=== PATIENT | female | born 1945 | race Caucasian/White ===

== ENCOUNTER → 2018-01-03 07:58 | Outpatient (CLI) | payer MEDICARE, OTHER, SELFPAY ==
[2018-01-03 08:14] LABS: Hematocrit 44.4 % (37-47); Hemoglobin 14.1 g/dl (12.0-15.0); Mean Corp Hgb Conc 31.8 g/gl (32-36); Mean Corpuscular Hgb 31.1 pg (27.0-32.0); Mean Corpuscular Volume 97.8 fL (81-99); Platelet Count 299 K/mm3 (150-450); RBC Distribution Width CV 13.7 % (11.6-14.6); RBC Distribution Width SD 48.9 fl (35.1-43.9); Red Blood Count 4.54 M/mm3 (4.2-5.4); White Blood Count 11.3 K/mm3 (4.4-11.0)
[2018-01-03 08:18] LABS: Scan Indicated on CBC? Y/N NO
[2018-01-03 08:27] LABS: Anion Gap 10 (5-15); BUN 16 mg/dL (7-18); BUN/Creat Ratio 16.3 RATIO (10-20); Calcium,Total 9.3 mg/dL (8.5-10.1); Chloride 102 mmol/L (98-107); Creatinine, Serum 0.98 mg/dL (0.55-1.02); EST Glomerular Filtration Rate 59 mL/min (>60); Est Glom Filt Rate - Afr Amer 71 mL/min (>60); Glucose 158 mg/dL (74-106); Potassium 4.1 mmol/L (3.5-5.1); Sodium Level 139 mmol/L (136-145)
--- NOTE | 2018-01-03 19:37 | PCM.TILTTABL ---
- Staff Staff: Wilma Devine, - - Lorena Zafar - Summary Pre Test Resting HR: 82 - Alert & Oriented: Warm & Dry Pre Test Resting BP: 158/69 - Alert & Oriented: Warm & Dry Minimum Test HR: 81 - Alert & Oriented: Warm & Dry Maximum Test HR: 99 - Alert & Oriented: Diaphoretic Minimum Test BP: 0/0 - Alert & Oriented: Diaphoretic Maximum Test BP: 154/67 - Alert & Oriented: Diaphoretic Reason for Test Termination: Reached Maximum Test Time Physician Tilt Table Report - Patient's Physicians Primary Care Physician: Yared Gan Chi Tactical Debriefer Officer: Kraig Long Indications/Diagnosis: Syncope Procedure Comments: The patient was brought to the tilt table laboratory and laid supine on the tilt table. The patient was alert and oriented and warm and dry. The baseline HR was 82 bpm and the baseline BP was 158/69 mmHg. The cardiac rhythm was sinus rhythm. The patient was placed in the 70 degree upright tilt table position for approximately 20 minutes. The patient remained alert and oriented and warm and dry. The minimum HR was 88 bpm with a minimum BP of 117/58 mmHg and the maximum HR was 95 bpm with a maximum BP of 145/67 mmHg. The cardiac rhythm remained sinus rhythm. The patient noted getting warm. The patient did not loose consciousness. The patient was returned to the supine position and administered NTG SL 0.4mg x 1. The patient returned to the 70 degree upright tilt table position for approximately 10 minutes. The patient was reported as remaining alert and oriented but diaphoretic. The minimum HR was 81 bpm and a minimum BP of unobtainable with a maximum HR of 99 bpm and a maximum BP of 154/67 mmHg. The cardiac rhythm remained sinus rhythm. The patient noted feeling warm, nauseated, but did not loose consciousness. The patient was returned to the supine position. The concluding HR was 81 bpm with a concluding BP of 114/58 mmHg. The cardiac rhythm remained sinus rhythm. The patient was without symptoms. The patient was released from the tilt table laboratory. Summary: 70 Degree upright tilt table study pre and post NTG SL challenge noted for symptomatology c/w a vasovagal event, however, negative for reproducible vasovagal / neurocardiogenic mediated syncope.
[2018-01-03 19:55] VITALS: BP 0/0; BP 154/67; BP 158/69
== END ==
PROVIDERS: Family Provider Family Medicine Geriatric Medicine; PCP Family Medicine Geriatric Medicine; Visit Provider Internal Medicine Cardiovascular Disease
DX: R55 Syncope and collapse (principal); I10 Essential (primary) hypertension; E78.5 Hyperlipidemia, unspecified; I49.1 Atrial premature depolarization
CPT/HCPCS: 36415; 80048; 85027; 93660; J7030; A4216

== ENCOUNTER → 2018-01-19 16:10 | Outpatient (CLI) | payer MEDICARE, OTHER, SELFPAY ==
[2018-01-19 17:05] LABS: Absolute Lymphocyte Count 3.68 X10^3/ul (0.83-4.51); Absolute Neutrophil Count 6.1 X10^3/uL (2.0-7.7); Basophil# 0.02 X10^3/uL; Basophil% 0.2 % (0-1); Eosinophil# 0.59 X10^3/uL; Eosinophils% 5.2 % (0-5); Hematocrit 42.9 % (37-47); Hemoglobin 13.6 g/dl (12.0-15.0); Lymphocyte # 3.68 X10^3/ul (4.0); Lymphocyte % 32.5 % (19-41); Mean Corp Hgb Conc 31.7 g/gl (32-36); Mean Corpuscular Hgb 30.7 pg (27.0-32.0); Mean Corpuscular Volume 96.8 fL (81-99); Mean Platelet Vol. 12.3 fl (6.2-12.0); Monocyte# 0.85 X10^3/uL; Monocyte% 7.5 % (0-10); Neutrophil # 6.13 X10^3/uL (2.7-7.7); Neutrophil % 54.2 % (47-70); Platelet Count 255 K/mm3 (150-450); RBC Distribution Width CV 13.6 % (11.6-14.6); Red Blood Count 4.43 M/mm3 (4.2-5.4); White Blood Count 11.3 K/mm3 (4.4-11.0)
[2018-01-19 17:10] LABS: POSITIVE COUNT NO; POSITIVE DIFFERENTIAL NO; POSITIVE MORPHOLOGY NO
[2018-01-19 18:06] LABS: ALB/GLOB Ratio 0.7 RATIO (0.9-2.4); AST(SGOT) 24 U/L (15-37); Alanine Aminotransfer ALT/SGPT 29 U/L (13-56); Albumin, Serum 3.1 g/dL (3.2-5.0); Alkaline Phosphatase 76 U/L (45-117); Anion Gap 8 (5-15); BUN 13 mg/dL (7-18); BUN/Creat Ratio 12.5 RATIO (10-20); Calcium,Total 8.9 mg/dL (8.5-10.1); Chloride 102 mmol/L (98-107); Creatinine, Serum 1.04 mg/dL (0.55-1.02); EST Glomerular Filtration Rate 55 mL/min (>60); Est Glom Filt Rate - Afr Amer 67 mL/min (>60); Globulin 4.4 g/dL (2.2-4.2); Glucose 185 mg/dL (74-106); Potassium 4.5 mmol/L (3.5-5.1); Protein, Total 7.5 g/dL (6.4-8.2); Sodium Level 136 mmol/L (136-145); Thyroid Stim Hormone (TSH) 0.75 uIU/mL (0.358-3.74); Uric Acid 6.2 mg/dL (2.6-6.0)
[2018-01-20 10:33] LABS: Vitamin D,25 Hydroxy 20.3 ng/mL (19.95-100.01)
== END ==
PROVIDERS: Family Provider Family Medicine Geriatric Medicine; PCP Family Medicine Geriatric Medicine; Visit Provider Family Medicine Geriatric Medicine
DX: E11.9 Type 2 diabetes mellitus without complications (principal); E55.9 Vitamin D deficiency, unspecified; I10 Essential (primary) hypertension; M10.9 Gout, unspecified
CPT/HCPCS: 36415; 80053; 82306; 84443; 84550; 85025

== ENCOUNTER → 2018-02-07 06:30 | Outpatient (CLI) | payer MEDICARE, OTHER, SELFPAY ==
--- NOTE | 2018-02-07 12:59 | STRESSREP_ITS ---
Stress Test Report Pharmacologic myocardial perfusion stress test. 72-year-old lady with a history of syncope. Stress protocol. Resting EKG demonstrates normal sinus rhythm with rate of 74 bpm normal intervals noted resting blood pressure is 122/78 mmHg. 0.4 mg of record adenosine was infused per usual protocol followed by rapid intravenous saline flush injection continuous EKG monitoring was performed. At rest were no ST or T-wave changes noted suggest abnormal flow reserve at peak infusion no ST or T- wave changes were noted suggest abnormal flow reserve. The maximum heart rate attained was 92 bpm which was 62% of maximum predicted heart rate. Maximum workload attained was 1 metabolic equivalent. Myocardial perfusion protocol. 14.6 mCi of technetium 99m sestamibi was injected at rest. 0.4 mg of regadenoson was infused per usual protocol peak infusion 44.3 mCi of technetium 99m sestamibi was injected. Stress images were obtained stress and rest images were reconstructed and compared in the short axis vertical long and horizontal long axis. Gated images were also obtained. Perfusion SPECT analysis: Review of the stress images demonstrate normal uptake of tracer noted in all areas of the myocardium. There is mild reduction in the anterior wall suggestive of anterior breast attenuation artifact. This is present on the stress and resting images to a similar extent. No obvious reversibility is noted suggest ischemia. No previous infarct is noted. Gated SPECT analysis: The gated ejection fraction is 67%. Conclusion: Normal pharmacologic myocardial perfusion stress test. Preserved ejection fraction.
== END ==
PROVIDERS: Family Provider Family Medicine Geriatric Medicine; PCP Family Medicine Geriatric Medicine; Visit Provider Nurse Practitioner Family
DX: R55 Syncope and collapse (principal); I10 Essential (primary) hypertension; I49.1 Atrial premature depolarization; I47.2 Ventricular tachycardia
CPT/HCPCS: 78452; 93017; A9500; A4216; J2785

== ENCOUNTER → 2018-04-04 10:33 | Outpatient (CLI) | payer MEDICARE, OTHER, SELFPAY ==
--- NOTE | 2018-04-04 10:34 | ECHOD_ITS ---
Reason For Study: PAROXYSMAL SUPRAVENTRICULAR TACHYCARDIA Procedure This was a 2D Doppler, Color Flow transthoracic echocardiogram. The exam was of poor technical quality due to body habitus. The study was technically difficult. Exam performed in department. Left Ventricle Normal LV size. Left ventricular systolic function is normal. The estimated ejection fraction is 65 %. Unable to assess diastolic dysfunction due to arrhythmia. No regional wall motion abnormalities noted. Right Ventricle Normal RV size. Normal systolic function. Atria Normal left atrium. Normal right atrium. No doppler evidence for ASD. Mitral Valve There is no mitral annular calcification. Normal mitral valve. Trivial mitral valve insufficiency. Tricuspid Valve Normal tricuspid valve. Trivial tricuspid valve insufficiency. Unable to estimate RV systolic pressure/pulmonary artery pressure due to technically difficult study. Aortic Valve The aortic valve is not well visualized. Pulmonic Valve The pulmonic valve is not well visualized. Great Vessels Normal sized aortic root. Pericardium/Pleural No pericardial effusion. Epicardial fat. MMode/2D Measurements & Calculations LVIDd: 3.9 cm IVSd: 1.4 cm Ao root diam: 3.0 cm LVIDs: 2.9 cm LVPWd: 1.1 cm RVDd: 2.9 cm FS: 27.5 % LAV(MOD-bp): 22.5 ml EDV(MOD-sp4): 50.8 ml EDV(MOD-sp2): 36.3 ml LAV(MOD-bp) Indexed: 11.4 ml/m2 ESV(MOD-sp4): 13.5 ml EF(MOD-sp2): 69.6 % LAV(MOD-sp2): 30.3 ml EF(MOD-sp4): 73.5 % LAV(MOD-sp4): 16.1 ml SV(MOD-sp4): 37.4 ml SV(MOD-sp2): 25.3 ml LA A4 area: 9.7 cm2 Time Measurements MV dec time: 0.35 sec Doppler Measurements & Calculations MV E max nelson: 55.4 cm/sec Lat Peak E' Nelson: 11.1 cm/sec Med Peak E' Nelson: 5.4 cm/sec MV A max nelson: 87.9 cm/sec E/E' lat: 5.0 E/E' med: 10.2 MV E/A: 0.63 Ao V2 max: 163.5 cm/sec LV V1 max: 79.1 cm/sec PA V2 max: 108.3 cm/sec Ao max P.7 mmHg LV V1 max P.5 mmHg Interpretation Summary The study was technically difficult. Left ventricular systolic function is normal. The estimated ejection fraction is 65 %. Trivial mitral valve insufficiency. Trivial tricuspid valve insufficiency. Unable to estimate RV systolic pressure/pulmonary artery pressure due to technically difficult study. Unable to assess diastolic dysfunction due to arrhythmia. Ordering Physician: Kraig Long Referring Physician: CHAPITO HERNANDEZ CHI Performed By: Dominga Corrales RDCS
== END ==
PROVIDERS: Family Provider Family Medicine Geriatric Medicine; PCP Family Medicine Geriatric Medicine; Visit Provider Internal Medicine Cardiovascular Disease
DX: I49.3 Ventricular premature depolarization (principal); I47.1 Supraventricular tachycardia
CPT/HCPCS: 93306

== ENCOUNTER → 2018-07-10 16:05 | Outpatient (CLI) | payer MEDICARE, OTHER, SELFPAY ==
[2018-07-10 17:41] LABS: Absolute Lymphocyte Count 2.93 X10^3/ul (0.83-4.51); Absolute Neutrophil Count 6.2 X10^3/uL (2.0-7.7); Basophil# 0.01 X10^3/uL; Basophil% 0.1 % (0-1); Eosinophil# 0.28 X10^3/uL; Eosinophils% 2.8 % (0-5); Hematocrit 42.1 % (37-47); Hemoglobin 13.4 g/dl (12.0-15.0); Lymphocyte # 2.93 X10^3/ul (4.0); Lymphocyte % 29.1 % (19-41); Mean Corp Hgb Conc 31.8 g/gl (32-36); Mean Corpuscular Hgb 30.6 pg (27.0-32.0); Mean Corpuscular Volume 96.1 fL (81-99); Mean Platelet Vol. 11.8 fl (6.2-12.0); Neutrophil # 6.23 X10^3/uL (2.7-7.7); Neutrophil % 61.7 % (47-70); Platelet Count 315 K/mm3 (150-450); RBC Distribution Width CV 14.2 % (11.6-14.6); RBC Distribution Width SD 48.2 fl (35.1-43.9); Red Blood Count 4.38 M/mm3 (4.2-5.4); White Blood Count 10.1 K/mm3 (4.4-11.0)
[2018-07-10 17:46] LABS: POSITIVE COUNT NO; POSITIVE DIFFERENTIAL NO; POSITIVE MORPHOLOGY NO
[2018-07-10 17:49] LABS: Vitamin D,25 Hydroxy 31.6 ng/mL (29.95-100.01)
[2018-07-10 17:57] LABS: ALB/GLOB Ratio 0.8 RATIO (0.9-2.4); AST(SGOT) 24 U/L (15-37); Alanine Aminotransfer ALT/SGPT 25 U/L (13-56); Albumin, Serum 3.5 g/dL (3.2-5.0); Alkaline Phosphatase 69 U/L (45-117); Anion Gap 8 (5-15); BUN 13 mg/dL (7-18); BUN/Creat Ratio 15.2 RATIO (10-20); Calcium,Total 9.2 mg/dL (8.5-10.1); Chloride 105 mmol/L (98-107); Creatinine, Serum 0.86 mg/dL (0.55-1.02); EST Glomerular Filtration Rate 69 mL/min (>60); Est Glom Filt Rate - Afr Amer 84 mL/min (>60); Globulin 4.2 g/dL (2.2-4.2); Glucose 141 mg/dL (74-106); Protein, Total 7.7 g/dL (6.4-8.2); Sodium Level 140 mmol/L (136-145); Thyroid Stim Hormone (TSH) 0.84 uIU/mL (0.358-3.74)
== END ==
PROVIDERS: Family Provider Family Medicine Geriatric Medicine; PCP Family Medicine Geriatric Medicine; Visit Provider Family Medicine Geriatric Medicine
DX: E11.9 Type 2 diabetes mellitus without complications (principal); I10 Essential (primary) hypertension; E55.9 Vitamin D deficiency, unspecified; M10.9 Gout, unspecified
CPT/HCPCS: 36415; 80053; 82306; 84443; 84550; 85025

== ENCOUNTER → 2018-08-01 14:57 | Outpatient (CLI) | payer MEDICARE, OTHER, SELFPAY | PROVIDERS: Family Provider Family Medicine Geriatric Medicine; PCP Family Medicine Geriatric Medicine; Visit Provider Family Medicine Geriatric Medicine | DX: M54.5 Low back pain (principal); M25.551 Pain in right hip; M25.552 Pain in left hip | CPT/HCPCS: 72100; 73521 ==

== ENCOUNTER → 2018-10-09 14:35 | Outpatient (CLI) | payer MEDICARE, OTHER, SELFPAY ==
[2018-10-09 17:11] LABS: Vitamin D,25 Hydroxy 22.7 ng/mL (29.95-100.01)
[2018-10-09 17:13] LABS: BUN 18 mg/dL (7-18); Creatinine, Serum 0.93 mg/dL (0.55-1.02); Glucose 166 mg/dL (74-106)
[2018-10-09 17:14] LABS: ALB/GLOB Ratio 0.8 RATIO (0.9-2.4); AST(SGOT) 17 U/L (15-37); Alanine Aminotransfer ALT/SGPT 31 U/L (13-56); Albumin, Serum 3.4 g/dL (3.2-5.0); Alkaline Phosphatase 78 U/L (45-117); Anion Gap 8 (5-15); BUN/Creat Ratio 19.4 RATIO (10-20); Calcium,Total 8.9 mg/dL (8.5-10.1); Chloride 100 mmol/L (98-107); EST Glomerular Filtration Rate 63 mL/min (>60); Est Glom Filt Rate - Afr Amer 76 mL/min (>60); Potassium 3.9 mmol/L (3.5-5.1); Protein, Total 7.4 g/dL (6.4-8.2); Sodium Level 137 mmol/L (136-145); Thyroid Stim Hormone (TSH) 1.07 uIU/mL (0.358-3.74); Uric Acid 6.4 mg/dL (2.6-6.0)
[2018-10-09 17:15] LABS: Absolute Lymphocyte Count 3.74 X10^3/ul (0.83-4.51); Absolute Neutrophil Count 7.6 X10^3/uL (2.0-7.7); Basophil# 0.01 X10^3/uL; Basophil% 0.1 % (0-1); Eosinophil# 0.29 X10^3/uL; Eosinophils% 2.3 % (0-5); Hematocrit 43.5 % (37-47); Hemoglobin 14.1 g/dl (12.0-15.0); Lymphocyte # 3.74 X10^3/ul (4.0); Mean Corp Hgb Conc 32.4 g/gl (32-36); Mean Corpuscular Hgb 31.7 pg (27.0-32.0); Mean Corpuscular Volume 97.8 fL (81-99); Monocyte# 0.82 X10^3/uL; Monocyte% 6.6 % (0-10); Neutrophil # 7.57 X10^3/uL (2.7-7.7); Neutrophil % 60.7 % (47-70); Platelet Count 294 K/mm3 (150-450); RBC Distribution Width CV 13.5 % (11.6-14.6); RBC Distribution Width SD 47.2 fl (35.1-43.9); Red Blood Count 4.45 M/mm3 (4.2-5.4); White Blood Count 12.5 K/mm3 (4.4-11.0)
[2018-10-09 17:30] LABS: POSITIVE COUNT NO; POSITIVE DIFFERENTIAL NO; POSITIVE MORPHOLOGY NO
== END ==
PROVIDERS: Family Provider Family Medicine Geriatric Medicine; PCP Family Medicine Geriatric Medicine; Visit Provider Family Medicine Geriatric Medicine
DX: E11.9 Type 2 diabetes mellitus without complications (principal); E55.9 Vitamin D deficiency, unspecified; M10.9 Gout, unspecified; I10 Essential (primary) hypertension
CPT/HCPCS: 36415; 80053; 82306; 84443; 84550; 85025

== ENCOUNTER → 2018-12-01 11:52 | Outpatient (CLI) | payer MEDICARE, OTHER, SELFPAY ==
[2018-08-14 13:11] VITALS: BMI 41.5
== END ==
PROVIDERS: Family Provider Family Medicine Geriatric Medicine; PCP Family Medicine Geriatric Medicine; Visit Provider Family Medicine Geriatric Medicine
DX: N39.0 Urinary tract infection, site not specified (principal)
CPT/HCPCS: 87077; 87086; 87088; 87186

== ENCOUNTER → 2019-02-01 11:41 | Outpatient (CLI) | payer MEDICARE, OTHER, SELFPAY ==
--- NOTE | 2019-02-01 11:45 | BI_ITS ---
MAMMOGRAPHY - BILATERAL SCREENING REASON FOR EXAM: Female, 73 years old. Routine annual screening examination. PERTINENT HISTORY: Aunt with breast cancer. TECHNIQUE: Digital bilateral breast nikunj (3D mammographic acquisition) in the CC and MLO projections. 2-D mediolateral oblique (MLO) and craniocaudad (CC) views of both breasts were obtained. CAD: Full Field Digital Mammography with Computer Added Detection was performed. COMPARISON: Comparison is made with prior study dated September 12, 2013 and September 09, 2011. FINDINGS: Breast Composition: There are scattered areas of fibroglandular density. There are no dominant masses or suspicious calcifications. No other significant abnormalities are identified. There has been no significant change since the prior study. BI/SCREENING MAMM (CAD), BILAT IMPRESSION: Stable bilateral screening mammogram. Yearly follow-up mammogram recommended. (A) ASSESSMENT CATEGORY: BIRADS Category 1: Negative. A letter regarding these results will be sent to the patient by the facility within 30 days. Approximately 10% of breast cancers are not detected by mammography. A normal mammogram should not delay biopsy of a clinically suspicious abnormality. [id number] Electronically Signed: Jaron Javier, at 13:58 EST , Service support ,
--- NOTE | 2019-02-01 12:06 | BD_ITS ---
STUDY: DUAL ENERGY X-RAY ABSORPTIOMETRY / DXA REASON FOR EXAM: Female, 73 years old. The patient is postmenopausal. Loss of height. TECHNIQUE: Bone Mineral Density (BMD) measurements of lumbar spine and bilateral hips were obtained. COMPARISON: Comparison is made with prior study dated December 21, 2016. FINDINGS: Lumbar Spine (L1-L4): g/cm2 (1.529) / T-score (3.0) / Z-score (4.7) Findings are suggestive of normal bone density with a low fracture risk. Left Femur Total: g/cm2 (1.130) / T-score (1.0) / Z-score (2.7) Left Femoral Neck: g/cm2 (0.991) / T-score (-0.3) / Z-score (1.6) Right Femur Total: g/cm2 (1.149) / T-score (1.1) / Z-score (2.8) Right Femoral Neck: g/cm2 (1.095) / T-score (0.4) / Z-score (2.3) The T-Scores on the most recent prior examination were: Lumbar Spine (L1-L4): There has been worsening of bone density since the previous examination. Left Femur Total: which represents a worsening of 6.5%. Right Femur Total: which represents a worsening of 4.2%. BD/Dexa Bone Density Study IMPRESSION: The patient is considered normal as outlined below according to World George Organization (WHO) criteria with a low fracture risk. There has been worsening of bone density since the previous examination. Reference Information: The T-score is the number of standard deviations above or below the standard which is normal for young adults at their peak bone mineral density. The World Health Organization (WHO) interprets the T-scores as follows: Above -1 Normal bone density Between -1 and -2.5 Osteopenia Equal to / or below -2.5 Osteoporosis As a practical clinical guideline, osteopenia may be graded as follows: Mild -1 through -1.5 Moderate -1.6 through -2.0 Severe -2.1 through -2.4 The Z-score is the number of standard deviations above or below age-matched controls. A Z-score of less than -1.5 would be considered abnormal. References: 1. NIH Osteoporosis and Related Bone Diseases http://www.osteo.org 2. International Society for Clinical Densitometry http://www.iscd.org 3. National Osteoporosis Foundation http://www.nof.org Electronically Signed: Jaron Javier, at 11:42 EST , Service support ,
== END ==
PROVIDERS: Family Provider Family Medicine Geriatric Medicine; PCP Family Medicine Geriatric Medicine; Visit Provider Family Medicine Geriatric Medicine
DX: Z12.31 Encounter for screening mammogram for malignant neoplasm of breast (principal); Z78.0 Asymptomatic menopausal state
CPT/HCPCS: 77063; 77067; 77080

== ENCOUNTER → 2019-04-17 13:19 | Outpatient (CLI) | payer MEDICARE, OTHER, SELFPAY ==
[2018-08-14 13:11] VITALS: BMI 41.5
[2019-04-17 14:07] LABS: Absolute Lymphocyte Count 4.04 X10^3/ul (0.83-4.51); Absolute Neutrophil Count 5.6 X10^3/uL (2.0-7.7); Basophil# 0.02 X10^3/uL; Basophil% 0.2 % (0-1); Eosinophils% 3.6 % (0-5); Hematocrit 44.9 % (37-47); Hemoglobin 14.5 g/dl (12.0-15.0); Lymphocyte # 4.04 X10^3/ul (4.0); Lymphocyte % 36.4 % (19-41); Mean Corp Hgb Conc 32.3 g/gl (32-36); Mean Corpuscular Hgb 30.4 pg (27.0-32.0); Mean Corpuscular Volume 94.1 fL (81-99); Mean Platelet Vol. 11.9 fl (6.2-12.0); Monocyte# 1.03 X10^3/uL; Monocyte% 9.3 % (0-10); Neutrophil # 5.57 X10^3/uL (2.7-7.7); Neutrophil % 50.2 % (47-70); Platelet Count 342 K/mm3 (150-450); RBC Distribution Width CV 14.1 % (11.6-14.6); RBC Distribution Width SD 48.6 fl (35.1-43.9); Red Blood Count 4.77 M/mm3 (4.2-5.4); White Blood Count 11.1 K/mm3 (4.4-11.0)
[2019-04-17 14:08] LABS: POSITIVE COUNT NO; POSITIVE DIFFERENTIAL NO; POSITIVE MORPHOLOGY NO
[2019-04-17 14:32] LABS: Vitamin D,25 Hydroxy 27.6 ng/mL (29.95-100.01)
[2019-04-17 14:35] LABS: ALB/GLOB Ratio 0.8 RATIO (0.9-2.4); AST(SGOT) 22 U/L (15-37); Alanine Aminotransfer ALT/SGPT 32 U/L (13-56); Albumin, Serum 3.4 g/dL (3.2-5.0); Alkaline Phosphatase 72 U/L (45-117); Anion Gap 8 (5-15); BUN 15 mg/dL (7-18); BUN/Creat Ratio 14.4 RATIO (10-20); Calcium,Total 9.1 mg/dL (8.5-10.1); Chloride 99 mmol/L (98-107); Creatinine, Serum 1.04 mg/dL (0.55-1.02); EST Glomerular Filtration Rate 55 mL/min (>60); Est Glom Filt Rate - Afr Amer 66 mL/min (>60); Globulin 4.1 g/dL (2.2-4.2); Glucose 246 mg/dL (74-106); Potassium 3.7 mmol/L (3.5-5.1); Protein, Total 7.5 g/dL (6.4-8.2); Sodium Level 136 mmol/L (136-145); Thyroid Stim Hormone (TSH) 0.94 uIU/mL (0.358-3.74); Uric Acid 7.2 mg/dL (2.6-6.0)
== END ==
PROVIDERS: Family Provider Family Medicine Geriatric Medicine; PCP Family Medicine Geriatric Medicine; Visit Provider Family Medicine Geriatric Medicine
DX: E11.9 Type 2 diabetes mellitus without complications (principal); E55.9 Vitamin D deficiency, unspecified; M10.9 Gout, unspecified; I10 Essential (primary) hypertension
CPT/HCPCS: 36415; 80053; 82306; 84443; 84550; 85025

== ENCOUNTER → 2019-04-25 | Outpatient (CLI) | payer MEDICARE, OTHER, SELFPAY ==
--- NOTE | 2019-04-25 12:57 | VDLE_ITS ---
Reason For Study: Edema RIGHT LEFT GSV is normal. GSV is normal. CFV is compressible, spontaneous, phasic, CFV is compressible, spontaneous, phasic, competent and demonstrates normal competent, and demonstrates normal augmentation. augmentation. FV is compressible, spontaneous, phasic, FV is compressible, spontaneous, phasic, competent and demonstrates normal competent and demonstrates normal augmentation. augmentation. POP V is compressible, spontaneous, phasic, POP V is compressible, spontaneous, phasic, competent and demonstrates normal competent and demonstrates normal augmentation. augmentation. T/P Trunk is compressible. T/P Trunk is compressible. PTV is compressible. PTV is compressible. RT PerV is compressible. LT PerV is compressible. Procedure Exam performed in department. A preliminary report was called and/or faxed to Dr. Gan. Interpretation Summary Deep veins of the lower extremities are bilaterally patent and compressible segmentally. There is no evidence of deep vein thrombosis on either side. Valvular competence appears intact within the proximal deep venous systems bilaterally. The greater saphenous veins appear bilaterally patent and compressible segmentally. Ordering Physician: Yared Gan Chi Referring Physician: Yared Gan Chi Performed By: Ofelia Jones, KAZ, RVT
--- NOTE | 2019-04-25 13:40 | CT_ITS ---
STUDY: CTA CHEST REASON FOR EXAM: Female, 74 years old. Shortness of breath. Elevated d-dimer. RADIATION DOSAGE (If Supplied By Facility): CTDIvol = ( 19.74 ) mGy, DLP = ( 685.03 ) mGycm TECHNIQUE: The examination was performed with the intravenous administration of 100CC IV Isovue 370. Post-processing of the angiographic images was performed, with multiplanar reformation and 3D reconstruction. Individualized dose optimization techniques were used for this CT. COMPARISON: None. FINDINGS: Normal enhancement of the main pulmonary artery and right and left pulmonary arteries. Normal enhancement of the bilateral peripheral pulmonary arteries. There is no demonstrated pulmonary embolism. Normal thoracic aorta and visualized great vessels. There is no demonstrated aortic dissection. Normal heart and pericardium. Normal mediastinum. Normal hilar regions. Normal visualized trachea and bronchi. The lungs are well expanded. Mild degree of increased markings at the lung bases suggestive of a atelectasis and/or scarring. Normal pleura. Normal chest wall structures. There are degenerative changes of thoracic spine. Fatty infiltration of the liver. CT/CTA Chest W/WO Contrast IMPRESSION: Normal CTA chest examination, without a demonstrated pulmonary embolism or arterial dissection. Electronically Signed: Jaron Javier, at 15:25 EDT , Service support ,
== END | disposition home or self-care (01) ==
LOC: CT 12:35
PROVIDERS: Family Provider Family Medicine Geriatric Medicine; PCP Family Medicine Geriatric Medicine; Referring Provider Family Medicine Geriatric Medicine; Visit Provider Family Medicine Geriatric Medicine
DX: R60.0 Localized edema (principal); R79.1 Abnormal coagulation profile; R06.02 Shortness of breath
CPT/HCPCS: 36415; 71275; 83880; 85379; 93970; Q9967

== ENCOUNTER → 2019-04-25 | Outpatient (CLI) | payer MEDICARE, OTHER, SELFPAY ==
[2018-08-14 13:11] VITALS: BMI 41.5
[2019-04-25 10:54] LABS: D-Dimer Quantitative (DVT/PE) 1.89 FEU/ug/m (0.27-0.49)
[2019-04-25 11:04] LABS: BNP,B-Type NATRIURETIC PEPTIDE 31.9 pg/mL (0-100)
== END | disposition home or self-care (01) ==
LOC: POLAB3 10:04
PROVIDERS: Family Provider Family Medicine Geriatric Medicine; PCP Family Medicine Geriatric Medicine; Visit Provider Family Medicine Geriatric Medicine
DX: R06.02 Shortness of breath (principal)
CPT/HCPCS: 36415; 83880; 85379

== ENCOUNTER → 2019-05-01 | Outpatient (CLI) | payer MEDICARE, OTHER, SELFPAY ==
[2018-08-14 13:11] VITALS: BMI 41.5
--- NOTE | 2019-05-01 09:21 | US_ITS ---
STUDY: ABDOMINAL ULTRASOUND - RIGHT UPPER QUADRANT REASON FOR VISIT: Female, 74 years old. Abdominal pain, fatty liver TECHNIQUE: Ultrasound evaluation of the right upper quadrant was performed with real-time and static alexander-scale imaging. TECHNICAL QUALITY: Limited. Examination limited due to obesity. COMPARISON: None. FINDINGS: Liver: The liver measures 15.4 cm. There is increased echogenicity consistent with fatty infiltration. The bile ducts are within normal limits. There is hepatic color flow. The direction of portal flow is hepatopetal. There is no demonstrated mass lesion. Gallbladder: The patient is status post cholecystectomy. Common Bile Duct (C.B.D.): The common bile duct measures 7.5 mm. Pancreas: Normal size of the head, body and tail of the pancreas. There is increased echogenicity of the pancreas. There is no demonstrated pancreatic mass or cyst. Right Kidney: Normal size of the right kidney. The right kidney measures 10 cm. Normal renal cortex. The right cortex measures 1.0 cm. There is no demonstrated renal mass or cyst. There is no right hydronephrosis. US/Abdomen Limited IMPRESSION: Status post cholecystectomy. Mild fatty liver. Nonspecific increased echogenicity of the pancreas. Electronically Signed: Chadwick Steele DO at 9:29 EDT Tel , Service support ,
== END | disposition home or self-care (01) ==
LOC: US 09:18
PROVIDERS: Family Provider Family Medicine Geriatric Medicine; PCP Family Medicine Geriatric Medicine; Referring Provider Family Medicine Geriatric Medicine; Visit Provider Family Medicine Geriatric Medicine
DX: R10.9 Unspecified abdominal pain (principal)
CPT/HCPCS: 76705

== ENCOUNTER → 2019-07-09 14:21 | Outpatient (CLI) | payer MEDICARE, OTHER, SELFPAY ==
[2019-07-09 13:34] VITALS: BMI 40.4
[2019-07-09 16:40] LABS: BNP,B-Type NATRIURETIC PEPTIDE 10.4 pg/mL (0-100)
== END ==
PROVIDERS: Family Provider Family Medicine Geriatric Medicine; PCP Family Medicine Geriatric Medicine; Referring Provider Physician Assistant Medical; Visit Provider Physician Assistant Medical
DX: E78.5 Hyperlipidemia, unspecified (principal); I10 Essential (primary) hypertension; R60.9 Edema, unspecified; R06.00 Dyspnea, unspecified
CPT/HCPCS: 36415; 83880

== ENCOUNTER → 2019-10-11 | Outpatient (CLI) | payer MEDICARE, OTHER, SELFPAY ==
[2019-07-09 13:34] VITALS: BMI 40.4
[2019-10-11 12:37] LABS: Vitamin D,25 Hydroxy 27.8 ng/mL (29.95-100.01)
[2019-10-11 12:41] LABS: Absolute Lymphocyte Count 3.24 X10^3/uL (0.83-4.51); Absolute Neutrophil Count 5.6 X10^3/uL (2.0-7.7); Basophil# 0.05 X10^3/uL; Basophil% 0.5 % (0-1); Hematocrit 44.9 % (37-47); Hemoglobin 13.6 g/dL (12.0-15.0); Lymphocyte # 3.24 X10^3/ul (4.0); Lymphocyte % 32.8 % (19-41); Mean Corp Hgb Conc 30.3 g/dL (32-36); Mean Corpuscular Hgb 30.3 pg (27.0-32.0); Monocyte# 0.71 X10^3/uL; Monocyte% 7.2 % (0-10); NRBC Flagged by Analyzer 0 % (0-5); Neutrophil # 5.63 X10^3/uL (2.7-7.7); Platelet Count 246 K/mm3 (150-450); RBC Distribution Width CV 13.4 % (11.6-14.6); RBC Distribution Width SD 49.5 fl (35.1-43.9); Red Blood Count 4.49 M/mm3 (4.2-5.4); White Blood Count 9.9 K/mm3 (4.4-11.0)
[2019-10-11 12:43] LABS: ALB/GLOB Ratio 0.8 RATIO (0.9-2.4); AST(SGOT) 18 U/L (15-37); Alanine Aminotransfer ALT/SGPT 24 U/L (13-56); Albumin, Serum 3.2 g/dL (3.2-5.0); Alkaline Phosphatase 77 U/L (45-117); Anion Gap 9 (5-15); BUN 13 mg/dL (7-18); BUN/Creat Ratio 14.2 RATIO (10-20); Calcium,Total 9.2 mg/dL (8.5-10.1); Chloride 102 mmol/L (98-107); Creatinine, Serum 0.92 mg/dL (0.55-1.02); EST Glomerular Filtration Rate 63 mL/min (>60); Est Glom Filt Rate - Afr Amer 77 mL/min (>60); Globulin 3.9 g/dL (2.2-4.2); Glucose 257 mg/dL (74-106); Potassium 3.9 mmol/L (3.5-5.1); Protein, Total 7.1 g/dL (6.4-8.2); Sodium Level 137 mmol/L (136-145); Thyroid Stim Hormone (TSH) 0.93 uIU/mL (0.358-3.74); Uric Acid 4.9 mg/dL (2.6-6.0)
== END | disposition home or self-care (01) ==
LOC: POLAB3 11:14
PROVIDERS: Family Provider Family Medicine Geriatric Medicine; PCP Family Medicine Geriatric Medicine; Visit Provider Family Medicine Geriatric Medicine
DX: E11.9 Type 2 diabetes mellitus without complications (principal); E55.9 Vitamin D deficiency, unspecified; I10 Essential (primary) hypertension; M10.9 Gout, unspecified
CPT/HCPCS: 36415; 80053; 82306; 84443; 84550; 85025

== ENCOUNTER → 2019-10-12 | Outpatient (CLI) | payer MEDICARE, OTHER, SELFPAY ==
[2019-07-09 13:34] VITALS: BMI 40.4
--- NOTE | 2019-10-12 13:46 | ECHOCS_ITS ---
Reason For Study: DYSPNEA Procedure This was a 2D Doppler, Color Flow transthoracic echocardiogram. The study was technically difficult. Contrast injection was performed. Exam performed in department. Left Ventricle Normal LV size. Based upon the 2D echocardiographic and contrast images obtained there appears to be grossly normal left ventricular size, wall motion, and systolic function. The estimated ejection fraction is 65 %. No evidence for diastolic dysfunction. No regional wall motion abnormalities noted. Right Ventricle Based upon the 2D echocardiographic images obtained there appears to be grossly normal right ventricular size and systolic function. Atria Normal left atrium. Normal right atrium. No doppler evidence for ASD. Mitral Valve There is no mitral annular calcification. Normal mitral valve. Trivial mitral valve insufficiency. Tricuspid Valve Normal tricuspid valve. Trivial tricuspid valve insufficiency. Right ventricular systolic pressure estimated to be 26 mmHg. Aortic Valve The aortic valve is not well visualized. Mild focal aortic valve calcification. Pulmonic Valve The pulmonic valve is not well visualized. Trivial pulmonic valve insufficiency. Great Vessels Normal sized aortic root. Pericardium/Pleural No pericardial effusion. Epicardial fat. Medication 22 gauge I.V. with prn adaptor inserted into left arm. Diluted definity 4.0ml given slow IV push to enhance endocardial definition. MMode/2D Measurements & Calculations LVIDd: 5.0 cm IVSd: 1.1 cm Ao root diam: 3.3 cm LVIDs: 3.5 cm LVPWd: 1.1 cm RVDd: 3.8 cm FS: 28.8 % LAV(MOD-bp): 36.1 ml LA A4 area: 14.8 cm2 LA dimension(2D): 4.3 cm LAV(MOD-bp) Indexed: 18.1 ml/m2 LAV(MOD-sp2): 42.9 ml LAV(MOD-sp4): 30.5 ml RA A4 area: 13.1 cm2 Time Measurements MV dec time: 0.32 sec Doppler Measurements & Calculations MV E max nelson: 57.4 cm/sec Lat Peak E' Nelson: 6.3 cm/sec Med Peak E' Nelson: 4.8 cm/sec MV A max nelson: 88.0 cm/sec E/E' lat: 9.1 E/E' med: 12.0 MV E/A: 0.65 Ao V2 max: 155.0 cm/sec LV V1 max: 83.4 cm/sec TR max nelson: 238.4 cm/sec Ao max P.6 mmHg LV V1 max P.8 mmHg TR max P.7 mmHg Interpretation Summary The study was technically difficult. Contrast injection was performed. Based upon the 2D echocardiographic and contrast images obtained there appears to be grossly normal left ventricular size, wall motion, and systolic function. The estimated ejection fraction is 65 %. Trivial mitral valve insufficiency. Trivial tricuspid valve insufficiency. Mild focal aortic valve calcification. Trivial pulmonic valve insufficiency. Epicardial fat. Right ventricular systolic pressure estimated to be 26 mmHg. No evidence for diastolic dysfunction. Ordering Physician: Dayana Aburto/Kraig Long Referring Physician: CHAPITO HERNANDEZ CHI Performed By: Gabriela Damon, KAZ, RVT
== END | disposition home or self-care (01) ==
LOC: CVS 13:45
PROVIDERS: Family Provider Family Medicine Geriatric Medicine; PCP Family Medicine Geriatric Medicine; Referring Provider Physician Assistant Medical; Visit Provider Physician Assistant Medical
DX: R06.00 Dyspnea, unspecified (principal); R06.02 Shortness of breath; R60.9 Edema, unspecified; I10 Essential (primary) hypertension; E78.5 Hyperlipidemia, unspecified
CPT/HCPCS: 93306; Q9957; A4216; C8929

== ENCOUNTER → 2019-12-12 17:09 | Outpatient (CLI) | payer MEDICARE, OTHER, SELFPAY ==
[2019-12-12 15:02] VITALS: BMI 40.3
--- NOTE | 2019-12-12 17:16 | RAD_ITS ---
STUDY: X-RAY - CERVICAL SPINE REASON FOR EXAM: Female, 74 years old. NECK AND BACK PAIN. NO KNOWN INJURY. TECHNIQUE: 4 view(s) of the cervical spine were obtained. COMPARISON: None FINDINGS: Normal anterior atlantoaxial articulation. Normal odontoid process. Normal cervical lordosis. Degenerative changes vertebral bodies with mild spurring at the endplates. Normal disc space heights. The soft tissue structures are unremarkable. RAD/Cerv Spine 2 or 3 Views IMPRESSION: Mild degenerative changes of the cervical spine. Electronically Signed: Ruddy Taylor DO at 22:11 EST Tel [phone], Service support ,
--- NOTE | 2019-12-12 17:17 | RAD_ITS ---
STUDY: X-RAY - THORACIC SPINE REASON FOR EXAM: Female, 74 years old. NECK AND BACK PAIN. NO KNOWN INJURY. TECHNIQUE: 3 view(s) of the thoracic spine were obtained. COMPARISON: None. FINDINGS: Normal kyphosis of the thoracic spine. There is no substantial scoliosis. Mild degenerative changes of the thoracic vertebrae with spurring at the endplates. Normal disc space heights. The soft tissue structures are unremarkable. RAD/Thoracic Spine 3 Views IMPRESSION: Degenerative changes of the thoracic spine. Electronically Signed: Ruddy Taylor DO at 22:45 EST Tel [phone], Service support ,
== END ==
PROVIDERS: Family Provider Family Medicine Geriatric Medicine; PCP Family Medicine Geriatric Medicine; Referring Provider Family Medicine Geriatric Medicine; Visit Provider Family Medicine Geriatric Medicine
DX: M54.2 Cervicalgia (principal); M54.6 Pain in thoracic spine
CPT/HCPCS: 72040; 72072

== ENCOUNTER → 2020-01-17 | Outpatient (CLI) | payer MEDICARE, OTHER, SELFPAY ==
[2019-12-12 15:02] VITALS: BMI 40.3
[2020-01-17 17:20] LABS: Absolute Lymphocyte Count 3.27 X10^3/uL (0.83-4.51); Absolute Neutrophil Count 8.5 X10^3/uL (2.0-7.7); Basophil# 0.02 X10^3/uL; Basophil% 0.2 % (0-1); Eosinophil# 0.24 X10^3/uL; Eosinophils% 1.8 % (0-5); Hematocrit 45.8 % (37-47); Hemoglobin 14.3 g/dL (12.0-15.0); Lymphocyte # 3.27 X10^3/ul (4.0); Lymphocyte % 25.2 % (19-41); Mean Corp Hgb Conc 31.2 g/dL (32-36); Mean Corpuscular Hgb 29.7 pg (27.0-32.0); Mean Corpuscular Volume 95.2 fL (81-99); Mean Platelet Vol. 11.7 fl (6.2-12.0); Monocyte# 0.87 X10^3/uL; Monocyte% 6.7 % (0-10); NRBC Flagged by Analyzer 0 % (0-5); Neutrophil # 8.54 X10^3/uL (2.7-7.7); Neutrophil % 65.7 % (47-70); Platelet Count 316 K/mm3 (150-450); RBC Distribution Width CV 14.1 % (11.6-14.6); RBC Distribution Width SD 49.5 fl (35.1-43.9); Red Blood Count 4.81 M/mm3 (4.2-5.4)
[2020-01-17 17:44] LABS: ALB/GLOB Ratio 0.7 RATIO (0.9-2.4); AST(SGOT) 22 U/L (15-37); Alanine Aminotransfer ALT/SGPT 35 U/L (13-56); Albumin, Serum 3.2 g/dL (3.2-5.0); Alkaline Phosphatase 79 U/L (45-117); Anion Gap 9 (5-15); BUN 15 mg/dL (7-18); BUN/Creat Ratio 14.7 RATIO (10-20); Calcium,Total 9.3 mg/dL (8.5-10.1); Chloride 103 mmol/L (98-107); Creatinine, Serum 1.02 mg/dL (0.55-1.02); EST Glomerular Filtration Rate 56 mL/min (>60); Est Glom Filt Rate - Afr Amer 68 mL/min (>60); Globulin 4.5 g/dL (2.2-4.2); Glucose 158 mg/dL (74-106); Protein, Total 7.7 g/dL (6.4-8.2); Sodium Level 138 mmol/L (136-145); Uric Acid 4.9 mg/dL (2.6-6.0)
[2020-01-22 11:20] LABS: Vitamin D,25 Hydroxy 26.8 ng/mL
== END | disposition home or self-care (01) ==
LOC: POLAB3 14:34
PROVIDERS: PCP Family Medicine Geriatric Medicine; Visit Provider Family Medicine Geriatric Medicine
DX: E11.9 Type 2 diabetes mellitus without complications (principal); E55.9 Vitamin D deficiency, unspecified; I10 Essential (primary) hypertension; M10.9 Gout, unspecified
CPT/HCPCS: 36415; 80053; 82306; 84443; 84550; 85025

== ENCOUNTER → 2020-04-11 | Outpatient (CLI) | payer MEDICARE, OTHER, SELFPAY ==
[2019-12-12 15:02] VITALS: BMI 40.3
--- NOTE | 2020-04-11 10:21 | MRI_ITS ---
STUDY: MRI LUMBAR SPINE WITHOUT CONTRAST REASON FOR EXAM: Female, 75 years old. Low back pain, radiculopathy to both legs x 10 years, NKI TECHNIQUE: Standardized fat and water weighted pulse sequences were obtained in the sagittal and axial planes. COMPARISON: X-ray dated August 01, 2018 FINDINGS: Lumbar lordosis preserved. No significant scoliosis. Conus medullaris terminates normally at the L2 level. No acute fracture. No acute dislocation. No acute bone destruction. Paraspinal muscle atrophy. Sacrum intact. Normal aorta. Normal retroperitoneum. Last intervertebral disc will be labeled S1-2 for the purposes of this examination (transitional lumbosacral anatomy). T12-L1: Normal endplates. Normal disc height, hydration and morphology. Normal bilateral facet joints. Normal central canal and bilateral lateral recesses. Normal bilateral intervertebral neural foramina. L1-2: Normal endplates. Normal disc height, hydration and morphology. Normal bilateral facet joints. Normal central canal and bilateral lateral recesses. Normal bilateral intervertebral neural foramina. L2-3: Normal endplates. Minimal disc desiccation. Normal bilateral facet joints. Normal central canal and bilateral lateral recesses. Normal bilateral intervertebral neural foramina. L3-4: Minimal endplate spondylosis. Shallow disc bulge. Facet joint arthrosis with left anterior synovial cyst formation measuring 8 mm x 7 mm (axial image 17 series 8). Mild/moderate central canal narrowing. Mild left lateral recess narrowing without impingement. Normal bilateral intervertebral neural foramina. L4-5: Minimal endplate spondylosis. Shallow disc bulge. Facet joint arthrosis. Normal central canal and bilateral lateral recesses. Normal bilateral intervertebral neural foramina. L5-S1: Minimal endplate spondylosis. Disc desiccation. Facet joint arthrosis. Normal central canal and bilateral lateral recesses. Normal bilateral intervertebral neural foramina. S1-2: Minimal endplate spondylosis. Rudimentary disc. Facet joint arthrosis. Normal central canal and bilateral lateral recesses. 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
== END | disposition home or self-care (01) ==
LOC: MRI 10:07
PROVIDERS: PCP Family Medicine Geriatric Medicine; Referring Provider Orthopaedic Surgery Orthopaedic Surgery of the Spine; Visit Provider Orthopaedic Surgery Orthopaedic Surgery of the Spine
DX: M43.16 Spondylolisthesis, lumbar region (principal); M54.16 Radiculopathy, lumbar region; Q76.49 Other congenital malformations of spine, not associated with scoliosis
CPT/HCPCS: 72148

== ENCOUNTER → 2020-04-16 14:56 | Outpatient (CLI) | payer MEDICARE, OTHER, SELFPAY ==
[2019-12-12 15:02] VITALS: BMI 40.3
[2020-04-16 16:16] LABS: Absolute Lymphocyte Count 2.82 X10^3/uL (0.83-4.51); Absolute Neutrophil Count 6.6 X10^3/uL (2.0-7.7); Basophil# 0.02 X10^3/uL; Basophil% 0.2 % (0-1); Eosinophils% 2.9 % (0-5); Hemoglobin 13.8 g/dL (12.0-15.0); Lymphocyte # 2.82 X10^3/ul (4.0); Lymphocyte % 26.9 % (19-41); Mean Corp Hgb Conc 30.7 g/dL (32-36); Mean Corpuscular Hgb 30.2 pg (27.0-32.0); Mean Corpuscular Volume 98.5 fL (81-99); Mean Platelet Vol. 12.4 fl (6.2-12.0); Monocyte# 0.73 X10^3/uL; NRBC Flagged by Analyzer 0 % (0-5); Neutrophil # 6.57 X10^3/uL (2.7-7.7); Neutrophil % 62.6 % (47-70); Platelet Count 248 K/mm3 (150-450); RBC Distribution Width CV 13.5 % (11.6-14.6); RBC Distribution Width SD 48.5 fl (35.1-43.9); Red Blood Count 4.57 M/mm3 (4.2-5.4); White Blood Count 10.5 K/mm3 (4.4-11.0)
[2020-04-16 16:32] LABS: Vitamin D,25 Hydroxy 25.9 ng/mL
[2020-04-16 16:45] LABS: ALB/GLOB Ratio 0.7 RATIO (0.9-2.4); AST(SGOT) 22 U/L (15-37); Alanine Aminotransfer ALT/SGPT 25 U/L (13-56); Albumin, Serum 3.1 g/dL (3.2-5.0); Alkaline Phosphatase 60 U/L (45-117); Anion Gap 7 (5-15); BUN 16 mg/dL (7-18); BUN/Creat Ratio 17.2 RATIO (10-20); Calcium,Total 9.1 mg/dL (8.5-10.1); Chloride 103 mmol/L (98-107); Creatinine, Serum 0.93 mg/dL (0.55-1.02); EST Glomerular Filtration Rate 62 mL/min (>60); Est Glom Filt Rate - Afr Amer 76 mL/min (>60); Globulin 4.2 g/dL (2.2-4.2); Glucose 156 mg/dL (74-106); Potassium 4.4 mmol/L (3.5-5.1); Protein, Total 7.3 g/dL (6.4-8.2); Sodium Level 137 mmol/L (136-145); Thyroid Stim Hormone (TSH) 1.07 uIU/mL (0.358-3.74); Uric Acid 3.6 mg/dL (2.6-6.0)
== END ==
PROVIDERS: PCP Family Medicine Geriatric Medicine; Visit Provider Family Medicine Geriatric Medicine
DX: E11.9 Type 2 diabetes mellitus without complications (principal); E55.9 Vitamin D deficiency, unspecified; I10 Essential (primary) hypertension; M10.9 Gout, unspecified
CPT/HCPCS: 36415; 80053; 82306; 84443; 84550; 85025

== ENCOUNTER → 2020-05-05 15:20 | Outpatient (CLI) | payer MEDICARE, OTHER, SELFPAY ==
[2019-12-12 15:02] VITALS: BMI 40.3
[2020-05-05 17:12] LABS: Absolute Lymphocyte Count 2.75 X10^3/uL (0.83-4.51); Absolute Neutrophil Count 6.3 X10^3/uL (2.0-7.7); Basophil# 0.02 X10^3/uL; Basophil% 0.2 % (0-1); Eosinophil# 0.03 X10^3/uL; Eosinophils% 0.3 % (0-5); Hematocrit 43.1 % (37-47); Hemoglobin 13.4 g/dL (12.0-15.0); Lymphocyte # 2.75 X10^3/ul (4.0); Lymphocyte % 27.6 % (19-41); Mean Corp Hgb Conc 31.1 g/dL (32-36); Mean Corpuscular Hgb 30.4 pg (27.0-32.0); Mean Corpuscular Volume 97.7 fL (81-99); Monocyte# 0.83 X10^3/uL; Monocyte% 8.3 % (0-10); NRBC Flagged by Analyzer 0 % (0-5); Neutrophil # 6.29 X10^3/uL (2.7-7.7); Neutrophil % 63.3 % (47-70); Platelet Count 288 K/mm3 (150-450); RBC Distribution Width CV 13.4 % (11.6-14.6); RBC Distribution Width SD 48.3 fl (35.1-43.9); Red Blood Count 4.41 M/mm3 (4.2-5.4)
[2020-05-05 17:30] LABS: Anion Gap 8 (5-15); BUN 15 mg/dL (7-18); BUN/Creat Ratio 15.5 RATIO (10-20); Calcium,Total 9.4 mg/dL (8.5-10.1); Chloride 100 mmol/L (98-107); Creatinine, Serum 0.96 mg/dL (0.55-1.02); EST Glomerular Filtration Rate 60 mL/min (>60); Est Glom Filt Rate - Afr Amer 72 mL/min (>60); Glucose 155 mg/dL (74-106); Potassium 4.9 mmol/L (3.5-5.1); Sodium Level 135 mmol/L (136-145)
== END ==
PROVIDERS: PCP Family Medicine Geriatric Medicine; Visit Provider Family Medicine Geriatric Medicine
DX: Z01.818 Encounter for other preprocedural examination (principal)
CPT/HCPCS: 36415; 80048; 85025

== ENCOUNTER 2020-05-19 14:07 | Inpatient (IN) | payer MEDICARE, OTHER, SELFPAY ==
[2019-12-12 15:02] VITALS: BMI 40.3
[2020-05-19 14:24] VITALS: BP 140/71; PULSE 74; RESP 16; TEMP 36.6; O2SAT 95; BMI 41.7
[2020-05-19 15:19] VITALS: BMI 41.8
[2020-05-19] MEDS: metFORMIN HCl 1,000 MG Tablet 1000 MG PO (16:33)
[2020-05-19] MEDS: Glimepiride 4 MG Tablet PO (16:33)
[2020-05-19] MEDS: oxyCODONE 5 MG Tablet PO (16:33)
[2020-05-19 16:55] LABS: Bedside Glucose 131 mg/dL (70-110)
[2020-05-19 19:35] VITALS: BP 148/71; PULSE 81; RESP 18; TEMP 36.9; O2SAT 99
[2020-05-19 21:45] VITALS: BP 148/71; PULSE 81
[2020-05-19] MEDS: Atorvastatin Calcium 40 MG Tablet PO (21:45)
[2020-05-19] MEDS: Metoprolol Tartrate 25 MG Tablet PO (21:45)
[2020-05-19] MEDS: Acetaminophen 500 MG Tablet 1000 MG PO (21:46)
[2020-05-19] MEDS: Senna/Docusate Sodium 1 Tablet 2 TABLET PO (21:47)
[2020-05-19] MEDS: Nystatin Powder 15gm Bottle 1 APPLIC TOPICAL (21:47)
[2020-05-19] MEDS: MELATONIN 10 MG TABLET 5 MG PO (21:56)
[2020-05-19 22:00] VITALS: PULSE 81; RESP 18; O2SAT 99
[2020-05-19 22:16] LABS: Bedside Glucose 156 mg/dL (70-110)
--- NOTE | 2020-05-20 01:57 | NURSING ---
pt had questioned staff about bleeding O2 in with her cpap. staff found no adapter to connect O2 to her cpap. this was at 2200 0140 pt had been resting quietly with no distress noted on hourly rounds. staff checking through pt orders to see if O2 was to be bleed through her cpap. pt SPo2 checked and and was noted to fluctuate from 74% to 95% respiratory called and brought an adapter for the pt cpap and to check setting on her machine. 0215 respiratory fitted the adapter to pt face mask and currently O2 at 2l is being bleed in. staff will recheck SPO2.
--- NOTE | 2020-05-20 03:27 | NURSING ---
Spo2 rechecked and pt was 97% with her c-pap on with 2l of O2 bled in, rn aware
--- NOTE | 2020-05-20 03:41 | NURSING ---
Reviewed and agree with EMERGENCY MANAGER documentation and charting.
--- NOTE | 2020-05-20 04:30 | NURSING ---
Blood Sugar check d/t pt c/o feeling sweaty and possible blood sugar drop. BS = 65. Regular soda provided. Pt states she is feeling more normal. 2nd BS = 98.
[2020-05-20 04:41] LABS: Bedside Glucose 98 mg/dL (70-110)
[2020-05-20 04:41] LABS: Bedside Glucose 65 mg/dL (70-110)
[2020-05-20] MEDS: Acetaminophen 500 MG Tablet 1000 MG PO ×3 (04:53→21:45)
[2020-05-20 05:38] LABS: Absolute Lymphocyte Count 1.91 X10^3/uL (0.83-4.51); Absolute Neutrophil Count 7.5 X10^3/uL (2.0-7.7); Basophil# 0.02 X10^3/uL; Basophil% 0.2 % (0-1); Eosinophil# 0.23 X10^3/uL; Eosinophils% 2.1 % (0-5); Hematocrit 33.3 % (37-47); Hemoglobin 10.7 g/dL (12.0-15.0); Lymphocyte # 1.91 X10^3/ul (4.0); Lymphocyte % 17.3 % (19-41); Mean Corp Hgb Conc 32.1 g/dL (32-36); Mean Corpuscular Hgb 30.7 pg (27.0-32.0); Mean Corpuscular Volume 95.7 fL (81-99); Mean Platelet Vol. 10.8 fl (6.2-12.0); Monocyte# 1.24 X10^3/uL; Monocyte% 11.3 % (0-10); NRBC Flagged by Analyzer 0 % (0-5); Neutrophil # 7.52 X10^3/uL (2.7-7.7); Neutrophil % 68.3 % (47-70); Platelet Count 302 K/mm3 (150-450); RBC Distribution Width CV 13.6 % (11.6-14.6); RBC Distribution Width SD 46.6 fl (35.1-43.9); Red Blood Count 3.48 M/mm3 (4.2-5.4)
[2020-05-20 06:06] LABS: ALB/GLOB Ratio 0.5 RATIO (0.9-2.4); AST(SGOT) 24 U/L (15-37); Alanine Aminotransfer ALT/SGPT 15 U/L (13-56); Albumin, Serum 2.1 g/dL (3.2-5.0); Alkaline Phosphatase 54 U/L (45-117); Anion Gap 7 (5-15); BUN 15 mg/dL (7-18); BUN/Creat Ratio 20.8 RATIO (10-20); Calcium,Total 8.9 mg/dL (8.5-10.1); Chloride 93 mmol/L (98-107); Creatinine, Serum 0.72 mg/dL (0.55-1.02); EST Glomerular Filtration Rate 83 mL/min (>60); Est Glom Filt Rate - Afr Amer 101 mL/min (>60); Estimated Creatinine Clearance 36.12 ml/min; Globulin 4.3 g/dL (2.2-4.2); Glucose 118 mg/dL (74-106); Magnesium 1.5 mg/dL (1.6-2.6); Phosphorus 3.8 mg/dL (2.5-4.9); Potassium 3.3 mmol/L (3.5-5.1); Protein, Total 6.4 g/dL (6.4-8.2); Sodium Level 132 mmol/L (136-145)
[2020-05-20 06:35] LABS: Bedside Glucose 118 mg/dL (70-110)
[2020-05-20 07:48] LABS: Hemoglobin A1c 7.4 % (3.8-5.6)
[2020-05-20] MEDS: Aspirin E.C. 81 MG Tablet PO (08:13)
[2020-05-20] MEDS: Pioglitazone Hydrochloride 30 MG Tablet PO (08:13)
[2020-05-20 08:14] VITALS: PULSE 69
[2020-05-20] MEDS: Lisinopril 2.5 MG Tablet PO (08:14)
[2020-05-20] MEDS: Allopurinol 300 MG Tablet PO (08:14)
[2020-05-20] MEDS: Citalopram 20 MG Tablet PO (08:14)
[2020-05-20] MEDS: Metoprolol Tartrate 25 MG Tablet PO ×2 (08:14→21:46)
[2020-05-20] MEDS: Glimepiride 4 MG Tablet PO (08:16)
[2020-05-20] MEDS: Tolterodine Tartrate 2 MG CAP.SA PO (08:17)
[2020-05-20] MEDS: metFORMIN HCl 1,000 MG Tablet 1000 MG PO (08:17)
[2020-05-20] MEDS: Nystatin Powder 15gm Bottle 1 APPLIC TOPICAL ×2 (08:18→21:47)
[2020-05-20 10:00] VITALS: BP 109/58; PULSE 69; RESP 17; TEMP 36.6; O2SAT 97
--- NOTE | 2020-05-20 10:14 | PCM.HP.STD ---
Problem List (1) Debility Status: Acute Comment: due to spinal stenosis at L2-3 from a synovial cyst and spondylolithesis at L3-4. She is S/P Lumbar laminectomy and fusion L2-4 on 05/13/20 (2) Essential hypertension Status: Chronic (3) Segmental and somatic dysfunction of lumbar region Status: Chronic (4) Segmental and somatic dysfunction of thoracic region Status: Chronic (5) Segmental and somatic dysfunction of sacral region Status: Chronic (6) DDD (degenerative disc disease), lumbar Status: Chronic (7) Premature atrial contractions Status: Chronic (8) Hyperlipidemia Status: Chronic Qualifiers: (9) Morbid obesity Status: Chronic (10) ZAINAB (obstructive sleep apnea) Status: Chronic (11) Hypokalemia Status: Acute (12) Hyponatremia Status: Acute (13) Hypomagnesemia Status: Acute (14) Diabetes mellitus Status: Chronic Qualifiers: Diabetes mellitus type: type 2 (15) Gout Status: Chronic (16) PVCs (premature ventricular contractions) Status: Chronic (17) MEJIA (nonalcoholic steatohepatitis) Status: Chronic Comment: how this diagnosis was made.....it was in a H&P from [employer] (18) Depression Status: Chronic (19) Tobacco dependence in remission Status: Chronic (20) Neuropathy, lumbosacral (radicular) Status: Chronic (21) Low back pain Status: Chronic (22) Sacral foraminal stenosis Status: Chronic Comment: AT L5-S1, BL with sacralization of L5 (23) Synovial cyst of lumbar spine Status: Chronic Comment: AT L2-3 WITH STENOSIS (24) Pulmonary nodules Status: Chronic Comment: R middle lobe (1 6mm and 1 4 mm on CTA of the chest on 05/17/20) and R lower lobe - 1 4 mm nodule. These were not reported on a CTA of the chest at [facility] in March of 2019 but, she tells me that she has been told she had nodules in the past and they were a result of the type of work she was doing. They were followed for a period of time with no change so follow up was discontinued (25) RBBB Status: Chronic (26) Colon polyp Status: Chronic Comment: last colonoscopy was by Dr. Corey and she had no recurrent polyps at that time History of Present Illness Date of Admission: 05/19/20 Chief Complaint: debility due to spinal on 05/13/20 The patient is a 75 year old F with a PMH of HTN, DM II, HLD, morbid obesity, gout, DDD, lumbar canal stenosis and spondylolisthesis at L3-4, lumbar canal stenosis at L2-3 secondary to a synovial cyst, PAC's and PVC's, right bundle branch block, MEJIA, depression, pulmonary nodules, syncope with negative tilt table test and OA who underwent Lumbar laminectomy and fusion at L2-4 on 05/13/20 at the [facility] and is now admitted to the inpt rehab unit at [facility] for 3 hours of therapy daily to restore independence/function at or near prior level of function. She was cleared for surgery by Dr. Gan and Dr. Long Recent BMD shows no evidence of osteopenia or osteoporosis. [] most recent ECHO on 10/12/2019 shows normal left ventricular size, wall motion and systolic function with an ejection fraction of 65%. No significant valvular heart disease. The right ventricular systolic pressure was estimated to be 26 and there was no evidence for diastolic dysfunction. Stress test in January 2018 showed no evidence for ischemia. All paperwork from the [facility] and the EMR from [facility] were reviewed. Past Medical History Past Medical History (Chronic Problems): Chronic Problems (Last Reviewed 05/20/20 @ 10:[address] Mickie Flores, ) Morbid obesity (Chronic) ZAINAB (obstructive sleep apnea) (Chronic) Diabetes mellitus (Chronic) Gout (Chronic) PVCs (premature ventricular contractions) (Chronic) MEJIA (nonalcoholic steatohepatitis) (Chronic) how this diagnosis was made.....it was in a H&P from [facility] Depression (Chronic) Tobacco dependence in remission (Chronic) Neuropathy, lumbosacral (radicular) (Chronic) Low back pain (Chronic) Sacral foraminal stenosis (Chronic) AT L5-S1, BL with sacralization of L5 Synovial cyst of lumbar spine (Chronic) AT L2-3 WITH STENOSIS Pulmonary nodules (Chronic) R middle lobe (1 6mm and 1 4 mm on CTA of the chest on 05/17/20) and R lower lobe - 1 4 mm nodule. These were not reported on a CTA of the chest at [facility] in March of 2019 but, she tells me that she has been told she had nodules in the past and they were a result of the type of work she was doing. They were followed for a period of time with no change so follow up was discontinued RBBB (Chronic) Colon polyp (Chronic) last colonoscopy was by Dr. Corey and she had no recurrent polyps at that time Essential hypertension (Chronic) Segmental and somatic dysfunction of lumbar region (Chronic) Segmental and somatic dysfunction of thoracic region (Chronic) Segmental and somatic dysfunction of sacral region (Chronic) DDD (degenerative disc disease), lumbar (Chronic) Premature atrial contractions (Chronic) Hyperlipidemia (Chronic) Medical History: Medical History (Last Reviewed 05/20/20 @ 10:[address] Mickie Flores, DO) Essential hypertension (Chronic) I10 DDD (degenerative disc disease), lumbar (Chronic) M51.36 Premature atrial contractions (Chronic) I49.1 Hyperlipidemia (Chronic) E78.5 Depression F32.9 Esophagitis K20.9 Gout M10.9 Non-alcoholic fatty liver disease K76.0 Type 2 diabetes mellitus E11.9 Syncope and collapse (Resolved) R55 Allergies minoxidil [From Rogthee] Adverse Reaction (Unknown, Verified 12/12/19 15:02) Unknown Home Medications: Ambulatory Orders Medication Instructions Recorded allopurinol 300 mg tablet 300 mg PO QDAY 12/21/17 aspirin 81 mg tablet,delayed 81 mg PO QDAY 12/21/17 release atorvastatin 40 mg tablet 40 mg PO QHS 12/21/17 citalopram 20 mg tablet 20 mg PO QDAY 12/21/17 glimepiride 4 mg tablet 4 mg PO BID tab 12/21/17 lisinopril 2.5 mg tablet 2.5 mg PO QDAY 12/21/17 metformin 1,000 mg tablet 1,000 mg PO BID 12/23/17 pioglitazone 30 mg tablet 30 mg PO QDAY 12/23/17 fesoterodine 4 mg tablet,extended 4 mg PO DAILY 12/12/19 release 24 hr furosemide 40 mg tablet 40 mg PO DAILY PRN #14 tab 12/12/19 Acetaminophen [Tylenol] 1,000 mg PO Q8 05/19/20 Melatonin 5 mg PO QHS 05/19/20 Metoprolol Tartrate [Lopressor 25 mg PO BID 05/19/20 (beta andrei)] Oxycodone [Oxyir] 5 mg PO Q4H PRN PRN 05/19/20 Surgical History: Surgical History (Last Reviewed 05/20/20 @ 10:[address] 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 Mickie Flores DO) Mother Heart disease CVA (cerebral vascular accident) Hypertension Hyperlipidemia Pacemaker Grandfather Myocardial infarction Grandmother CVA (cerebral vascular accident) Hypertension Review of Systems Constitutional: Reports: Weakness. Denies: Anorexia, Chills, Fever, Weight Change Eyes: Denies: Blurred vision HEENT: Reports: Difficulty Swallowing - on occasion......not limited to one type of food or another and she coughs. Denies: Difficulty Hearing, Head Aches, Sinus Congestion, Sinus Drainage, Sore Throat Cardiovascular: Reports: Edema - of the ankles. Denies: Chest Pain, Light Headedness, Palpitations, Syncope Respiratory: Reports: Shortness of Breath, Shortness of breath upon exertion. Denies: Cough, Hemoptysis, Shortness of breath at rest, Sputum production Gastrointestinal: Denies: Abdominal Pain, Constipation, Diarrhea, Nausea, Vomiting Genitourinary: Denies: Dysuria Musculoskeletal: Reports: Back Pain - has been chronic with radiation into both Legs. Denies: Joint Pain, Joint swelling, Joint Tenderness Skin: Denies: Jaundice, Rash, Wounds Neurological: Reports: Headaches - occasional, Numbness - in her feet due to DM. Denies: Change in Speech, Slurred speech, Confusion, Focal weakness, Tingling, Tremor, Seizures Psychiatric: Reports: Anxiety, Depression. Denies: Homicidal Ideations, Suicidal Ideations Endocrine: Denies: Hx of Thyroiditis Hematologic/ Lymphatic: Reports: Easy Bruising. Denies: Easy Bleeding, Hx of blood clot VTE Information - Inpt Only VTE Present on Admission: No VTE Mechan Device Prophylaxis: SCD's, Knee High RAI Hose VTE Pharm Prophylaxis ordered?: No Reason prophylaxis not ordered:: Treatment Not Indicated - pt with recent lumbar laminectomy and fusion and at risk for bleeding at the surgical site Patient Problems: Active and Suspected Problems (Last Reviewed 05/20/20 @ 10:[address] Mickie Flores, DO) Debility (Acute) due to spinal stenosis at L2-3 from a synovial cyst and spondylolithesis at L3-4. She is S/P Lumbar laminectomy and fusion L2-4 on 05/13/20 Hypokalemia (Acute) Hyponatremia (Acute) Hypomagnesemia (Acute) - Physical Exam Vitals/I&O's: Vital Signs Temp Pulse Resp BP Pulse Ox 98.5 F 69 18 148/71 H 99 05/19/20 19:35 05/20/20 08:14 05/19/20 22:00 05/19/20 21:45 05/19/20 22:00 Oxygen Flow Rate (L/min) 2 Oxygen Delivery Method Nasal Cannula Weight: 218 lb 7.649 oz Body Mass Index (BMI) 41.7 Intake and Output for Last 24 Hours 05/18/20 05/19/20 05/20/20 23:59 23:59 23:59 Intake Total 640 / 640 Output Total 100 / 100 300 / 300 Balance 540 / 540 -300 / -300 General: Alert, Oriented x3, Cooperative, No apparent distress, Well developed, Well nourished, - - describes her pain as a 2 now while she is lying in bed. HEENT: Atraumatic, PERRLA, EOMI, Normocephalic Neck: Supple, No JVD, Negative Carotid Bruits, No Nodes, No Nuchal Rigidity, Trachea Midline Lungs: Clear to auscultation, Diminished Cardiovascular: Regular rate, Regular Rhythm, Normal S1, Normal S2, No murmurs, No Gallop, - - distant heart sounds Abdomen: Bowel Sounds Present, Soft, Non Tender, Non-Distended, Obese, - - no guarding with palpation Extremities: No clubbing, No cyanosis, No edema, Capillary Refill Less than 3 Seconds Skin: No rashes, No breakdown, Skin Tear - R forearm healing/scabbed over, - - the incision is intact without any purulent DC Musculoskeletal: No Tenderness to Palpation of Joints or Extremities, No Muscle Wasting Neurological: Cranial nerves II-XII grossly intact, Neuro grossly intact Psych/Mental Status: Normal Affect, Appropriate Laboratory Results 05/19/20 16:34: POC Glucose 131 H 05/19/20 21:33: POC Glucose 156 H 05/20/20 04:08: POC Glucose 65 L 05/20/20 04:36: POC Glucose 98 05/20/20 05:25: WBC 11.0, RBC 3.48 L, Hgb 10.7 L, Hct 33.3 L, MCV 95.7, MCH 30.7, MCHC 32.1, RDW Std Deviation 46.6 H, RDW Coeff of Sumi 13.6, Plt Count 302, MPV 10.8, Immature Gran % (Auto) 0.800, Neut % (Auto) 68.3, Lymph % (Auto) 17.3 L, White % (Auto) 11.3 H, Eos % (Auto) 2.1, Baso % (Auto) 0.2, Absolute Neuts (auto) 7.5, Absolute Lymphs (auto) 1.91, Nucleated RBC % 0 05/20/20 05:25: Sodium 132 L, Potassium 3.3 L, Chloride 93 L, Carbon Dioxide 32.0, Anion Gap 7, BUN 15, Creatinine 0.72, Estim Creat Clear Calc 36.12, Est GFR (MDRD) Af Amer 101, Est GFR (MDRD) Non-Af 83, BUN/Creatinine Ratio 20.8 H, Glucose 118 H, Calcium 8.9, Phosphorus 3.8, Magnesium 1.5 L, Total Bilirubin 0.40, AST 24, ALT 15, Alkaline Phosphatase 54, Total Protein 6.4, Albumin 2.1 L, Globulin 4.3 H, Albumin/Globulin Ratio 0.5 L 05/20/20 05:25: Hemoglobin A1c 7.4 H 05/20/20 06:27: POC Glucose 118 H Current Medications Acetaminophen (Tylenol) 1,000 mg PO Q8 [facility] Last Admin: 05/20/20 04:53 Dose: 1,000 mg Documented by: Allopurinol (Zyloprim) 300 mg PO DAILY [facility] Last Admin: 05/20/20 08:14 Dose: 300 mg Documented by: [facility] Admin: 05/20/20 08:13 Dose: 81 mg Documented by: Atorvastatin Calcium (Lipitor) 40 mg PO QHS [facility] Last Admin: 05/19/20 21:45 Dose: 40 mg Documented by: Bisacodyl (Dulcolax) 10 mg RECTAL .PRN X 1 PRN PRN Reason: Constipation Citalopram Hydrobromide (Celexa) 20 mg PO DAILY [facility] Last Admin: 05/20/20 08:14 Dose: 20 mg Documented by: [facility] Admin: 05/20/20 08:16 Dose: 4 mg Documented by: Lisinopril (Zestril) 2.5 mg PO DAILY [facility] Last Admin: 05/20/20 08:14 Dose: 2.5 mg Documented by: Magnesium Hydroxide (Milk Of Magnesia) 30 ml PO .PRN X 1 PRN PRN Reason: Constipation Melatonin (Melatonin) 5 mg PO QHS [facility] Last Admin: 05/19/20 21:56 Dose: 5 mg Documented by: Met[facility] ([facility]uc[facility]) [facility] Admin: 05/20/20 08:17 Dose: 1,000 mg Documented by: Metoprolol Tartrate (Lopressor (Beta Andrei)) 25 mg PO BID [facility] Last Admin: 05/20/20 08:14 Dose: 25 mg Documented by: Nystatin (Mycostatin Powder) 1 applic TOPICAL BID [facility]; Protocol Last Admin: 05/20/20 08:18 Dose: 1 applicatio Documented by: Oxycodone HCl (Oxyir) 5 mg PO Q4H PRN PRN PRN Reason: Pain Score 1-10/10 Last Admin: 05/19/20 16:33 Dose: 5 mg Documented by: Pioglitazone HCl (Actos) 30 mg PO DAILY [facility] Last Admin: 05/20/20 08:13 Dose: 30 mg Documented by: Senna/Docusate Sodium (Senokot-S, Jessy-Colace) 2 tablet PO BID [facility] Last Admin: 05/20/20 08:19 Dose: Not Given Documented by: Tolterodine Tartrate (Detrol La) 2 mg PO DAILY [facility] Last Admin: 05/20/20 08:17 Dose: 2 mg Documented by: Assessment/Plan All Active Problems (Last Reviewed 05/20/20 @ 10:[address] Mickie Flores, DO) Debility (Acute) Hypokalemia (Acute) Hyponatremia (Acute) Hypomagnesemia (Acute) Syncope and collapse (Resolved) Impressions 1. Debility due to DDD and lumbar central canal stenosis with Lumbar laminectomy and fusion on 05/13/20 at the [facility] 2. DDD of the lumbar spine 3. Lumbar central canal stenosis at L2-4 due to a synovial cyst at L2-3 and spondylolisthesis at L3-4 4. Hypokalemia 5. Hyponatremia 6. Hypomagnesemia 7. N/N anemia due to acute blood loss with surgery 8. Pulmonary nodules in the RML (2) and RLL (1) - She has been told about these in the past and there are a result of occupational exposure....they were followed for a period of time but they did not change and now she does not need further checks per the pt 8. Chronic medical conditions: HTN, DM II, HLD, gout, PAC's PVC's, MEJIA, ZAINAB, Depression, RBBB, GERD with esophagitis, colon polyp. Complicate management and prognosis. PLAN PT for gait stability OT for ADL's Analgesics as needed - limit narcotics as much as possible Bowel protocol Fall precautions Assess for Anxiety/Depression GI prophylaxis with Pepcid 20 mg p.o. twice daily DVT prophylaxis with SCDs and RAI peterson Follow up with orthopedics and Dr. Gan following DC from IP Rehab AM lab including CMP, CBC, Mag, HGBA1C and Phos Decrease the hypoglycemic agents due to low blood sugars and the calorie controlled diet. HGBA1C at 7.4 is adequate for this 75 YO pt. I reminded her that she would need a colonoscopy 10 years after the last colonoscopy Inpatient E&M: 80336 Init Hosp L2
[2020-05-20 11:27] LABS: Uric Acid 2.4 mg/dL (2.6-6.0)
[2020-05-20 11:51] LABS: Bedside Glucose 132 mg/dL (70-110)
--- NOTE | 2020-05-20 15:11 | PCM.RU.PYE ---
Admission Information Primary Diagnosis:: Debility secondary to lumbar canal stenosis at L2-L4 with recent laminectomy and lumbar fusion L2-4 Status Changes from Prescreening?: No changes Identified Actual Problem List:: Skin Intergrity, Pain, ALteration in Cmfrt, Depression, Mobility Impaired, Self Care Deficit, Diabetes, Hypoglycemia, BP, Hypertension, Alteration-Leisure Activ. Potential Problem List:: DVT, Bleeding, Infection, UTI, Aspiration, Falls, Skin Integrity, Depression Risk of Complications DVT: RAI Hose, Sequential Compression Device Bleeding: Monitor Lab Values, Nursing to Teach Precautions for anti-coagulation therapy., Wound, if applicable, to be assessed every shift., Stroke patients assessed for lethargy or change in status. Infection: Clinical Staff to Monitor for S/S of infection:, S/S of infection include fever, redness, warmth, etc. Urinary Tract Infection: Monitor for frequency, burning, discomfort, or incontinence., Nursing will obtain urine sample for urinalysis and C&S when ordered. Aspiration: Clinical staff will monitor for coughing, drooling, congestion., Speech will evaluate swallowing and dsyphasia., Nursing will monitor patient swallowing during meals. Falls: Patient will be evaluated for Fall Precautions, Patient will be placed on Fall Precautions as indicated per protocol. Skin Breakdown: Nursing will assess skin daily using assessment tool., Nursing will place on Skin Breakdown Precautions as indicated. Pain: Clinical staff will assess patient's pain level per protocol., Medications will be given, if needed, and the pain level reassessed., Other methods: Massage, distraction, decrease stimulus, etc. used PRN. Plan of Care Patient requires physician specializing in physical medicine and rehab oversight to provide close medical supervision of rehab issues including: Pain Management, Sleep Problems, Bowel and Bladder, Medical and co-morbidity Management, DVT prophylaxis, Rehabilitation Leadership, Coordination of treatment team Patient needs Physical Therapy: For a minimum of 1 hour, At least 5 out of 7 days Patient needs Physical Therapy to improve:: Mobility, Mobility, Mobility, Strengthening, Transfers, Stretching, ROM, Endurance, Stairs, Gait, Balance Patient needs Occupational Therapy: For a minimum of 1 hour, At least 5 out of 7 days Patient needs Occupational Therapy to improve ADL's incl.: Eating, Grooming, Bathing, Dressing, Toileting, Toilet transfers, Community Reintegration, Higher functioning activities, Household tasks, Adaptive Equipment, Splinting, Other activities as determined Patient requires 24/7 Rehabilitation Nursing for: Pain Issues, Identifying and preventing risk factors, Monitoring and reporting current medical conditions, Assisting with ambulation, transfer, and all ADL's, Teaching patients about disease process and medications, Family teaching, Providing safe environment, Bowel and Bladder Issues, Skin integrity, Medication Management Patient needs Scanning Manager/ Case Management for: Discharge Planning, Arranging Home Equipment or Services, Family Interventions Patient needs Dietary and Nutrition Services for: Adequate Nutrition, Nutritional Supplements, Nutritional Education Goals Patient will remain: free from falls, or injury at time of discharge. Patient will perform bed mobility at: MOD I level of assist. Patient will complete transfers from bed to chair at: MOD I level of assist. Patient will ambulate: 100 feet, with MOD I assist, with LRD Patient will complete upper body dressing at: MOD I level of assist. Patient will complete lower body dressing at: MOD I level of assist. Patient will complete toileting at: MOD I level of assist. Patient will perform bathing at: MOD I level of assist. Patient will complete grooming at: MOD I level of assist. Patient will complete home management skills at: MOD I level of assist. Patient will achieve: 12 stairs, at MOD I assist Patient will have pain level of: of 3 or less Patient's skin will: remain intact, free from infection. Patient will receive: adequate nutrition. Discharge Planning Pt Prognosis for Sig. Practical Improv. w/in Reasonable Time: Good Estimated Length of stay (days): 10 Anticipated D/C Destination: Home with Outpt Therapy Was Preadmission Assessment Accurate?: Yes
[2020-05-20] MEDS: Glimepiride 2 MG Tablet PO (17:13)
[2020-05-20] MEDS: Magnesium Oxide 400 MG Tablet PO (17:14)
[2020-05-20] MEDS: metFORMIN HCl 500 MG Tablet PO (17:14)
[2020-05-20 17:40] LABS: Bedside Glucose 108 mg/dL (70-110)
[2020-05-20] MEDS: oxyCODONE 5 MG Tablet PO ×2 (17:49→21:45)
[2020-05-20 19:41] VITALS: BP 131/62; PULSE 71; RESP 16; TEMP 37.1; O2SAT 94
[2020-05-20 21:46] VITALS: BP 131/62; PULSE 71
[2020-05-20] MEDS: Atorvastatin Calcium 40 MG Tablet PO (21:46)
[2020-05-20] MEDS: MELATONIN 10 MG TABLET 5 MG PO (21:46)
[2020-05-20 21:50] LABS: Bedside Glucose 124 mg/dL (70-110)
[2020-05-21] MEDS: Nystatin Powder 15gm Bottle 1 APPLIC TOPICAL ×2 (05:13→21:07)
[2020-05-21] MEDS: Acetaminophen 500 MG Tablet 1000 MG PO ×3 (05:13→21:08)
[2020-05-21 07:16] LABS: Bedside Glucose 104 mg/dL (70-110)
[2020-05-21] MEDS: oxyCODONE 5 MG Tablet PO (08:14)
[2020-05-21 08:15] VITALS: PULSE 67
[2020-05-21] MEDS: Citalopram 20 MG Tablet PO (08:15)
[2020-05-21] MEDS: Famotidine 20 MG Tablet PO (08:15)
[2020-05-21] MEDS: Magnesium Oxide 400 MG Tablet PO ×2 (08:15→16:46)
[2020-05-21] MEDS: Pioglitazone Hydrochloride 30 MG Tablet PO (08:15)
[2020-05-21] MEDS: Metoprolol Tartrate 25 MG Tablet PO ×2 (08:15→21:15)
[2020-05-21] MEDS: Tolterodine Tartrate 2 MG CAP.SA PO (08:15)
[2020-05-21] MEDS: Lisinopril 5 MG Tablet PO (08:15)
[2020-05-21] MEDS: Allopurinol 300 MG Tablet PO (08:16)
[2020-05-21] MEDS: Aspirin E.C. 81 MG Tablet PO (08:16)
[2020-05-21] MEDS: Glimepiride 4 MG Tablet PO (08:16)
[2020-05-21] MEDS: metFORMIN HCl 1,000 MG Tablet 1000 MG PO (08:16)
[2020-05-21 08:44] VITALS: BP 121/59; PULSE 67; RESP 16; TEMP 36.5; O2SAT 96
[2020-05-21 11:30] LABS: Bedside Glucose 156 mg/dL (70-110)
--- NOTE | 2020-05-21 12:16 | PCM.PN.BLA ---
Progress Note Afebrile since admission. Vital signs are stable and the blood pressure is well controlled. Maintaining appropriate oxygen saturation on room air while awake. Uses CPAP at night. Last bowel movement 05/20/2020. Has been incontinent of urine - stress incontinence - this is a chronic problem and she sees Dr. Stern for this Blood sugar record was reviewed. Blood sugars are well controlled with no hypoglycemia since the meds were adjusted down for hypoglycemia [place] states her pain is well controlled. She denies D/V/N/abd pain. No CP and no SOB. Alert, oriented x3, no apparent distress Lungs-clear to auscultation but diminished Heart-regular rate and rhythm, no gallop, no murmur, no rub...... heart sounds remain distant-more likely than not secondary to body habitus Abdomen-soft, nondistended, nontender, bowel sounds present, obese No calf pain Incision is intact, no purulent discharge, no yuli-incisional erythema Impressions 1. debility post L2-4 laminectomy and fusion 2. DM II - controlled 3. Hypokalemia 4. Hyponatremia 5. Hypomagnesemia ELYTE supplements ordered Recheck lab in a few days Continue therapy STROKE Vital Signs/Narrative: Vital Signs Temp Pulse Resp BP Pulse Ox 05/21/20 08:44 97.7 F L 67 16 121/59 H 96 Inpatient E&M: 22014 Subs Hosp L1
[2020-05-21] MEDS: Glimepiride 2 MG Tablet PO (16:46)
[2020-05-21] MEDS: metFORMIN HCl 500 MG Tablet PO (16:46)
[2020-05-21 17:00] LABS: Bedside Glucose 111 mg/dL (70-110)
[2020-05-21 19:55] VITALS: BP 117/55; PULSE 70; RESP 18; TEMP 36.5; O2SAT 96
[2020-05-21] MEDS: MELATONIN 10 MG TABLET 5 MG PO (21:08)
[2020-05-21] MEDS: Atorvastatin Calcium 40 MG Tablet PO (21:08)
[2020-05-21 21:15] VITALS: PULSE 72
[2020-05-21 22:05] LABS: Bedside Glucose 135 mg/dL (70-110)
[2020-05-22 02:01] LABS: Bedside Glucose 94 mg/dL (70-110)
[2020-05-22 02:01] LABS: Bedside Glucose 67 mg/dL (70-110)
[2020-05-22] MEDS: Acetaminophen 500 MG Tablet 1000 MG PO ×3 (06:10→22:34)
[2020-05-22] MEDS: Nystatin Powder 15gm Bottle 1 APPLIC TOPICAL ×2 (06:10→22:35)
[2020-05-22 07:05] LABS: Bedside Glucose 133 mg/dL (70-110)
[2020-05-22 07:42] VITALS: BP 150/69; PULSE 76; RESP 16; TEMP 36.5; O2SAT 96
[2020-05-22] MEDS: Lisinopril 5 MG Tablet PO (08:03)
[2020-05-22] MEDS: oxyCODONE 5 MG Tablet PO (08:03)
[2020-05-22] MEDS: Glimepiride 4 MG Tablet PO (08:03)
[2020-05-22] MEDS: Allopurinol 300 MG Tablet PO (08:03)
[2020-05-22 08:04] VITALS: BP 150/69; PULSE 76
[2020-05-22] MEDS: Aspirin E.C. 81 MG Tablet PO (08:04)
[2020-05-22] MEDS: metFORMIN HCl 1,000 MG Tablet 1000 MG PO (08:04)
[2020-05-22] MEDS: Pioglitazone Hydrochloride 30 MG Tablet PO (08:04)
[2020-05-22] MEDS: Famotidine 20 MG Tablet PO (08:04)
[2020-05-22] MEDS: Citalopram 20 MG Tablet PO (08:04)
[2020-05-22] MEDS: Tolterodine Tartrate 2 MG CAP.SA PO (08:04)
[2020-05-22] MEDS: Magnesium Oxide 400 MG Tablet PO ×2 (08:04→16:20)
[2020-05-22] MEDS: Metoprolol Tartrate 25 MG Tablet PO ×2 (08:04→22:39)
[2020-05-22 11:51] LABS: Bedside Glucose 121 mg/dL (70-110)
--- NOTE | 2020-05-22 12:46 | PCM.PN.BLA ---
Progress Note Geneva was seen on team rounds today. Her daughter Debora participated by phone. Afebrile VSS Maintaining appropriate oxygen saturation on RA Oral intake is [] Discussed with nursing - no problems that need addressed Reviewed the PT/OT/ST notes Medication list reviewed. Blood sugar record was reviewed. She was hypoglycemic at 130 this morning. Fasting blood sugar was 133 and she was given coke for the low blood sugar. Alert, no apparent distress, oriented x3, sitting in the recliner at the bedside Lungs-diminished but clear to auscultation Heart-distant heart sounds with regular rate and rhythm, no murmur and no gallop appreciated Abdomen-obese, soft, nontender, nondistended, bowel sounds present No calf tenderness No edema No focal neurologic deficits Impressions 1. debility post L2-4 laminectomy and fusion 2. DM II - controlled for the most part but, still with hypoglycemia at night.. 3. Hypokalemia 4. Hyponatremia 5. Hypomagnesemia DC the afternoon dose of Amaryl. Continue 4 mg with breakfast. Continue metformin 500 mg with dinner. Continue therapy Recheck lab Tuesday. Inpatient E&M: 97952 Subs Hosp L2
[2020-05-22] MEDS: metFORMIN HCl 500 MG Tablet PO (16:21)
[2020-05-22 16:46] LABS: Bedside Glucose 114 mg/dL (70-110)
--- NOTE | 2020-05-22 16:46 | CASEMGMT ---
Social Work IDT met with patient and dtr via conference call for Team Meeting. Discussed patient's progress in therapy. Pt is min assist to sit to stand, CGA for transfers, mod for bed mobility, walking 200 ft CGA. Pt is min assist for LE bathing, SBA for grooming while seated, set up for UE, and using adaptive equipment for LE, and toileting aid for toileting tasks, min assist for toilet transfers. Pt has back brace and adhering to spinal precautions. Pt is on a calorie controlled, low sodium, low fat diet to stabilize blood sugars. the goal is for pt to return home alone. Explained Medicare benefit. Will ReTeam next week. Will continue to follow. YAMEL LongW
[2020-05-22 19:25] VITALS: BP 136/68; PULSE 71; RESP 17; TEMP 36.4; O2SAT 94
[2020-05-22 21:21] LABS: Bedside Glucose 139 mg/dL (70-110)
[2020-05-22] MEDS: MELATONIN 10 MG TABLET 5 MG PO (22:35)
[2020-05-22 22:39] VITALS: BP 136/68; PULSE 71
[2020-05-22] MEDS: Atorvastatin Calcium 40 MG Tablet PO (22:39)
[2020-05-22 22:50] VITALS: O2SAT 97
--- NOTE | 2020-05-22 22:56 | CPS ---
Pt. uses home CPAP unit with EPAP of 9, with a 2L O2 bleed-in
[2020-05-23] MEDS: Acetaminophen 500 MG Tablet 1000 MG PO ×3 (06:51→21:28)
[2020-05-23] MEDS: Nystatin Powder 15gm Bottle 1 APPLIC TOPICAL ×2 (06:52→21:27)
[2020-05-23 06:56] LABS: Bedside Glucose 136 mg/dL (70-110)
[2020-05-23 07:10] VITALS: O2SAT 96
[2020-05-23] MEDS: Tolterodine Tartrate 2 MG CAP.SA PO (07:51)
[2020-05-23] MEDS: Glimepiride 4 MG Tablet PO (07:51)
[2020-05-23] MEDS: Magnesium Oxide 400 MG Tablet PO ×2 (07:51→16:45)
[2020-05-23] MEDS: Lisinopril 5 MG Tablet PO (07:51)
[2020-05-23] MEDS: Citalopram 20 MG Tablet PO (07:51)
[2020-05-23] MEDS: Allopurinol 300 MG Tablet PO (07:51)
[2020-05-23] MEDS: metFORMIN HCl 1,000 MG Tablet 1000 MG PO (07:51)
[2020-05-23] MEDS: Famotidine 20 MG Tablet PO (07:51)
[2020-05-23 07:52] VITALS: BP 127/52; PULSE 67
[2020-05-23] MEDS: Metoprolol Tartrate 25 MG Tablet PO ×2 (07:52→21:24)
[2020-05-23] MEDS: Aspirin E.C. 81 MG Tablet PO (07:52)
[2020-05-23 08:02] VITALS: BP 127/52; PULSE 16; RESP 67; TEMP 36.6; O2SAT 93
[2020-05-23] MEDS: oxyCODONE 5 MG Tablet PO (08:28)
[2020-05-23] MEDS: Pioglitazone Hydrochloride 30 MG Tablet PO (09:48)
[2020-05-23 11:25] LABS: Bedside Glucose 134 mg/dL (70-110)
[2020-05-23 16:35] LABS: Bedside Glucose 101 mg/dL (70-110)
[2020-05-23] MEDS: metFORMIN HCl 500 MG Tablet PO (16:44)
[2020-05-23 19:29] VITALS: BP 152/84; PULSE 78; RESP 16; TEMP 36.4; O2SAT 96
[2020-05-23 21:24] VITALS: BP 122/52; PULSE 77
[2020-05-23] MEDS: MELATONIN 10 MG TABLET 5 MG PO (21:24)
[2020-05-23] MEDS: Atorvastatin Calcium 40 MG Tablet PO (21:27)
[2020-05-23 21:41] LABS: Bedside Glucose 126 mg/dL (70-110)
[2020-05-24] MEDS: Acetaminophen 500 MG Tablet 1000 MG PO ×3 (06:00→22:05)
[2020-05-24] MEDS: Nystatin Powder 15gm Bottle 1 APPLIC TOPICAL ×2 (06:01→22:06)
[2020-05-24 06:20] LABS: Bedside Glucose 118 mg/dL (70-110)
[2020-05-24] MEDS: Glimepiride 4 MG Tablet PO (08:27)
[2020-05-24] MEDS: Citalopram 20 MG Tablet PO (08:27)
[2020-05-24] MEDS: Aspirin E.C. 81 MG Tablet PO (08:27)
[2020-05-24] MEDS: metFORMIN HCl 1,000 MG Tablet 1000 MG PO (08:28)
[2020-05-24] MEDS: Allopurinol 300 MG Tablet PO (08:28)
[2020-05-24] MEDS: Pioglitazone Hydrochloride 30 MG Tablet PO (08:28)
[2020-05-24] MEDS: Magnesium Oxide 400 MG Tablet PO ×2 (08:28→17:12)
[2020-05-24] MEDS: oxyCODONE 5 MG Tablet PO ×3 (08:29→19:50)
[2020-05-24] MEDS: Tolterodine Tartrate 2 MG CAP.SA PO (08:29)
[2020-05-24 08:30] VITALS: PULSE 68
[2020-05-24] MEDS: Famotidine 20 MG Tablet PO (08:30)
[2020-05-24] MEDS: Metoprolol Tartrate 25 MG Tablet PO ×2 (08:30→22:06)
[2020-05-24] MEDS: Lisinopril 5 MG Tablet PO (08:34)
[2020-05-24 09:53] VITALS: BP 142/70; PULSE 77; RESP 18; TEMP 36.6; O2SAT 95
[2020-05-24 11:46] LABS: Bedside Glucose 142 mg/dL (70-110)
[2020-05-24] MEDS: metFORMIN HCl 500 MG Tablet PO (17:12)
[2020-05-24 17:31] LABS: Bedside Glucose 112 mg/dL (70-110)
[2020-05-24 19:44] VITALS: BP 118/59; PULSE 79; RESP 18; TEMP 36.7; O2SAT 97
[2020-05-24 21:50] LABS: Bedside Glucose 120 mg/dL (70-110)
[2020-05-24 22:06] VITALS: BP 118/59; PULSE 79
[2020-05-24] MEDS: Atorvastatin Calcium 40 MG Tablet PO (22:06)
[2020-05-24] MEDS: MELATONIN 10 MG TABLET 5 MG PO (22:08)
[2020-05-25] MEDS: Acetaminophen 500 MG Tablet 1000 MG PO ×3 (05:39→21:15)
[2020-05-25] MEDS: Nystatin Powder 15gm Bottle 1 APPLIC TOPICAL ×2 (05:40→21:17)
[2020-05-25 07:00] VITALS: PULSE 84; RESP 16; TEMP 36.5; O2SAT 93
[2020-05-25 07:05] LABS: Bedside Glucose 108 mg/dL (70-110)
[2020-05-25 08:39] VITALS: BP 123/65; PULSE 68
[2020-05-25 08:40] VITALS: PULSE 68
[2020-05-25] MEDS: Glimepiride 4 MG Tablet PO (08:40)
[2020-05-25] MEDS: Tolterodine Tartrate 2 MG CAP.SA PO (08:40)
[2020-05-25] MEDS: Lisinopril 5 MG Tablet PO (08:40)
[2020-05-25] MEDS: metFORMIN HCl 1,000 MG Tablet 1000 MG PO (08:40)
[2020-05-25] MEDS: Aspirin E.C. 81 MG Tablet PO (08:40)
[2020-05-25] MEDS: Citalopram 20 MG Tablet PO (08:40)
[2020-05-25] MEDS: Magnesium Oxide 400 MG Tablet PO ×2 (08:40→16:26)
[2020-05-25] MEDS: Metoprolol Tartrate 25 MG Tablet PO ×2 (08:40→21:15)
[2020-05-25] MEDS: Allopurinol 300 MG Tablet PO (08:41)
[2020-05-25] MEDS: Famotidine 20 MG Tablet PO (08:42)
[2020-05-25] MEDS: Pioglitazone Hydrochloride 30 MG Tablet PO (08:43)
[2020-05-25] MEDS: oxyCODONE 5 MG Tablet PO ×2 (08:46→21:14)
[2020-05-25 11:25] LABS: Bedside Glucose 136 mg/dL (70-110)
[2020-05-25] MEDS: metFORMIN HCl 500 MG Tablet PO (16:26)
[2020-05-25 16:36] LABS: Bedside Glucose 118 mg/dL (70-110)
[2020-05-25 20:30] VITALS: BP 137/87; PULSE 66; RESP 16; TEMP 36.5; O2SAT 98
[2020-05-25 21:15] VITALS: BP 137/87; PULSE 66
[2020-05-25] MEDS: MELATONIN 10 MG TABLET 5 MG PO (21:16)
[2020-05-25] MEDS: Atorvastatin Calcium 40 MG Tablet PO (21:16)
[2020-05-25 21:55] LABS: Bedside Glucose 142 mg/dL (70-110)
--- NOTE | 2020-05-26 01:32 | NURSING ---
REVIEWED AND AGREE WITH PAYMENT SPECIALIST'S FUNCTIONAL ASSESSMENT OF PT AND HANDOFF CHARTING.
[2020-05-26] MEDS: Acetaminophen 500 MG Tablet 1000 MG PO ×3 (05:08→21:20)
[2020-05-26] MEDS: Nystatin Powder 15gm Bottle 1 APPLIC TOPICAL ×2 (05:11→21:19)
[2020-05-26 07:01] LABS: Bedside Glucose 74 mg/dL (70-110)
[2020-05-26 07:46] VITALS: BP 126/62; PULSE 68; RESP 16; TEMP 36.8; O2SAT 95
[2020-05-26 08:13] VITALS: BP 126/62; PULSE 68
[2020-05-26] MEDS: Lisinopril 5 MG Tablet PO (08:13)
[2020-05-26] MEDS: Magnesium Oxide 400 MG Tablet PO ×2 (08:13→16:30)
[2020-05-26] MEDS: Aspirin E.C. 81 MG Tablet PO (08:13)
[2020-05-26] MEDS: Citalopram 20 MG Tablet PO (08:13)
[2020-05-26] MEDS: Allopurinol 300 MG Tablet PO (08:13)
[2020-05-26] MEDS: Tolterodine Tartrate 2 MG CAP.SA PO (08:13)
[2020-05-26] MEDS: Metoprolol Tartrate 25 MG Tablet PO ×2 (08:13→21:19)
[2020-05-26] MEDS: Pioglitazone Hydrochloride 30 MG Tablet PO (08:13)
[2020-05-26] MEDS: metFORMIN HCl 1,000 MG Tablet 1000 MG PO (08:14)
[2020-05-26] MEDS: Famotidine 20 MG Tablet PO (08:14)
[2020-05-26] MEDS: Glimepiride 4 MG Tablet PO (08:14)
[2020-05-26] MEDS: oxyCODONE 5 MG Tablet PO ×2 (08:19→14:11)
--- NOTE | 2020-05-26 11:59 | PCM.PN.BLA ---
Progress Note Afebrile since admission VSS Maintaining appropriate oxygen saturation on RA Oral intake is good Discussed with nursing - no problems that need addressed Reviewed the PT/OT notes - She was able to ambulate 250 ft with WW on Tuesday. Still requiring max assist with toileting. Medication list reviewed. Blood sugar record was reviewed. Blood sugar this morning was 74 and this is too low for a patient of 75 years of age. We have been progressively decreasing hypoglycemic agents since admission. She is eating well and is currently on a 1600-calorie low-salt, low-fat diet. Alert, no apparent distress Lungs-clear to auscultation with good air exchange Heart-regular rate and rhythm Abdomen-soft, nontender, good bowel function No calf pain, no peripheral edema The incision is intact with no yuli-incisional erythema and no discharge. Impressions 1. Debility secondary to lumbar laminectomy and fusion L2-L4 on 05/13/2020 2. Diabetes mellitus type 2-having to decrease medication secondary to hypoglycemia on a calorie controlled diet. I encouraged her to stick with 1600 rocky at discharge to promote weight loss. 3. Hypokalemia 4. Hypomagnesemia 5. Hyponatremia Decrease the Amaryl to 3 mg in the AM. Hold the Glucophage today with supper and resume tomorrow. Continue to monitor the blood sugars AC and HS Recheck BMP, HH and mag in the AM STROKE Vital Signs/Narrative: Vital Signs Pulse BP 05/26/20 08:13 68 126/62 H Inpatient E&M: 44447 Subs Hosp L2
[2020-05-26 12:00] LABS: Bedside Glucose 131 mg/dL (70-110)
--- NOTE | 2020-05-26 14:35 | CASEMGMT ---
Social Work SW met with pt in room and informed pt last covered day is 05/30/20. Pt stating she is unsure if she would like to stay that long or d/c home sooner. SW spoke with therapy who recommend pt stay for entire allowed length of stay as she would benefit from continued therapy. Pt to consider and speak with daughter and will let SW know what d/c plan is. SW to continue to follow. BERNADETTE Chang
[2020-05-26 16:51] LABS: Bedside Glucose 98 mg/dL (70-110)
[2020-05-26 19:18] VITALS: BP 127/60; PULSE 64; RESP 18; TEMP 36.5; O2SAT 96
[2020-05-26 21:16] LABS: Bedside Glucose 99 mg/dL (70-110)
[2020-05-26] MEDS: Atorvastatin Calcium 40 MG Tablet PO (21:18)
[2020-05-26 21:19] VITALS: PULSE 68
[2020-05-26] MEDS: MELATONIN 10 MG TABLET 5 MG PO (21:19)
[2020-05-26 22:00] VITALS: PULSE 67; RESP 17
[2020-05-27 05:43] LABS: Hematocrit 34.6 % (37-47); Hemoglobin 10.5 g/dL (12.0-15.0)
[2020-05-27 06:00] LABS: Anion Gap 5 (5-15); BUN 15 mg/dL (7-18); BUN/Creat Ratio 20.7 RATIO (10-20); Calcium,Total 8.8 mg/dL (8.5-10.1); Chloride 99 mmol/L (98-107); Creatinine, Serum 0.72 mg/dL (0.55-1.02); EST Glomerular Filtration Rate 83 mL/min (>60); Est Glom Filt Rate - Afr Amer 100 mL/min (>60); Estimated Creatinine Clearance 36.12 ml/min; Glucose 142 mg/dL (74-106); Magnesium 1.7 mg/dL (1.6-2.6); Potassium 4.3 mmol/L (3.5-5.1); Sodium Level 135 mmol/L (136-145)
[2020-05-27] MEDS: Nystatin Powder 15gm Bottle 1 APPLIC TOPICAL ×2 (06:24→21:12)
[2020-05-27] MEDS: Acetaminophen 500 MG Tablet 1000 MG PO ×3 (06:24→21:11)
[2020-05-27 07:00] LABS: Bedside Glucose 157 mg/dL (70-110)
[2020-05-27] MEDS: oxyCODONE 5 MG Tablet PO ×2 (08:17→13:35)
[2020-05-27] MEDS: Famotidine 20 MG Tablet PO (08:17)
[2020-05-27] MEDS: Lisinopril 5 MG Tablet PO (08:17)
[2020-05-27] MEDS: Allopurinol 300 MG Tablet PO (08:17)
[2020-05-27 08:18] VITALS: BP 121/58; PULSE 67
[2020-05-27] MEDS: Magnesium Oxide 400 MG Tablet PO ×2 (08:18→16:33)
[2020-05-27] MEDS: Aspirin E.C. 81 MG Tablet PO (08:18)
[2020-05-27] MEDS: Metoprolol Tartrate 25 MG Tablet PO ×2 (08:18→21:12)
[2020-05-27] MEDS: Glimepiride 1 MG Tablet 3 MG PO (08:18)
[2020-05-27] MEDS: Pioglitazone Hydrochloride 30 MG Tablet PO (08:18)
[2020-05-27] MEDS: Citalopram 20 MG Tablet PO (08:18)
[2020-05-27] MEDS: Tolterodine Tartrate 2 MG CAP.SA PO (08:18)
[2020-05-27 09:26] VITALS: BP 121/58; PULSE 67; RESP 16; TEMP 36.5; O2SAT 94
--- NOTE | 2020-05-27 14:20 | CASEMGMT ---
Social Work SW met with pt and pt states she would like to d/c home tomorrow. SW reiterated therapy recommendatiions for continued stay until the end of the week for therapy however, pt does nott feel this would be beneficial. Pt lives at home with her and daughter and pt daughter is able to provide needed care and transportation. Pt is agreeable to home health services PT and OT and has no preference on company used. Pt has a WW, raised toilet seat and shower chair and states she and dgt will get a bed rail at [facility]. Nursing and therapy updated and RN spoke with physician who is agreeable to d/c on 05/28/20. Pt stating her daughter will transport her home. Referral made to [facility] for OT/PT. Plan: D/C home 05/28/20 with [facility] OT/PT BERNADETTE Chang
[2020-05-27 16:51] LABS: Bedside Glucose 137 mg/dL (70-110)
[2020-05-27 19:26] VITALS: BP 123/60; PULSE 71; RESP 18; TEMP 36.6; O2SAT 94
[2020-05-27 21:00] VITALS: PULSE 71; RESP 18; O2SAT 94
[2020-05-27 21:12] VITALS: BP 123/60; PULSE 71
[2020-05-27] MEDS: MELATONIN 10 MG TABLET 5 MG PO (21:12)
[2020-05-27] MEDS: Atorvastatin Calcium 40 MG Tablet PO (21:12)
[2020-05-27 21:25] LABS: Bedside Glucose 145 mg/dL (70-110)
--- NOTE | 2020-05-28 02:00 | NURSING ---
Reviewed and agree with [employer] documentation.
[2020-05-28] MEDS: oxyCODONE 5 MG Tablet PO ×2 (05:16→11:43)
[2020-05-28] MEDS: Acetaminophen 500 MG Tablet 1000 MG PO (05:17)
[2020-05-28] MEDS: Nystatin Powder 15gm Bottle 1 APPLIC TOPICAL (05:18)
[2020-05-28 07:01] LABS: Bedside Glucose 161 mg/dL (70-110)
[2020-05-28 07:29] VITALS: BP 145/60; PULSE 67; RESP 16; TEMP 36.5; O2SAT 95
[2020-05-28 08:19] VITALS: BP 145/60; PULSE 67
[2020-05-28] MEDS: Allopurinol 300 MG Tablet PO (08:19)
[2020-05-28] MEDS: Citalopram 20 MG Tablet PO (08:19)
[2020-05-28] MEDS: Metoprolol Tartrate 25 MG Tablet PO (08:19)
[2020-05-28] MEDS: Pioglitazone Hydrochloride 30 MG Tablet PO (08:19)
[2020-05-28] MEDS: Lisinopril 5 MG Tablet PO (08:19)
[2020-05-28] MEDS: Tolterodine Tartrate 2 MG CAP.SA PO (08:19)
[2020-05-28] MEDS: Famotidine 20 MG Tablet PO (08:19)
[2020-05-28] MEDS: metFORMIN HCl 1,000 MG Tablet 1000 MG PO (08:20)
[2020-05-28] MEDS: Glimepiride 1 MG Tablet 3 MG PO (08:20)
[2020-05-28] MEDS: Magnesium Oxide 400 MG Tablet PO (08:20)
[2020-05-28] MEDS: Aspirin E.C. 81 MG Tablet PO (08:20)
--- NOTE | 2020-05-28 09:35 | PCM.DC ---
- Discharge Diagnoses Current Active Problems: Current Active and Chronic Problems (Last Reviewed 05/20/20 @ 10:[address] Mickie Flores, DO) Debility (Acute) due to spinal stenosis at L2-3 from a synovial cyst and spondylolithesis at L3-4. 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 These were not reported on a CTA of the chest at [facility] in March of 2019 but, she tells me that she has been told she had nodules in the past and they were a result of the type of work she was doing. They were followed for a period of time with no change so follow up was discontinued RBBB (Chronic) Colon polyp (Chronic) last colonoscopy was by Dr. Corey and she had no recurrent polyps at that time You will use the following diet at home:: Calorie/Carbohydrate Controlled (specify 1200, 1400, etc) - 1600 calorie, low salt and low fat Your food should be the consistency of: Regular Your liquids should be the consistency of: Regular/Thin Discharge Activity: May Not Drive, May Shower, Use Walker, - - No Bending, lifting or twisting until the bone in your back has fused....this can only be determined by an XRAY. Dr. Matamoros will be the one to tell you when it is OK to Bend, Lift or twist. Make sure to do the exercises given to you by the therapists twice a day.........really work on the ABS/core strength because this will support the back and you will have a lot less pain down the road if you keep the abs strong. Lifting Restrictions: no lifting Keep extremity elevated above heart level: Legs Call your doctor if your incision/area has: Continuous Slow Oozing, Sudden Increased Bleeding, Increased Pain/ Swelling, Increased Redness, Foul Smelling Discharge, Swelling at the incision site Call your doctor if you observe: Fever of 101 or Higher, Inability to urinate, Inability to have a bowel movement, Shortness of breath, Dizziness, Fainting spells, Swelling in the ankles, Chest pain, Increased palpitations (irregular heartbeat), Calf discomfort, Uncontrolled pain Suture Line Care: Avoid Pulling/Pushing, Avoid Pinching/Bending Cleanse incision/area with: Soap & Water Additional Dressing/Incision Instructions:: Make sure that your daughter or your checks the incision everyday and looks for redness, increased warmth to touch around the incision and also any discharge from the incision. If this happens then call Dr. Matamoros or your PCP because it will need to be examined to see if you need an antibiotic. Wash the incision daily with soap and water. Instructions: Understanding Chronic Venous Insufficiency, MyPlate Worksheet: 1,600 Calories, Eating a Low-Salt Diet Additional Instructions: 1. The swelling in your legs is from chronic venous insufficiency....this is due to varicose veins(sometimes you can not see these on the surface), being overweight, sitting with you r legs down for prolonged periods of time, increased temperature outside dilates veins and causes them to swell. You have been taking Lasix to help with swelling but, this is not the best way to control the swelling. Lasix causes the body to waste Potassium, magnesium and sodium. When you came to the rehab unit your sodium, potassium and magnesium were all low. I have not been giving you any Lasix since you arrived in the rehab unit and yoou have not had any swelling in the ankles. Your potassium and magnesium are normal now. When the potassium and the magnesium are low it increases the irritability of the heart and you are more likely to have more palpitations, more premature beats and you can go into Atrial fibrillation which is a big risk factor for strokes. The best way to control the swelling is to limit the amount of salt you eat, elevate your legs when you are sitting and do not sit for over an hour without getting up and moving around, lose weight and wear some compression stockings. Your heart squeezes normally and you should not need Lasix. 2. I have had to decrease the amount of medication you take for diabetes to prevent low blood sugars while in rehab. Your blood sugars at home are in good control but, the more medication you take for diabetes the MORE it stimulates appetite because the medication decreases the blood sugar and then you get hungry and eat to keep the blood sugars up and not get hypoglycemic. This makes it VERY DIFFICULT to lose weight. Try and stick to a 1600 calorie diet so the blood sugars remain controlled on the lower doses of the medication........it will help with weight loss. The other thing that helps with weight loss is exercise.....it also lowers the blood sugars. Keep a regular exercise shedule......if you can not walk then ride a bike. Memberships to [facility] are not very expensive and they have a pool and water aerobics. Water exercise is a great thing for people with back pain....it will strengthen the muscles and the water offloads your weight so your back will not hurt. They have Nu-Steps there which is the machine you used in rehab to improve your endurance......you can exercise without increasing the back pain. This is going to be for the rest of your life......you do not want to have to have another surgery and the pain from nerve impingement is horrible! 3. Your BP was a little too high and so I increased the dose of the Lisinopril to 5 mg daily......you can take 2 of the 2.5 mg tabs or get the prescription for the 5 mg tabs filled. 4. Calcium is important to maintain good bone health.....boom if you are trying to get the bones to fuse in the back. Vitamin D is also very important. Vitamin is essential for the body to be able to absorb calcium. Vitamin D comes from the sun......often a rare commodity in [place]. I recommend you take 500 mg of calcium twice a day with a meal......it is better absorbed when you take it with food. You will take the vitamin D once a day. I have given you a prescription for calcium.....some insurance companies will pay for calcium and some have a list of over the counter meds you can get for free........I would check into this with your insurance company. 5. There are 2 medications frequently used in weight loss programs to help to decrease appetite. They are actually both antidepressants. These medications are Wellbutrin and Effexor. Effexor not only decreases appetite it helps with managing chronic pain. You may want to discuss this with Dr. Gna. 6. It was good to meet you and we have all enjoyed working with you in the rehab unit. We are here if you ever need our services again. Take care of yourself. If you have any questions after you leave you can call [phone] (nurses station), (my office) or [phone] ( my cell) and we will do our best to help you. You will be getting Home Health for PT and OT. Please consider joining [facility] to help with maintaining your strength and endurance. Pending Tests on Discharge: none Allergies/Adverse Reactions: Allergies minoxidil [From Rogaine] Adverse Reaction (Unknown, Verified 12/12/19 15:02) Unknown Medications to take at Discharge allopurinol 300 mg tablet 300 mg PO QDAY 12/21/17 aspirin 81 mg tablet,delayed release 81 mg PO QDAY 12/21/17 atorvastatin 40 mg tablet 40 mg PO QHS 12/21/17 citalopram 20 mg tablet 20 mg PO QDAY 12/21/17 pioglitazone 30 mg tablet 30 mg PO QDAY 12/23/17 fesoterodine 4 mg tablet,extended release 24 hr 4 mg PO DAILY 12/12/19 Acetaminophen [Tylenol] 1,000 mg PO Q8 05/19/20 Melatonin 5 mg PO QHS 05/19/20 Metoprolol Tartrate [Lopressor (beta mario)] 25 mg PO BID 05/19/20 Oxycodone [Oxyir] 5 mg PO Q4H PRN PRN 05/19/20 Calcium Carbonate [Tums] 500 mg PO BIDCM #60 tab 05/28/20 Cholecalciferol (VIT D3) [Vitamin D] 1,000 unit PO DAILY #30 tab 05/28/20 Glimepiride [Amaryl] 3 mg PO DAILY #90 tab 05/28/20 Lisinopril [Zestril] 5 mg PO DAILY #30 tab 05/28/20 Magnesium Chloride [Slow-Mag] 71.5 mg PO BID #60 tablet. 05/28/20 Nystatin Powder [Mycostatin Powder] 1 applic TOPICAL BID@0600,2200 #1 bottle 05/28/20 Oxycodone [Oxyir] 5 mg PO Q4H PRN PRN #30 tab 05/28/20 metFORMIN HCl [Glucophage] 1,000 mg PO BREAKFAST #30 tab 05/28/20 The following prescriptions were given: Glimepiride [Amaryl] 3 mg PO DAILY #90 tab Transmission Status: Pending to [facility]/pharmacy #[id number] metFORMIN HCl [Glucophage] 1,000 mg PO BREAKFAST #30 tab Transmission Status: Received by [facility]/pharmacy #[id number] Nystatin Powder [Mycostatin Powder] 1 applic TOPICAL BID@0600,2200 #1 bottle Prescription Printed Oxycodone [Oxyir] 5 mg PO Q4H PRN PRN #30 tab PRN Reason: Pain Score 1-10/10 Transmission Status: Received by [facility]/pharmacy #[id number] Magnesium Chloride [Slow-Mag] 71.5 mg PO BID #60 tablet.dr Transmission Status: Sent to [facility]/pharmacy #[id number] Calcium Carbonate [Tums] 500 mg PO BIDCM #60 tab Prescription Printed Cholecalciferol (VIT D3) [Vitamin D] 1,000 unit PO DAILY #30 tab Transmission Status: Sent to [facility]/pharmacy #[id number] Lisinopril [Zestril] 5 mg PO DAILY #30 tab Transmission Status: Received by [facility]/pharmacy #[id number] Primary Care Physician: Yared Gan Chi, MD [Primary Care Provider] - Please follow up with your Primary Care Physician in: 5-10 days Test Results: Test results from this visit will be discussed in further detail at your follow-up appointment, if applicable. Please Follow Up With: Dr. Matamoros When: 06/02/20 to remove the aixa Proposed Discharge Date: 05/28/20
[2020-05-28 10:46] VITALS: BP 145/60; PULSE 67; RESP 16; TEMP 36.5; O2SAT 95
--- NOTE | 2020-05-28 10:49 | DS.PCM_ITS ---
Discharge Date and Diagnosis - Problem List Patient Problems: Active and Suspected Problems (Last Reviewed 05/20/20 @ 10:[address] Mickie Flores DO) Fusion of lumbar spine (Acute) Debility (Acute) due to spinal stenosis at L2-3 from a synovial cyst and spondylolithesis at L3-4. She is S/P Lumbar laminectomy and fusion L2-4 on 05/13/20 Hyponatremia (Acute) Date of Admission: 05/19/20 Date of Discharge: 05/28/20 - Primary Discharge Diagnosis Acute Problems: Active Problems (Last Reviewed 05/20/20 @ 10:[address] Mickie Flores DO) Fusion of lumbar spine (Acute) Debility (Acute) due to spinal stenosis at L2-3 from a synovial cyst and spondylolithesis at L3-4. She is S/P Lumbar laminectomy and fusion L2-4 on 05/13/20 Hyponatremia (Acute) Hypokalemia-resolved Hypomagnesemia-resolved Hypoglycemia - home medication had to be decreased significantly to prevent hypoglycemia on a 1600 calorie diet - Secondary Discharge Diagnosis Chronic Problems: Chronic Problems (Last Reviewed 05/20/20 @ 10:[address] 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 These were not reported on a CTA of the chest at [facility] in March of 2019 but, she tells me that she has been told she had nodules in the past and they were a result of the type of work she was doing. They were followed for a period of time with no change so follow up was discontinued RBBB (Chronic) Colon polyp (Chronic) last colonoscopy was by Dr. Corey and she had no recurrent polyps at that time Essential hypertension (Chronic) Segmental and somatic dysfunction of lumbar region (Chronic) Segmental and somatic dysfunction of thoracic region (Chronic) Segmental and somatic dysfunction of sacral region (Chronic) DDD (degenerative disc disease), lumbar (Chronic) Hyperlipidemia (Chronic) Hospital Course and Treatment Imaging Results: Laboratory Last Values WBC 11.0 K/mm3 (4.4-11.0) 05/20/20 05:25 RBC 3.48 M/mm3 (4.2-5.4) L 05/20/20 05:25 Hgb 10.5 g/dL (12.0-15.0) L 05/27/20 05:15 Hct 34.6 % (37-47) L 05/27/20 05:15 MCV 95.7 fL (81-99) 05/20/20 05:25 MCH 30.7 pg (27.0-32.0) 05/20/20 05:25 MCHC 32.1 g/dL (32-36) 05/20/20 05:25 RDW Std Deviation 46.6 fl (35.1-43.9) H 05/20/20 05:25 RDW Coeff of Sumi 13.6 % (11.6-14.6) 05/20/20 05:25 Plt Count 302 K/mm3 (150-450) 05/20/20 05:25 MPV 10.8 fl (6.2-12.0) 05/20/20 05:25 Immature Gran % (Auto) 0.800 % (0.0-0.9) 05/20/20 05:25 Neut % (Auto) 68.3 % (47-70) 05/20/20 05:25 Lymph % (Auto) 17.3 % (19-41) L 05/20/20 05:25 [place]nee % (Auto) 11.3 % (0-10) H 05/20/20 05:25 Eos % (Auto) 2.1 % (0-5) 05/20/20 05:25 Baso % (Auto) 0.2 % (0-1) 05/20/20 05:25 Absolute Neuts (auto) 7.5 X10^3/uL (2.0-7.7) 05/20/20 05:25 Absolute Lymphs (auto) 1.91 X10^3/uL (0.83-4.51) 05/20/20 05:25 Nucleated RBC % 0 % (0-5) 05/20/20 05:25 Sodium 135 mmol/L (136-145) L 05/27/20 05:15 Potassium 4.3 mmol/L (3.5-5.1) 05/27/20 05:15 Chloride 99 mmol/L (98-107) 05/27/20 05:15 Carbon Dioxide 31.0 mmol/L (21.0-32.0) 05/27/20 05:15 Anion Gap 5 (5-15) 05/27/20 05:15 BUN 15 mg/dL (7-18) 05/27/20 05:15 Creatinine 0.72 mg/dL (0.55-1.02) 05/27/20 05:15 Estim Creat Clear Calc 36.12 ml/min 05/27/20 05:15 Est GFR (MDRD) Af Amer 100 mL/min (>60) 05/27/20 05:15 Est GFR (MDRD) Non-Af 83 mL/min (>60) 05/27/20 05:15 BUN/Creatinine Ratio 20.7 RATIO (10-20) H 05/27/20 05:15 Glucose 142 mg/dL (74-106) H 05/27/20 05:15 Hemoglobin A1c 7.4 % (3.8-5.6) H 05/20/20 05:25 Uric Acid 2.4 mg/dL (2.6-6.0) L 05/20/20 05:25 Calcium 8.8 mg/dL (8.5-10.1) 05/27/20 05:15 Phosphorus 3.8 mg/dL (2.5-4.9) 05/20/20 05:25 Magnesium 1.7 mg/dL (1.6-2.6) 05/27/20 05:15 Total Bilirubin 0.40 mg/dL (0.20-1.00) 05/20/20 05:25 AST 24 U/L (15-37) 05/20/20 05:25 ALT 15 U/L (13-56) 05/20/20 05:25 Alkaline Phosphatase 54 U/L (45-117) 05/20/20 05:25 Total Protein 6.4 g/dL (6.4-8.2) 05/20/20 05:25 Albumin 2.1 g/dL (3.2-5.0) L 05/20/20 05:25 Globulin 4.3 g/dL (2.2-4.2) H 05/20/20 05:25 Albumin/Globulin Ratio 0.5 RATIO (0.9-2.4) L 05/20/20 05:25 POC Glucose 161 mg/dL (70-110) H 05/28/20 06:09 none Operations: - - Lumbar laminectomy and fusion on 05/13/[address] Matamoros at [facility]. Procedures: None Summary of Care Provided: Geneva Goode is a 75 year old F with a PMH of HTN, DM II, HLD, morbid obesity, gout, DDD, lumbar canal stenosis and spondylolisthesis at L3-4, lumbar canal stenosis at L2-3 secondary to a synovial cyst, PAC's and PVC's, right bundle branch block, MEJIA, depression, pulmonary nodules, syncope with negative tilt table test and OA who underwent Lumbar laminectomy and fusion at L2-4 on 05/13/20 at the [facility] by Dr. Matamoros. She was admitted to the inpt rehab unit at [facility] for 3 hours of therapy daily to restore independence/function at or near her prior level of function. She had been sleeping in a recliner because of chronic back pain. She had been unable to do her posterior hygiene due to pain and her daughter was having to provide a lot of assistance with ADL's. Preoperatively she saw Dr. Long who felt her risk for cardiac complications was acceptable. She also saw Dr. Gan for pre-operative evaluation. She had a ECHO in September of 2019 that showed an ejection fraction of 65% with no wall motion abnormalities. There was no significant valvular heart disease and the right ventricular systolic pressure was estimated to be 26. There was no evidence for diastolic dysfunction. A stress test in January 2018 showed no evidence of ischemia. Lab at admission to the rehab unit showed a low sodium at 132, low potassi um at 3.3, low chloride at 93 and a low magnesium at 1.5. She had been taking Lasix 40 mg daily for edema due to chronic venous insufficiency. Uric acid was well controlled with Allopurinol at 2.4. HGBA1C was good at 7.4. Hemoglobin was low at 10.7 with normochromic normocytic indices and this is most likely secondary to acute blood loss anemia related to surgery. Lasix was discontinued at admission and she was placed on a low salt diet. She had no edema while in the rehab unit. The hypokalemia and hypomagnesemia improved with supplementation and were normal at discharge. The sodium improved to 135. She had hypoglycemia, primarily at night, and the oral hypoglycemic agents had to be decreased. She was on a 1600 calorie diet. Prior to DC the Blood sugars were well controlled without hypoglycemia on Metformin 1,000 mg daily, Amaryl 3 mg daily and pioglitazone 5 mg daily. Prior to DC she was ambulating with a FWW for 150 feet with standby assist on various surfaces with no LOB. She completed a tub/shower transfer with Mod assist X2 for trunk stability and getting her legs in and out of the tub. She has no grab bars at home but stated her daughter would be able to help her. She required Mod A of 1 to go from supine to sit but was able to go from sitting to standing with SBA. She was able to sleep in the bed during her stay in rehab and hopes that this will be the case at home. PT/OT did not feel that she was ready for DC but, the pt was insistent on going home on 05/30. She needs more work on core/abs to improve trunk control and also was still requiring verbal cues for postural adjustments and assistive device proximity when ambulating. She was discharged on 05/28/20 and [facility] for PT/OT was arranged. She will wear her back brace any time she is active but, does not have to wear the brace when in bed or sitting in a chair. She understands she will need to adhere to the the restrictions placed on her by Dr. Matamoros (no bending, lifting or twisting) until the vertebrae are fused. She has an appt with Dr. Matamoros on 06/02 to remove the aixa. She will follow up with Dr. Gan in 5-10 days. She was started n a vitamin supplement......she has one at home but, had not been taking it. She was educated on the need to have adequate Vitamin D so the body could absorb calcium and maintain good bone health. Her last DEXA showed no evidence of os teopenia or osteoporosis. I did not discharge her on Lasix but, I did educate her on chronic venous insufficiency and how to control it with low salt diet, leg elevation while sitting, staying active, losing weight and wearing compression hose. Alert and oriented x3, sitting in the recliner, no apparent distress, appropriate Mucous membranes are moist Lungs-clear to auscultation throughout with good air exchange Heart-regular rate and rhythm Abdomen-soft, obese, nontender to palpation, not distended, bowel sounds present No peripheral edema No calf tenderness The incision is intact with no jessy-incisional erythema and no purulent discharge. This note was generated with [employer] dictation software. It may contain incorrect words, spelling, and punctuation that were not noted in checking the note before signing. Patient Problems: Active and Suspected Problems (Last Reviewed 05/20/20 @ 10:[address] Mickie Flores, DO) Fusion of lumbar spine (Acute) Debility (Acute) due to spinal stenosis at L2-3 from a synovial cyst and spondylolithesis at L3-4. She is S/P Lumbar laminectomy and fusion L2-4 on 05/13/20 Hyponatremia (Acute) - Physical Exam Vitals/I&O's: Vital Signs Temp Pulse Resp BP Pulse Ox 97.7 F L 67 16 145/60 H 95 05/28/20 07:29 05/28/20 08:19 05/28/20 07:29 05/28/20 08:19 05/28/20 07:29 Oxygen Flow Rate (L/min) 2 Oxygen Delivery Method Room Air Weight: 217 lb 9.54 oz Body Mass Index (BMI) 41.7 Intake and Output for Last 24 Hours 05/26/20 05/27/20 05/28/20 23:59 23:59 23:59 Intake Total 1400 / 1400 940 / 940 440 / 440 Output Total 900 / 900 150 / 150 Balance 500 / 500 790 / 790 440 / 440 Laboratory Results 05/27/20 16:34: POC Glucose 137 H 05/27/20 21:02: POC Glucose 145 H 05/28/20 06:09: POC Glucose 161 H Current Medications Acetaminophen (Tylenol) 1,000 mg PO Q8 [facility] Last Admin: 05/28/20 05:17 Dose: 1,000 mg Documented by: Al Hydroxide/Mg Hydroxide (Mylanta Ii) 15 ml PO Q6H PRN PRN PRN Reason: reflux Allopurinol (Zyloprim) 300 mg PO DAILY [facility] Last Admin: 05/28/20 08:19 Dose: 300 mg Documented by: [facility] ([facility]) [facility] Last Admin: 05/28/20 08:20 Dose: 81 mg Documented by: Atorvastatin Calcium (Lipitor) 40 mg PO QHS [facility] Last Admin: 05/27/20 21:12 Dose: 40 mg Documented by: Bisacodyl (Dulcolax) 10 mg RECTAL .PRN X 1 PRN PRN Reason: Constipation Citalopram Hydrobromide (Celexa) 20 mg PO DAILY [facility] Last Admin: 05/28/20 08:19 Dose: 20 mg Documented by: Famotidine (Pepcid) 20 mg PO DAILY [facility] Last Admin: 05/28/20 08:19 Dose: 20 mg Documented by: Glimepiride (Amaryl) 3 mg PO BREAKFAST [facility] Last Admin: 05/28/20 08:20 Dose: 3 mg Documented by: Lisinopril (Zestril) 5 mg PO DAILY [facility] Last Admin: 05/28/20 08:19 Dose: 5 mg Documented by: Magnesium Hydroxide (Milk Of Magnesia) 30 ml PO .PRN X 1 PRN PRN Reason: Constipation Magnesium Oxide (Mag-Ox 400) 400 mg PO BIDCM [facility] Last Admin: 05/28/20 08:20 Dose: 400 mg Documented by: Melatonin (Melatonin) 5 mg PO QHS [facility] Last Admin: 05/27/20 21:12 Dose: 5 mg Documented by: Metformin HCl (Glucophage) 1,000 mg PO BREAKFAST [facility] Last Admin: 05/28/20 08:20 Dose: 1,000 mg Documented by: Metoprolol Tartrate (Lopressor (Beta Andrei)) 25 mg PO BID [facility] Last Admin: 05/28/20 08:19 Dose: 25 mg Documented by: Nystatin (Mycostatin Powder) 1 applic TOPICAL BID@0600,2200 [facility]; Protocol Last Admin: 05/28/20 05:18 Dose: 1 applicatio Documented by: Oxycodone HCl (Oxyir) 5 mg PO Q4H PRN PRN PRN Reason: Pain Score 1-09/06 Last Admin: 05/28/20 05:16 Dose: 5 mg Documented by: Pioglitazone HCl (Actos) 30 mg PO DAILY [facility] Last Admin: 05/28/20 08:19 Dose: 30 mg Documented by: Senna/Docusate Sodium (Senokot-S, Jessy-Colace) 2 tablet PO BID [facility] Last Admin: 05/20/20 08:19 Dose: Not Given Documented by: Tolterodine Tartrate (Detrol La) 2 mg PO DAILY [facility] Last Admin: 05/28/20 08:19 Dose: 2 mg Documented by: Discharge Activity: May Not Drive, May Shower, Use Walker, - - No Bending, lifting or twisting until the bone in your back has fused....this can only be determined by an XRAY. Dr. Matamoros will be the one to tell you when it is OK to Bend, Lift or twist. Make sure to do the exercises given to you by the therapists twice a day.........really work on the ABS/core strength because this will support the back and you will have a lot less pain down the road if you keep the abs strong. Keep extremity elevated above heart level: Legs Call your doctor if your incision/area has: Continuous Slow Oozing, Sudden Increased Bleeding, Increased Pain/ Swelling, Increased Redness, Foul Smelling Discharge, Swelling at the incision site Call your doctor if you observe: Fever of 101 or Higher, Inability to urinate, Inability to have a bowel movement, Shortness of breath, Dizziness, Fainting spells, Swelling in the ankles, Chest pain, Increased palpitations (irregular heartbeat), Calf discomfort, Uncontrolled pain Suture Line Care: Avoid Pulling/Pushing, Avoid Pinching/Bending Cleanse incision/area with: Soap & Water Additional Dressing/Incision Instructions:: Make sure that your daughter or your checks the incision everyday and looks for redness, increased warmth to touch around the incision and also any discharge from the incision. If this happens then call Dr. Matamoros or your PCP because it will need to be examined to see if you need an antibiotic. Wash the incision daily with soap and water. Home Medications: Medications to take at Discharge allopurinol 300 mg tablet 300 mg PO QDAY 12/21/17 aspirin 81 mg tablet,delayed release 81 mg PO QDAY 12/21/17 atorvastatin 40 mg tablet 40 mg PO QHS 12/21/17 citalopram 20 mg tablet 20 mg PO QDAY 12/21/17 pioglitazone 30 mg tablet 30 mg PO QDAY 12/23/17 fesoterodine 4 mg tablet,extended release 24 hr 4 mg PO DAILY 12/12/19 Acetaminophen [Tylenol] 1,000 mg PO Q8 05/19/20 Melatonin 5 mg PO QHS 05/19/20 Metoprolol Tartrate [Lopressor (beta andrei)] 25 mg PO BID 05/19/20 Oxycodone [Oxyir] 5 mg PO Q4H PRN PRN 05/19/20 Calcium Carbonate [Tums] 500 mg PO BIDCM #60 tab 05/28/20 Cholecalciferol (VIT D3) [Vitamin D] 1,000 unit PO DAILY #30 tab 05/28/20 Glimepiride [Amaryl] 3 mg PO DAILY #90 tab 05/28/20 Lisinopril [Zestril] 5 mg PO DAILY #30 tab 05/28/20 Magnesium Chloride [Slow-Mag] 71.5 mg PO BID #60 tablet. 05/28/20 Nystatin Powder [Mycostatin Powder] 1 applic TOPICAL BID@0600,2200 #1 bottle 05/28/20 Oxycodone [Oxyir] 5 mg PO Q4H PRN PRN #30 tab 05/28/20 metFORMIN HCl [Glucophage] 1,000 mg PO BREAKFAST #30 tab 05/28/20 Following Prescrptions Were Given to Patient: Glimepiride [Amaryl] 3 mg PO DAILY #90 tab Transmission Status: Pending to [id number] metFORMIN HCl [Glucophage] 1,000 mg PO BREAKFAST #30 tab Transmission Status: Received by [id number] Nystatin Powder [Mycostatin Powder] 1 applic TOPICAL BID@0600,2200 #1 bottle Prescription Printed Oxycodone [Oxyir] 5 mg PO Q4H PRN PRN #30 tab PRN Reason: Pain Score 1-10/10 Transmission Status: Received by [id number] Magnesium Chloride [Slow-Mag] 71.5 mg PO BID #60 tablet. Transmission Status: Sent to [id number] Calcium Carbonate [Tums] 500 mg PO BIDCM #60 tab Prescription Printed Cholecalciferol (VIT D3) [Vitamin D] 1,000 unit PO DAILY #30 tab Transmission Status: Sent to [id number] Lisinopril [Zestril] 5 mg PO DAILY #30 tab Transmission Status: Received by [id number] Primary Care Physician: Yared Gan Chi, MD [Primary Care Provider] - Please follow up with your Primary Care Physician in: 5-10 days Please Follow Up With: Dr. Matamoros When: 06/02/20 to remove the aixa Patient Instructions: Understanding Chronic Venous Insufficiency, Eating a Low- Salt Diet, MyPlate Worksheet: 1,600 Calories Disposition: Home with Home Health Minutes spent on discharge:: 45 Patient Condition:: Good Medical Necessity - Tobacco Use Smoking Status: Former smoker Tobacco Use: Non-smoker Meaningful Use Info Meaningful Use Diagnoses (Choose all that apply): None applicable Inpatient E&M: 84899 Disch Hosp
--- NOTE | 2020-05-28 12:18 | NURSING ---
Discharged home with daughter. Discharge instructions, medications and appointments reviewed with the pt. denies questions or concerns
== END 2020-05-28 12:00 | disposition home health service (06) | DRG 560 ==
PROVIDERS: Admitting Provider Internal Medicine; PCP Family Medicine Geriatric Medicine; Visit Provider Internal Medicine
DX: Z47.89 Encounter for other orthopedic aftercare (principal); E87.1 Hypo-osmolality and hyponatremia; D62 Acute posthemorrhagic anemia; Z98.1 Arthrodesis status; E66.01 Morbid (severe) obesity due to excess calories; E78.5 Hyperlipidemia, unspecified; I10 Essential (primary) hypertension; M1A.9XX0 Chronic gout, unspecified, without tophus (tophi); R91.8 Other nonspecific abnormal finding of lung field; G62.89 Other specified polyneuropathies; F32.9 Major depressive disorder, single episode, unspecified; M99.02 Segmental and somatic dysfunction of thoracic region; M99.03 Segmental and somatic dysfunction of lumbar region; M99.04 Segmental and somatic dysfunction of sacral region; G47.33 Obstructive sleep apnea (adult) (pediatric); K75.81 Nonalcoholic steatohepatitis (NASH); M51.36 Other intervertebral disc degeneration, lumbar region; I49.1 Atrial premature depolarization; Z87.891 Personal history of nicotine dependence; E87.6 Hypokalemia; M71.38 Other bursal cyst, other site; M48.061 Spinal stenosis, lumbar region without neurogenic claudication; M43.16 Spondylolisthesis, lumbar region; K21.0 Gastro-esophageal reflux disease with esophagitis; N39.3 Stress incontinence (female) (male); E11.649 Type 2 diabetes mellitus with hypoglycemia without coma; I87.2 Venous insufficiency (chronic) (peripheral)
CPT/HCPCS: 36415; 80048; 80053; 82962; 83036; 83735; 84100; 84550; 85014; 85018; 85025; 97032; 97110; 97116; 97162; 97167; 97530; 97535; 97802; 97803; 99251; G0463

== ENCOUNTER → 2020-05-30 | Outpatient (CLI) | payer MEDICARE, OTHER, SELFPAY ==
[2020-05-19 14:24] VITALS: BMI 41.7
[2020-05-30 12:39] LABS: Absolute Neutrophil Count 11.4 X10^3/uL (2.0-7.7); Basophil# 0.03 X10^3/uL; Basophil% 0.2 % (0-1); Eosinophil# 0.09 X10^3/uL; Eosinophils% 0.6 % (0-5); Hemoglobin 11.3 g/dL (12.0-15.0); Lymphocyte % 13.6 % (19-41); Mean Corp Hgb Conc 30.5 g/dL (32-36); Mean Corpuscular Hgb 30.6 pg (27.0-32.0); Mean Corpuscular Volume 100.3 fL (81-99); Monocyte# 1.05 X10^3/uL; Monocyte% 7.2 % (0-10); NRBC Flagged by Analyzer 0 % (0-5); Neutrophil # 11.43 X10^3/uL (2.7-7.7); Neutrophil % 77.9 % (47-70); Platelet Count 505 K/mm3 (150-450); RBC Distribution Width CV 14.4 % (11.6-14.6); RBC Distribution Width SD 52.9 fl (35.1-43.9); Red Blood Count 3.69 M/mm3 (4.2-5.4); White Blood Count 14.7 K/mm3 (4.4-11.0)
[2020-05-30 13:01] LABS: ALB/GLOB Ratio 0.7 RATIO (0.9-2.4); AST(SGOT) 22 U/L (15-37); Alanine Aminotransfer ALT/SGPT 20 U/L (13-56); Alkaline Phosphatase 86 U/L (45-117); Anion Gap 9 (5-15); BUN 13 mg/dL (7-18); BUN/Creat Ratio 16.5 RATIO (10-20); Calcium,Total 9.6 mg/dL (8.5-10.1); Chloride 100 mmol/L (98-107); Creatinine, Serum 0.79 mg/dL (0.55-1.02); EST Glomerular Filtration Rate 75 mL/min (>60); Est Glom Filt Rate - Afr Amer 91 mL/min (>60); Globulin 4.4 g/dL (2.2-4.2); Glucose 141 mg/dL (74-106); Potassium 4.6 mmol/L (3.5-5.1); Protein, Total 7.4 g/dL (6.4-8.2); Sodium Level 136 mmol/L (136-145); Thyroid Stim Hormone (TSH) 1.37 uIU/mL (0.358-3.74); Uric Acid 3.4 mg/dL (2.6-6.0)
== END | disposition home or self-care (01) ==
LOC: POLAB3 10:47
PROVIDERS: PCP Family Medicine Geriatric Medicine; Visit Provider Family Medicine Geriatric Medicine
DX: E11.9 Type 2 diabetes mellitus without complications (principal); M10.9 Gout, unspecified; I10 Essential (primary) hypertension
CPT/HCPCS: 36415; 80053; 84443; 84550; 85025

== ENCOUNTER → 2020-07-14 | Outpatient (CLI) | payer MEDICARE, OTHER, SELFPAY ==
[2020-07-14 12:42] LABS: Absolute Lymphocyte Count 2.34 X10^3/uL (0.83-4.51); Absolute Neutrophil Count 5.9 X10^3/uL (2.0-7.7); Basophil# 0.02 X10^3/uL; Basophil% 0.2 % (0-1); Eosinophil# 0.34 X10^3/uL; Eosinophils% 3.7 % (0-5); Hematocrit 39.3 % (37-47); Hemoglobin 11.7 g/dL (12.0-15.0); Lymphocyte # 2.34 X10^3/ul (4.0); Lymphocyte % 25.2 % (19-41); Mean Corp Hgb Conc 29.8 g/dL (32-36); Mean Corpuscular Hgb 29.2 pg (27.0-32.0); Mean Platelet Vol. 11.6 fl (6.2-12.0); Monocyte# 0.65 X10^3/uL; NRBC Flagged by Analyzer 0 % (0-5); Neutrophil # 5.88 X10^3/uL (2.7-7.7); Neutrophil % 63.5 % (47-70); Platelet Count 325 K/mm3 (150-450); RBC Distribution Width CV 15.3 % (11.6-14.6); RBC Distribution Width SD 56.1 fl (35.1-43.9); Red Blood Count 4.01 M/mm3 (4.2-5.4); White Blood Count 9.3 K/mm3 (4.4-11.0)
[2020-07-14 13:18] LABS: ALB/GLOB Ratio 0.8 RATIO (0.9-2.4); AST(SGOT) 17 U/L (15-37); Alanine Aminotransfer ALT/SGPT 17 U/L (13-56); Albumin, Serum 3.1 g/dL (3.2-5.0); Alkaline Phosphatase 73 U/L (45-117); Anion Gap 6 (5-15); BUN 11 mg/dL (7-18); BUN/Creat Ratio 13.7 RATIO (10-20); Chloride 103 mmol/L (98-107); EST Glomerular Filtration Rate 74 mL/min (>60); Est Glom Filt Rate - Afr Amer 89 mL/min (>60); Glucose 177 mg/dL (74-106); Potassium 3.9 mmol/L (3.5-5.1); Protein, Total 7.1 g/dL (6.4-8.2); Sodium Level 139 mmol/L (136-145); Thyroid Stim Hormone (TSH) 0.65 uIU/mL (0.358-3.74); Uric Acid 4.8 mg/dL (2.6-6.0)
[2020-07-14 13:50] LABS: Vitamin D,25 Hydroxy 33.9 ng/mL
== END | disposition home or self-care (01) ==
LOC: POLAB3 10:45
PROVIDERS: PCP Family Medicine Geriatric Medicine; Visit Provider Family Medicine Geriatric Medicine
DX: E11.9 Type 2 diabetes mellitus without complications (principal); E55.9 Vitamin D deficiency, unspecified; I10 Essential (primary) hypertension; M10.9 Gout, unspecified
CPT/HCPCS: 36415; 80053; 82306; 84443; 84550; 85025

== ENCOUNTER → 2020-07-16 | Outpatient (CLI) | payer MEDICARE, OTHER, SELFPAY ==
[2020-07-14 12:20] VITALS: BMI 41.7
--- NOTE | 2020-07-16 08:47 | VDLE_ITS ---
Reason For Study: Localized edema Procedure LEFT Exam performed in department. GSV is normal. A preliminary report was called and/or faxed CFV is compressible, spontaneous, phasic, to Malik. competent, and demonstrates normal augmentation. FV is compressible, spontaneous, phasic, competent and demonstrates normal augmentation. POP V is compressible, spontaneous, phasic, competent and demonstrates normal augmentation. T/P Trunk is compressible. PTV is compressible. LT PerV is compressible. Interpretation Summary Deep veins of the left lower extremity are patent and compressible segmentally. There is no evidence of left lower extremity deep vein thrombosis. Valvular competence appears intact within the proximal deep venous system on the left . The left great saphenous vein appears patent and compressible segmentally. Ordering Physician: Yared Gan Referring Physician: Yared Gan Chi Performed By: Abeba Norman RVT
== END | disposition home or self-care (01) ==
LOC: CVS 08:46
PROVIDERS: PCP Family Medicine Geriatric Medicine; Referring Provider Family Medicine Geriatric Medicine; Visit Provider Family Medicine Geriatric Medicine
DX: R60.0 Localized edema (principal)
CPT/HCPCS: 93971

== ENCOUNTER → 2020-08-13 | Outpatient (CLI) | payer MEDICARE, OTHER, SELFPAY ==
[2020-07-24 15:00] VITALS: BMI 41.7
== END | disposition home or self-care (01) ==
LOC: LABSPEC 15:21
PROVIDERS: PCP Family Medicine Geriatric Medicine; Visit Provider Family Medicine Geriatric Medicine
DX: N39.0 Urinary tract infection, site not specified (principal)
CPT/HCPCS: 87077; 87086; 87088; 87186

== ENCOUNTER → 2020-08-27 | Outpatient (CLI) | payer MEDICARE, OTHER, SELFPAY ==
[2020-08-22 09:45] VITALS: BMI 39.2
--- NOTE | 2020-08-27 18:00 | STRESSREP ---
Stress Test Report Pharmacologic myocardial perfusion stress test. 75-year-old lady with a history hypertension and premature ventricular complexes. Stress protocol: Resting EKG demonstrates normal sinus rhythm with a rate of 78 bpm and right bundle branch block. Occasional premature ventricular complexes are noted. Resting blood pressure is 144/82 mmHg. 0.4 mg of regadenoson was infused per usual protocol followed by rapid intravenous saline flush injection continuous EKG monitoring was performed. The maximum heart rate attained was 98 bpm which was 68% of maximum predicted heart rate the maximum workload was 1 metabolic equivalent. At rest there were no ST or T wave changes noted to suggest abnormal flow reserve at peak infusion nonspecific ST-T wave changes were noted particularly the criteria for ischemia. No clinical angina was noted the test was terminated due to completion of the test. Myocardial perfusion protocol. 14.8 mCi of technetium 99m sestamibi was injected at rest. 0.4 mg of regadenoson was infused per usual protocol peak infusion 45.0 mCi of technetium 99m sestamibi was injected stress images were obtained stress and rest images are reconstructed and compared in the short axis vertical long horizontal long axis. Gated images were also obtained Perfusion SPECT analysis: Review of the stress images demonstrate normal uptake of tracer noted in all areas of myocardium the resting images similar demonstrate normal uptake of tracer noted in all areas of the myocardium. No areas of reversible reversibility are noted suggest ischemia. Gated SPECT analysis: The gated ejection fraction is 47%. Conclusion: Normal pharmacologic myocardial perfusion stress test. Low normal ejection fraction.
== END | disposition home or self-care (01) ==
LOC: CVS 05:37
PROVIDERS: PCP Family Medicine Geriatric Medicine; Referring Provider Physician Assistant Medical; Visit Provider Physician Assistant Medical
DX: Z01.810 Encounter for preprocedural cardiovascular examination (principal); R06.00 Dyspnea, unspecified; I45.10 Unspecified right bundle-branch block; I10 Essential (primary) hypertension
CPT/HCPCS: 78452; 93017; A9500; A4216; J2785

== ENCOUNTER 2020-09-15 10:33 | Observation (INO) | payer MEDICARE, OTHER, SELFPAY ==
[2020-07-24 15:00] VITALS: BMI 41.7
--- NOTE | 2020-08-11 21:14 | PCM.HP.BLA ---
History and Physical History and Physical Patient Name: Geneva Goode : 1945 From: REZA SALAZAR NP DATE OF SURGERY: 08/25/2020 SCHEDULED PROCEDURE: Right total hip arthroplasty HISTORY OF PRESENT ILLNESS: Preoperative history and physical exam was performed on August 11, 2020. This is a 75-year-old female whose been having ongoing right hip pain for several years. She describes the pain as constant, dull, aching and sharp. The pain is made worse with stairs and walking. The patient reports inability to perform activities of daily living including bathing, dressing and housework. She also reports difficulty shopping. The patient tripped/stumble due to the pain in the right hip. The patient has attempted previous conservative measures consisting of rest, ice, heat and elevation. She has also tried corticosteroid injections, Tylenol and home exercises. Surgical clearance has been obtained from . We will be obtaining surgical clearance from Dr. Long. The patient recently had back surgery on May 13, 2020. We will be obtaining surgical clearance from Dr. Matamoros who performed her lumbar surgery. The patient has a medical history pertinent for hypertension, gout, goiter, type 2 diabetes and sleep apnea. After failing conservative measures and discussing treatment options with Dr. Peter Hodge the patient does wish to proceed with a right total hip arthroplasty. REVIEW OF SYSTEMS: ROS: Const: Reports anxiety, but denies anorexia, change in appetite, fever and weight change,hard of hearing, and vision problems. Eyes: Reports blurred vision and double vision. ENMT: Reports sinusitis. CV: Reports irregular heartbeat, but denies chest pain, heart murmur and peripheral vascular disease. Resp: Reports shortness of breath, but denies asthma, cough, pneumonia, sleep apnea, tuberculosis and wheezing. GI: Reports diarrhea and heartburn, but denies constipation, nausea, bloody stools, vomiting, and difficulty swallowing. : Reports irregular menstrual periods. Denies incontinence. Musculo: Reports trouble walking, limp, and weakness but denies leg swelling. Skin: Denies Raynaud's, history of shingles and tattoo. Neuro: Reports numbness/tingling but denies ambulatory dysfunction, dizziness and tremor. Psych: Reports anxiety, depression, mood changes and stress, but denies insomnia and mental illness. Garcia/Lymph: Denies anemia, bleeding/bruising tendency and past transfusion. Reviewed, no changes. PAST MEDICAL HISTORY: Advance Care Plan: No Advance Directives Effective Date: 12/13/2018 PMH: Medical Problems: High Blood Pressure, Arthritis, Gout, Goiter On Thyroid, Diabetes Diagnosed With Fatty Liver - (01/2010) BY DR. VERNON Sleep Apnea Accidents: None Surgical Hx: Gallbladder - LODI Hernia Repair - VALDOVINOS D & C Carpal Tunnel - (1995) RIGHT WRIST & LEFT WRIST, [facility], DR. SHAIKH RT TKR - (06/30/2009) CATIA @ [facility] Oral Surgery LT TKR - (06/22/2010) K@[facility] Lumbar Fusion W/Cyst Removed - (04/2020) LASHAWN @ [facility] Anesthesia Complications: Thrush, Sore Throat Assistive Devices: Glasses, Cpap, Walker Reviewed and updated. SOCIAL HISTORY: SH: Marital: .Occupation: Retired.Work Status: Retired.Hand Dominance: Right-handed. Personal Habits: Smoking: Patient is a former smoker.Cigarette Use: Former.Smokeless Tobacco: Never Used Smokeless Tobacco.E-Cigarette Use: Never used.Alcohol: Denies use.Drug Use: Denies Use.Enjoy Exercising: Never Exercises. Reviewed and updated. VITALS: Ht: 61 Wt: 207lb Wt k.895 BMI: 39.1 BP: 136/58 Pulse: 104 T: 97.4 T: 36.3C ALLERGIES: Rogaine Steroids MEDICATIONS: Citalopram Hydrobromide 20 mg 1 PO qday, Allopurinol 300 mg 1 po qdAY, Glimepiride 4 mg 1 tab PO bid, Pioglitazone HCL 30 mg 1 tab PO daily, Lisinopril 2.5 mg take 1 tablet by mouth once daily, Atorvastatin Calcium 40 mg 1po qday, Toviaz 4 mg 1 by mouth every day, Melatonin 5 mg one po qd, Aspirin 81 81 mg one po qd, Furosemide 40 mg 1 by mouth every day, Potassium Chloride Sis ER 20 Meq 1 by mouth qd, Metformin HCL 1000 mg 1 by mouth twice a day PRE-OP EXAM: General appearance:NORMAL Other: Eyes: Conjunctivae and lids: NORMAL Pupils: ERR Ears, Nose, Mouth, and Throat: NORMAL Other: Inspection of lips, teeth and gums: NORMAL Other: Respiratory: Assessment of respiratory effort: NORMAL Other: Auscultation of lungs: clear to auscultation no wheezes, rhonchi or rales. Cardiovascular: Auscultation of heart: regular rate and rhythm, no murmurs, gallops or rubs. Gastrointestinal: Exam of abdomen: soft, nontender, nondistended bowel sounds present. Neurological: see below Psychiatric: Orientation to time, place and person: NORMAL Other: Mood and affect: NORMAL Other: PHYSICAL EXAMINATION: The patient ambulates with an antalgic gait. Severe pain with flexion, internal and external rotation. The right leg length is shorter when compared to the left. Flexion to 85. Limited external and internal rotation range of motion secondary to pain and stiffness. Positive logroll. Sensation intact to light touch. IMAGING STUDIES: 3 views of right hip obtained on July 10, 2020 reveal mild to moderate osteoarthritis of the femoral head and acetabulum. IMPRESSION: 1. Osteoarthritis, right hip 2. Hypertension 3. History of gout 4. Goiter on thyroid 5. Type 2 diabetes mellitus 6. Sleep apnea PLAN: Dr. Peter Hodge did discuss and review with the patient all treatment options including surgical versus nonsurgical. The patient does wish to proceed with the above-stated procedure. Potential risk, benefits and complications of the procedure were discussed in detail including but not limited to , infection, nerve and blood vessel damage, persistent pain, numbness, tingling, paresthesia, blood clot, pulmonary embolism and requirement for possible further surgery. The patient expressed full understanding and has no further questions for the doctor. The patient does agree to proceed with the above-stated procedure and has signed the surgery consent form. The patient was instructed to bring a walker with her to the hospital the day of her surgery. Discussed with the patient the risks associated with the COVID-19 virus including the risk of exposure while at the hospital. The patient was reassured local hospitals have low infection rates and taken all necessary precautions to limit patient exposure to COVID-19. Limiting the patient's time in the hospital may decrease their exposure to COVID-19. The patient was notified that we will need to comply with any screening or testing the hospital wishes to perform and that surgery may be delayed for any positive test results. This dictation was created using voice recognition software. Phonetic and/or grammatical errors may exist. ___ I have re-examined the patient. There are no clinical changes since date of exam. ___ See progress notes for changes. ___ Dictated on admission Date: Time: Signature:
--- NOTE | 2020-08-18 10:51 | EKG12_ITS ---
Test Reason : PREOP Blood Pressure : / mmHG Vent. Rate : 072 BPM Atrial Rate : 072 BPM P-R Int : 184 ms QRS Dur : 152 ms QT Int : 436 ms P-R-T Axes : 054 029 030 degrees QTc Int : 477 ms Normal sinus rhythm Right bundle branch block Abnormal ECG Confirmed by LOUISE PICHARDO, CHRISTY ([id number]), offline editor JESSA GOLDSMITH ([id number]) on 08/19/2020 1:38:24 PM Referred By: Peter Hodge Confirmed By:CHRISTY GIL MD
[2020-08-18 12:43] LABS: International Normalized Ratio 1.1; Prothrombin Time (Protime)PT. 13.5 SECONDS (11.7-14.9)
[2020-08-18 12:44] LABS: Partial Thromboplast Time 29.6 Seconds (24.1-36.2)
[2020-08-18 13:10] LABS: Hemoglobin A1c 6.5 % (3.8-5.6)
[2020-08-22 09:45] VITALS: BMI 39.2
--- NOTE | 2020-09-07 13:10 | PCM.HP.BLA ---
History and Physical History and Physical Patient Name: Geneva Goode : 1945 From: REZA SALAZAR NP DATE OF SURGERY: 09/15/2020 SCHEDULED PROCEDURE: Right total hip arthroplasty HISTORY OF PRESENT ILLNESS: Preoperative history and physical exam was performed on September 05, 2020. This is a 75-year-old female whose been having ongoing right hip pain for several years. She describes the pain as constant, dull, aching and sharp. The pain is made worse with stairs and walking. The patient reports inability to perform activities of daily living including bathing, dressing and housework. The patient reports tripping/stumbling secondary to the pain in the right hip. Previous conservative measures attempted include rest, ice, heat and elevation. She has attempted corticosteroid injections, Tylenol and home exercises. Surgical clearance has been obtained from Dr. Gan her primary care provider. The patient was originally scheduled for surgery in July 2020 but due to an abnormal EKG the surgery was canceled. She followed up with her hvac designer. We have obtain surgical clearance from her hvac designer, Dr. Long. The patient has a medical history pertinent for hypertension, type 2 diabetes mellitus, gout, goiter, sleep apnea, PACs with a right bundle branch block. She denies chest pain, fevers, chills, shortness of breath, to call deep breathing or recent infections. After failing conservative measures and discussing treatment options with Dr. Peter Hodge the patient does wish to proceed with a right total hip arthroplasty. REVIEW OF SYSTEMS: ROS: Const: Reports anxiety, but denies anorexia, change in appetite, fever and weight change,hard of hearing, and vision problems. Eyes: Reports blurred vision and double vision. ENMT: Reports sinusitis. CV: Reports irregular heartbeat, but denies chest pain, heart murmur and peripheral vascular disease. Resp: Reports shortness of breath, but denies asthma, cough, pneumonia, sleep apnea, tuberculosis and wheezing. GI: Reports diarrhea and heartburn, but denies constipation, nausea, bloody stools, vomiting, and difficulty swallowing. : Reports irregular menstrual periods. Denies incontinence. Musculo: Reports trouble walking, limp, and weakness but denies leg swelling. Skin: Denies Raynaud's, history of shingles and tattoo. Neuro: Reports numbness/tingling but denies ambulatory dysfunction, dizziness and tremor. Psych: Reports anxiety, depression, mood changes and stress, but denies insomnia and mental illness. Garcia/Lymph: Denies anemia, bleeding/bruising tendency and past transfusion. Reviewed, no changes. PAST MEDICAL HISTORY: Advance Care Plan: No Advance Directives Effective Date: 12/13/2018 PMH: Medical Problems: High Blood Pressure, Arthritis, Gout, Goiter On Thyroid, Diabetes Diagnosed With Fatty Liver - (01/2010) BY DR. VERNON Sleep Apnea, PACs/RBBB, Incontinence Accidents: None Surgical Hx: Gallbladder - LODI Hernia Repair - VALDOVINOS D & C Carpal Tunnel - (1995) RIGHT WRIST & LEFT WRIST, [facility], [place] RT TKR - (06/30/2009) CATIA @ [facility] Oral Surgery LT TKR - (06/22/2010) [email or web address] Lumbar Fusion W/Cyst Removed - (04/2020) LASHAWN @ [facility] Anesthesia Complications: Thrush, Sore Throat Assistive Devices: Glasses, Cpap, Walker Reviewed and updated. SOCIAL HISTORY: SH: Marital: .Occupation: Retired.Work Status: Retired.Hand Dominance: Right-handed. Personal Habits: Tobacco Use: Former Smoker In The Past.Cigarette Use: Former.Smokeless Tobacco: Never Used Smokeless Tobacco.E-Cigarette Use: Never used.Alcohol: Denies use.Drug Use: Denies Use.Enjoy Exercising: Never Exercises. Reviewed and updated. VITALS: Ht: 61 Wt: 207lb Wt k.895 BMI: 39.1 BP: 131/74 Pulse: 83 Resp: 22 T: 97.2 T: 36.2C ALLERGIES: Rogaine Steroids MEDICATIONS: Mupirocin 2 % use qtip and apply inside each nostril twice a day until the day of surgery, Citalopram Hydrobromide 20 mg 1 PO qday, Allopurinol 300 mg 1 po qdAY, Glimepiride 4 mg 1 tab PO bid, Pioglitazone HCL 30 mg 1 tab PO daily, Lisinopril 2.5 mg take 1 tablet by mouth once daily, Atorvastatin Calcium 40 mg 1po qday, Toviaz 4 mg 1 by mouth every day, Melatonin 5 mg one po qd, Aspirin 81 81 mg one po qd, Furosemide 40 mg 1 by mouth every day, Metformin HCL 1000 mg 1 by mouth twice a day PRE-OP EXAM: General appearance:NORMAL Other: Eyes: Conjunctivae and lids: NORMAL Pupils: ERR Ears, Nose, Mouth, and Throat: NORMAL Other: Inspection of lips, teeth and gums: NORMAL Other: Respiratory: Assessment of respiratory effort: NORMAL Other: Auscultation of lungs: clear to auscultation no wheezes, rhonchi or rales. Cardiovascular: Auscultation of heart: regular rate and rhythm, no murmurs, gallops or rubs. Gastrointestinal: Exam of abdomen: soft, nontender, nondistended bowel sounds present. Neurological: see below Psychiatric: Orientation to time, place and person: NORMAL Other: Mood and affect: NORMAL Other: PHYSICAL EXAMINATION: The patient ambulates with an antalgic gait. Hip flexion to 85. Limited external and internal rotation secondary to pain and stiffness. Pain with flexion, internal and external rotation. Positive logroll. Leg length is shorter on the right when compared to the left. Sensation intact to light touch. IMAGING STUDIES: 3 views of right hip obtained on July 10, 2020 reveals mild to moderate osteoarthritis of the femoral head and acetabulum. No acute fractures or dislocations. No lytic or blastic lesions. IMPRESSION: 1. Osteoarthritis, right hip 2. Hypertension 3. History of gout 4. Goiter on thyroid 5. Type 2 diabetes mellitus 6. Sleep apnea 7. Hx of PACs 8. Right bundle branch block PLAN: Dr. Peter Hodge did discuss and review with the patient all treatment options including surgical versus nonsurgical. The patient does wish to proceed with the above-stated procedure. Potential risk, benefits and complications of the procedure were discussed in detail including but not limited to , infection, nerve and blood vessel damage, persistent pain, numbness, tingling, paresthesia, blood clot, pulmonary embolism and requirement for possible further surgery. The patient expressed full understanding and has no further questions for the doctor. The patient does agree to proceed with the above-stated procedure and has signed the surgery consent form. The patient was instructed to bring a walker with her to the hospital the day of her surgery. Discussed with the patient the risks associated with the COVID-19 virus including the risk of exposure while at the hospital. The patient was reassured local hospitals have low infection rates and taken all necessary precautions to limit patient exposure to COVID-19. Limiting the patient's time in the hospital may decrease their exposure to COVID-19. The patient was notified that we will need to comply with any screening or testing the hospital wishes to perform and that surgery may be delayed for any positive test results. This dictation was created using voice recognition software. Phonetic and/or grammatical errors may exist. ___ I have re-examined the patient. There are no clinical changes since date of exam. ___ See progress notes for changes. ___ Dictated on admission Date: Time: Signature:
[2020-09-15] VITALS (11 sets, daily range): BP systolic 98–134; BP diastolic 39–76; PULSE 68–105; RESP 14–18; TEMP 36–36.8; O2SAT 95–100; BMI 39.5
--- NOTE | 2020-09-15 | HIP_PTH ---
PATIENT: KISHA COSBY LOC: [facility] U#:[id number] AGE/SX: 75/F ROOM: [facility]322 RE09/15/[address]: Dr. Peter Hodge DO : 1945 BED: 1 DIS: 09/16/2020 SPEC #: [id number] RECD: 09/15/20 13:29 STATUS: JORGE L REQ #: [id number] PEEWEE: 09/15/20 00:[address]: Peter Hodge DEPT: SURGICAL PATHOLOGY RECD BY: Gene Kumari ENTERED: 09/15/20 13:29 SP TYPE: TOTAL HIP OTHR DR: Dr. Yared Gan MD Tissues: Hip, NOS Procedures: Decalcification bone/plaque Surgery Specimen Level IV HEADER OPERATION: ERAS, total hip replacement PRE-OP DIAGNOSIS: Osteoarthritis right hip TISSUE SUBMITTED: Right hip bone and tissue MICROSCOPIC DIAGNOSIS Right hip bone and tissue, total hip replacement/resection: Femoral head with degenerative osteoarthritic changes. Fragments of fibroadipose tissue and fibroconnective tissue. LEONARD:kristal 09/18/20 MICROSCOPIC DESCRIPTION Slides are reviewed. GROSS DESCRIPTION Received is one container labeled with the patient's name and designated bone and soft tissue hip, right. The specimen consists of a andres femoral head with portion of femoral neck. The femoral head measures 4 x 4.5 x 4.5 cm (and the femoral neck measures 1 cm in length.) The articular surface displays prominent osteophyte formation, eburnation and bone erosion. Also present in the specimen container are multiple irregular fragments of bone reamings and pink-yellow soft tissue measuring in aggregate 7 x 7 x 3 cm. Ledge Man sections are submitted in two cassettes as follows: 1 - soft tissue, 2 - bone after decalcification. / LEONARD:kristal 09/15/20 TC:5 CPT: 28858, 04871
[2020-09-15] MEDS: Lactated Ringers 1,000 ML 999 ML IV (09:31)
[2020-09-15] MEDS: Acetaminophen 500 MG Tablet 1000 MG PO ×3 (09:32→22:13)
[2020-09-15] MEDS: Gabapentin 600 MG Tablet PO (09:33)
[2020-09-15] MEDS: Insulin Lispro 100 UNIT/ML INSULN.PEN SC (10:01)
--- NOTE | 2020-09-15 10:35 | RAD_ITS ---
STUDY: X-RAY - PELVIS AND RIGHT HIP REASON FOR EXAM: Female, 75 years old. POST OP TECHNIQUE: 3 views of the pelvis and hip. COMPARISON: None. FINDINGS: The patient is status post right total hip replacement. There is good alignment. Postoperative soft tissue changes. RAD/Hip Min 2 Views (Portable) IMPRESSION: Status post total knee replacement. There is good alignment. Electronically Signed: Jaron Javier, at 13:25 EDT , Service support ,
[2020-09-15] MEDS: Cefazolin 2 GM in 0.9% Normal Saline 100 ML IV (10:49)
--- NOTE | 2020-09-15 11:48 | PCM.OPRPT ---
Report of Operation Date of Procedure: 09/15/20 Pre-Operative Diagnosis: OA right hip Post-Operative Diagnosis: same Surgery/Procedure Performed:: Right THR keyboard specialist: Joe Mercado Type of Anesthesia:: General Anesthesiologist: Livan Erickson Specimen's removed: bone Estimated Blood Loss (mL): 100cc - Admit VTE Documentation VTE Present on Admission: No VTE Mechan Device Prophylaxis: SCD's, Thigh High RAI Hose VTE Pharm Prophylaxis ordered?: Yes
[2020-09-15] MEDS: Lactated Ringers 1,000 ML 125 ML IV (12:50)
[2020-09-15 13:05] LABS: Bedside Glucose 140 mg/dL (70-110)
[2020-09-15 13:25] LABS: Hematocrit 37.2 % (37-47); Hemoglobin 11.1 g/dL (12.0-15.0); Mean Corp Hgb Conc 29.8 g/dL (32-36); Mean Corpuscular Hgb 29.9 pg (27.0-32.0); Mean Corpuscular Volume 100.3 fL (81-99); Mean Platelet Vol. 10.9 fl (6.2-12.0); Platelet Count 303 K/mm3 (150-450); RBC Distribution Width CV 14.2 % (11.6-14.6); RBC Distribution Width SD 52.4 fl (35.1-43.9); Red Blood Count 3.71 M/mm3 (4.2-5.4); White Blood Count 17.3 K/mm3 (4.4-11.0)
[2020-09-15 13:46] LABS: Anion Gap 10 (5-15); BUN 10 mg/dL (7-18); BUN/Creat Ratio 10.9 RATIO (10-20); Calcium,Total 8.4 mg/dL (8.5-10.1); Chloride 104 mmol/L (98-107); Creatinine, Serum 0.92 mg/dL (0.55-1.02); EST Glomerular Filtration Rate 63 mL/min (>60); Est Glom Filt Rate - Afr Amer 76 mL/min (>60); Estimated Creatinine Clearance 39.26 ml/min; Glucose 150 mg/dL (74-106); Potassium 3.8 mmol/L (3.5-5.1); Sodium Level 138 mmol/L (136-145)
--- NOTE | 2020-09-15 14:17 | NURSING ---
continuous spo2 79% on home cpap machine w/ RA. CPS called about adding O2 to CPAP, placed back on 6l simple mask. spo2-100%
[2020-09-15] MEDS: metFORMIN HCl 1,000 MG Tablet 1000 MG PO (15:50)
[2020-09-15] MEDS: Cefazolin 1 GM/50 ML BAG IV (18:05)
[2020-09-15] MEDS: MELATONIN 10 MG TABLET 5 MG PO (22:12)
[2020-09-15] MEDS: Senna/Docusate Sodium 1 Tablet 2 TABLET PO (22:13)
[2020-09-15] MEDS: Aspirin 81 MG TAB.CHEW PO (22:13)
[2020-09-15] MEDS: Atorvastatin Calcium 40 MG Tablet PO (22:13)
[2020-09-16 01:30] VITALS: O2SAT 97
[2020-09-16] MEDS: Cefazolin 1 GM/50 ML BAG IV (03:49)
[2020-09-16 04:00] VITALS: BP 126/71; PULSE 75; RESP 16; TEMP 36.4; O2SAT 99
[2020-09-16] MEDS: Acetaminophen 500 MG Tablet 1000 MG PO ×2 (06:05→13:39)
[2020-09-16] MEDS: 0.9% Saline Lock 10 ML Syringe IV (06:06)
[2020-09-16 07:04] VITALS: O2SAT 95
[2020-09-16 07:16] LABS: Bedside Glucose 180 mg/dL (70-110)
[2020-09-16] MEDS: Senna/Docusate Sodium 1 Tablet 2 TABLET PO (07:44)
[2020-09-16] MEDS: Glimepiride 1 MG Tablet 3 MG PO (07:44)
[2020-09-16] MEDS: Aspirin 81 MG TAB.CHEW PO (07:45)
[2020-09-16] MEDS: Allopurinol 300 MG Tablet PO (07:45)
[2020-09-16] MEDS: metFORMIN HCl 1,000 MG Tablet 1000 MG PO (07:45)
[2020-09-16] MEDS: Pioglitazone Hydrochloride 30 MG Tablet PO (07:45)
[2020-09-16] MEDS: Tolterodine Tartrate 4 MG CAP.SA PO (07:45)
[2020-09-16 07:46] LABS: Hemoglobin 11.1 g/dL (12.0-15.0); Mean Corpuscular Hgb 29.9 pg (27.0-32.0); Mean Corpuscular Volume 99.7 fL (81-99); Mean Platelet Vol. 11.4 fl (6.2-12.0); Platelet Count 256 K/mm3 (150-450); RBC Distribution Width SD 51.7 fl (35.1-43.9); Red Blood Count 3.71 M/mm3 (4.2-5.4); White Blood Count 15.7 K/mm3 (4.4-11.0)
[2020-09-16] MEDS: Citalopram 20 MG Tablet PO (07:46)
--- NOTE | 2020-09-16 07:46 | PN.ORTHO_ITS ---
Subjective: Patient sitting at bedside eating breakfast. Patient states pain has been very well managed. Patient denies chest pain, shortness of breath, calf pain, nausea vomiting. Patient has no other complaints at this time. Patient states she is ready for discharge home today. Objective: The dressing was wet with small amount of bloody oozing, however it was well maintained within the dressing (per nursing). Patient has good motion of the hip without pain. Patient's vitals and labs were reviewed and noted. Patient is afebrile. Patient is in no respiratory distress, speaking in full sentences. - Physical Exam Vitals/I&O's: Vital Signs Temp Pulse Resp BP Pulse Ox 97.6 F L 75 16 126/71 H 99 09/16/20 04:00 09/16/20 04:00 09/16/20 04:00 09/16/20 04:00 09/16/20 04:00 Oxygen Flow Rate (L/min) 3 Oxygen Delivery Method CPAP Weight: 94.9 kg Body Mass Index (BMI) 39.5 Intake and Output for Last 24 Hours 09/14/20 09/15/20 09/16/20 23:59 23:59 23:59 Intake Total 1686.75 / 1985.75 880 / 880 Balance 1686.75 / 1985.75 880 / 880 General: Alert, Oriented x3, Cooperative HEENT: PERRLA Oral: Moist Mucosa Neurological: Cranial nerves II-XII grossly intact Psych/Mental Status: Normal Affect, Alert and oriented to time, place, person, mood and affect Laboratory Results 09/15/20 09:06: POC Glucose 180 H 09/15/20 13:02: POC Glucose 140 H 09/15/20 13:10: WBC 17.3 H, RBC 3.71 L, Hgb 11.1 L, Hct 37.2, MCV 100.3 H, MCH 29.9, MCHC 29.8 L, RDW Std Deviation 52.4 H, RDW Coeff of Sumi 14.2, Plt Count 303, MPV 10.9 09/15/20 13:10: Sodium 138, Potassium 3.8, Chloride 104, Carbon Dioxide 24.0, Anion Gap 10, BUN 10, Creatinine 0.92, Estim Creat Clear Calc 39.26, Est GFR (MDRD) Af Amer 76, Est GFR (MDRD) Non-Af 63, BUN/Creatinine Ratio 10.9, Glucose 150 H, Calcium 8.4 L 09/16/20 07:20: WBC Pending, RBC Pending, Hgb Pending, Hct Pending, MCV Pending, MCH Pending, MCHC Pending, RDW Std Deviation Pending, RDW Coeff of Sumi Pending, Plt Count Pending 09/16/20 07:20: Sodium Pending, Potassium Pending, Chloride Pending, Carbon Dioxide Pending, Anion Gap Pending, BUN Pending, Creatinine Pending, Est GFR (MDRD) Af Amer Pending, Est GFR (MDRD) Non-Af Pending, BUN/Creatinine Ratio Pending, Glucose Pending, Calcium Pending Current Medications Acetaminophen (Acetaminophen 500 Mg Tablet) 1,000 mg PO Q8 [facility] Last Admin: 09/16/20 06:05 Dose: 1,000 mg Documented by: Allopurinol (Allopurinol 300 Mg Tablet) 300 mg PO DAILY [facility] Aspirin (Aspirin 81 Mg Tab.Chew) 81 mg PO BIDCM [facility] Last Admin: 09/15/20 22:13 Dose: 81 mg Documented by: Atorvastatin Calcium (Atorvastatin Calcium 40 Mg Tablet) 40 mg PO QHS [facility] Last Admin: 09/15/20 22:13 Dose: 40 mg Documented by: Citalopram Hydrobromide (Citalopram 20 Mg Tablet) 20 mg PO DAILY [facility] Glimepiride (Glimepiride 1 Mg Tablet) [facility] Sodium Chloride () 250 mls @ 15 mls/hr IV .[id number] PRN PRN Reason: Saline Flush Last Infusion: 09/16/20 06:57 Dose: 0 mls/hr Documented by: Sodium Chloride () 250 mls @ 15 mls/hr IV .[id number] PRN PRN Reason: Additional IVPB Infusion Insulin Human Lispro (Insulin Lispro 100 Unit/Ml Insuln.Pen) 1 - 6 unit SC Q4H PRN PRN; Protocol PRN Reason: BG>/= 180, SEE PROTOCOL Last Admin: 09/15/20 10:01 Dose: 1 u Documented by: Lisinopril (Lisinopril 2.5 Mg Tablet) 2.5 mg PO DAILY [facility] Melatonin (Melatonin 10 Mg Tablet) 5 mg PO QHS [facility] Last Admin: 09/15/20 22:12 Dose: 5 mg Documented by: Metformin HCl (Metformin Hcl 1,000 Mg Tablet) [facility] Last Admin: 09/15/20 15:50 Dose: 1,000 mg Documented by: Ondansetron HCl (Ondansetron 4 Mg/2 Ml Vial) 4 mg IV Q8H PRN PRN PRN Reason: NAUSEA Oxycodone HCl (Oxycodone 5 Mg Tablet) 5 - 10 mg PO Q4H PRN PRN PRN Reason: Pain Score 4-10 Pioglitazone HCl (Pioglitazone Hydrochloride 30 Mg Tablet) 30 mg PO DAILY [facility] Promethazine HCl (Promethazine 25 Mg/Ml Syringe) 12.5 mg IM Q6H PRN PRN; Protocol PRN Reason: NAUSEA/VOMITING Senna/Docusate Sodium (Senna/Docusate Sodium 1 Tablet) 2 tablet PO BID [facility] Last Admin: 09/15/20 22:13 Dose: 2 tablet Documented by: Sodium Chloride (0.9% Saline Lock 10 Ml Syringe) 10 - 40 ml IV UD PRN PRN Reason: Midline Flush Last Admin: 09/16/20 06:06 Dose: 10 ml Documented by: Sodium Chloride (0.9 % Nacl (Sterile) Posiflush 10 Ml) 10 - 40 ml IV UD PRN PRN Reason: Port access or dressing change Sodium Chloride (0.9% Saline Lock 10 Ml Syringe) 10 - 40 ml IV UD PRN PRN Reason: SALINE FLUSH Tolterodine Tartrate (Tolterodine Tartrate 4 Mg Cap.Sa) 4 mg PO DAILY [facility] Medical Necessity - Tobacco Use Smoking Status: Former smoker Tobacco Use: Non-smoker Assessment/Plan All Active Problems (Last Reviewed 08/22/20 @ 12:39 by Dayana HUDSON, PA) Fusion of lumbar spine (Acute) Debility (Acute) Hypokalemia (Resolved) Hyponatremia (Acute) Hypomagnesemia (Resolved) Syncope and collapse (Resolved) Status post right total hip arthroplasty Plan 1. Continue all pain medications as prescribed 2. Continue physical therapy, weight-bear as tolerated with walker 3. 81 mg aspirin 1 p.o. every 12 hours x30 days for postop DVT prophylaxis 4. Encourage incentive spirometry 5. Change dressing prior to discharge. 6. Patient will continue with outpatient physical therapy at [facility] 7. Discharge home today after p.m. therapy 8. Follow-up as scheduled, see pink sheet.
--- NOTE | 2020-09-16 07:59 | DCINST_ITS ---
Discharge Diet: No Restrictions Discharge Activity: May Not Drive, May Shower, Use Walker May shower in (days): 3 - only if incision is dry and without drainage. Do NOT soak/submerge in tub/pool/mederos/stream/hot tub. May resume sexual activity in: No Restrictions Ice area for (Minutes): 20 - every hour while awake Weight Bearing Status: Weight bearing as tolerated Lifting Restrictions: 20 pounds Elevate: Operative Extremity Call your doctor if your incision/area has: Continuous Slow Oozing, Sudden Increased Bleeding, Increased Pain/ Swelling, Increased Redness, Foul Smelling Discharge Call your doctor if you observe: Fever of 101 or Higher, Inability to urinate, Inability to have a bowel movement, Shortness of breath, Fainting spells, Chest pain, Increased palpitations (irregular heartbeat), Calf discomfort, Uncontrolled pain Change Dressing in (Days):: 0 - Change daily and as needed. Remove Dressing in (days):: 8 Cleanse incision/area with: Soap & Water Allergies/Adverse Reactions: Allergies minoxidil [From Rogaine] Adverse Reaction (Unknown, Verified 09/15/20 09:09) Unknown STEROID Adverse Reaction (Uncoded 09/15/20 09:09) NEEDS FOLLOW-UP Medications to take at Discharge allopurinol 300 mg tablet 300 mg PO QDAY 12/21/17 atorvastatin 40 mg tablet 40 mg PO QHS 12/21/17 citalopram 20 mg tablet 20 mg PO QDAY 12/21/17 pioglitazone 30 mg tablet 30 mg PO QDAY 12/23/17 Melatonin 5 mg PO QHS 05/19/20 Glimepiride [Amaryl] 3 mg PO DAILY #90 tab 05/28/20 fesoterodine 4 mg tablet,extended release 24 hr 8 mg PO DAILY tab 07/24/20 lisinopril 5 mg tablet 2.5 mg PO DAILY tab 07/24/20 Nystatin Powder [Mycostatin Powder] 1 applic TOPICAL BID@0600,2200 PRN 08/12/20 metFORMIN HCl [Glucophage] 1,000 mg PO BID 08/12/20 Oxybutynin 5 mg PO DAILY 09/15/20 Acetaminophen [Tylenol] 1,000 mg PO Q8 #90 tab 09/16/20 Aspirin [Aspirin, Baby] 81 mg PO BIDCM #60 tab.chew 09/16/20 Oxycodone [Oxyir] 5 - 10 mg PO Q4H PRN PRN 7 Days #84 tablet 09/16/20 Senna/Docusate Sodium [Senokot-S] 2 tab PO BID tab 09/16/20 The following prescriptions were given: Aspirin [Aspirin, Baby] 81 mg PO BIDCM #60 tab.chew Transmission Status: Pending to [id number] Oxycodone [Oxyir] 5 - 10 mg PO Q4H PRN PRN 7 Days #84 tablet PRN Reason: Pain Score 4-10 Transmission Status: Received by [id number] Acetaminophen [Tylenol] 1,000 mg PO Q8 #90 tab Transmission Status: Pending to [id number] Primary Care Physician: Yared Gan Chi, MD [Primary Care Provider] - Test Results: Test results from this visit will be discussed in further detail at your follow- up appointment, if applicable. Please Follow Up With: Joe Mercado PA-C When: as scheduled (see pink sheet)
[2020-09-16 08:06] LABS: Anion Gap 9 (5-15); BUN 19 mg/dL (7-18); BUN/Creat Ratio 17.4 RATIO (10-20); Calcium,Total 8.6 mg/dL (8.5-10.1); Chloride 99 mmol/L (98-107); Creatinine, Serum 1.09 mg/dL (0.55-1.02); EST Glomerular Filtration Rate 52 mL/min (>60); Est Glom Filt Rate - Afr Amer 63 mL/min (>60); Estimated Creatinine Clearance 33.13 ml/min; Glucose 185 mg/dL (74-106); Potassium 4.7 mmol/L (3.5-5.1); Sodium Level 132 mmol/L (136-145)
[2020-09-16 10:12] VITALS: BP 108/44; PULSE 79; RESP 18; TEMP 36.9; O2SAT 94
[2020-09-16] MEDS: oxyCODONE 5 MG Tablet PO (10:48)
--- NOTE | 2020-09-16 10:50 | CASEMGMT ---
MARIZOL OCONNELL Face to Face with patient for initial transition planning/care coordination assessment. RN CM introduced self and role at [facility]. Patient lying in bed, alert and oriented. Patient willing to participate in assessment and is able to answer all questions appropriately. Care providers, pharmacy, and demographics verified. Patient wishes to discharge home and is setup with [facility] for outpatient therapy. Patient states she has no further needs or concerns at this time. CM to follow for discharge planning needs that may arise. PCP: [facility] Specialists: ke Hodge Pharmacy: [facility] Insurance: GVISP 1, [id number] Prescription Benefit: yes Living Will/HPOA: none LNOK: and daughter Living Arrangements: Patient lives with and daughter in 2 story home with bed and bath on the first floor. Patient states she was independent prio to surgery. Transportation: and daughter DME/HHC: Patient states she has a shower chair, raised toilet, cane, walker, hip kit, cpap. Patient is setup for outpatient therapy at [facility] for . Disposition Plan: Patient to discharge home with outpatient therapy, family support, and follow-up plans in place. Abeba URIAS, RN, CM
[2020-09-16 13:31] VITALS: BP 107/43; PULSE 80; RESP 18; TEMP 37.1; O2SAT 95
== END 2020-09-16 14:04 | disposition home or self-care (01) ==
LOC: SDC 10:43 → MS3 12:33
PROVIDERS: Anesthesiology; Admitting Provider Orthopaedic Surgery; PCP Family Medicine Geriatric Medicine; Referring Provider Orthopaedic Surgery; Visit Provider Orthopaedic Surgery
PROC: 0SR90JZ Replacement of Right Hip Joint with Synthetic Substitute, Open Approach (ICD-10-PCS; CPT 27130; principal; 2020-09-15 10:15)
DX: M16.11 Unilateral primary osteoarthritis, right hip (principal); G47.30 Sleep apnea, unspecified; I45.10 Unspecified right bundle-branch block; K76.0 Fatty (change of) liver, not elsewhere classified; E11.9 Type 2 diabetes mellitus without complications; M10.9 Gout, unspecified; I10 Essential (primary) hypertension; M19.90 Unspecified osteoarthritis, unspecified site; E04.9 Nontoxic goiter, unspecified; G25.81 Restless legs syndrome; K44.9 Diaphragmatic hernia without obstruction or gangrene; K21.9 Gastro-esophageal reflux disease without esophagitis; E78.00 Pure hypercholesterolemia, unspecified; Z79.899 Other long term (current) drug therapy; Z79.84 Long term (current) use of oral hypoglycemic drugs; Z79.82 Long term (current) use of aspirin; Z87.891 Personal history of nicotine dependence
CPT/HCPCS: 01214; 27130; 36415; 73502; 80048; 82962; 83036; 85027; 85610; 85730; 87077; 87081; 87635; 88305; 88311; 93005; 96361; 96365; 96366; 96375; 97116; 97162; 97166; 97530; 97535; 99218; 99251; 99406; C1776; C9803; J7050; J7120; A4216; G0378; G0463; J2405; U0003

== ENCOUNTER 2020-09-23 22:28 | Emergency (ER) | payer MEDICARE, OTHER, SELFPAY ==
[2020-09-15 13:48] VITALS: BMI 39.5
[2020-09-23 22:28] VITALS: BP 147/60; PULSE 107; RESP 20; TEMP 36.2; O2SAT 99; BMI 39.4
--- NOTE | 2020-09-23 23:07 | ED.DCSUM_ITS ---
History of Present Illness Chief Complaint: Complaint Informant: Patient Narrative: 75-year-old female presenting with difficulty with urination. She has been on oxybutynin in the past for urinary incontinence. She states she stopped taking this because she is having difficulty urinating. She states that it is dribbling. She feels the urge to urinate. Patient states she has some slight cramping in her suprapubic area but otherwise does not have significant abdominal pain. No fever, chills, nausea, vomiting. She is not having any back pain. No saddle paresthesias. Past Medical History - Allergies and Home Meds Allergies/Adverse Reactions: Allergies minoxidil [From Rogaine] Adverse Reaction (Unknown, Verified 09/15/20 09:09) Unknown STEROID Adverse Reaction (Uncoded 09/15/20 09:09) NEEDS FOLLOW-UP Primary Care Physician: Yared Gan Chi, MD [Primary Care Provider] - Past Medical History: - - Boss, diabetes, hypertension, hyperlipidemia Surgical History: noncontributory Lives: With Family Smoking Status: Former smoker Alcohol: None Drugs: None Review of Systems Eyes: Denies: Visual changes - bilaterally, Diplopia ENT: Denies: Rhinorrhea, Sore throat Cardiovascular: Denies: Chest pain, Palpitations Respiratory: Denies: Dyspnea, Cough, Dyspnea on exertion Gastrointestinal: Reports: Abdominal pain - Suprapubic cramping Genitourinary: Reports: - - Difficulty urinating. No dysuria. Musculoskeletal: Denies: Back pain, Extremity Pain Skin: Denies: Rash, Wounds Neurological: Denies: Headache, Weakness, Numbness Physical Exam Vital Signs/Narrative: Vital Signs Temp Pulse Resp BP Pulse Ox 09/23/20 22:28 97.1 F L 107 H 20 H 147/60 H 99 General: Obese, No Acute Distress Head: Normocephalic, Atraumatic Eyes: Perrl, EOMI. Negative for: Pale conjunctiva ENT: Moist mucous membranes, No rhinorrhea Cardiovascular: Regular rate, Regular rhythm Respiratory: No distress, CTA bilaterally Abdomen: Soft, Tender - Mild suprapubic tenderness. Abdomen is nonperitoneal. Extremities: Nontender, No edema Skin: Normal color, No rash Neurological: Alert, Oriented x3 Psychological: Normal affect Diagnostic/Tx/Re-eval Clinical Impression(s) from Imaging Studies Abdomen/Pelvis CT 09/24/20 00:40 IMPRESSION: No demonstrated acute process. Somewhat distended stomach. Suboptimal evaluation of the bladder due to underdistention. Electronically Signed: Francis Chauhan MD at 2:00 EDT Tel , Service support , Laboratory Data 09/23/20 09/23/20 09/23/20 23:10 23:10 23:28 WBC 11.6 H RBC 3.77 L Hgb 11.4 L Hct 36.3 L MCV 96.3 MCH 30.2 MCHC 31.4 L RDW Std Deviation 50.9 H RDW Coeff of Sumi 14.4 Plt Count 376 MPV 10.6 Immature Gran % (Auto) 0.600 Neut % (Auto) 65.2 Lymph % (Auto) 24.2 [place] % (Auto) 8.6 Eos % (Auto) 1.2 Baso % (Auto) 0.2 Absolute Neuts (auto) 7.6 Absolute Lymphs (auto) 2.80 Nucleated RBC % 0 Sodium 138 Potassium 3.6 Chloride 102 Carbon Dioxide 26.0 Anion Gap 10 BUN 11 Creatinine 1.07 H Estim Creat Clear Calc 33.75 Est GFR (MDRD) Af Amer 64 Est GFR (MDRD) Non-Af 53 L BUN/Creatinine Ratio 10.3 Glucose 145 H Calcium 8.9 Total Bilirubin 0.40 AST 14 L ALT 18 Alkaline Phosphatase 77 Total Protein 6.7 Albumin 2.7 L Globulin 4.0 Albumin/Globulin Ratio 0.7 L Urine Color Yellow Urine Clarity Clear Urine pH 5.0 Ur Specific [place] 1.025 Urine Protein 30 H Urine Glucose (UA) Normal Urine Ketones 15 H Urine Occult Blood 25 H Urine Nitrite Negative Urine Bilirubin 1 H Urine Urobilinogen 1 H Ur Leukocyte Esterase 100 H Urine RBC 0-5 SEEN Urine WBC 0-5 SEEN Ur Squamous Epith Cells 0-5 SEEN Urine Bacteria 0 SEEN Urine Mucus 0 SEEN - Medical Decision Making 75-year-old female presenting with the sensation of inability to urinate. She is concerned about her kidneys. She states that she normally cannot hold her urine. She complains of burning in the bladder region but no dysuria. Patient otherwise feels well and has no nausea or vomiting. Initial bladder scan did not show that her bladder was full but she felt like she still had pressure. We inserted a Dobson catheter and only a small amount of urine returned. This was sent for urinalysis and there is 100 leukocyte Estrace with 5 white blood cells 5 epithelial cells, no bacteria. CBC is within normal limits. Her GFR is slightly lower than her baseline her kidneys appear to be functioning. She was given a liter of IV fluids. CT abdomen pelvis shows no acute abnormalities. We discussed sending the urine for culture however the patient believes that she has UTI due to the burning in her bladder. For this reason I will treat her with Keflex and send a urine culture. She states that she gets yeast infections after antibiotics so she was given Diflucan as well. Stable for discharge home. Impression: 1. Suprapubic pressure 2. UTI ED Disposition - Plan for ED Patient: Disposition: Home or Assisted Living Instructions: ED CYSTITIS Female Adult Prescriptions: Fluconazole [Diflucan] 150 mg PO X1 #1 tab Transmission Status: [id number] Cephalexin [Keflex] 500 mg PO Q12 #14 cap Transmission Status: [id number] Referrals: Yared Gan Chi, MD [Primary Care Provider] -
[2020-09-23 23:30] LABS: Absolute Neutrophil Count 7.6 X10^3/uL (2.0-7.7); Basophil# 0.02 X10^3/uL; Basophil% 0.2 % (0-1); Eosinophil# 0.14 X10^3/uL; Eosinophils% 1.2 % (0-5); Hematocrit 36.3 % (37-47); Hemoglobin 11.4 g/dL (12.0-15.0); Lymphocyte % 24.2 % (19-41); Mean Corp Hgb Conc 31.4 g/dL (32-36); Mean Corpuscular Hgb 30.2 pg (27.0-32.0); Mean Corpuscular Volume 96.3 fL (81-99); Mean Platelet Vol. 10.6 fl (6.2-12.0); Monocyte% 8.6 % (0-10); NRBC Flagged by Analyzer 0 % (0-5); Neutrophil # 7.56 X10^3/uL (2.7-7.7); Neutrophil % 65.2 % (47-70); Platelet Count 376 K/mm3 (150-450); RBC Distribution Width CV 14.4 % (11.6-14.6); RBC Distribution Width SD 50.9 fl (35.1-43.9); Red Blood Count 3.77 M/mm3 (4.2-5.4); White Blood Count 11.6 K/mm3 (4.4-11.0)
[2020-09-23 23:33] LABS: Bacteria 0 SEEN /hpf (None Seen); Mucous, Urine 0 SEEN /hpf (<or=2+)
[2020-09-23 23:38] LABS: Color, Urine Yellow (Yellow); Glucose, Dipstick Normal (Normal); Ketone-Dipstick 15 mg/dl (Negative); Leukocyte Esterase-Dipstick 100 /ul (Negative); Nitrite-Dipstick Negative (Negative); Occult Blood-Urine 25 /ul (Negative); Protein-Dipstick 30 mg/dl (Negative); Specific Gravity, Urine 1.025 (1.002-1.030); Urine Clarity Clear (Clear); Urine Urobilinogen 1 mg/dl (Normal)
[2020-09-23 23:39] LABS: Urine Bilirubin Dipstick 1 mg/dL (Negative)
[2020-09-23 23:50] LABS: Red Blood Cells-Urine 0-5 SEEN /hpf (0-5); Squamous Epithelial Cells - UA 0-5 SEEN /hpf (5-10); White Blood Cells 0-5 SEEN /hpf (0-5)
[2020-09-23 23:51] LABS: ALB/GLOB Ratio 0.7 RATIO (0.9-2.4); AST(SGOT) 14 U/L (15-37); Alanine Aminotransfer ALT/SGPT 18 U/L (13-56); Albumin, Serum 2.7 g/dL (3.2-5.0); Alkaline Phosphatase 77 U/L (45-117); Anion Gap 10 (5-15); BUN 11 mg/dL (7-18); BUN/Creat Ratio 10.3 RATIO (10-20); Calcium,Total 8.9 mg/dL (8.5-10.1); Chloride 102 mmol/L (98-107); Creatinine, Serum 1.07 mg/dL (0.55-1.02); EST Glomerular Filtration Rate 53 mL/min (>60); Est Glom Filt Rate - Afr Amer 64 mL/min (>60); Estimated Creatinine Clearance 33.75 ml/min; Glucose 145 mg/dL (74-106); Potassium 3.6 mmol/L (3.5-5.1); Protein, Total 6.7 g/dL (6.4-8.2); Sodium Level 138 mmol/L (136-145)
[2020-09-24] MEDS: 0.9% Normal Saline 1,000 ML 1000 ML IV (00:08)
[2020-09-24 00:10] VITALS: BP 134/53; PULSE 91; RESP 15; O2SAT 97
--- NOTE | 2020-09-24 00:40 | CT_ITS ---
STUDY: CT ABDOMEN AND PELVIS WITH CONTRAST REASON FOR EXAM: Female, 75 years old. Dysuria, elevated WBC -- HX:DIABETES,HTN,MELANOMA-CHEMO,GERD -- SURGERY:RT HIP.LUMBAR FUSION RADIATION DOSAGE (If Supplied By Facility): CTDIvol = ( 2470.68 ) mGy, DLP = ( ) mGycm TECHNIQUE: Transaxial images were obtained from the dome of the diaphragm to the symphysis pubis without oral contrast. IV 100mL Isovue-370 was administered. Sagittal and coronal images were reconstructed. Individualized dose optimization techniques were used for this CT. COMPARISON: None. FINDINGS: The visualized lung bases are unremarkable. The visualized portions of the heart are within normal limits. Normal liver. There is non-visualization of the gallbladder, which may be secondary to either contraction or a prior cholecystectomy. Normal spleen. There is diffuse atrophy of the pancreas. Normal bilateral adrenal glands. 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 There is no evidence of hydronephrosis. Normal left kidney. Distended stomach. Unremarkable small bowel loops. Fecal retention. The appendix is visualized and appears normal. There is diffuse atherosclerotic calcification of the abdominal aorta, without a demonstrated aneurysm. Normal inferior vena cava. Normal retroperitoneum. Dobson catheter in the bladder. The bladder is not distended and difficult to evaluate. Significant artifacts in the pelvic region from right hip arthroplasty. Normal abdominal wall. Status post fusion of L3, L4 and L5 with bilateral pedicle screws. Degenerative changes in the lower thoracic spine. CT/Abdomen/Pelvis W IV Cont ONLY IMPRESSION: No demonstrated acute process. Somewhat distended stomach. Suboptimal evaluation of the bladder due to underdistention. Electronically Signed: Francis Chauhan MD at 2:00 EDT Tel , Service support ,
[2020-09-24] MEDS: Cephalexin 250 MG Capsule 500 MG PO (02:46)
[2020-09-24 02:52] VITALS: BP 128/72; PULSE 80; RESP 16; O2SAT 95
== END 2020-09-24 02:53 | disposition home or self-care (01) ==
PROVIDERS: Emergency Provider Student in an Organized Health Care Education/Training Program; PCP Family Medicine Geriatric Medicine
DX: N39.0 Urinary tract infection, site not specified (principal); R10.2 Pelvic and perineal pain; E78.5 Hyperlipidemia, unspecified; I10 Essential (primary) hypertension; E11.9 Type 2 diabetes mellitus without complications; E66.9 Obesity, unspecified; Z79.84 Long term (current) use of oral hypoglycemic drugs; Z79.899 Other long term (current) drug therapy
CPT/HCPCS: 51702; 74177; 80053; 81001; 85025; 87077; 87086; 87088; 87186; 96360; 96361; 99283; J7030; Q9967; A4216

== ENCOUNTER → 2020-12-11 14:43 | Outpatient (CLI) | payer MEDICARE, OTHER, SELFPAY ==
[2020-12-11 16:35] LABS: Absolute Lymphocyte Count 5.18 X10^3/uL (0.83-4.51); Absolute Neutrophil Count 8.2 X10^3/uL (2.0-7.7); Basophil# 0.03 X10^3/uL; Basophil% 0.2 % (0-1); Eosinophil# 0.02 X10^3/uL; Eosinophils% 0.1 % (0-5); Hematocrit 43.7 % (37-47); Hemoglobin 13.7 g/dL (12.0-15.0); Lymphocyte # 5.18 X10^3/ul (4.0); Lymphocyte % 36.1 % (19-41); Mean Corp Hgb Conc 31.4 g/dL (32-36); Mean Corpuscular Hgb 29.1 pg (27.0-32.0); Mean Corpuscular Volume 92.8 fL (81-99); Mean Platelet Vol. 11.7 fl (6.2-12.0); Monocyte# 0.86 X10^3/uL; NRBC Flagged by Analyzer 0 % (0-5); Neutrophil % 57.3 % (47-70); POSITIVE DIFFERENTIAL YES; Platelet Count 406 K/mm3 (150-450); RBC Distribution Width CV 13.6 % (11.6-14.6); RBC Distribution Width SD 46.3 fl (35.1-43.9); Red Blood Count 4.71 M/mm3 (4.2-5.4); White Blood Count 14.3 K/mm3 (4.4-11.0)
[2020-12-11 16:44] LABS: Differential Indicated SCAN CRITERIA MET
[2020-12-11 17:00] LABS: Vitamin D,25 Hydroxy 24.4 ng/mL
[2020-12-11 17:02] LABS: Differential Comment SCANNED
[2020-12-11 17:03] LABS: ALB/GLOB Ratio 0.8 RATIO (0.9-2.4); AST(SGOT) 12 U/L (15-37); Alanine Aminotransfer ALT/SGPT 24 U/L (13-56); Albumin, Serum 3.4 g/dL (3.2-5.0); Alkaline Phosphatase 111 U/L (45-117); Anion Gap 10 (5-15); BUN 15 mg/dL (7-18); Calcium,Total 9.3 mg/dL (8.5-10.1); Chloride 100 mmol/L (98-107); Creatinine, Serum 1.07 mg/dL (0.55-1.02); EST Glomerular Filtration Rate 53 mL/min (>60); Est Glom Filt Rate - Afr Amer 64 mL/min (>60); Globulin 4.5 g/dL (2.2-4.2); Glucose 273 mg/dL (74-106); Potassium 3.8 mmol/L (3.5-5.1); Protein, Total 7.9 g/dL (6.4-8.2); Sodium Level 135 mmol/L (136-145); Thyroid Stim Hormone (TSH) 0.62 uIU/mL (0.358-3.74); Uric Acid 5.2 mg/dL (2.6-6.0)
== END ==
PROVIDERS: PCP Family Medicine Geriatric Medicine; Visit Provider Family Medicine Geriatric Medicine
DX: M10.9 Gout, unspecified (principal)
CPT/HCPCS: 36415; 80053; 82306; 84443; 84550; 85025; 87086

== ENCOUNTER → 2020-12-11 15:53 | Outpatient (CLI) | payer MEDICARE, OTHER, SELFPAY ==
--- NOTE | 2020-12-11 15:56 | CT_ITS ---
STUDY: CT ABDOMEN AND PELVIS WITH AND WITHOUT CONTRAST REASON FOR EXAM: Female, 75 years old. Hematuria, burning and trouble with urination, diabetes, hypertension, melanoma, prior hernia repair, cholecystectomy, right total hip replacment. Delayed images included. RADIATION DOSAGE (If Supplied By Facility): CTDIvol = ( 15.84 ) mGy, DLP = ( 2357.81 ) mGycm TECHNIQUE: Transaxial images were obtained from the dome of the diaphragm to the symphysis pubis without oral contrast. 100mL Isovue 300 was administered. Sagittal and coronal images were reconstructed. Individualized dose optimization techniques were used for this CT. COMPARISON: Prior abdomen and pelvic CT exam of 09/24/2020 FINDINGS: The visualized lung bases are unremarkable. The visualized portions of the heart are within normal limits. Normal liver. Status post cholecystectomy with mild compensatory dilatation of the bile ducts without filling defect. Normal spleen. Fatty atrophy of the pancreas. Normal bilateral adrenal glands. Normal ptotic right kidney without hydronephrosis or stones normal left kidney without hydronephrosis or stones. Normal visualized stomach. 1 small duodenal diverticulum, third part. Otherwise normal small bowel. Nondistended colon with mild diverticulosis without evidence of acute diverticulitis. The appendix is visualized and appears normal. There is diffuse atherosclerotic calcification of the abdominal aorta, without a demonstrated aneurysm. Normal inferior vena cava. Normal retroperitoneum. Nondistended urinary bladder limited visibility secondary to metal artifact from the right hip replacement. Negative for pelvic mass or free fluid of the pelvis. Normal abdominal wall. Status post posterior spinal fusion of L2, L3 and L4 with no change in spinal alignment or hardware from prior exam. CT/CT Abd/Pelvis W/WO Contrast IMPRESSION: No acute renal findings were changes. Negative for hydronephrosis or stones. Nondistended urinary bladder. I suspect some bladder wall thickening; however, limited evaluation secondary to metal artifact from the right hip arthroplasty. Negative for pelvic mass or free fluid of the pelvis. No acute bowel related findings. Negative for obstruction, perforation or inflammatory bowel changes. Mild diverticulosis is present without evidence of acute diverticulitis. A normal appendix is identified. Unremarkable liver and spleen. Fatty atrophy of the pancreas. Status post cholecystectomy with mild compensatory dilatation of the common bile duct without filling defect. Electronically Signed: Mitzy Gabriel MD at 21:23 EST , Service support ,
== END ==
PROVIDERS: PCP Family Medicine Geriatric Medicine; Referring Provider Nurse Practitioner Adult Health; Visit Provider Nurse Practitioner Adult Health
DX: R31.0 Gross hematuria (principal); E11.9 Type 2 diabetes mellitus without complications; E55.9 Vitamin D deficiency, unspecified; I10 Essential (primary) hypertension; M10.9 Gout, unspecified
CPT/HCPCS: 36415; 74178; 80053; 82306; 84443; 84550; 85025; 87086; 87088; 87186; Q9967; A4216

== ENCOUNTER 2021-01-14 07:56 | Day surgery (SDC) | payer MEDICARE, OTHER, SELFPAY ==
[2021-01-14] VITALS (7 sets, daily range): BP systolic 109–136; BP diastolic 48–64; PULSE 81–85; RESP 16; TEMP 35.9–36.6; O2SAT 94–97; BMI 39.0
[2021-01-14 09:06] LABS: Bedside Glucose 272 mg/dL (70-110)
[2021-01-14] MEDS: Lactated Ringers 1,000 ML 100 ML IV (09:20)
[2021-01-14] MEDS: Cefazolin 2 GM in 0.9% Normal Saline 100 ML IV (09:52)
[2021-01-14] MEDS: 0.9% Normal Saline (Pres. free 10 ML Vial (10:14)
[2021-01-14] MEDS: Lidocaine Jelly 2% 20 ML Syringe (URO-JET) 20 APPLIC (10:15)
--- NOTE | 2021-01-14 10:16 | DCINST_ITS ---
Discharge Diet: Light diet - advance as tolerated Discharge Activity: May not drive while taking narcotic pain medications. Allergies/Adverse Reactions: Allergies minoxidil [From Rogaine] Adverse Reaction (Unknown, Verified 01/14/21 08:40) Unknown STEROID Adverse Reaction (Uncoded 01/14/21 08:40) NEEDS FOLLOW-UP Medications to take at Discharge allopurinol 300 mg tablet 300 mg PO QDAY 12/21/17 atorvastatin 40 mg tablet 40 mg PO QHS 12/21/17 citalopram 20 mg tablet 20 mg PO QDAY 12/21/17 pioglitazone 30 mg tablet 30 mg PO QDAY 12/23/17 Glimepiride [Amaryl] 3 mg PO DAILY #90 tab 05/28/20 lisinopril 5 mg tablet 2.5 mg PO DAILY tab 07/24/20 Nystatin Powder [Mycostatin Powder] 1 applic TOPICAL BID@0600,2200 PRN 08/12/20 metFORMIN HCl [Glucophage] 1,000 mg PO BID 08/12/20 Cephalexin [Keflex] 500 mg PO Q12 #14 cap 09/24/20 Primary Care Physician: Yared Gan Chi, MD [Primary Care Provider] - Test Results: Test results from this visit will be discussed in further detail at your follow- up appointment, if applicable. Please Follow Up With: Enrique Galvez MD When: in 4 weeks, please call to make an appointment.
--- NOTE | 2021-01-14 10:16 | PCM.OPRPT ---
Report of Operation Date of Procedure: 01/14/21 Pre-Operative Diagnosis: Overactive bladder and urge incontinence Post-Operative Diagnosis: Same Surgery/Procedure Performed:: Cystoscopy injection of Botox in the bladder Description of Surgical Findings:: Patient has a history of an overactive bladder which is failed conservative measures and medical therapy. Today the patient presents to the hospital for an injection of Botox into the bladder. The patient understands the risk of the procedure involved bleeding, infection, paralytic bladder and failure to empty the bladder. The possibility of needing a catheter or self intermittent catheterization of the bladder is not able to function properly. The risk of infection and bleeding and the risk of anesthesia was discussed with the patient. Patient signed the consent form and we proceeded to the operating room. Patient was taken back to the operating room after induction of anesthesia, the patient was placed supine on the table in the legs were placed in dorsolithotomy position. The genitals and urethra were prepped and draped in usual sterile fashion. Using a 21 [place]amanian offset cystoscope I went into the bladder via the urethra. The bladder was inspected. The trigone was normal. The left and right ureter orifice were identified. On the back table the Botox medication was prepared per the segment assembler's instruction, a total of 100 units of Botox were prepared. We then used a Botox needle through the cystoscope and then injected 0.5 cc of Botox solution into each site going through a matrix pattern in the back of the bladder to inject about every centimeter across the back of the bladder in several layers avoiding the trigone. After a total of 100 units of Botox was injected into the bladder there was minimal bleeding. The bladder was drained. The patient's anesthetic was reversed and the patient was taken back to the PACU in stable condition. Type of Anesthesia:: General - Admit VTE Documentation VTE Present on Admission: No VTE Mechan Device Prophylaxis: SCD's
== END 2021-01-14 11:30 | disposition home or self-care (01) ==
LOC: SDC 07:57 → AC 07:57
PROVIDERS: PCP Family Medicine Geriatric Medicine; Referring Provider Urology; Visit Provider Urology
PROC: 3E0K8GC Introduction of Other Therapeutic Substance into Genitourinary Tract, Via Natural or Artificial Opening Endoscopic (ICD-10-PCS; CPT 52287; principal; 2021-01-14 10:00)
DX: N39.41 Urge incontinence (principal); N32.81 Overactive bladder; I10 Essential (primary) hypertension; Z87.891 Personal history of nicotine dependence; G47.30 Sleep apnea, unspecified; K21.9 Gastro-esophageal reflux disease without esophagitis; E78.00 Pure hypercholesterolemia, unspecified; F41.9 Anxiety disorder, unspecified; F32.9 Major depressive disorder, single episode, unspecified; Z20.822 Contact with and (suspected) exposure to COVID-19; Z79.84 Long term (current) use of oral hypoglycemic drugs; Z79.899 Other long term (current) drug therapy
CPT/HCPCS: 52287; 82962; 87426; C9803; J7120; J0585; J3490

== ENCOUNTER → 2021-03-10 13:35 | Outpatient (CLI) | payer MEDICARE, OTHER, SELFPAY ==
[2021-01-14 08:36] VITALS: BMI 39.0
[2021-03-10 13:54] LABS: Absolute Lymphocyte Count 3.77 X10^3/uL (0.83-4.51); Absolute Neutrophil Count 5.9 X10^3/uL (2.0-7.7); Basophil# 0.03 X10^3/uL; Basophil% 0.3 % (0-1); Eosinophil# 0.04 X10^3/uL; Eosinophils% 0.4 % (0-5); Hematocrit 45.4 % (37-47); Hemoglobin 14.1 g/dL (12.0-15.0); Lymphocyte # 3.77 X10^3/ul (4.0); Lymphocyte % 36.4 % (19-41); Mean Corp Hgb Conc 31.1 g/dL (32-36); Mean Corpuscular Hgb 29.1 pg (27.0-32.0); Mean Corpuscular Volume 93.8 fL (81-99); Mean Platelet Vol. 11.7 fl (6.2-12.0); Monocyte% 5.8 % (0-10); NRBC Flagged by Analyzer 0 % (0-5); Neutrophil % 56.8 % (47-70); Platelet Count 307 K/mm3 (150-450); RBC Distribution Width CV 13.7 % (11.6-14.6); RBC Distribution Width SD 46.9 fl (35.1-43.9); Red Blood Count 4.84 M/mm3 (4.2-5.4); White Blood Count 10.4 K/mm3 (4.4-11.0)
[2021-03-10 14:24] LABS: Vitamin D,25 Hydroxy 25.2 ng/mL
[2021-03-10 14:28] LABS: ALB/GLOB Ratio 0.7 RATIO (0.9-2.4); AST(SGOT) 17 U/L (15-37); Alanine Aminotransfer ALT/SGPT 23 U/L (13-56); Albumin, Serum 3.2 g/dL (3.2-5.0); Alkaline Phosphatase 91 U/L (45-117); Anion Gap 10 (5-15); BUN 16 mg/dL (7-18); BUN/Creat Ratio 13.1 RATIO (10-20); Calcium,Total 9.3 mg/dL (8.5-10.1); Chloride 102 mmol/L (98-107); Creatinine, Serum 1.22 mg/dL (0.55-1.02); EST Glomerular Filtration Rate 45 mL/min (>60); Est Glom Filt Rate - Afr Amer 55 mL/min (>60); Globulin 4.3 g/dL (2.2-4.2); Glucose 314 mg/dL (74-106); Potassium 3.7 mmol/L (3.5-5.1); Protein, Total 7.5 g/dL (6.4-8.2); Sodium Level 136 mmol/L (136-145); Thyroid Stim Hormone (TSH) 0.63 uIU/mL (0.358-3.74); Uric Acid 5.3 mg/dL (2.6-6.0)
== END ==
PROVIDERS: PCP Family Medicine Geriatric Medicine; Visit Provider Family Medicine Geriatric Medicine
DX: E11.9 Type 2 diabetes mellitus without complications (principal); E55.9 Vitamin D deficiency, unspecified; I10 Essential (primary) hypertension; M10.9 Gout, unspecified
CPT/HCPCS: 36415; 80053; 82306; 84443; 84550; 85025

== ENCOUNTER → 2021-07-27 13:54 | Outpatient (CLI) | payer MEDICARE, OTHER, SELFPAY ==
--- NOTE | 2021-07-27 14:15 | VDLE_ITS ---
Reason For Study: Edema RIGHT LEFT GSV is normal. CFV is compressible, spontaneous, phasic, CFV is compressible, spontaneous, phasic, competent, and demonstrates normal competent and demonstrates normal augmentation. augmentation. FV is compressible, spontaneous, phasic, competent and demonstrates normal augmentation. POP V is compressible, spontaneous, phasic, competent and demonstrates normal augmentation. T/P Trunk is compressible. PTV is compressible. RT PerV is compressible. Procedure This is a venous duplex using B-mode, color flow and spectral Doppler. Exam performed in department. A preliminary report was called and/or faxed to [facility]. VL/Venous Duplex US, Unilateral Interpretation Summary Deep veins of the right lower extremity are patent and compressible segmentally . There is no evidence of right lower extremity deep vein thrombosis. Valvular competence haseeb ears intact within the proximal deep venous system on the right . The right great saphenous vein a ppears patent and compressible segmentally. Ordering Physician: Yared Gan Referring Physician: Yared Gan Chi Performed By: Abeba Norman RVT
[2021-07-27 14:43] LABS: Absolute Lymphocyte Count 2.93 X10^3/uL (0.83-4.51); Absolute Neutrophil Count 6.9 X10^3/uL (2.0-7.7); Basophil# 0.02 X10^3/uL; Basophil% 0.2 % (0-1); Hematocrit 43.2 % (37-47); Hemoglobin 13.5 g/dL (12.0-15.0); Lymphocyte # 2.93 X10^3/ul (0.83-4.51); Lymphocyte % 27.7 % (19-41); Mean Corp Hgb Conc 31.3 g/dL (32-36); Mean Corpuscular Hgb 30.3 pg (27.0-32.0); Mean Corpuscular Volume 96.9 fL (81-99); Mean Platelet Vol. 11.7 fl (6.2-12.0); Monocyte# 0.74 X10^3/uL; NRBC Flagged by Analyzer 0 % (0-5); Neutrophil # 6.87 X10^3/uL (2.7-7.7); Neutrophil % 64.9 % (47-70); Platelet Count 283 K/mm3 (150-450); RBC Distribution Width CV 13.6 % (11.6-14.6); RBC Distribution Width SD 48.7 fl (35.1-43.9); Red Blood Count 4.46 M/mm3 (4.2-5.4); White Blood Count 10.6 K/mm3 (4.4-11.0)
[2021-07-27 15:27] LABS: Vitamin D,25 Hydroxy 29.2 ng/mL
[2021-07-27 15:37] LABS: ALB/GLOB Ratio 0.8 RATIO (0.9-2.4); AST(SGOT) 16 U/L (15-37); Alanine Aminotransfer ALT/SGPT 20 U/L (13-56); Albumin, Serum 3.3 g/dL (3.2-5.0); Alkaline Phosphatase 78 U/L (45-117); Anion Gap 5 (5-15); BUN 20 mg/dL (7-18); BUN/Creat Ratio 22.1 RATIO (10-20); Calcium,Total 9.6 mg/dL (8.5-10.1); Chloride 105 mmol/L (98-107); EST Glomerular Filtration Rate 64 mL/min (>60); Est Glom Filt Rate - Afr Amer 78 mL/min (>60); Globulin 4.1 g/dL (2.2-4.2); Glucose 177 mg/dL (74-106); Potassium 4.2 mmol/L (3.5-5.1); Protein, Total 7.4 g/dL (6.4-8.2); Sodium Level 138 mmol/L (136-145); Thyroid Stim Hormone (TSH) 0.76 uIU/mL (0.358-3.74); Uric Acid 4.8 mg/dL (2.6-6.0)
== END ==
PROVIDERS: PCP Family Medicine Geriatric Medicine; Referring Provider Family Medicine Geriatric Medicine; Visit Provider Family Medicine Geriatric Medicine
DX: E11.9 Type 2 diabetes mellitus without complications (principal); E55.9 Vitamin D deficiency, unspecified; I10 Essential (primary) hypertension; M10.9 Gout, unspecified; R60.9 Edema, unspecified
CPT/HCPCS: 36415; 80053; 82306; 84443; 84550; 85025; 93971

== ENCOUNTER 2022-03-01 17:25 | Outpatient (CLI) | payer MEDICARE, OTHER, SELFPAY | END 2022-03-01 23:59 | disposition home or self-care (01) | PROVIDERS: PCP Family Medicine Geriatric Medicine; Visit Provider Urology | DX: R31.0 Gross hematuria (principal) | CPT/HCPCS: 87077; 87086; 87088; 87186 ==

== ENCOUNTER → 2022-09-21 | Outpatient (CLI) | payer MEDICARE, OTHER, SELFPAY ==
[2022-09-21 18:16] LABS: Absolute Lymphocyte Count 2.55 X10^3/uL (0.83-4.51); Absolute Neutrophil Count 6.2 X10^3/uL (2.0-7.7); Basophil# 0.02 X10^3/uL; Basophil% 0.2 % (0-1); Eosinophil# 0.29 X10^3/uL; Hematocrit 44.5 % (37-47); Hemoglobin 13.8 g/dL (12.0-15.0); Lymphocyte # 2.55 X10^3/ul (0.83-4.51); Mean Corpuscular Hgb 30.3 pg (27.0-32.0); Mean Corpuscular Volume 97.8 fL (81-99); Mean Platelet Vol. 12.4 fl (6.2-12.0); Monocyte# 0.67 X10^3/uL; Monocyte% 6.8 % (0-10); NRBC Flagged by Analyzer 0 % (0-5); Neutrophil # 6.24 X10^3/uL (2.7-7.7); Neutrophil % 63.6 % (47-70); Platelet Count 294 K/mm3 (150-450); RBC Distribution Width CV 13.5 % (11.6-14.6); RBC Distribution Width SD 48.9 fl (35.1-43.9); Red Blood Count 4.55 M/mm3 (4.2-5.4); White Blood Count 9.8 K/mm3 (4.4-11.0)
[2022-09-21 18:25] LABS: Vitamin D,25 Hydroxy 25.6 ng/mL
[2022-09-21 18:31] LABS: ALB/GLOB Ratio 0.9 RATIO (0.9-2.4); AST(SGOT) 18 U/L (15-37); Alanine Aminotransfer ALT/SGPT 25 U/L (13-56); Albumin, Serum 3.4 g/dL (3.2-5.0); Alkaline Phosphatase 76 U/L (45-117); Anion Gap 11 (5-15); BUN 23 mg/dL (7-18); BUN/Creat Ratio 17.7 RATIO (10-20); Calcium,Total 9.5 mg/dL (8.5-10.1); Chloride 100 mmol/L (98-107); EST Glomerular Filtration Rate 42 mL/min (>60); Est Glom Filt Rate - Afr Amer 51 mL/min (>60); Globulin 3.8 g/dL (2.2-4.2); Glucose 326 mg/dL (74-106); Potassium 3.9 mmol/L (3.5-5.1); Protein, Total 7.2 g/dL (6.4-8.2); Sodium Level 135 mmol/L (136-145); Thyroid Stim Hormone (TSH) 1.21 uIU/mL (0.358-3.74); Uric Acid 4.9 mg/dL (2.6-6.0)
== END | disposition home or self-care (01) ==
LOC: POLAB3 13:53
PROVIDERS: PCP Family Medicine Geriatric Medicine; Visit Provider Family Medicine Geriatric Medicine
DX: E11.9 Type 2 diabetes mellitus without complications (principal); E55.9 Vitamin D deficiency, unspecified; I10 Essential (primary) hypertension; M10.9 Gout, unspecified
CPT/HCPCS: 36415; 80053; 82306; 84443; 84550; 85025

== ENCOUNTER → 2023-04-07 | Outpatient (CLI) | payer MEDICARE, OTHER, SELFPAY | END | disposition home or self-care (01) | LOC: LABSPEC 16:37 | PROVIDERS: PCP Family Medicine Geriatric Medicine; Referring Provider Urology; Visit Provider Urology | DX: R10.9 Unspecified abdominal pain (principal) | CPT/HCPCS: 87077; 87086; 87088; 87186 ==

== ENCOUNTER → 2023-04-20 | Outpatient (CLI) | payer MEDICARE, OTHER, SELFPAY | END | disposition home or self-care (01) | LOC: LABSPEC 11:27 | PROVIDERS: PCP Family Medicine Geriatric Medicine; Referring Provider Urology; Visit Provider Urology | DX: R31.0 Gross hematuria (principal) | CPT/HCPCS: 87086; 87088 ==

== ENCOUNTER → 2023-05-05 | Outpatient (CLI) | payer MEDICARE, OTHER, SELFPAY ==
[2023-05-05 17:45] LABS: Absolute Lymphocyte Count 3.05 X10^3/uL (0.83-4.51); Absolute Neutrophil Count 5.8 X10^3/uL (2.0-7.7); Basophil# 0.04 X10^3/uL; Basophil% 0.4 % (0-1); Eosinophils% 10.3 % (0-5); Hematocrit 43.5 % (37-47); Hemoglobin 13.6 g/dL (12.0-15.0); Lymphocyte # 3.05 X10^3/ul (0.83-4.51); Lymphocyte % 28.4 % (19-41); Mean Corp Hgb Conc 31.3 g/dL (32-36); Mean Corpuscular Hgb 30.8 pg (27.0-32.0); Mean Corpuscular Volume 98.4 fL (81-99); Mean Platelet Vol. 11.9 fl (6.2-12.0); Monocyte# 0.75 X10^3/uL; NRBC Flagged by Analyzer 0 % (0-5); Neutrophil # 5.76 X10^3/uL (2.7-7.7); Neutrophil % 53.6 % (47-70); POSITIVE MORPHOLOGY YES; Platelet Count 297 K/mm3 (150-450); RBC Distribution Width CV 13.3 % (11.6-14.6); RBC Distribution Width SD 48.3 fl (35.1-43.9); Red Blood Count 4.42 M/mm3 (4.2-5.4); White Blood Count 10.7 K/mm3 (4.4-11.0)
[2023-05-05 17:52] LABS: Differential Indicated SCAN CRITERIA MET
[2023-05-05 18:14] LABS: Vitamin D,25 Hydroxy 30.1 ng/mL
[2023-05-05 18:37] LABS: ALB/GLOB Ratio 0.8 RATIO (0.9-2.4); AST(SGOT) 39 U/L (15-37); Alanine Aminotransfer ALT/SGPT 31 U/L (13-56); Albumin, Serum 3.3 g/dL (3.2-5.0); Alkaline Phosphatase 83 U/L (45-117); Anion Gap 7 (5-15); BUN 19 mg/dL (7-18); BUN/Creat Ratio 13.7 RATIO (10-20); Calcium,Total 9.4 mg/dL (8.5-10.1); Chloride 101 mmol/L (98-107); Creatinine, Serum 1.39 mg/dL (0.55-1.02); EST Glomerular Filtration Rate 39 mL/min (>60); Est Glom Filt Rate - Afr Amer 47 mL/min (>60); Globulin 4.3 g/dL (2.2-4.2); Glucose 270 mg/dL (74-106); Protein, Total 7.6 g/dL (6.4-8.2); Sodium Level 133 mmol/L (136-145); Thyroid Stim Hormone (TSH) 1.26 uIU/mL (0.358-3.74)
[2023-05-05 18:56] LABS: Differential Comment SCANNED
== END | disposition home or self-care (01) ==
LOC: LAB 16:03
PROVIDERS: PCP Family Medicine Geriatric Medicine; Referring Provider Family Medicine Geriatric Medicine; Visit Provider Family Medicine Geriatric Medicine
DX: I10 Essential (primary) hypertension (principal); E11.65 Type 2 diabetes mellitus with hyperglycemia; E55.9 Vitamin D deficiency, unspecified
CPT/HCPCS: 36415; 80053; 82306; 84443; 85025

== ENCOUNTER → 2023-06-08 | Outpatient (CLI) | payer MEDICARE, OTHER, SELFPAY | END | disposition home or self-care (01) | LOC: LABSPEC 15:38 | PROVIDERS: PCP Family Medicine Geriatric Medicine; Visit Provider Nurse Practitioner Women's Health | DX: N39.0 Urinary tract infection, site not specified (principal); R10.2 Pelvic and perineal pain | CPT/HCPCS: 87086; 87088 ==

== ENCOUNTER → 2023-07-15 | Outpatient (CLI) | payer MEDICARE, OTHER, SELFPAY | END | disposition home or self-care (01) | LOC: LABSPEC 14:51 | PROVIDERS: PCP Family Medicine Geriatric Medicine; Visit Provider Student in an Organized Health Care Education/Training Program | DX: N39.0 Urinary tract infection, site not specified (principal) | CPT/HCPCS: 87086; 87088 ==

== ENCOUNTER → 2023-08-04 | Outpatient (CLI) | payer MEDICARE, OTHER, SELFPAY ==
[2023-08-04 15:16] LABS: Absolute Lymphocyte Count 4.73 X10^3/uL (0.83-4.51); Absolute Neutrophil Count 6.3 X10^3/uL (2.0-7.7); Basophil# 0.04 X10^3/uL; Basophil% 0.3 % (0-1); Hematocrit 40.8 % (37-47); Hemoglobin 12.5 g/dL (12.0-15.0); Lymphocyte # 4.73 X10^3/ul (0.83-4.51); Lymphocyte % 39.1 % (19-41); Mean Corp Hgb Conc 30.6 g/dL (32-36); Mean Corpuscular Hgb 31.3 pg (27.0-32.0); Monocyte# 0.98 X10^3/uL; Monocyte% 8.1 % (0-10); NRBC Flagged by Analyzer 0 % (0-5); Neutrophil % 52.1 % (47-70); Platelet Count 279 K/mm3 (150-450); RBC Distribution Width SD 52.9 fl (35.1-43.9); White Blood Count 12.1 K/mm3 (4.4-11.0)
[2023-08-04 15:29] LABS: Vitamin D,25 Hydroxy 26.5 ng/mL
[2023-08-04 15:39] LABS: ALB/GLOB Ratio 0.7 RATIO (0.9-2.4); AST(SGOT) 14 U/L (15-37); Alanine Aminotransfer ALT/SGPT 21 U/L (13-56); Alkaline Phosphatase 78 U/L (45-117); Anion Gap 10 (5-15); BUN 31 mg/dL (7-18); BUN/Creat Ratio 21.8 RATIO (10-20); Calcium,Total 8.8 mg/dL (8.5-10.1); Chloride 107 mmol/L (98-107); Creatinine, Serum 1.42 mg/dL (0.55-1.02); EST Glomerular Filtration Rate 38 mL/min (>60); Est Glom Filt Rate - Afr Amer 46 mL/min (>60); Globulin 4.2 g/dL (2.2-4.2); Glucose 186 mg/dL (74-106); Potassium 4.4 mmol/L (3.5-5.1); Protein, Total 7.2 g/dL (6.4-8.2); Sodium Level 139 mmol/L (136-145); Thyroid Stim Hormone (TSH) 1.77 uIU/mL (0.358-3.74); Uric Acid 3.5 mg/dL (2.6-6.0)
== END | disposition home or self-care (01) ==
LOC: POLAB3 09:42
PROVIDERS: PCP Family Medicine Geriatric Medicine; Visit Provider Family Medicine Geriatric Medicine
DX: E11.65 Type 2 diabetes mellitus with hyperglycemia (principal); I10 Essential (primary) hypertension; M10.9 Gout, unspecified; E55.9 Vitamin D deficiency, unspecified
CPT/HCPCS: 36415; 80053; 82306; 84443; 84550; 85025

== ENCOUNTER → 2023-08-22 | Outpatient (CLI) | payer MEDICARE, OTHER, SELFPAY | END | disposition home or self-care (01) | LOC: LABSPEC 16:03 | PROVIDERS: PCP Family Medicine Geriatric Medicine; Referring Provider Urology; Visit Provider Urology | DX: R31.0 Gross hematuria (principal) | CPT/HCPCS: 87086 ==

== ENCOUNTER → 2023-09-19 | Outpatient (CLI) | payer MEDICARE, OTHER, SELFPAY | END | disposition home or self-care (01) | LOC: LABSPEC 16:03 | PROVIDERS: PCP Family Medicine Geriatric Medicine; Referring Provider Urology; Visit Provider Urology | DX: R30.9 Painful micturition, unspecified (principal) | CPT/HCPCS: 87086; 87088 ==

== ENCOUNTER → 2023-10-11 | Outpatient (CLI) | payer MEDICARE, OTHER, SELFPAY | END | disposition home or self-care (01) | LOC: LABSPEC 16:27 | PROVIDERS: PCP Family Medicine Geriatric Medicine; Referring Provider Urology; Visit Provider Urology | DX: R10.9 Unspecified abdominal pain (principal) | CPT/HCPCS: 87077; 87086; 87088; 87186 ==

== ENCOUNTER → 2023-11-15 | Outpatient (CLI) | payer MEDICARE, OTHER, SELFPAY | END | disposition home or self-care (01) | LOC: LAB 10:51 | PROVIDERS: PCP Family Medicine Geriatric Medicine; Referring Provider Urology; Visit Provider Urology | DX: R10.9 Unspecified abdominal pain (principal) | CPT/HCPCS: 87077; 87086; 87088; 87186 ==

== ENCOUNTER 2023-12-16 05:49 | Day surgery (SDC) | payer MEDICARE, OTHER, SELFPAY ==
[2023-12-16] VITALS (9 sets, daily range): BP systolic 116–143; BP diastolic 44–98; PULSE 85–94; RESP 16–18; TEMP 37.1–37.3; O2SAT 92–96; BMI 43.9
--- OUTSIDE RECORDS SUMMARY | 2023-12-16 05:55 | XMS RPT_ITS | CCD ---
Author Name Unknown Address [address] [place] [id number] Organization [facility] Care Team Providers Care Information Technology Specialist Name Role Phone Vivian FONTANA, Oneyda Rosen Unavailable Unavailable Leilani Gan Unavailable Unavailable Unavailable MD RADHA AVITIA Attending Unavailable Malik, Dr. Duke Referring Unavailable Dr. Leilani Gan Primary Care Unavailable Dr. Leilani Gan Referring Unavailable Dr. Leilani Gan Primary Care Unavailable MD RADHA AVITIA Attending Unavailable Allergies Allergy Classification Reported Allergen(s) Allergy Type Date of Onset Reaction(s) Facility (1 source) Minoxidil; Translations: [Rogaine] Drug Allergy [facility] [employer] Work Phone: (1 source) predniSONE; Translations: [predniSONE] Drug Allergy [facility] [employer] Work Phone: Medications Completed/Discontinued Medications Medication Drug Class(es) Dates Sig (Normalized) Sig (Original) allopurinol 300 mg oral tablet (1 source) Xanthine Oxidase Inhibitor take 1 tablet by mouth once daily Allopurinol 300 MG Oral Tablet Take 1 tablet daily Quantity: 0 Refills: 0 Ordered: 01-Dec-2022 DO Active atorvastatin 40 mg oral tablet (1 source) HMG-CoA Reductase Inhibitor take 1 tablet by mouth once daily Atorvastatin Calcium 40 MG Oral Tablet Take 1 tablet daily Quantity: 0 Refills: 0 Ordered: 01-Dec-2022 DO Active ciclopirox 80 mg/ml topical solution (1 source) Ciclopirox 8 % External Solution APPLY TO AFFECTED AREA ON DAILY AND REMOVE WEEKLY WITH RUBBING ALCOHOL Quantity: 1 Refills: 11 Ordered: 01-Dec-2022 DO Active citalopram 20 mg oral tablet (1 source) Serotonin Reuptake Inhibitor take 1 tablet by mouth once daily Citalopram Hydrobromide 20 MG Oral Tablet Take 1 tablet daily Quantity: 0 Refills: 0 Ordered: 01-Dec-2022 DO Active cyclobenzaprine hydrochloride 10 mg oral tablet (1 source) Muscle Relaxant Start: 3 take 1 tablet by mouth three times daily as needed Cyclobenzaprine HCl - 10 MG Oral Tablet TAKE 1 TABLET 3 TIMES DAILY NEEDED. Quantity: 1 Refills: 3 Ordered: 06-Apr-2023 Radha Avitia MD Start : 06-Apr-2023 Active etodolac 400 mg oral tablet (1 source) Nonsteroidal Anti-inflammatory Drug Start: 3 take 1 tablet by mouth twice daily as needed Etodolac 400 MG Oral Tablet TAKE 1 TABLET TWICE DAILY NEEDED. Quantity: 60 Refills: 11 Ordered: 01-Dec-2022 Radha Avitia MD Start : 01-Dec-2022 Active gabapentin (1 source) Anti-epileptic Agent Gabapentin 100 MG TABS Take 1 tablet daily Quantity: 0 Refills: 0 Ordered: 01-Dec-2022 DO Active glimepiride 4 mg oral tablet (1 source) Sulfonylurea take 1 tablet by mouth twice daily Glimepiride 4 MG Oral Tablet Take 1 tablet twice daily Quantity: 0 Refills: 0 Ordered: 01-Dec-2022 DO Active lisinopril 2.5 mg oral tablet (1 source) Angiotensin Converting Enzyme Inhibitor take 1 tablet by mouth once daily Lisinopril 2.5 MG Oral Tablet Take 1 tablet daily Quantity: 0 Refills: 0 Ordered: 01-Dec-2022 DO Active metFORMIN hydrochloride 1000 mg oral tablet (1 source) Biguanide take 1 tablet by mouth twice daily metFORMIN HCl - 1000 MG Oral Tablet Take 1 tablet twice daily Quantity: 0 Refills: 0 Ordered: 01-Dec-2022 DO Active Drug Treatment Unknown - unknown (1 source) No information available. pioglitazone 30 mg oral tablet (1 source) Peroxisome Proliferator Receptor alpha Agonist, Peroxisome Proliferator Receptor gamma Agonist, Thiazolidinedione take 1 tablet by mouth once daily Pioglitazone HCl - 30 MG Oral Tablet Take 1 tablet daily Quantity: 0 Refills: 0 Ordered: 01-Dec-2022 DO Active Problems Problem Classification Problem Date Documented Da te Episodic/Chronic Cataract (1 source) Bilateral cataracts; Translations: [Unspecified cataract] Chronic Diabetes mellitus without complication (2 sources) Diabetes mellitus; Translations: [Diabetes mellitus without mention of complication, type II or unspecified type, not stated as uncontrolled] Chronic Results Test Name Value Interpretation Reference Range Facil ity Vital Signs Date Time Vital Sign Value Performing Clinician Faci lity 04-06-2023 15:20-0400 Body height 154.94 cm [employer] Work Phone: [facility] Work Phone: 04-06-2023 15:20-0400 Body mass index (BMI) [Ratio] 39.87 kg/m2 [employer] Work Phone: [employer] [facility] Work Phone: 04-06-2023 15:20-0400 Body surface area Derived from formula 1.93 m2 [employer] Work Phone: [facility] Work Phone: 04-06-2023 15:20-0400 Body weight 95.71 kg [employer] Work Phone: [facility] Work Phone: Encounters Encounter Date Encounter Type Care Provider Facility Start: 04-06-2023 Office outpatient vi sit 15 minutes [employer] Work Phone: [employer] [facility] Work Phone: Start: 04-06-2023 ambulatory MD RADHA AVITIA Faci lity:[id number] Start: 12-01-2022 NPV, Provider: Radha Avitia, Status: Pen, Time: 10:00 AM Radha Avitia MD Work Phone: [employer] [facility] Work Phone: Start: 12-01-[address] Leilani Gan Facili ty:[id number] Start: 11-30-2022 AUDIT Radha Molina i, MD [facility] Phone: [facility] Work Phone: Procedures Date Procedure Procedure Detail Performing Clinician Arthroplasty of knee [employer] Work Phone: Hernia repair [employer] Work Phone: Surgical procedure on thorax [employer] Work Phone: Total replacement of hip [employer] Work Phone: Plan of Treatment Date Care Activity Detail Author Jackson jacob Work Phone: Immunizations Immunization Date Immunization Notes Care Provider Felicia armstrong 02-25-2022 Moderna COVID-19 Vac cine 100 MCG/0.5ML Intramuscular Suspension [employer] Work Phone: [facility] Work Phone: 09-22-2021 Pfizer-BioNTech COVI D-19 Vacc 30 MCG/0.3ML Intramuscular Suspension [employer] Work Phone: [facility] Work Phone: 07-27-2021 influenza, injectabl e, quadrivalent, contains preservative [facility] [employer] Work Phone: [facility] Work Phone: 02-28-2021 Pfizer-BioNTech COVI D-19 Vacc 30 MCG/0.3ML Intramuscular Suspension [employer] Work Phone: [facility] Work Phone: 02-05-2021 Pfizer-BioNTech COVI D-19 Vacc 30 MCG/0.3ML Intramuscular Suspension [employer] Work Phone: [facility] Work Phone: 07-14-2020 influenza, injectabl e, quadrivalent, contains preservative [employer] Work Phone: [facility] Work Phone: 08-15-2019 influenza, injectabl e, quadrivalent, contains preservative [employer] [facility]ik Work Phone: [facility] Work Phone: 10-06-2017 influenza, injectabl e, quadrivalent, contains preservative [facility] Malik Work Phone: [facility] Work Phone: 03-23-2007 diphtheria, tetanus toxoids and pertussis vaccine [employer] Work Phone: [facility] Work Phone: Payers Date Payer Category Payer Medicare [id number] 1945 Unknown [id number] 1945 Unknown [id number] Private Health Insurance CLI [id number] Unknown Social History Date Type Detail Facility Born in [place] Born in [facility] Work Phone: Chief complaint Narrative - Reported 04-06-2023 Note Date & Type Note Facility 04-06-2023 Chief complaint Narrative - Reported An interactive audio and video telecommunication system which permits real time communications between the patient (at the originating site) and provider (at the distant site) was utilized to provide this telehealth service.Verbal consent was requested and obtained from KISHA COSBY on this date, 04/06/2023 03:30 PM , for a telehealth visit.OA follow up-pt says feels like the medication is starting to work [facility] Work Phone: History of Present illness Narrative Note Date & Type Note Facility History of Present illness Narrative this patient's appointment today was converted to a telemedicine visit per patient request. Below is a synopsis of what is covered during the virtual visit. Please see the HPI templates for details.Patient provided verbal consent to proceed with Telehealth visit after being advised of risks and benefits inherent to the technology. An opportunity to ask questions as given.were there any limitations in the technology transmission with today's visit that could impact medical decision making? ____no 15__minutes was spent on today's telemedicine call with >50% counseling and coordinating careThe patient states her osteoarthritis has been stable since the last visit.Interval Events: Patient reports etodolac is working well for her arthritis with continues to have some back pain. She does report that her primary thought that she might need to go back to pain management to get injections again in her back. She is on gabapentin but not currently on a muscle relaxer.Symptoms:Activities: no limitations.Medications: the patient is adherent with her medication regimen. She denies medication side effects. [employer] Phone: Summary Purpose Family History No Family History Records FoundUnknown Family Member Name Dates Details Family history of arthritis: Mother, Aunt(V17.7, Z82.61) Status:Active Family history of systemic l upus erythematosus: Daughter(V19.4, Z82.69) Status:Active Family history of malignant neoplasm: Uncle(V16.9, Z80.9) Status:Active Family history of cerebrovas cular accident (CVA): Mother(V17.1, Z82.3) Status:Active Family history of coronary a rtery disease: Grandfather(V17.3, Z82.49) Status:Active Benign essential hypertensio n: Mother Status:Active Family history of diabetes m ellitus: Mother(V18.0, Z83.3) Status:Active Family history of gout: Aunt (V18.19, Z82.69) Status:Active MVA (motor vehicle accident) : Father Status:Active : Father Status:Active Advance Directives No Advanced Directives Records FoundNo Advanced Directives Records FoundNo Advanced Directives Records FoundNo Advanced Directives Records Found Additional Source Comments INFORMATION SOURCE (unrecogn ized section and content) DATE CREATED AUTHOR AUTHOR'S ORGANIZ ATION 05/06/2021 [facility] DATE CREATED AUTHOR AUTHOR'S ORGANIZ ATION 04/09/2023 [facility] DATE CREATED AUTHOR AUTHOR'S ORGANIZ ATION 04/09/2023 [employer] FOR RECORDS PERTAINING TO PATIENTS WHO ARE OR HAVE BEEN ENROLLED IN A CHEMICAL DEPENDENCY/SUBSTANCEABUSE PROGRAM, SOME INFORMATION MAY BE OMITTED. This clinical summary was aggregated from multiple sources. Caution should be exercised in using it in the provision of clinical care. This summary normalizes information from multiple sources, and as a consequence, information in this document may materially change the coding, format and clinical context of patient data. In addition, data may be omitted in some cases. CLINICAL DECISIONS SHOULD BE BASED ON THE PRIMARY CLINICAL RECORDS. [facility]. provides no warranty or guarantee of the accuracy or completeness of information in this document.
[2023-12-16] MEDS: Lactated Ringers 1,000 ML 15 ML IV (06:55)
[2023-12-16 07:24] LABS: Bedside Glucose 116 mg/dL (74-106)
--- NOTE | 2023-12-16 08:33 | DCINST_ITS ---
Discharge Instructions Diet Discharge Diet: No restrictions Activity Discharge Activity: Return to Normal Activity and May Not Drive (while taking narcotic pain medications.) Dressing / Incision Call your doctor if you observe: Fever of 101 or Higher Follow Up Care Please Follow Up With: Enrique Galvez MD When: Call [phone] for an appointment Test Results: Test results from this visit will be discussed in further detail at your follow- up appointment, if applicable. Discharge Plan Admission Primary Reason for Your Visit: InterStim therapy Attending Provider: Enrique Galvez Primary Care Provider: Yared Gan Chi Discharge Orders/Prescriptions Prescriptions: New ibuprofen 600 mg tablet 600 mg PO Q6H PRN (Reason: fever or pain) Qty: 14 0RF cephalexin 500 mg capsule 500 mg PO TID Qty: 15 0RF Continued pioglitazone 30 mg tablet 30 mg PO QDAY allopurinol 300 mg tablet 300 mg PO QDAY citalopram 20 mg tablet 20 mg PO QDAY atorvastatin 40 mg tablet 40 mg PO QHS lisinopril 5 mg tablet 2.5 mg PO DAILY glimepiride 4 mg tablet 4 mg PO QAM Rx Instructions: administer with breakfast gabapentin 100 mg capsule 100 mg PO QHS metformin 1,000 MG tablet 1,000 mg PO BID insulin glargine [Basaglar KwikPen U-100 Insulin] 100 unit/mL (3 mL) insulin pen 10 unit SUBCUT DAILY Patient Comments: INJECT 10 UNITS SUBCUTANEOUSLY DAILY Referrals / Follow Up: Enrique Galvez MD [Med Staff - Active Staff] - Yared Gan Chi, MD [Primary Care Provider] - Disposition Disposition (needs filled in before D/C Order can be placed): Home, Self Care
--- NOTE | 2023-12-16 08:33 | PCM.HP.STD ---
HPI - General General Date of Admission: 12/16/23 Chief Complaint: Bladder control problems HPI Narrative KISHA COSBY, is a 78 F who presents for placement of InterStim therapy with [employer]onics bladder control problems [facility] Medical History (Updated 11/25/23 @ 11:24 by Dianna Mckenzie) Alcohol use Ambulates with cane Back pain Bladder disease Cancer Cardiology follow-up encounter CPAP (continuous positive airway pressure) dependence DDD (degenerative disc disease), lumbar Depression Dietary restriction Difficulty swallowing Easy bruising Ectopic cardiac beats Essential hypertension Fainted Former smoker Gastric reflux Gout High cholesterol History of echocardiogram History of edema History of hiatal hernia History of IBS History of irregular heartbeat History of pain when walking History of stress test Hyperlipidemia Injury of head and neck Insulin dependent diabetes mellitus Migraine headache Non-alcoholic fatty liver disease Post-menopausal Premature atrial contractions Prolapsed, intestine Shortness of breath on exertion Syncope and collapse Wears glasses Home Medications allopurinol 300 mg tablet 300 mg PO QDAY Check with primary doctor 12/21/17 [History Last Taken 12/15/23] atorvastatin 40 mg tablet 40 mg PO QHS Check with primary doctor 12/21/17 [History Last Taken 12/15/23] citalopram 20 mg tablet 20 mg PO QDAY Check with primary doctor 12/21/17 [History Last Taken 12/16/23] pioglitazone 30 mg tablet 30 mg PO QDAY Check with primary doctor 12/23/17 [History Last Taken 12/15/23] lisinopril 5 mg tablet 2.5 mg PO DAILY 07/24/20 [History Last Taken 12/16/23] metformin 1,000 mg tablet 1,000 mg PO BID 08/12/20 [History Last Taken 12/15/23] glimepiride 4 mg tablet 4 mg PO QAM 04/15/21 [History Last Taken 12/15/23] gabapentin 100 mg capsule 100 mg PO QHS 11/03/22 [History Last Taken 12/15/23] insulin glargine 100 unit/mL (3 mL) subcutaneous pen (Basaglar KwikPen U-100 Insulin) 10 unit subcut DAILY 11/25/23 [History Last Taken 12/15/23] cephalexin 500 mg capsule 500 mg PO TID #15 caps 12/16/23 [Rx Last Taken Unknown] ibuprofen 600 mg tablet 600 mg PO Q6H PRN fever or pain #14 tabs 12/16/23 [Rx Last Taken Unknown] Allergy/AdvReac Type Severity Reaction Status Date / Time minoxidil [From Rogaine] AdvReac Unknown Unknown Verified 12/16/23 06:49 Corticosteroids AdvReac NEEDS Verified 12/16/23 06:49 (Glucocorticoids) FOLLOW-UP [steroids] Family History Mother , Age 93-cva Heart disease CVA (cerebral vascular accident) Hypertension Hyperlipidemia Pacemaker Grandfather Myocardial infarction Grandmother CVA (cerebral vascular accident) Hypertension Surgical History (Updated 11/25/23 @ 11:24 by Dianna Mckenzie) History of cardiac catheterization History of cholecystectomy History of hip surgery History of knee replacement procedure of left knee History of knee replacement procedure of right knee History of lumbar fusion History of tonsillectomy History of umbilical hernia repair Hx of colonoscopy Hx of left cataract extraction Hx of right cataract extraction S/P Botox injection Social History Smoking Status: Former smoker how long ago did patient quit smokin-40 years ago alcohol intake: never substance use type: does not use caffeine: Yes Type: coffee Vital Signs Vital Signs Vital Signs: 12/16/23 06:52 12/16/23 06:52 Temperature 98.7 F Temperature Source Temporal Pulse Rate 94 Respiratory Rate 18 Respiratory Pattern Normal Blood Pressure 126/98 H Blood Pressure Mean 107 Blood Pressure Source Monitor Blood Pressure Position Semi-Fowlers Blood Pressure Location Left Arm Pulse Ox 94 Oxygen Delivery Method Room Air Weight Weight: 105.6 kg Body Mass Index (BMI) 43.9 Results Lab / Micro Data Labs: Laboratory Results - last 24 hr 12/16/23 06:33: POC Glucose 116 H
--- NOTE | 2023-12-16 08:51 | RAD_ITS ---
EXAM: FL Fluoro (separate procedure), up to 1 hour HISTORY: PERCUTATNEOUS IMPLANTATION OF NEUROSTIMULATOR , SACRAL NERVE COMPARISON: None Technique: 3 intraoperative C-arm films FINDINGS: 3 limited intraoperative C-arm films were obtained as the patient has undergone implantation of a neurostimulator. No intraoperative complications noted RAD/Pelvis 1 or 2 Views IMPRESSION: No intraoperative complications during implantation of a neurostimulator Electronically Signed: Josh Finney MD at 9:50 EST ,
[2023-12-16] MEDS: Cefazolin 2 GM in 0.9% Normal Saline (100mL Bag) 100 ML IV (08:58)
[2023-12-16] MEDS: Lidocaine 1% /Epi 1:100 (20ml) 20 ML Vial (09:30)
--- NOTE | 2023-12-16 09:45 | OP.PCM_ITS ---
Report of Operation Date of Procedure: 12/16/23 Pre-Operative Diagnosis: Frequency and urge incontinence Post-Operative Diagnosis: The same Surgery/Procedure Performed:: Placement of Axonics stage I Description of Surgical Findings:: The patient presents to the operating room for placement of stage I interstim therapy. In the preoperative setting she is failed medical management for the patient urge incontinence and severe frequency of urination, a voiding diary was reviewed. The patient understands these is no guarantees that in the future the InterStim therapy will keep working to the patient's satisfaction and its always possible and it may need to have a surgical revision, change in implant, possible revision or removal of implant. We also talk about the risks of pain with stimulation, bleeding and infection or any injury to nerves or bony structures and the tailbone area. After reviewing all this with the patient in the preoperative area she signed the consent form and we proceeded with stageI interstim therapy implant. Patient was brought back to the operating room and placed supine on the table and then transferred to facedown the table and underwent sedation with comfort hugging a pillow. Patient's lower back was prepped and draped in usual sterile fashion, I then palpated the bony landmarks identify the tailbone the sacrum and the pocket area was identified where the quality assurance lead would be implanced and also the lead. Fluoroscopy was brought in to identify the pelvis we identify the spinous processes of the pelvic bone we used a finder needle to lay across the spinous process to the approximate the location of the S3 foramen. I then identified the lateral borders of the foramen using the other spinal needle. Under this the skin was then marked and potential entrances were by approximation and bony landmarks using fluoroscopy. I then infiltrated the skin about 2 cm up above the approximation of the S3 foramen and then used the needle within the stage I InterStim kit to go straight down to the potential S3 foramen spot marching along the sacrum until the needle electrode dropped into what appeared to be the S3 foramen. Under fluoroscopy in AP and lateral veiw I confirmed that I had the lead in the S3 foramen, I then stimulated the needle and had good amber response and had toe flexion but no calf rotation, confirm placement of the lead in the S3 Foremen. I then placed the guide through the needle the stylette was removed and then the needle was removed over the guide an incision was made into the skin and then through the incision incision and over the guide I introduced the sheath I followed the sheath under fluoroscopy until the marker on the sheath was three fourths down from the anterior plate of the sacrum. Once this was in good position then the stylette was removed and through the sheath I then introduced the stage I InterStim stimulator lead, I then checked the lead for stimulation of amber and toe flexion at all 4 sites 0, 1, 2, 3 and had good response with amber and toe flexion and pleased with the placement of the lead. Under fluoroscopy I captured the placement the lead this was documented both in AP and lateral views. I then removed the stylette within the lead and then pulled back in the sheath of the deployed the tines on the lead to secure the lead and the sacrum and the S3 foramen. Another fluoroscopic check was done to make sure no movement of the lead. After this was confirmed then pocket was created in the patient's lateral side where the permanent lead was then attached to the temporary extension. We then tunneled the temporary extension wire with the provided tunneler in the kit to index incision site beyond the midline. After tunneling the wire then the wires connected to the external Bluetooth device. We then placed a suture knot in the temporary extension to prevent migration and then placed a temper extension in the pocket and the pocket Was closed in 2 layers we then used tapes and the provided belt in the kit to secure the temporary lead to the patient we then confirmed with the rep that the lead was working and in the postoperative setting the patient will have the InterStim therapy set and programmed. CPT codes: 36703 -Lead placement
[2023-12-16 11:01] LABS: Bedside Glucose 83 mg/dL (74-106)
== END 2023-12-16 12:01 | disposition home or self-care (01) ==
LOC: SDC 05:51 → AC 05:53
PROVIDERS: PCP Family Medicine Geriatric Medicine; Referring Provider Family Medicine Geriatric Medicine; Visit Provider Urology
PROC: (CPT 64561; principal; 2023-12-16 07:20)
DX: N39.41 Urge incontinence (principal); E11.9 Type 2 diabetes mellitus without complications; Z79.4 Long term (current) use of insulin; M10.9 Gout, unspecified; E78.00 Pure hypercholesterolemia, unspecified; I10 Essential (primary) hypertension; Z79.84 Long term (current) use of oral hypoglycemic drugs; Z79.899 Other long term (current) drug therapy; Z87.891 Personal history of nicotine dependence
CPT/HCPCS: 64561; 00300; 72170; 76000; 82962; J7120; J2405

== ENCOUNTER → 2023-12-26 | Outpatient (CLI) | payer MEDICARE, OTHER, SELFPAY ==
--- OUTSIDE RECORDS SUMMARY | 2023-12-26 17:20 | XMS RPT_ITS | CCD ---
Author Name Unknown Address [address] [place] [id number] Organization [facility] Care Team Providers Care Stabber Name Role Phone Vivian FONTANA, Oneyda Rosen [...] (1 source) Minoxidil; Translations: [Rogaine] Drug Allergy [facility] [employer] Work Phone: (1 source) predniSONE; Translations: [predniSONE] Drug Allergy [facility] [employer] Work Phone: Medications Completed/Discontinued Medications Medication Drug [...] lity 04-06-2023 15:20-0400 Body height 154.94 cm [employer] Work Phone: [employer] [facility] Work Phone: 04-06-2023 15:20-0400 Body mass index (BMI) [Ratio] 39.87 kg/m2 [employer] Work Phone: [employer] [facility] Work Phone: 04-06-2023 15:20-0400 Body surface area Derived from formula 1.93 m2 [employer] Work Phone: [employer] [facility] Work Phone: 04-06-2023 15:20-0400 Body weight 95.71 kg [employer] Work Phone: [employer] [facility] Work Phone: Encounters Encounter Date Encounter Type Care Provider Facility Start: 04-06-2023 Office outpatient vi sit 15 minutes [employer] Work Phone: [employer] [facility] Work Phone: Start: 04-06-2023 ambulatory MD RADHA AVITIA Faci [id number] Start: 12-01-2022 NPV, Provider: Radha Avitia, Status: Pen, Time: 10:00 AM Radha Avitia MD Work Phone: [employer] [facility] Work Phone: Start: 12-01-[address] Leilani Gan Facili [id number] Start: 11-30-2022 AUDIT Radha Molina i, MD [facility] Work Phone: Procedures Date Procedure Procedure Detail Performing Clinician Arthroplasty of knee [employer] Work Phone: Hernia repair [employer] Work Phone: Surgical procedure on thorax [employer] Work Phone: Total replacement of hip [employer] Work Phone: Plan of Treatment Date Care Activity Detail Author Jackson jacob Work Phone: Immunizations Immunization Date Immunization Notes Care Provider Felicia armstrong 02-25-2022 Moderna COVID-19 Vac cine 100 MCG/0.5ML Intramuscular Suspension [employer] Work Phone: [facility] Work Phone: 09-22-2021 Pfizer-BioNTech COVI D-19 Vacc 30 MCG/0.3ML Intramuscular Suspension [employer] Work Phone: [facility] Work Phone: 07-27-2021 influenza, injectabl e, quadrivalent, contains preservative [employer] Work Phone: [facility] Work Phone: 02-28-2021 Pfizer-BioNTech COVI D-19 Vacc 30 MCG/0.3ML Intramuscular Suspension [employer] Work Phone: [facility] Work Phone: 02-05-2021 Pfizer-BioNTech COVI D-19 Vacc 30 MCG/0.3ML Intramuscular Suspension [employer] Work Phone: [facility] Work Phone: 07-14-2020 influenza, injectabl e, quadrivalent, contains preservative [employer] Work Phone: [facility] Work Phone: 08-15-2019 influenza, injectabl e, quadrivalent, contains preservative [employer] Work Phone: [employer] [facility] Work Phone: 10-06-2017 influenza, injectabl e, quadrivalent, contains preservative [employer] Work Phone: [facility] Work Phone: 03-23-2007 diphtheria, tetanus toxoids and pertussis vaccine [employer] Work Phone: [facility] Work Phone: Payers Date Payer Category Payer Medicare [id number] 1945 Unknown [id number] 1945 Unknown [id number] Private Health Insurance CLI [id number] Unknown Social History Date Type Detail Facility Born in [place] Born in [facility] Work Phone: Chief complaint Narrative - Reported [...] like the medication is starting to work [facility] Work Phone: History of Present illness Narrative [...] medication regimen. She denies medication side effects. [employer] Response Phone: Summary Purpose Family History No Family [...] DATE CREATED AUTHOR AUTHOR'S ORGANIZ ATION 05/06/2021 [facility] DATE CREATED AUTHOR AUTHOR'S ORGANIZ ATION 04/09/2023 [facility] DATE CREATED AUTHOR AUTHOR'S ORGANIZ [...] BE BASED ON THE PRIMARY CLINICAL RECORDS. [employer] [facility]. provides no warranty or guarantee of the accuracy or completeness of information in this document.
== END | disposition home or self-care (01) ==
LOC: LABSPEC 16:54
PROVIDERS: PCP Family Medicine Geriatric Medicine; Referring Provider Urology; Visit Provider Urology
DX: R10.9 Unspecified abdominal pain (principal)
CPT/HCPCS: 87077; 87086; 87088; 87186

== ENCOUNTER 2023-12-30 05:45 | Day surgery (SDC) | payer MEDICARE, OTHER, SELFPAY ==
--- OUTSIDE RECORDS SUMMARY | 2023-12-30 05:51 | XMS RPT_ITS | CCD ---
Author Name Unknown Address [address] [place] [id number] Organization [facility] Care Team Providers Care Head Resident Name Role Phone Vivian FONTANA, Oneyda Rosen [...] (1 source) Minoxidil; Translations: [Rogaine] Drug Allergy [facility] [employer] Work Phone: (1 source) predniSONE; Translations: [predniSONE] Drug Allergy [facility] [employer] Work Phone: Medications Completed/Discontinued Medications Medication Drug [...] lity 04-06-2023 15:20-0400 Body height 154.94 cm [employer] Work Phone: [employer] [facility] Work Phone: 04-06-2023 15:20-0400 Body mass index (BMI) [Ratio] 39.87 kg/m2 [employer] [facility] Work Phone: [employer] [facility] Work Phone: 04-06-2023 15:20-0400 Body surface area Derived from formula 1.93 m2 [employer] [facility] Work Phone: [employer] [facility] Work Phone: 04-06-2023 15:20-0400 Body weight 95.71 kg [employer] [facility] Work Phone: [employer] [facility] Work Phone: Encounters Encounter Date Encounter Type Care Provider Facility Start: 04-06-2023 Office outpatient vi sit 15 minutes [employer] Work Phone: [employer] [facility] Work Phone: Start: 04-06-2023 ambulatory MD RADHA AVITIA Faci lity:[id number] Start: 12-01-2022 NPV, Provider: Radha Avitia, Status: Pen, Time: 10:00 AM Radha Avitia MD Work Phone: [employer] [facility] Work Phone: Start: 12-01-[address] Leilani Gan Facili [id number] Start: 11-30-2022 AUDIT Radha Molina i, MD [facility] Phone: [facility] Work Phone: Procedures Date Procedure Procedure Detail Performing Clinician Arthroplasty of knee [employer] [facility] Work Phone: Hernia repair [employer] [facility] Work Phone: Surgical procedure on thorax [employer] [facility] Work Phone: Total replacement of hip [employer] Work Phone: Plan of Treatment Date Care Activity Detail Author Jackson jacob Work Phone: Immunizations Immunization Date Immunization Notes Care Provider Felicia armstrong 02-25-2022 Moderna COVID-19 Vac cine 100 MCG/0.5ML Intramuscular Suspension [employer] [facility] Work Phone: [facility] Work Phone: 09-22-2021 Pfizer-BioNTech COVI D-19 Vacc 30 MCG/0.3ML Intramuscular Suspension [employer] Work Phone: [facility] Work Phone: 07-27-2021 influenza, injectabl e, quadrivalent, contains preservative [employer] Work Phone: [facility] Work Phone: 02-28-2021 Pfizer-BioNTech COVI D-19 Vacc 30 MCG/0.3ML Intramuscular Suspension [employer] Work Phone: [facility] Work Phone: 02-05-2021 Pfizer-BioNTech COVI D-19 Vacc 30 MCG/0.3ML Intramuscular Suspension [employer] Work Phone: [facility] Work Phone: 07-14-2020 influenza, injectabl e, quadrivalent, contains preservative [employer] Work Phone: [facility] Work Phone: 08-15-2019 influenza, injectabl e, quadrivalent, contains preservative [employer] Work Phone: [employer] [facility] Work Phone: 10-06-2017 influenza, injectabl e, quadrivalent, contains preservative [employer] Work Phone: [facility] Work Phone: 03-23-2007 diphtheria, tetanus toxoids and pertussis vaccine [employer] [facility] Work Phone: [facility] Work Phone: Payers Date Payer Category Payer Medicare [id number] 1945 Unknown [id number] [id number] 1945 Unknown [id number] [id number] Private Health Insurance CLI [id number] Unknown Social History Date Type Detail Facility Born in [place] Born in [facility] Work Phone: Chief complaint Narrative - [...] like the medication is starting to work [facility] Work Phone: History of Present [...] medication regimen. She denies medication side effects. [employer] Phone: Summary Purpose Family History No Family [...] DATE CREATED AUTHOR AUTHOR'S ORGANIZ ATION 05/06/2021 [facility] DATE CREATED AUTHOR AUTHOR'S ORGANIZ [...] BE BASED ON THE PRIMARY CLINICAL RECORDS. [employer] [facility]. provides no warranty or guarantee of the accuracy or completeness of information in this document.
[2023-12-30 06:20] VITALS: BP 127/58; PULSE 80; RESP 16; TEMP 37.1; O2SAT 98; BMI 44.4
[2023-12-30] MEDS: Lactated Ringers 1,000 ML 15 ML IV (06:28)
[2023-12-30 07:09] LABS: Bedside Glucose 172 mg/dL (74-106)
--- NOTE | 2023-12-30 07:13 | PCM.HP.STD ---
HPI - General General Date of Service: 12/30/23 Chief Complaint: Frequency and urgency HPI Narrative KISHA COSBY, is a 78 F who presents for stage II InterStim therapy implant with [employer] [facility] Medical History (Updated 12/21/23 @ 08:28 by Sharee Pinedo) Alcohol use Ambulates with cane Back pain Bladder disease Cancer Cardiology follow-up encounter CPAP (continuous positive airway pressure) dependence DDD (degenerative disc disease), lumbar Depression Dietary restriction Difficulty swallowing Easy bruising Ectopic cardiac beats Essential hypertension Fainted Former smoker Gastric reflux Gout High cholesterol History of echocardiogram History of edema History of hiatal hernia History of IBS History of irregular heartbeat History of pain when walking History of stress test Hyperlipidemia Injury of head and neck Insulin dependent diabetes mellitus Migraine headache Non-alcoholic fatty liver disease Post-menopausal Premature atrial contractions Prolapsed, intestine Shortness of breath on exertion Syncope and collapse Wears glasses Home Medications allopurinol 300 mg tablet 300 mg PO QDAY Check with primary doctor 12/21/17 [History Last Taken 12/15/23] atorvastatin 40 mg tablet 40 mg PO QHS Check with primary doctor 12/21/17 [History Last Taken 12/15/23] citalopram 20 mg tablet 20 mg PO QDAY Check with primary doctor 12/21/17 [History Last Taken 12/16/23] pioglitazone 30 mg tablet 30 mg PO QDAY Check with primary doctor 12/23/17 [History Last Taken 12/15/23] lisinopril 5 mg tablet 2.5 mg PO DAILY 07/24/20 [History Last Taken 12/16/23] metformin 1,000 mg tablet 1,000 mg PO BID 08/12/20 [History Last Taken 12/15/23] glimepiride 4 mg tablet 4 mg PO QAM 04/15/21 [History Last Taken 12/15/23] gabapentin 100 mg capsule 100 mg PO QHS 11/03/22 [History Last Taken 12/15/23] insulin glargine 100 unit/mL (3 mL) subcutaneous pen (Basaglar KwikPen U-100 Insulin) 10 unit subcut DAILY 11/25/23 [History Last Taken 12/15/23] cephalexin 500 mg capsule 500 mg PO TID #15 caps 12/16/23 [Rx Last Taken Unknown] Allergy/AdvReac Type Severity Reaction Status Date / Time minoxidil [From Rogaine] AdvReac Unknown Unknown Verified 12/30/23 06:19 Corticosteroids AdvReac NEEDS Verified 12/30/23 06:19 (Glucocorticoids) FOLLOW-UP [steroids] Family History Mother , Age 93-cva Heart disease CVA (cerebral vascular accident) Hypertension Hyperlipidemia Pacemaker Grandfather Myocardial infarction Grandmother CVA (cerebral vascular accident) Hypertension Surgical History (Updated 12/21/23 @ 08:18 by Sharee Pinedo) History of cardiac catheterization History of cholecystectomy History of hip surgery History of knee replacement procedure of left knee History of knee replacement procedure of right knee History of lumbar fusion History of surgery History of tonsillectomy History of umbilical hernia repair Hx of colonoscopy Hx of left cataract extraction Hx of right cataract extraction S/P Botox injection Social History Smoking Status: Former smoker how long ago did patient quit smokin-40 years ago alcohol intake: never substance use type: does not use caffeine: Yes Type: coffee Vital Signs Vital Signs Vital Signs: 12/30/23 06:20 12/30/23 06:20 Temperature 98.8 F Temperature Source Temporal Pulse Rate 80 Respiratory Rate 16 Respiratory Pattern Normal Blood Pressure 127/58 H Blood Pressure Mean 81 Blood Pressure Source Monitor Blood Pressure Position Semi-Fowlers Blood Pressure Location Left Arm Pulse Ox 98 Oxygen Delivery Method Room Air Weight Weight: 106.8 kg Body Mass Index (BMI) 44.4 Results Lab / Micro Data Labs: Laboratory Results - last 24 hr 12/30/23 06:21: POC Glucose 172 H
[2023-12-30] MEDS: Cefazolin 2 GM in 0.9% Normal Saline (100mL Bag) 100 ML IV (07:27)
[2023-12-30] MEDS: Lidocaine 1% /Epi 1:100 (20ml) 20 ML Vial (07:47)
--- NOTE | 2023-12-30 07:56 | DCINST_ITS ---
Discharge Instructions Procedure Urology Diet Discharge Diet: No restrictions Activity Discharge Activity: Return to Normal Activity and May Not Drive (while taking narcotic pain medications.) Dressing / Incision Call your doctor if you observe: Fever of 101 or Higher Follow Up Care Please Follow Up With: Enrique Galvez MD When: Call [phone] for an appointment Test Results: Test results from this visit will be discussed in further detail at your follow- up appointment, if applicable. Discharge Plan Admission Attending Provider: Enrique Galvez Primary Care Provider: Yared Gan Chi Discharge Orders/Prescriptions Prescriptions: No Action pioglitazone 30 mg tablet 30 mg PO QDAY allopurinol 300 mg tablet 300 mg PO QDAY citalopram 20 mg tablet 20 mg PO QDAY atorvastatin 40 mg tablet 40 mg PO QHS lisinopril 5 mg tablet 2.5 mg PO DAILY glimepiride 4 mg tablet 4 mg PO QAM Rx Instructions: administer with breakfast gabapentin 100 mg capsule 100 mg PO QHS metformin 1,000 MG tablet 1,000 mg PO BID insulin glargine [Basaglar KwikPen U-100 Insulin] 100 unit/mL (3 mL) insulin pen 10 unit SUBCUT DAILY Patient Comments: INJECT 10 UNITS SUBCUTANEOUSLY DAILY cephalexin 500 mg capsule 500 mg PO TID Qty: 15 0RF Referrals / Follow Up: Yared Gan Chi, MD [Primary Care Provider] - Disposition Disposition (needs filled in before D/C Order can be placed): Home, Self Care
--- NOTE | 2023-12-30 07:56 | OP.PCM_ITS ---
Report of Operation Date of Procedure: 12/30/23 Pre-Operative Diagnosis: Frequency and urgency Post-Operative Diagnosis: The same Surgery/Procedure Performed:: Stage II interstim therapy with [employer] Description of Surgical Findings:: The patient presents to the operating room for placement of stage II interstim therapuy therapy. Patient had stage I in the therapy stage placed about 2 weeks ago and we monitor her response to symptoms she has had a greater than 50% improvement both subjectively and objectively through review of her voiding diary. She also wishes to proceed with stage II InterStim therapy as it has improved her symptoms significantly. The patient understands these is no guarantees that in the future the InterStim therapy will keep working to the patient's satisfaction and its always possible and it may need to have a surgical revision, change in implant, possible revision or removal of implant. We also talk about the risks of pain with stimulation, bleeding and infection or any injury to nerves or bony structures and the tailbone area. After reviewing all this with the patient in the preoperative area she signed the consent form and we proceeded with stage II interstim therapy implant. Patient was brought back to the operating room and placed supine on the table and then transferred to facedown the table and underwent sedation with comfort hugging a pillow. Patient's lower back was prepped and draped in usual sterile fashion, I then palpated the bony landmarks identify the tailbone the sacrum and the pocket area was identified where the manager leadership development would be implanted and also the lead. The temporary lead was then cut off from the Bluetooth device. We made an incision over the pocket and remove the temporary extension from the permanent lead and the suture that was holding the temporary extension was removed. The end of the permanent lead was inspected and there was no signs of any damage and was cleaned thoroughly. We then brought over the generator from the kit. After this was confirmed then pocket opened up to allow for the placement of the generator and the patient's lateral side. Then the generator was opened and I made sure I cleaned the lead completely I attached the lead to the generator use the screwdriver provided in the kit to then secure the bolt secure the lead to the generator prior to doing this again checked the lead 0, 1, 2, 3 and there was still good stimulation at all sites. I then placed the lead into the generator and the generator was put into the pocket that was created. I made sure that the generator was placed with InterStim labeling side up and was oriented appropriately. I then checked for impedance using the device rep and had the device checked in the impedance was normal with no abnormal impedance and all leads in all 4-lead sites were programmed and responded normally. The generator was then programmed to ensure good proper stimulation of the InterStim device this was done in the operating room, after complex programming was completed we finished with fluoroscopy I then closed the insertion site with subcuticular stitches and Steri-Strips and bandages and then closed the pocket with subcuticular stitches and Steri-Strips and bandages. The patient's anesthetic was reversed patient was taken back to the recovery room in stable condition and further training and education will be given to the patient regarding how to use the new InterStim therapy. Surgeon: Enrique Galvez Type of Anesthesia: General Admit VTE Documentation VTE Present on Admission: No VTE Mechan Device Prophylaxis: SCD's VTE Pharm Prophylaxis ordered?: No
[2023-12-30 08:04] VITALS: BP 113/51; BP 127/58; PULSE 82; RESP 18; TEMP 37.5; O2SAT 95
[2023-12-30 08:05] VITALS: BP 119/50; BP 127/58; PULSE 83; RESP 18; O2SAT 96
[2023-12-30 08:10] VITALS: BP 110/48; BP 127/58; PULSE 81; RESP 14; O2SAT 95
[2023-12-30 08:15] VITALS: BP 120/47; BP 127/58; PULSE 82; RESP 14; TEMP 36.7; O2SAT 97
[2023-12-30 08:33] VITALS: BP 127/58
== END 2023-12-30 08:48 | disposition home or self-care (01) ==
LOC: SDC 05:46 → AC 05:47
PROVIDERS: PCP Family Medicine Geriatric Medicine; Referring Provider Urology; Visit Provider Urology
PROC: (CPT 64590; principal; 2023-12-30 07:20)
DX: Z45.42 Encounter for adjustment and management of neurostimulator (principal); E11.9 Type 2 diabetes mellitus without complications; Z79.4 Long term (current) use of insulin; Z87.891 Personal history of nicotine dependence; E78.00 Pure hypercholesterolemia, unspecified; I10 Essential (primary) hypertension; R35.0 Frequency of micturition; R39.15 Urgency of urination; Z79.899 Other long term (current) drug therapy; Z79.84 Long term (current) use of oral hypoglycemic drugs
CPT/HCPCS: 64590; 64581; 00300; 95972; 82962; J7120

== ENCOUNTER → 2024-01-03 | Outpatient (CLI) | payer MEDICARE, OTHER, SELFPAY ==
--- NOTE | 2024-01-03 14:40 | CT_ITS ---
STUDY: CT ABDOMEN AND PELVIS WITH CONTRAST REASON FOR EXAM: Female, 78 years old. ABD PAIN RADIATION DOSAGE (If Supplied By Facility): CTDIvol = ( 24.26 ) mGy, DLP = ( 1475.39 ) mGycm TECHNIQUE: Transaxial images were obtained from the dome of the diaphragm to the symphysis pubis without oral contrast. IV 100mL Isovue-370 was administered. Sagittal and coronal images were reconstructed. Individualized dose optimization techniques were used for this CT. COMPARISON: Comparison is made with prior study dated June 10, 2021. FINDINGS: The visualized lung bases are unremarkable. Coronary artery calcification. There is decreased attenuation of the liver consistent with steatosis. Borderline hepatomegaly. The patient is status post cholecystectomy. Normal spleen. There is diffuse atrophy of the pancreas. Normal bilateral adrenal glands. Normal right kidney. Normal left kidney. The stomach is fluid distended. Normal small intestine. Normal colon. The appendix is visualized and appears normal. There is diffuse atherosclerotic calcification of the abdominal aorta, without a demonstrated aneurysm. Normal inferior vena cava. Normal retroperitoneum. Normal urinary bladder. Normal abdominal wall. There are diffuse degenerative changes of the visualized lumbar spine. Status post right total hip replacement. Prior intrapedicular screw and chadd fixation at the L2-L3 and L3-L4 levels. CT/Abdomen/Pelvis W IV Cont ONLY IMPRESSION: No acute neurological findings are seen. Fatty infiltration of liver. Borderline hepatomegaly. Electronically Signed: Jaron Javier MD at 15:23 EST ,
[2024-01-03 15:08] LABS: CREATININE FINGERSTICK < 1.0 mg/dL (0.55-1.02); EGFR FINGERSTICK > 60.0000 mL/min (>60)
--- OUTSIDE RECORDS SUMMARY | 2024-01-03 18:31 | XMS RPT_ITS | CCD ---
Author Name Unknown Address [address] [place] [id number] Organization [facility] Care Team Providers Care Meat Department Manager Name Role Phone Vivian FONTANA, Oneyda Rosen [...] (1 source) Minoxidil; Translations: [Rogaine] Drug Allergy [facility] [employer] Work Phone: (1 source) predniSONE; Translations: [predniSONE] Drug Allergy [facility] [employer] Work Phone: Medications Completed/Discontinued Medications Medication Drug [...] lity 04-06-2023 15:20-0400 Body height 154.94 cm [employer] Work Phone: [employer] [facility] Work Phone: 04-06-2023 15:20-0400 Body mass index (BMI) [Ratio] 39.87 kg/m2 [employer] Work Phone: [facility] Work Phone: 04-06-2023 15:20-0400 Body surface area Derived from formula 1.93 m2 [employer] Work Phone: [employer] [facility] Work Phone: 04-06-2023 15:20-0400 Body weight 95.71 kg [employer] Work Phone: [employer] [facility] Work Phone: Encounters Encounter Date Encounter Type Care Provider Facility Start: 04-06-2023 Office outpatient vi sit 15 minutes [employer] Work Phone: [facility] Work Phone: Start: 04-06-2023 ambulatory MD RADHA AVITIA Faci lity:[id number] Start: 12-01-2022 NPV, Provider: Radha Avitia, Status: Pen, Time: 10:00 AM Radha Aivtia MD Work Phone: [facility] Work Phone: Start: 12-01-[address] Leilani Gan Facili ty:[id number] Start: 11-30-2022 AUDIT Radha Molina i, MD Work Phone: [facility] Work Phone: Procedures Date Procedure Procedure Detail Performing Clinician Arthroplasty of knee [facility] Work Phone: Hernia repair [facility] Work Phone: Surgical procedure on thorax [facility] Work Phone: Total replacement of hip US [employer] Work Phone: Plan of Treatment Date Care Activity Detail Author Jackson jacob Work Phone: Immunizations Immunization Date Immunization Notes Care Provider Felicia armstrong 02-25-2022 Moderna COVID-19 Vac cine 100 MCG/0.5ML Intramuscular Suspension [facility] Work Phone: [facility] Work Phone: 09-22-2021 Pfizer-BioNTech COVI D-19 Vacc 30 MCG/0.3ML Intramuscular Suspension [employer] Work Phone: [facility] Work Phone: 07-27-2021 influenza, injectabl e, quadrivalent, contains preservative [employer] Work Phone: [facility] Work Phone: 02-28-2021 Pfizer-BioNTech COVI D-19 Vacc 30 MCG/0.3ML Intramuscular Suspension [employer] Work Phone: [facility] Work Phone: 02-05-2021 Pfizer-BioNTech COVI D-19 Vacc 30 MCG/0.3ML Intramuscular Suspension [employer] Work Phone: [facility] Work Phone: 07-14-2020 influenza, injectabl e, quadrivalent, contains preservative [employer] Work Phone: [facility] Work Phone: 08-15-2019 influenza, injectabl e, quadrivalent, contains preservative [employer] Work Phone: [employer] [facility] Work Phone: 10-06-2017 influenza, injectabl e, quadrivalent, contains preservative [employer] Work Phone: [facility] Work Phone: 03-23-2007 diphtheria, tetanus toxoids and pertussis vaccine [facility] Work Phone: [facility] Work Phone: Payers Date Payer Category Payer Medicare [id number] 1945 Unknown [id number] 1945 Unknown [id number] Private Health Insurance CLI [id number] Unknown Social History Date Type Detail Facility Born in [place] Born in [facility] Work Phone: Chief complaint Narrative - [...] like the medication is starting to work [facility] Work Phone: History of Present illness [...] medication regimen. She denies medication side effects. [employer] Phone: Summary Purpose Family History No Family [...] DATE CREATED AUTHOR AUTHOR'S ORGANIZ ATION 05/06/2021 [facility] DATE CREATED AUTHOR AUTHOR'S ORGANIZ ATION 04/09/2023 [facility] DATE CREATED AUTHOR AUTHOR'S ORGANIZ ATION 04/09/2023 [...] BE BASED ON THE PRIMARY CLINICAL RECORDS. [employer] [facility]. provides no warranty or guarantee of the accuracy or completeness of information in this document.
== END | disposition home or self-care (01) ==
LOC: CT 14:38
PROVIDERS: PCP Family Medicine Geriatric Medicine; Referring Provider Urology; Visit Provider Urology
DX: R10.9 Unspecified abdominal pain (principal)
CPT/HCPCS: 74177; Q9967

== ENCOUNTER → 2024-01-16 | Outpatient (CLI) | payer MEDICARE, OTHER, SELFPAY ==
[2024-01-16 15:33] LABS: Absolute Lymphocyte Count 2.12 X10^3/uL (0.83-4.51); Absolute Neutrophil Count 7.7 X10^3/uL (2.0-7.7); Basophil# 0.03 X10^3/uL; Basophil% 0.3 % (0-1); Eosinophil# 0.01 X10^3/uL; Eosinophils% 0.1 % (0-5); Hematocrit 41.1 % (37-47); Hemoglobin 12.3 g/dL (12.0-15.0); Lymphocyte # 2.12 X10^3/ul (0.83-4.51); Lymphocyte % 20.2 % (19-41); Mean Corp Hgb Conc 29.9 g/dL (32-36); Mean Corpuscular Hgb 30.5 pg (27.0-32.0); Mean Platelet Vol. 11.5 fl (6.2-12.0); Monocyte# 0.66 X10^3/uL; Monocyte% 6.3 % (0-10); NRBC Flagged by Analyzer 0 % (0-5); Neutrophil # 7.65 X10^3/uL (2.7-7.7); Neutrophil % 72.8 % (47-70); Platelet Count 283 K/mm3 (150-450); RBC Distribution Width CV 14.1 % (11.6-14.6); RBC Distribution Width SD 53.3 fl (35.1-43.9); Red Blood Count 4.03 M/mm3 (4.2-5.4); White Blood Count 10.5 K/mm3 (4.4-11.0)
[2024-01-16 16:13] LABS: Vitamin D,25 Hydroxy 18.6 ng/mL
[2024-01-16 16:30] LABS: ALB/GLOB Ratio 0.8 RATIO (0.9-2.4); AST(SGOT) 18 U/L (15-37); Alanine Aminotransfer ALT/SGPT 20 U/L (13-56); Albumin, Serum 3.2 g/dL (3.2-5.0); Alkaline Phosphatase 74 U/L (45-117); Anion Gap 3 (5-15); BUN 24 mg/dL (7-18); BUN/Creat Ratio 21.1 RATIO (10-20); Calcium,Total 8.8 mg/dL (8.5-10.1); Chloride 109 mmol/L (98-107); Creatinine, Serum 1.14 mg/dL (0.55-1.02); EST Glomerular Filtration Rate 49 mL/min (>60); Est Glom Filt Rate - Afr Amer 59 mL/min (>60); Globulin 3.8 g/dL (2.2-4.2); Glucose 234 mg/dL (74-106); Potassium 4.5 mmol/L (3.5-5.1); Sodium Level 139 mmol/L (136-145); Thyroid Stim Hormone (TSH) 2.21 uIU/mL (0.358-3.74); Uric Acid 4.5 mg/dL (2.6-6.0)
--- OUTSIDE RECORDS SUMMARY | 2024-01-16 17:34 | XMS RPT_ITS | CCD ---
Author Name Unknown Address [address] [place] [address] Organization [facility] Care Team Providers Care Corrective And Manual Arts Therapist Name Role Phone Vivian FONTANA, Oneyda Rosen [...] (1 source) Minoxidil; Translations: [Rogaine] Drug Allergy [facility] [employer] Work Phone: (1 source) predniSONE; Translations: [predniSONE] Drug Allergy [facility] [employer] Work Phone: Medications Completed/Discontinued Medications Medication Drug [...] lity 04-06-2023 15:20-0400 Body height 154.94 cm [email or web address] Work Phone: [employer] [facility] Work Phone: 04-06-2023 15:20-0400 Body mass index (BMI) [Ratio] 39.87 kg/m2 [email or web address] Work Phone: [email or web address] [facility] Work Phone: 04-06-2023 15:20-0400 Body surface area Derived from formula 1.93 m2 [email or web address] Work Phone: [employer] [facility] Work Phone: 04-06-2023 15:20-0400 Body weight 95.71 kg [email or web address] Work Phone: [employer] [facility] Work Phone: Encounters Encounter Date Encounter Type Care Provider Facility Start: 04-06-2023 Office outpatient vi sit 15 minutes [email or web address] Work Phone: [email or web address] [facility] Work Phone: Start: 04-06-2023 ambulatory MD RADHA AVITIA Faci lity:[id number] Start: 12-01-2022 NPV, Provider: Radha Avitia, Status: Pen, Time: 10:00 AM Radha Avitia MD Work Phone: [email or web address] [facility] Work Phone: Start: 12-01-[address] Leilani Gan Facili ty:[id number] Start: 11-30-2022 AUDIT Radha Molina i, MD Work Phone: [facility] Work Phone: Procedures Date Procedure Procedure Detail Performing Clinician Arthroplasty of knee [email or web address] Work Phone: Hernia repair [email or web address] Work Phone: Surgical procedure on thorax [email or web address] Work Phone: Total replacement of hip [employer] Work Phone: Plan of Treatment Date Care Activity Detail Author Jackson jacob Work Phone: Immunizations Immunization Date Immunization Notes Care Provider Felicia armstrong 02-25-2022 Moderna COVID-19 Vac cine 100 MCG/0.5ML Intramuscular Suspension [email or web address] Work Phone: [facility] Work Phone: 09-22-2021 Pfizer-BioNTech COVI D-19 Vacc 30 MCG/0.3ML Intramuscular Suspension [employer] Work Phone: [facility] Work Phone: 07-27-2021 influenza, injectabl e, quadrivalent, contains preservative [employer] Work Phone: [facility] Work Phone: 02-28-2021 Pfizer-BioNTech COVI D-19 Vacc 30 MCG/0.3ML Intramuscular Suspension [employer] Work Phone: [facility] Work Phone: 02-05-2021 Pfizer-BioNTech COVI D-19 Vacc 30 MCG/0.3ML Intramuscular Suspension [employer] Work Phone: [facility] Work Phone: 07-14-2020 influenza, injectabl e, quadrivalent, contains preservative [employer] Work Phone: [facility] Work Phone: 08-15-2019 influenza, injectabl e, quadrivalent, contains preservative [employer] Work Phone: [employer] [facility] Work Phone: 10-06-2017 influenza, injectabl e, quadrivalent, contains preservative [employer] Work Phone: [facility] Work Phone: 03-23-2007 diphtheria, tetanus toxoids and pertussis vaccine [email or web address] Work Phone: [facility] Work Phone: Payers Date Payer Category Payer Medicare [id number] 1945 Unknown [id number] 1945 Unknown [id number] [id number] Private Health Insurance CLI [id number] Unknown Social History Date Type Detail Facility Born in [place] Born in [facility] Work Phone: Chief complaint Narrative - Reported [...] like the medication is starting to work [facility] Work Phone: History of Present illness Narrative [...] medication regimen. She denies medication side effects. [email or web address] Phone: Summary Purpose Family History No Family [...] DATE CREATED AUTHOR AUTHOR'S ORGANIZ ATION 05/06/2021 [facility] DATE CREATED AUTHOR AUTHOR'S ORGANIZ ATION 04/09/2023 [facility] DATE CREATED AUTHOR AUTHOR'S ORGANIZ ATION 04/09/2023 [...] BE BASED ON THE PRIMARY CLINICAL RECORDS. [employer] [facility]. provides no warranty or guarantee of the accuracy or completeness of information in this document.
== END | disposition home or self-care (01) ==
LOC: LAB 14:44
PROVIDERS: PCP Family Medicine Geriatric Medicine; Referring Provider Family Medicine Geriatric Medicine; Visit Provider Family Medicine Geriatric Medicine
DX: I10 Essential (primary) hypertension (principal); E11.65 Type 2 diabetes mellitus with hyperglycemia; M10.9 Gout, unspecified; E55.9 Vitamin D deficiency, unspecified
CPT/HCPCS: 36415; 80053; 82306; 84443; 84550; 85025

== ENCOUNTER → 2024-01-30 | Outpatient (CLI) | payer MEDICARE, OTHER, SELFPAY ==
--- NOTE | 2024-01-30 08:46 | US_ITS ---
STUDY: ABDOMINAL ULTRASOUND - RIGHT UPPER QUADRANT; ELASTOGRAPHY REASON FOR VISIT: Female, 78 years old. Fatty infiltration of the liver. TECHNIQUE: Ultrasound evaluation of the right upper quadrant was performed with real-time and static alexander-scale imaging. Point quantification shear wave elastography was performed ([employer]). TECHNICAL QUALITY: Adequate. COMPARISON: Comparison is made with prior CT scan dated pelvis dated January 03, 2024 and prior sonogram dated May 01, 2019. FINDINGS: Liver: The liver measures 15.5 cm. There is increased echogenicity consistent with fatty infiltration. The bile ducts are within normal limits. There is hepatic color flow. The direction of portal flow is hepatopetal. There is no demonstrated mass lesion. Median liver stiffness measured 7.4 kPa. Gallbladder: The patient is status post cholecystectomy. Common Bile Duct (C.B.D.): The common bile duct is mildly dilated and measures 8.8 mm. Pancreas: There is increased echogenicity of the pancreas. There is no demonstrated pancreatic mass or cyst. Right Kidney: Normal size of the right kidney. The right kidney measures 9.9 cm x 5.2 cm x 5 cm. Normal renal cortex. The right cortex measures 1.3 cm. There is no demonstrated renal mass or cyst. There is no right hydronephrosis. US/ABD Limited w/ Elastography IMPRESSION: 1. Liver stiffness measures 7.4 kPa compatible with F2-F3 (Mild to moderate liver fibrosis) Metavir score. Electronically Signed: Jaron Javier MD at 9:01 EDT ,
--- OUTSIDE RECORDS SUMMARY | 2024-01-30 09:08 | XMS RPT_ITS | CCD ---
Author Name Unknown Address [address] [place] [address] Organization [facility] Care Team Providers Care [employer] Name Role Phone Vivian FONTANA, Oneyda Rosen Unavailable Unavailable Leilani Gan Unavailable Unavailable Unavailable MD RADHA AVTIIA Attending Unavailable Dr. Leilani Gan Referring Unavailable Dr. Leilani Gan Primary Care Unavailable Dr. Leilani Gan Referring Unavailable Dr. Leilani Gan Primary Care Unavailable MD RADHA AVITIA Attending Unavailable Leilani Gan MD Primary Care Provider Radha Avitia MD Unavailable RADHA AVITIA Attending Unavailable LEILANI GAN Primary Care Unavailable Allergies Allergy Classification Reported Allergen(s) Allergy Type Date of Onset Reaction(s) Facility (2 sources) Minoxidil; Translations: [Rogaine] Drug Allergy 4 Unknown [facility] Work Phone: (3 sources) predniSONE; Translations: [predniSONE] Drug Allergy 4 Unknown [facility] Work Phone: (2 sources) Glucocorticoid preparation; Translations: [CORTICOSTEROIDS (GLUCOCORTICOIDS)] Drug Intolerance 2 Other [facility] (2 sources) Other; Translations: [OTHER] Propensity to adverse reactions 4 GI Upset [facility] Work Phone: (1 source) Minoxidil; Translations: [MINOXIDIL] Drug Allergy [facility] 3 Repository Medications Current Medications Medication Drug Class(es) Dates Sig (Normalized) Sig (Original) allopurinol 300 mg oral tablet (2 sources) Xanthine Oxidase Inhibitor take 1 tablet by mouth once daily allopurinol (Zyloprim) 300 mg tablet Take 1 tablet (300 mg) by mouth once daily. 0 Active atorvastatin 40 mg oral tablet (2 sources) HMG-CoA Reductase Inhibitor take 1 tablet by mouth once daily atorvastatin (Lipitor) 40 mg tablet Take 1 tablet (40 mg) by mouth once daily. 0 Active citalopram 20 mg oral tablet (2 sources) Serotonin Reuptake Inhibitor take 1 tablet by mouth once daily citalopram (CeleXA) 20 mg tablet Take 1 tablet (20 mg) by mouth once daily. 0 Active etodolac 400 mg oral tablet (2 sources) Nonsteroidal Anti-inflammatory Drug Start: 12-13-2023 End: 12-12-2024 take 1 tablet by mouth twice daily as needed for pain etodolac (Lodine) 400 mg tablet Indications: Primary osteoarthritis involving multiple joints Take 1 tablet (400 mg) by mouth 2 times a day as needed (pain). 60 tablet 11 12/13/2023 12/12/2024 Active Completed/Discontinued Medications Medication Drug Class(es) Dates Sig (Normalized) Sig (Original) ciclopirox 80 mg/ml topical solution (1 source) Ciclopirox 8 % External Solution APPLY TO AFFECTED AREA ON DAILY AND REMOVE WEEKLY WITH RUBBING ALCOHOL Quantity: 1 Refills: 11 Ordered: 01-Dec-2022 DO Active cyclobenzaprine hydrochloride 10 mg oral tablet (2 sources) Muscle Relaxant Start: 05-03-2023 End: 01-25-2024 take 1 tablet by mouth three times daily as needed cyclobenzaprine (Flexeril) 10 mg tablet Take 1 tablet (10 mg) by mouth 3 times a day as needed. 0 05/03/2023 01/25/2024 Discontinued (Med List Cleanup) Problems Active Problems Problem Classification Problem Date Documented Date Episodic/Chronic Cataract (1 source) Bilateral cataracts; Translations: [Unspecified cataract] Chronic Diabetes mellitus with complications (2 sources) Polyneuropathy due to type 2 diabetes mellitus; Translations: [Type 2 diabetes mellitus with diabetic polyneuropathy] Onset: 01-25-2024 01-25-2024 Chronic Diabetes mellitus without complication (3 sources) Diabetes mellitus; Translations: [Diabetes mellitus without mention of complication, type II or unspecified type, not stated as uncontrolled] Onset: 12-13-2023 12-13-2023 Chronic Past or Other Problems Problem Classification Problem Date Documented Date Episodic/Chronic Anal and rectal conditions (1 source) Anal fissure; Translations: [Anal fissure, unspecified] Onset: 04-05-2007 Resolved: 01-25-2024 01-25-2024 Episodic Diverticulosis and diverticulitis (1 source) Diverticulosis of colon; Translations: [Diverticulosis of large intestine without perforation or abscess without bleeding] Onset: 01-01-2013 Resolved: 01-25-2024 01-25-2024 Chronic Hemorrhoids (2 sources) External hemorrhoids; Translations: [Residual hemorrhoidal skin tags] Onset: 04-05-2007 Resolved: 01-25-2024 01-25-2024 Episodic Prolapse of female genital organs (1 source) Disorder of rectum; Translations: [Rectocele] Onset: 04-03-2007 Resolved: 01-25-2024 01-25-2024 Chronic Unclassified (1 source) Onset: 01-25-2024 01-25-2024 Results Test Name Value Interpretation Reference Range Facil ity Vital Signs Date Time Vital Sign Value Performing Clinician Gayathri baxter 04-06-2023 15:20-0400 Body height 154.94 cm [facility] Work Phone: [employer] [facility] Work Phone: 04-06-2023 15:20-0400 Body mass index (BMI) [Ratio] 39.87 kg/m2 [facility] Work Phone: [employer] [facility] Work Phone: 04-06-2023 15:20-0400 Body surface area Derived from formula 1.93 m2 [facility] Work Phone: [employer] [facility] Work Phone: 04-06-2023 15:20-0400 Body weight 95.71 kg [facility] Work Phone: [facility] Work Phone: Encounters Encounter Date Encounter Type Care Provider Facility Start: 01-25-2024 End: 01-25-2024 ambulatory RADHA AVITIA [facility] Ambulatory Start: 01-25-2024 End: 01-25-2024 Office outpatient visit 15 minutes Radha Avitia MD Work Phone: [facility] Procedures Date Procedure Procedure Detail Performing Clinician Arthroplasty of knee [facility]ik Work Phone: Hernia repair [facility] Work Phone: Surgical procedure on thorax [facility] Work Phone: Total replacement of hip [facility] Work Phone: Plan of Treatment Date Care Activity Detail Author Start: 07-29-2023 COVID-19 Vaccine () COVID-19 Vaccine ( season) [facility] Start: 07-29-2023 Influenza vaccination Influenza Vaccine (#1) [facility] Start: 03-23-2017 DTaP/Tdap/Td Vaccines (2 - Tdap) DTaP/Tdap/Td Vaccines (2 - Tdap) [facility] Start: 2004 Hepatitis B Vaccines (1 of 3 - Risk 3-dose series) Hepatitis B Vaccines (1 of 3 - Risk 3-dose series) [facility] Start: 1994 Zoster Vaccines (1 of 2) Zoster Vaccines (1 of 2) [facility] Start: 1963 Hepatitis A Vaccines (1 of 2 - Risk 2-dose series) Hepatitis A Vaccines (1 of 2 - Risk 2-dose series) [facility] Start: 1963 Urine screening for protein Diabetes: Urine Protein Screening [facility] Start: 1962 Hepatitis C screening Hepatitis C Screening [facility] Start: 1954 Diabetic foot examination Diabetes: Foot Exam [facility] Start: 1954 Glaucoma screening Diabetes: Retinopathy Screening [facility] Start: 05-11-1950 Pneumococcal Vaccine: 65+ Years (1 - PCV) Pneumococcal Vaccine: 65+ Years (1 - PCV) [facility] Start: 1944 Hemoglobin A1c measurement Diabetes: Hemoglobin A1C [facility] Start: 1944 Lipid panel Lipid Panel [facility] Start: 1944 Medicare Annual Wellness Visit Medicare Annual Wellness Visit (AWV) [facility] Start: 1944 Screening for osteoporosis Bone Density Scan [facility] Work Phone: Immunizations Immunization Date Immunization Notes Care Provider Fa cility 02-25-2022 Moderna COVID-19 Vaccine 100 MCG/0.5ML Intramuscular Suspension Yared-Chi Malik Work Phone: [employer] [facility] Work Phone: 09-22-2021 Pfizer-BioNTech COVID-19 Vacc 30 MCG/0.3ML Intramuscular Suspension Yared-Chi Malik Work Phone: [employer] [facility] Work Phone: 07-27-2021 influenza, injectabl e, quadrivalent, contains preservative [facility]ared[facility]Chi Malik Work Phone: [employer] [facility] Work Phone: 07-27-2021 influenza virus vaccine, unspecified formulation Rdaha Avitia MD Work Phone: [facility] Work Phone: 02-28-2021 Pfizer-BioNTech COVID-19 Vacc 30 MCG/0.3ML Intramuscular Suspension Yared[facility]Chi Malik Work Phone: [employer] [facility] Work Phone: 02-05-2021 Pfizer-BioNTech COVID-19 Vacc 30 MCG/0.3ML Intramuscular Suspension [facility] Malik Work Phone: [employer] [facility] Work Phone: 07-14-2020 influenza, injectabl e, quadrivalent, contains preservative [facility]ik Work Phone: [employer] [facility] Work Phone: 08-15-2019 influenza, injectabl e, quadrivalent, contains preservative [facility] Malik Work Phone: [employer] [facility] Work Phone: 10-06-2017 influenza, injectabl e, quadrivalent, contains preservative [facility] Work Phone: [employer] Work Phone: 03-23-2007 diphtheria, tetanus toxoids and pertussis vaccine [employer] Work Phone: [facility] [facility] Work Phone: Payers Date Payer Category Payer Private Health Insurance CLI [id number] 2022 Private Health Insurance AETNA S UPPLEMENTAL AETNA SENIOR SUPPLEMENT [id number] 2022-Present [address] [place] [address] [id number] 2009 Medicare [id number] 2009 Medicare MEDICARE MEDICAR E PART A AND B [id number] 2009-Present [address] [place] [address] [id number] 1944 Unknown [id number] 1944 Unknown [id number] 1944 Unknown [id number] Unknown Social History Date Type Detail Facility Start: 12-13-2023 End: 01-25-2024 [place] [facility] Work Phone: Start: 12-13-2023 Tobacco smoking stat us NHIS Ex-smoker [facility] Work Phone: History of tobacco use Current smoker [facility] Work Phone: History of tobacco use Cigarette Smoker [facility] Work Phone: Start: 12-13-2023 Tobacco use and exposure Smokeless tobacco non-user [facility] Work Phone: Start: 01-25-2024 Alcohol intake Lifetime non-d le (finding) [facility] Work Phone: Start: 12-13-2023 End: 01-25-2024 Tobacco use panel [facility] Work Phone: Start: 1945 Sex Assigned At Not on file [place] Work Phone: Start: 01-15-2024 End: 01-25-2024 Exposure to SARS-CoV-2 (event) Unable to assess [facility] Work Phone: Evaluation + Plan note 01-25-2024 Assessment & Plan Note - Radha Avitia MD - 01/25/2024 3:00 PM EST Note Date & Type Note Facility 01-25-2024 Evaluation + Plan note Associated Problem(s): Primary osteoarthritis involving multiple joints Stable on NSAID. Continue meds. Will need to monitor workup of liver disease in case NSAID needs to be discontinued [facility] Work Phone: History of Present illness Narrative 01-25-2024 Radha Avitia MD - 01/25/2024 3:00 PM EST Note Date & Type Note Facility 01-25-2024 History of Present illness Narrative Virtual or Telephone Consent An interactive audio and video telecommunication system which permits real time communications between the patient (at the originating site) and provider (at the distant site) was utilized to provide this telehealth service. Verbal consent was requested and obtained from Geneva Cosby on this date, 01/25/24 for a telehealth visit. RHEUMATOLOGY PROGRESS NOTE Geneva Cosby 78 y.o. female Chief Complaint Patient presents with Follow-up Osteoarthritis SUBJECTIVE Re:: Arthritis Pt reports arthritis is doing well and medications are working Since last seen, has had bladder stimulator placed for incontinence/retention issues. Recently found to have a fatty liver and work up in progress. No new areas of pain Patient Active Problem List Diagnosis Date Noted Depression, major, in remission ([facility]) 12/13/2023 Diabetes mellitus ([facility]) 12/13/2023 Gout 12/13/2023 Hyperlipidemia 12/13/2023 Hypertension 12/13/2023 Multinodular goiter 12/13/2023 ZAINAB (obstructive sleep apnea) 12/13/2023 Primary osteoarthritis involving multiple joints 12/13/2023 Bilateral lumbar radiculopathy 12/13/2023 Past Medical History: Diagnosis Date Consumes 4 to 5 servings of caffeine per day Unspecified cataract Cataracts, bilateral Unspecified urinary incontinence Incontinence Current Outpatient Medications Medication Instructions allopurinol (Zyloprim) 300 mg tablet 1 tablet, oral, Daily atorvastatin (Lipitor) 40 mg tablet 1 tablet, oral, Daily Basaglar KwikPen U-100 Insulin 100 unit/mL (3 mL) pen citalopram (CeleXA) 20 mg tablet 1 tablet, oral, Daily etodolac (LODINE) 400 mg, oral, 2 times daily PRN gabapentin (NEURONTIN) 100 mg, oral, Daily glimepiride (Amaryl) 4 mg tablet 1 tablet, oral, 2 times daily lisinopril 2.5 mg tablet 1 tablet, oral, Daily metFORMIN (Glucophage) 1,000 mg tablet 1 tablet, oral, 2 times daily phenazopyridine (PYRIDIUM) 100 mg, oral, 3 times daily pioglitazone (ACTOS) 30 mg, oral, Daily Allergies Allergen Reactions Corticosteroids (Glucocorticoids) Other Sugar level goes way up. Minoxidil Unknown Other GI Upset Steroids Prednisone Unknown Review of Systems Constitutional: Negative for fatigue and fever. Respiratory: Negative for cough and shortness of breath. Cardiovascular: Negative for leg swelling. Genitourinary: Negative for difficulty urinating and frequency. Musculoskeletal: Positive for arthralgias and myalgias. Negative for back pain, gait problem and joint swelling. Skin: Negative for color change and rash. Neurological: Negative for weakness and numbness. PHYSICAL EXAM There were no vitals taken for this visit. Physical Exam Vitals reviewed. Constitutional: General: She is not in acute distress. Appearance: She is not ill-appearing. HENT: Head: Normocephalic and atraumatic. Eyes: Conjunctiva/sclera: Conjunctivae normal. Pulmonary: Effort: No respiratory distress. Musculoskeletal: Cervical back: Normal range of motion. Comments: No visible abnormalities noted Skin: Findings: No rash. Neurological: General: No focal deficit present. Mental Status: She is alert and oriented to person, place, and time. Mental status is at baseline. Psychiatric: Mood and Affect: Mood normal. Assessment/plan Problem List Items Addressed This Visit Primary osteoarthritis involving multiple joints - Primary Follow up: ___4__months documented in this encounter [facility] Work Phone: Instructions 01-25-2024 Patient Instructions Note Date & Type Note Facility 01-25-2024 Instructions Radha Avitia MD - 01/25/2024 3:00 PM EST It was a pleasure to see you today Please call if your symptoms worsen Please review your summary for education and reminders. Follow up at your next appointment. If you had labs/xrays done today, you will be able to view on Back&. We will contact you when the results are reviewed for further discussion. Please note that you may receive your results before I have had a chance to review. Please know I will be contacting you for discussion Homegoing instructions for all patient A healthy lifestyle helps chronic diseases These are all the goals you should strive to improve your overall health Blood pressure <130/85 BMI of <30 or waist circumference that is 1/2 of your height Fasting blood sugar <107 (if you are diabetic, aim for an A1c <6.4%_ LDL cholesterol <130 Avoid smoking Manage your stress Get your preventive exams Get your immunizations documented in this encounter [facility] Work Phone: Note 01-25-2024 Assessment & Plan Note - Radha Avitia MD - 01/25/2024 3:00 PM ESTAssessment & Plan Note - Radha Avitia MD - 01/25/2024 2:59 PM EST Note Date & Type Note Facility 01-25-2024 Miscellaneous Notes Associated Problem(s): Primary osteoarthritis involving multiple joints Stable on NSAID. Continue meds. Will need to monitor workup of liver disease in case NSAID needs to be discontinued Associated Problem(s): Obesity, morbid (CMS/HCC) No weight done since virtual visit. Managed by PCP Associated Problem(s): Diabetic polyneuropathy associated with type 2 diabetes mellitus (CMS/HCC) Chronic Condition Documentation: Stable based on symptoms and exam. Continue established treatment plan and follow-up at least yearly. Managed by PCP Associated Problem(s): Depression, major, in remission (CMS/HCC) Chronic Condition Documentation: Stable based on symptoms and exam. Continue established treatment plan and follow-up at least yearly. Managed by PCP documented in this encounter [facility] Work Phone: Evaluation + Plan note 01-25-2024 Assessment & Plan Note - Radha Avitia MD - 01/25/2024 2:59 PM EST Note Date & Type Note Facility 01-25-2024 Evaluation + Plan note Associated Problem(s): Obesity, morbid (CMS/HCC) No weight done since virtual visit. Managed by PCP [facility] Work Phone: Evaluation + Plan note 01-25-2024 Assessment & Plan Note - Radha Avitia MD - 01/25/2024 2:59 PM EST Note Date & Type Note Facility 01-25-2024 Evaluation + Plan note Associated Problem(s): Diabetic polyneuropathy associated with type 2 diabetes mellitus (CMS/HCC) Chronic Condition Documentation: Stable based on symptoms and exam. Continue established treatment plan and follow-up at least yearly. Managed by PCP [facility] Work Phone: Evaluation + Plan note 01-25-2024 Assessment & Plan Note - Radha Avitia MD - 01/25/2024 2:59 PM EST Note Date & Type Note Facility 01-25-2024 Evaluation + Plan note Associated Problem(s): Depression, major, in remission (CMS/HCC) Chronic Condition Documentation: Stable based on symptoms and exam. Continue established treatment plan and follow-up at least yearly. Managed by PCP [facility] Work Phone: Chief complaint Narrative - Reported 04-06-2023 Note Date & Type Note Facility 04-06-2023 Chief complaint Narrative - Reported An interactive audio and video telecommunication system which permits real time communications between the patient (at the originating site) and provider (at the distant site) was utilized to provide this telehealth service.Verbal consent was requested and obtained from GENEVA COSBY on this date, 04/06/2023 03:30 PM , for a telehealth visit.OA follow up-pt says feels like the medication is starting to work [facility] Work Phone: Evaluation note Note Date & Type Note Facility documented in this encounter [facility] Work Phone: History of Present illness [...] medication regimen. She denies medication side effects. -[facility] Work Phone: Summary Purpose Family History No Family [...] DATE CREATED AUTHOR AUTHOR'S ORGANIZ ATION 05/06/2021 [facility] DATE CREATED AUTHOR AUTHOR'S ORGANIZ ATION 04/09/2023 [facility] DATE CREATED AUTHOR AUTHOR'S ORGANIZ ATION 04/09/2023 [employer] DATE CREATED AUTHOR AUTHOR'S ORGANIZ ATION 01/28/2024 [facility] Reason for Visit (unrecogniz ed section and content) Care Teams (unrecognized sec tion and content) FOR RECORDS PERTAINING TO PATIENTS WHO ARE [...] BE BASED ON THE PRIMARY CLINICAL RECORDS. [facility] [employer] [facility]. provides no warranty or guarantee of the accuracy or completeness of information in this document.
== END | disposition home or self-care (01) ==
PROVIDERS: PCP Family Medicine Geriatric Medicine; Referring Provider Family Medicine Geriatric Medicine; Visit Provider Family Medicine Geriatric Medicine
DX: R30.0 Dysuria (principal); K76.0 Fatty (change of) liver, not elsewhere classified
CPT/HCPCS: 76705; 76981; 87077; 87086; 87088; 87186

== ENCOUNTER → 2024-03-13 | Outpatient (CLI) | payer MEDICARE, OTHER, SELFPAY | END | disposition home or self-care (01) | LOC: LABSPEC 16:14 | PROVIDERS: PCP Family Medicine Geriatric Medicine; Visit Provider Urology | DX: R30.0 Dysuria (principal) | CPT/HCPCS: 87077; 87086; 87088; 87186 ==

== ENCOUNTER → 2024-05-23 | Outpatient (CLI) | payer MEDICARE, OTHER, SELFPAY ==
[2024-05-23 15:49] LABS: Absolute Lymphocyte Count 2.63 X10^3/uL (0.83-4.51); Absolute Neutrophil Count 6.9 X10^3/uL (2.0-7.7); Basophil# 0.02 X10^3/uL; Basophil% 0.2 % (0-1); Eosinophil# 0.02 X10^3/uL; Eosinophils% 0.2 % (0-5); Hemoglobin 13.1 g/dL (12.0-15.0); Lymphocyte # 2.63 X10^3/ul (0.83-4.51); Lymphocyte % 25.6 % (19-41); Mean Corp Hgb Conc 31.2 g/dL (32-36); Mean Corpuscular Volume 99.3 fL (81-99); Mean Platelet Vol. 12.5 fl (6.2-12.0); Monocyte# 0.67 X10^3/uL; Monocyte% 6.5 % (0-10); NRBC Flagged by Analyzer 0 % (0-5); Neutrophil # 6.92 X10^3/uL (2.7-7.7); Neutrophil % 67.2 % (47-70); Platelet Count 232 K/mm3 (150-450); RBC Distribution Width CV 14.1 % (11.6-14.6); RBC Distribution Width SD 51.1 fl (35.1-43.9); Red Blood Count 4.23 M/mm3 (4.2-5.4); White Blood Count 10.3 K/mm3 (4.4-11.0)
[2024-05-23 16:16] LABS: Vitamin D,25 Hydroxy 30.4 ng/mL
[2024-05-23 16:21] LABS: ALB/GLOB Ratio 0.8 RATIO (0.9-2.4); AST(SGOT) 17 U/L (15-37); Alanine Aminotransfer ALT/SGPT 19 U/L (13-56); Albumin, Serum 3.2 g/dL (3.2-5.0); Alkaline Phosphatase 72 U/L (45-117); Anion Gap 7 (5-15); BUN 20 mg/dL (7-18); Calcium,Total 9.1 mg/dL (8.5-10.1); Chloride 107 mmol/L (98-107); Creatinine, Serum 1.11 mg/dL (0.55-1.02); EST Glomerular Filtration Rate 50 mL/min (>60); Est Glom Filt Rate - Afr Amer 61 mL/min (>60); Globulin 3.8 g/dL (2.2-4.2); Glucose 230 mg/dL (74-106); Sodium Level 141 mmol/L (136-145); Thyroid Stim Hormone (TSH) 1.45 uIU/mL (0.358-3.74); Uric Acid 4.5 mg/dL (2.6-6.0)
== END | disposition home or self-care (01) ==
LOC: LAB 14:35
PROVIDERS: PCP Family Medicine Geriatric Medicine; Visit Provider Family Medicine Geriatric Medicine
DX: I10 Essential (primary) hypertension (principal); E55.9 Vitamin D deficiency, unspecified; M10.9 Gout, unspecified
CPT/HCPCS: 36415; 80053; 82306; 84443; 84550; 85025

== ENCOUNTER 2024-05-30 10:24 | Day surgery (SDC) | payer MEDICARE, OTHER, SELFPAY ==
[2024-05-30] VITALS (8 sets, daily range): BP systolic 133–170; BP diastolic 59–107; PULSE 73–82; RESP 16; TEMP 36.6–37.1; O2SAT 90–96; BMI 44.4
[2024-05-30] MEDS: Lactated Ringers 1,000 ML 15 ML IV (10:43)
[2024-05-30 11:04] LABS: Bedside Glucose 128 mg/dL (74-106)
--- NOTE | 2024-05-30 11:07 | PRE.ANES_ITS ---
ASA Classification* ASA Classification ASA Classification: 3 Assessment & Plan Anesthesia* Anesthesia Assessment Anesthesia Assessment: Discussed sedation and/or anesthesia options, risks, benefits, and alternatives with patient/parents/legal guardian/POA. Questions invited. The patient/parents/legal guardian/POA seems to understand and agrees to proceed with anesthesia plan. Reviewed the physical assessment, medical history, allergy history and patient home medications list prior to surgery/procedure/anesthetic and documented any changes. Performed airway and anesthesia risk assessments. Anesthesia Type Anesthesia Type: General (see written pre anesthesia record for full assessment) Anesthesia Focused Assessment* Temperature: 97.8 F Pulse Rate: 73 Blood Pressure: 170/62 Respiratory Rate: 16 Pulse Ox: 96 Airway Assessment Mouth opens: >3 cm Mallampati Score: II Focused Labs Anesthesia Preop lab: CBC WBC 10.3 K/mm3 (4.4-11.0) 05/23/24 14:42 RBC 4.23 M/mm3 (4.2-5.4) 05/23/24 14:42 Hgb 13.1 g/dL (12.0-15.0) 05/23/24 14:42 Hct 42.0 % (37-47) 05/23/24 14:42 Plt Count 232 K/mm3 (150-450) 05/23/24 14:42 CHEMISTRY Potassium 4.0 mmol/L (3.5-5.1) 05/23/24 14:42 Sodium 141 mmol/L (136-145) 05/23/24 14:42 Magnesium 1.7 mg/dL (1.6-2.6) 05/27/20 05:15 Phosphorus 3.8 mg/dL (2.5-4.9) 05/20/20 05:25 BUN 20 mg/dL (7-18) H 05/23/24 14:42 Creatinine 1.11 mg/dL (0.55-1.02) H 05/23/24 14:42 Glucose 230 mg/dL (74-106) H 05/23/24 14:42 POC Glucose 128 mg/dL (74-106) H 05/30/24 10:41 TSH 1.45 uIU/mL (0.358-3.74) 05/23/24 14:42 COAG PT 13.5 SECONDS (11.7-14.9) 08/18/20 11:11 Pre-Assessment Diagnosis/Proposed Procedure Planned Operative Procedure(s): MACROPLASTIQUE Anesthesia History Anesthesia History - pipe 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 When Was Last Pacemaker Check QUESTION #4 FULL TEXT: You/Your Family Experience fever (hyperthermia) with Anesthesia Last Oral Intake Last Oral intake: Last Oral Intake NPO since 22:00 05/30/24 10:37 Meds taken in AM with sips of water? Meds patient instructed to take am of surgery PONV PONV - pipe insulator helper: PONV - pipe insulator helper Female Yes 05/23/24 10:12 HX of Motion Sickness No 05/23/24 10:12 HX of N/V After Surgery No 05/23/24 10:12 Non-Smoker Yes 05/23/24 10:12 Duration of Surgery greater No 05/23/24 10:12 than 60 minutes Number of Risk Factors 2 05/23/24 10:12 PONV Score Moderate Risk 05/23/24 10:12 Height & Weight Height & Weight: Anesthesia: Height & Weight Height 5 ft 1 in 05/30/24 10:37 Weight: 106.7 kg 05/30/24 10:37 Body Mass Index (BMI) 44.4 05/30/24 10:37 Respiratory Assessment Respiratory Assessment - pipe insulator helper: Respiratory Tract Infection Hx - pipe insulator helper Hx Respiratory Tract Infection No 05/23/24 10:12 STOP Sleep Apnea STOP Sleep Apnea - pipe insulator helper: STOP Sleep Apnea - pipe insulator helper Hx Hypertension Yes: CONTROLLED WITH MED 05/23/24 10:12 Hx Sleep Apnea Yes 05/23/24 10:12 CPAP Yes: NONCOMPLIANT FOR YRS 05/23/24 10:12 BIPAP No 05/23/24 10:12 Do you snore loudly (louder than talking or can be heard Do you often feel tired/ fatigued/ sleepy during daytime? Has anyone observed you stop breathing during sleep? STOP Results Positive 05/23/24 10:12 QUESTION #5 FULL TEXT : Do you snore loudly (louder than talking or can be heard through closed doors)? 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 Specify any problems Hx of Preganancy in last 3 N/A 05/23/24 10:12 Months Nurse Filling Out Transfusion NBUCHER 05/23/24 10:12 & Questions: Date: 05/23/24 05/23/24 10:12 Time: 10:15 05/23/24 10:12 Patient unable to answer at this time (ie. confused, unrespo /Reproduction History /Reproductive History - pipe insulator helper: /Reproductive Hx- pipe insulator helper Hx Now No 05/23/24 10:12 Gestational Age (in weeks): EDC: Hx Hx Para Hx Section SAB No 05/23/24 10:12 Active Medications Active Medications: Current Medications Generic Name Dose Route Start Last Admin Trade Name Freq PRN Reason Stop Dose Admin Lactated Ringer's 1,000 mls @ 15 mls/hr 05/30/24 10:30 05/30/24 10:43 IV 15 mls/hr .Q48H CHARBEL Administration PFSH Medical History Fatty liver Hemorrhoids Esophagitis, unspecified Wears glasses Post-menopausal Cancer Alcohol use Ambulates with cane Insulin dependent diabetes mellitus Bladder disease Prolapsed, intestine High cholesterol Easy bruising Back pain Migraine headache Injury of head and neck Fainted Dietary restriction Difficulty swallowing History of hiatal hernia History of IBS Gastric reflux Former smoker CPAP (continuous positive airway pressure) dependence Shortness of breath on exertion History of pain when walking History of edema History of echocardiogram History of stress test Cardiology follow-up encounter History of irregular heartbeat Ectopic cardiac beats Essential hypertension DDD (degenerative disc disease), lumbar Premature atrial contractions Syncope and collapse Non-alcoholic fatty liver disease Hyperlipidemia Gout Depression Home Medications ?Medication ?Instructions ?Recorded ?Last Taken ?Type allopurinol 300 mg tablet 300 mg PO QDAY Check with primary 12/21/17 12/15/23 History doctor atorvastatin 40 mg tablet 40 mg PO QHS Check with primary 12/21/17 12/15/23 History doctor citalopram 20 mg tablet 20 mg PO QDAY Check with primary 12/21/17 12/16/23 History doctor pioglitazone 30 mg tablet 30 mg PO QDAY Check with primary 12/23/17 12/15/23 History doctor lisinopril 5 mg tablet 2.5 mg PO DAILY 07/24/20 05/30/24 History metformin 1,000 mg tablet 1,000 mg PO BID 08/12/20 12/15/23 History glimepiride 4 mg tablet 4 mg PO QAM 04/15/21 12/15/23 History gabapentin 100 mg capsule 100 mg PO QHS 11/03/22 12/15/23 History insulin glargine 100 unit/mL (3 10 unit subcut DAILY 11/25/23 12/15/23 History mL) subcutaneous pen (Basaglar KwikPen U-100 Insulin) etodolac 400 mg tablet 400 mg PO BID 03/15/24 Unknown History oxybutynin chloride 15 mg 15 mg PO DAILY 05/23/24 Unknown History tablet,extended release 24 hr Allergy/AdvReac Type Severity Reaction Status Date / Time minoxidil (From Anna) AdvReac Unknown Unknown Verified 05/30/24 10:36 Corticosteroids AdvReac NEEDS Verified 05/30/24 10:36 (Glucocorticoids) (steroids) FOLLOW-UP Family History Mother , Age 93-cva Heart disease CVA (cerebral vascular accident) Hypertension Hyperlipidemia Pacemaker Grandfather Myocardial infarction Grandmother CVA (cerebral vascular accident) Hypertension Surgical History H/O dilation and curettage H/O hernia repair History of surgery History of cardiac catheterization History of lumbar fusion Hx of right cataract extraction Hx of left cataract extraction Hx of colonoscopy S/P Botox injection History of hip surgery History of tonsillectomy History of umbilical hernia repair History of cholecystectomy History of knee replacement procedure of right knee History of knee replacement procedure of left knee Social History Smoking Status: Former smoker how long ago did patient quit smokin-40 years ago alcohol intake: never substance use type: does not use caffeine: Yes Type: coffee Review of Systems (Anesthesia) ROS Narrative System reviewed and no additional complaints, except as documented.
[2024-05-30] MEDS: Cefazolin 2 GM in 0.9% Normal Saline (100mL Bag) 100 ML IV (12:10)
--- NOTE | 2024-05-30 12:18 | HP.PCM_ITS ---
HPI - General General Date of Service: 05/30/24 Chief Complaint: Intrinsic sphincter deficiency HPI Narrative KISHA COSBY, is a 79 F who presents for placement of Macroplastique urethral bulking agent for intrinsic sphincter deficiency COUNTS INCLUDE 234 BEDS AT THE [facility] Medical History Fatty liver Hemorrhoids Esophagitis, unspecified Wears glasses Post-menopausal Cancer Alcohol use Ambulates with cane Insulin dependent diabetes mellitus Bladder disease Prolapsed, intestine High cholesterol Easy bruising Back pain Migraine headache Injury of head and neck Fainted Dietary restriction Difficulty swallowing History of hiatal hernia History of IBS Gastric reflux Former smoker CPAP (continuous positive airway pressure) dependence Shortness of breath on exertion History of pain when walking History of edema History of echocardiogram History of stress test Cardiology follow-up encounter History of irregular heartbeat Ectopic cardiac beats Essential hypertension DDD (degenerative disc disease), lumbar Premature atrial contractions Syncope and collapse Non-alcoholic fatty liver disease Hyperlipidemia Gout Depression Home Medications ?Medication ?Instructions ?Recorded ?Last Taken ?Type allopurinol 300 mg tablet 300 mg PO QDAY Check with primary 12/21/17 12/15/23 History doctor atorvastatin 40 mg tablet 40 mg PO QHS Check with primary 12/21/17 12/15/23 History doctor citalopram 20 mg tablet 20 mg PO QDAY Check with primary 12/21/17 12/16/23 History doctor pioglitazone 30 mg tablet 30 mg PO QDAY Check with primary 12/23/17 12/15/23 History doctor lisinopril 5 mg tablet 2.5 mg PO DAILY 07/24/20 05/30/24 History metformin 1,000 mg tablet 1,000 mg PO BID 08/12/20 12/15/23 History glimepiride 4 mg tablet 4 mg PO QAM 04/15/21 12/15/23 History gabapentin 100 mg capsule 100 mg PO QHS 11/03/22 12/15/23 History insulin glargine 100 unit/mL (3 10 unit subcut DAILY 11/25/23 12/15/23 History mL) subcutaneous pen (Kelsieaglar NicolePen U-100 Insulin) etodolac 400 mg tablet 400 mg PO BID 03/15/24 Unknown History oxybutynin chloride 15 mg 15 mg PO DAILY 05/23/24 Unknown History tablet,extended release 24 hr ciprofloxacin HCl 500 mg tablet 500 mg PO BID #10 tabs 07/03/24 Unknown Rx (Cipro) Allergy/AdvReac Type Severity Reaction Status Date / Time minoxidil (From Rogaine) AdvReac Unknown Unknown Verified 05/30/24 10:36 Corticosteroids AdvReac NEEDS Verified 05/30/24 10:36 (Glucocorticoids) (steroids) FOLLOW-UP Family History Mother , Age 93-cva Heart disease CVA (cerebral vascular accident) Hypertension Hyperlipidemia Pacemaker Grandfather Myocardial infarction Grandmother CVA (cerebral vascular accident) Hypertension Surgical History H/O dilation and curettage H/O hernia repair History of surgery History of cardiac catheterization History of lumbar fusion Hx of right cataract extraction Hx of left cataract extraction Hx of colonoscopy S/P Botox injection History of hip surgery History of tonsillectomy History of umbilical hernia repair History of cholecystectomy History of knee replacement procedure of right knee History of knee replacement procedure of left knee Social History Smoking Status: Former smoker how long ago did patient quit smokin-40 years ago alcohol intake: never substance use type: does not use caffeine: Yes Type: coffee Vital Signs Vital Signs Vital Signs: 05/30/24 10:37 05/30/24 10:37 05/30/24 11:07 Temperature 97.8 F 97.8 F Temperature Source Temporal Pulse Rate 73 73 Respiratory Rate 16 16 Respiratory Pattern Normal Blood Pressure 170/62 H 170/62 H Blood Pressure Mean 98 Blood Pressure Source Monitor Blood Pressure Position Semi-Fowlers Blood Pressure Location Right Arm Pulse Ox 96 96 Oxygen Delivery Method Room Air Weight Weight: 106.7 kg Body Mass Index (BMI) 44.4 Results Lab / Micro Data Labs: Laboratory Results - last 24 hr 05/30/24 10:41: POC Glucose 128 H
--- NOTE | 2024-05-30 12:19 | OP.PCM_ITS ---
Report of Operation Date of Procedure: 05/30/24 Pre-Operative Diagnosis: Mixed incontinence Post-Operative Diagnosis: The same Surgery/Procedure Performed:: Cystoscopy Description of Surgical Findings:: This is an 79-year-old female who has very recalcitrant mixed incontinence she has had a tension-free vaginal sling done in the past and still has leakage she had placement of Axonics for urge incontinence and still has leakage she describ es still leaking with coughing and sneezing and activity she does have a very high BMI of 44. Today were plan to do a cystoscopy possible injection of Macroplastique if it looks like the urethra needs more support but given her multiple comorbidities and factors are not sure if a bulking agent is really going to be helpful for the patient. Patient was taken back to the operating room after smooth induction of anesthesia we went into the bladder with a 21 Congolese rigid cystourethroscope she actually has tension-free vaginal sling he can see the sling is actually has a plenty urethral support when I looked at the urethra her that the sling is is pulling up in the urethra very nice and tight I do not think adding more to the urethra with a bulking agent is going to be of any benefit so at this point we drained the bladder and I referred the anesthesia and I will go talk to the patient I think she will just have to continue with Axonics and medical therapy and I do not know if I could do anything more to get the patient better as far as her bladder control especially given all her comorbidities debility etc. So at this point the case ended and patient straight bladder was drained and taken back to PACU in good condition. Surgeon: Enrique Galvez Type of Anesthesia: General Drains: none Admit VTE Documentation VTE Present on Admission: No VTE Mechan Device Prophylaxis: SCD's VTE Pharm Prophylaxis ordered?: No
--- NOTE | 2024-05-30 12:19 | DCINST_ITS ---
Discharge Instructions Diet Discharge Diet: No restrictions Activity Discharge Activity: Return to Normal Activity and May Not Drive (while taking narcotic pain medications.) Dressing / Incision Call your doctor if you observe: Fever of 101 or Higher Follow Up Care Please Follow Up With: Enrique Galvez MD When: Call [phone] for an appointment Test Results: Test results from this visit will be discussed in further detail at your follow- up appointment, if applicable. Discharge Plan Admission Primary Reason for Your Visit: Placement of urethral bulking agent Attending Provider: Enrique Galvez Primary Care Provider: Yared Gan Chi Instructions Print Language: Armenian Discharge Orders/Prescriptions Prescriptions: New ciprofloxacin HCl [Cipro] 500 mg tablet 500 mg PO BID Qty: 10 0RF Continued pioglitazone 30 mg tablet 30 mg PO QDAY allopurinol 300 mg tablet 300 mg PO QDAY citalopram 20 mg tablet 20 mg PO QDAY atorvastatin 40 mg tablet 40 mg PO QHS lisinopril 5 mg tablet 2.5 mg PO DAILY glimepiride 4 mg tablet 4 mg PO QAM Rx Instructions: administer with breakfast gabapentin 100 mg capsule 100 mg PO QHS etodolac 400 mg tablet 400 mg PO BID metformin 1,000 MG tablet 1,000 mg PO BID insulin glargine [Basaglar KwikPen U-100 Insulin] 100 unit/mL (3 mL) insulin pen 10 unit SUBCUT DAILY Patient Comments: INJECT 10 UNITS SUBCUTANEOUSLY DAILY oxybutynin chloride 15 mg tablet extended release 24hr 15 mg PO DAILY Referrals / Follow Up: Enrique Galvez MD [Med Staff - Active Staff] - Yared Gan Chi, MD [Primary Care Provider] - Disposition Disposition (needs filled in before D/C Order can be placed): Home, Self Care
--- NOTE | 2024-05-30 12:44 | PCM.POST.ANE ---
Anesthesia: Postop Eval I Current Vital Signs Temperature: 98.5 F Pulse Rate: 82 Blood Pressure: 133/107 Respiratory Rate: 16 Pulse Ox: 96 Oxygen Delivery Method: Room Air Assessment Airway patent: Yes Spontaneous unlabored respirations: Yes Mental status: Awake and Calm nausea: No Vomiting: No Anesthesia Complication: No Fluid Hydration Crystalloid volume administer (ml): 400 Total IV fluid infused: 400 Progress Note Anesthesia document: Postop Eval 1 completed: Yes
[2024-05-30] MEDS: Ketorolac 15 MG/ML Vial IV (12:54)
--- NOTE | 2024-05-30 13:48 | SUR.PHASEII ---
AT 13:30, INSTRUCTED PATIENT & DAUGHTER TO CONTACT DR DICKENS'S OFFICE TO SCHEDULE AN APPOINTMENT TO LEARN HOW TO SELF CATHETERIZE
--- NOTE | 2024-05-30 14:45 | POSTOPAN2_ITS ---
Anesthesia Postop Eval I Sum Postop Eval Completion status Anesthesia document: Postop Eval 1 completed: Yes Anesthesia Postop Eval I Summary Anesthesia Postop Eval I Summary: Anesthesia Postop Eval I: Assessment Summary Airway patent Yes 05/30/24 12:47 [email or web address] Spontaneous unlabored Yes 05/30/24 12:47 [email or web address] [email or web address] respirations Mental status Awake,Calm 05/30/24 12:47 [email or web address] [email or web address] nausea No 05/30/24 12:47 [email or web address] [email or web address] Vomiting No 05/30/24 12:47 [email or web address] Anesthesia Postop Eval I: Fluid Summary Crystalloid volume administer 400 05/30/24 12:47 [email or web address] (ml) Colloids volume administered ( ml) Blood Product volume administered (ml) Total IV fluid infused 400 05/30/24 12:47 [email or web address] Anesthesia Postop Eval I: Summary Notes Anesthesia Complication No 05/30/24 12:47 [email or web address] Anesthesia Complication Comment: Post-operative progress note Anesthesia: Postop Eval II Evaluation Mental status: Awake and Calm Pain Level: 1 nausea: No Vomiting: No Complications Anesthesia Complication: No
--- NOTE | 2024-05-30 14:45 | PCM.POSTANE2 ---
Anesthesia Postop Eval I Sum Postop Eval Completion status Anesthesia document: Postop Eval 1 completed: Yes Anesthesia Postop Eval I Summary Anesthesia Postop Eval I Summary: Anesthesia Postop Eval I: Assessment Summary Airway patent Yes 05/30/24 12:47 [email or web address] Spontaneous unlabored Yes 05/30/24 12:47 [email or web address] respirations Mental status Awake,Calm 05/30/24 12:47 [email or web address] nausea No 05/30/24 12:47 [email or web address] Vomiting No 05/30/24 12:47 [email or web address] Anesthesia Postop Eval I: Fluid Summary Crystalloid volume administer 400 05/30/24 12:47 [email or web address] (ml) Colloids volume administered ( ml) Blood Product volume administered (ml) Total IV fluid infused 400 05/30/24 12:47 [email or web address] Anesthesia Postop Eval I: Summary Notes Anesthesia Complication No 05/30/24 12:47 [email or web address] Anesthesia Complication Comment: Post-operative progress note Anesthesia: Postop Eval II Evaluation Mental status: Awake and Calm Pain Level: 1 nausea: No Vomiting: No Complications Anesthesia Complication: No
== END 2024-05-30 13:45 | disposition home or self-care (01) ==
LOC: SDC 10:26 → AC 10:59
PROVIDERS: PCP Family Medicine Geriatric Medicine; Referring Provider Urology; Visit Provider Urology
PROC: 3E0K8GC Introduction of Other Therapeutic Substance into Genitourinary Tract, Via Natural or Artificial Opening Endoscopic (ICD-10-PCS; CPT 52327; principal; 2024-05-30 12:40)
DX: N36.42 Intrinsic sphincter deficiency (ISD) (principal); E11.9 Type 2 diabetes mellitus without complications; Z79.4 Long term (current) use of insulin; E78.00 Pure hypercholesterolemia, unspecified; I10 Essential (primary) hypertension; N39.46 Mixed incontinence; F32.A Depression, unspecified; M10.9 Gout, unspecified; Z79.84 Long term (current) use of oral hypoglycemic drugs; Z79.899 Other long term (current) drug therapy; Z87.891 Personal history of nicotine dependence
CPT/HCPCS: 52000; 82962; J7120; J2405

== ENCOUNTER → 2024-07-26 | Outpatient (CLI) | payer MEDICARE, OTHER, SELFPAY ==
[2024-07-26 13:03] LABS: ALB/GLOB Ratio 0.7 RATIO (0.9-2.4); AST(SGOT) 41 U/L (15-37); Alanine Aminotransfer ALT/SGPT 56 U/L (13-56); Albumin, Serum 2.9 g/dL (3.2-5.0); Alkaline Phosphatase 94 U/L (45-117); Anion Gap 5 (5-15); BUN 26 mg/dL (7-18); BUN/Creat Ratio 19.1 RATIO (10-20); Calcium,Total 9.4 mg/dL (8.5-10.1); Chloride 106 mmol/L (98-107); Creatinine, Serum 1.36 mg/dL (0.55-1.02); EST Glomerular Filtration Rate 40 mL/min (>60); Est Glom Filt Rate - Afr Amer 48 mL/min (>60); Globulin 4.4 g/dL (2.2-4.2); Glucose 246 mg/dL (74-106); Potassium 4.8 mmol/L (3.5-5.1); Protein, Total 7.3 g/dL (6.4-8.2); Sodium Level 140 mmol/L (136-145)
== END | disposition home or self-care (01) ==
LOC: POLAB3 12:26
PROVIDERS: PCP Family Medicine Geriatric Medicine; Visit Provider Family Medicine Geriatric Medicine
DX: I10 Essential (primary) hypertension (principal)
CPT/HCPCS: 36415; 80053

== ENCOUNTER → 2024-08-23 | Outpatient (CLI) | payer MEDICARE, OTHER, SELFPAY ==
[2024-08-23 14:13] LABS: Absolute Lymphocyte Count 3.51 X10^3/uL (0.83-4.51); Absolute Neutrophil Count 4.9 X10^3/uL (2.0-7.7); Basophil# 0.02 X10^3/uL; Basophil% 0.2 % (0-1); Eosinophil# 0.25 X10^3/uL; Eosinophils% 2.7 % (0-5); Hematocrit 38.6 % (37-47); Hemoglobin 12.1 g/dL (12.0-15.0); Lymphocyte # 3.51 X10^3/ul (0.83-4.51); Lymphocyte % 37.5 % (19-41); Mean Corp Hgb Conc 31.3 g/dL (32-36); Mean Corpuscular Hgb 30.9 pg (27.0-32.0); Mean Corpuscular Volume 98.7 fL (81-99); Mean Platelet Vol. 11.9 fl (6.2-12.0); Monocyte# 0.64 X10^3/uL; Monocyte% 6.8 % (0-10); NRBC Flagged by Analyzer 0 % (0-5); Neutrophil % 52.5 % (47-70); Platelet Count 231 K/mm3 (150-450); RBC Distribution Width CV 13.4 % (11.6-14.6); RBC Distribution Width SD 48.7 fl (35.1-43.9); Red Blood Count 3.91 M/mm3 (4.2-5.4); White Blood Count 9.4 K/mm3 (4.4-11.0)
[2024-08-23 14:36] LABS: Vitamin D,25 Hydroxy 27.1 ng/mL
[2024-08-23 14:43] LABS: ALB/GLOB Ratio 0.8 RATIO (0.9-2.4); AST(SGOT) 22 U/L (15-37); Alanine Aminotransfer ALT/SGPT 24 U/L (13-56); Albumin, Serum 3.1 g/dL (3.2-5.0); Alkaline Phosphatase 87 U/L (45-117); Anion Gap 9 (5-15); BUN 21 mg/dL (7-18); BUN/Creat Ratio 16.2 RATIO (10-20); Calcium,Total 9.3 mg/dL (8.5-10.1); Chloride 107 mmol/L (98-107); EST Glomerular Filtration Rate 42 mL/min (>60); Est Glom Filt Rate - Afr Amer 51 mL/min (>60); Globulin 3.8 g/dL (2.2-4.2); Glucose 176 mg/dL (74-106); Potassium 4.2 mmol/L (3.5-5.1); Protein, Total 6.9 g/dL (6.4-8.2); Sodium Level 140 mmol/L (136-145); Thyroid Stim Hormone (TSH) 0.651 uIU/mL (0.358-3.740); Uric Acid 5.3 mg/dL (2.6-6.0)
== END | disposition home or self-care (01) ==
LOC: POLAB3 13:47
PROVIDERS: PCP Family Medicine Geriatric Medicine; Visit Provider Family Medicine Geriatric Medicine
DX: I10 Essential (primary) hypertension (principal); E11.65 Type 2 diabetes mellitus with hyperglycemia; M10.9 Gout, unspecified; E55.9 Vitamin D deficiency, unspecified; N39.0 Urinary tract infection, site not specified
CPT/HCPCS: 36415; 80053; 82306; 84443; 84550; 85025; 87077; 87086; 87088; 87186

== ENCOUNTER → 2024-09-04 | Outpatient (CLI) | payer MEDICARE, OTHER, SELFPAY | END | disposition home or self-care (01) | LOC: LABSPEC 11:41 | PROVIDERS: PCP Family Medicine Geriatric Medicine; Referring Provider Nurse Practitioner Women's Health; Visit Provider Nurse Practitioner Women's Health | DX: N89.8 Other specified noninflammatory disorders of vagina (principal) | CPT/HCPCS: 87070; 87205 ==

== ENCOUNTER → 2024-09-05 | Outpatient (CLI) | payer MEDICARE, OTHER, SELFPAY ==
--- NOTE | 2024-09-05 07:40 | US_ITS ---
STUDY: ABDOMINAL ULTRASOUND - RIGHT UPPER QUADRANT; ELASTOGRAPHY REASON FOR VISIT: Female, 79 years old. Fatty infiltration of the liver. TECHNIQUE: Ultrasound evaluation of the right upper quadrant was performed with real-time and static alexander-scale imaging. Point quantification shear wave elastography was performed (Signature). TECHNICAL QUALITY: Adequate. COMPARISON: Comparison is made with prior study January 30, 2024. FINDINGS: Liver: The liver measures 14.1 cm. There is increased echogenicity consistent with fatty infiltration. The bile ducts are within normal limits. There is hepatic color flow. The direction of portal flow is hepatopetal. There is no demonstrated mass lesion. Median liver stiffness measured 6.9 kPa. Gallbladder: The patient is status post cholecystectomy. Common Bile Duct (C.B.D.): The common bile duct measures 10 mm. Pancreas: There is normal echogenicity of the visualized pancreas. There is no demonstrated pancreatic mass or cyst. Right Kidney: Normal size of the right kidney. The right kidney measures 9.9 cm x 5 cm x 4.6 cm. Normal renal cortex. The right cortex measures 1.3 cm. There is no demonstrated renal mass or cyst. There is no right hydronephrosis. IMPRESSION: 1. Liver stiffness measures 6.9 kPa compatible with F2-F3 (Mild to moderate liver fibrosis) Metavir score. Electronically Signed: Jaron Javier MD at 15:29 EDT , STUDY: ABDOMINAL ULTRASOUND - LEFT UPPER QUADRANT REASON FOR EXAM: Female, 79 years old. NAFLD -- including spleen TECHNIQUE: Transabdominal ultrasound was performed with real-time and static alexander scale imaging. TECHNICAL QUALITY: Adequate. COMPARISON: None. FINDINGS: Spleen: Normal size of the spleen. The spleen measures 7.8 cm x 4.27 x 3.7 cm. US/ABD Limited w/ Elastography IMPRESSION: Normal left upper quadrant abdominal ultrasound examination. Electronically Signed: Jaron Javier MD at 15:30 EDT ,
== END | disposition home or self-care (01) ==
LOC: US 07:40
PROVIDERS: PCP Family Medicine Geriatric Medicine; Referring Provider Internal Medicine; Visit Provider Internal Medicine
DX: K76.0 Fatty (change of) liver, not elsewhere classified (principal); E11.9 Type 2 diabetes mellitus without complications; K75.81 Nonalcoholic steatohepatitis (NASH); E78.5 Hyperlipidemia, unspecified; I10 Essential (primary) hypertension
CPT/HCPCS: 76705; 76981

== ENCOUNTER → 2024-10-19 | Outpatient (CLI) | payer MEDICARE, OTHER, SELFPAY ==
--- NOTE | 2024-10-19 12:26 | MRI_ITS ---
STUDY: MRI LUMBAR SPINE WITHOUT CONTRAST REASON FOR EXAM: Female, 79 years old. SACRAL RADICULOPATHY NERVE PAIN FROM GROIN TO BILATERAL LEGS, CHRONIC BACK PAIN TECHNIQUE: Standardized fat and water weighted pulse sequences were obtained in the sagittal and axial planes. COMPARISON: MRI the lumbar spine dated April 11, 2020. CT of abdomen and pelvis dated January 03, 2024 FINDINGS: Stable posterior fusion rods and pedicle screws and posterior decompressive defects at L3-L5. Spinal stimulating catheter is seen in the distal sacral foramina. No epidural fluid collection is present. No demonstrated marrow edema or fracture or compression deformity. There is lumbarization of the S1 vertebral body and intervertebral discs. Numbering is based on the last rib bearing vertebral body. Normal lumbar lordosis. There is no substantial scoliosis. Normal conus medullaris that terminates at the L1 level. T12-L1: Normal endplates. Normal disc height, hydration and morphology. Normal bilateral facet joints. Normal central canal and bilateral lateral recesses. Normal bilateral intervertebral neural foramina. L1-2: Normal endplates. Normal disc height, hydration and morphology. Moderate facet joint and ligament of flavum hypertrophy contributing to mild central canal stenosis. Normal left neural foramen. Mild to moderate right foraminal stenosis with nerve root impingement. L2-3: Normal endplates. Normal disc height, hydration and morphology. Moderate facet joint and ligament of flavum hypertrophy contributing to mild central canal stenosis. Normal left neural foramen. Mild to moderate right foraminal stenosis with nerve root impingement. L3-4: Mild anterior endplate spurring. Mild disc desiccation. Preserved disc space height. No posterior disc herniation or bulging. Slight anterolisthesis of less than 2 mm. Mild to moderate facet joint hypertrophy. Normal central canal and bilateral lateral recesses. Normal bilateral intervertebral neural foramina. Stable posterior surgical decompressive defect. L4-5: Normal endplates. Normal disc height, hydration and morphology. Normal bilateral facet joints. Normal central canal and bilateral lateral recesses. Normal bilateral intervertebral neural foramina. Stable posterior surgical decompressive defect L5-S1: Normal endplates. Diffuse disc desiccation with preserved disc space height and no posterior disc herniation or bulging. Mild to moderate facet joint hypertrophy. Normal central canal and bilateral lateral recesses. Normal bilateral intervertebral neural foramina. Normal visualized sacral ala. There is severe paraspinal muscular atrophy. MRI/Spine Lumbar (Routine) IMPRESSION: Multilevel degenerative changes, as described above. Electronically Signed: Tera Thompson MD at 15:17 EST ,
== END | disposition home or self-care (01) ==
LOC: MRI 12:23
PROVIDERS: PCP Family Medicine Geriatric Medicine; Referring Provider Family Medicine Geriatric Medicine; Visit Provider Family Medicine Geriatric Medicine
DX: M54.18 Radiculopathy, sacral and sacrococcygeal region (principal)
CPT/HCPCS: 72148

== ENCOUNTER → 2024-10-24 | Outpatient (CLI) | payer MEDICARE, OTHER, SELFPAY ==
--- NOTE | 2024-10-24 09:47 | NM_ITS ---
CLINICAL: 79-year-old type II diabetic female with history of clinical gastroparesis. SEMI-SOLID PHASE 99m Tc SULFUR COLLOID GASTRIC EMPTYING STUDY COMPARISON: None available FINDINGS: The patient was administered 1.2 mCi of 99m Tc sulfur colloid mixed with oatmeal and consumed per os. Image acquisitions in the anterior-posterior projections were obtained for 60 minutes. There is prompt visualization of the stomach. There is no gastroesophageal reflux identified. The T ? linear fit was calculated to be 33.01 minutes, (Normal: 12-56 minutes). NM/Gastric Emptying Study IMPRESSION: 1. NORMAL 99m Tc sulfur colloid semi-solid phase (oatmeal) gastric emptying imaging examination. A. There is normal and preserved semi-solid phase gastric emptying compared to normal controls. (Chio et al, J Nucl Med Tech 38: 186, 2010). Electronically Signed: Jeffery Brewster DO at 10:49 EST ,
[2024-10-24 12:20] LABS: Absolute Lymphocyte Count 2.76 X10^3/uL (0.83-4.51); Absolute Neutrophil Count 5.4 X10^3/uL (2.0-7.7); Basophil# 0.02 X10^3/uL; Basophil% 0.2 % (0-1); Hematocrit 38.6 % (37-47); Hemoglobin 12.3 g/dL (12.0-15.0); Lymphocyte # 2.76 X10^3/ul (0.83-4.51); Mean Corp Hgb Conc 31.9 g/dL (32-36); Mean Corpuscular Hgb 31.5 pg (27.0-32.0); Mean Corpuscular Volume 98.7 fL (81-99); Mean Platelet Vol. 11.9 fl (6.2-12.0); Monocyte# 1.03 X10^3/uL; Monocyte% 11.2 % (0-10); NRBC Flagged by Analyzer 0 % (0-5); Neutrophil # 5.35 X10^3/uL (2.7-7.7); Neutrophil % 58.1 % (47-70); Platelet Count 279 K/mm3 (150-450); RBC Distribution Width CV 13.6 % (11.6-14.6); RBC Distribution Width SD 49.4 fl (35.1-43.9); Red Blood Count 3.91 M/mm3 (4.2-5.4); White Blood Count 9.2 K/mm3 (4.4-11.0)
[2024-10-24 12:41] LABS: International Normalized Ratio 1.1; Prothrombin Time (Protime)PT. 13.9 SECONDS (11.7-14.9)
[2024-10-24 12:55] LABS: Hemoglobin A1c 7.3 % (3.8-5.6)
[2024-10-24 12:59] LABS: ALB/GLOB Ratio 0.7 RATIO (0.9-2.4); AST(SGOT) 13 U/L (15-37); Alanine Aminotransfer ALT/SGPT 15 U/L (13-56); Alkaline Phosphatase 98 U/L (45-117); Anion Gap 8 (5-15); BUN 17 mg/dL (7-18); BUN/Creat Ratio 11.4 RATIO (10-20); Chloride 105 mmol/L (98-107); Cholesterol 92 mg/dL (200); Creatinine, Serum 1.49 mg/dL (0.55-1.02); EST Glomerular Filtration Rate 36 mL/min (>60); Est Glom Filt Rate - Afr Amer 43 mL/min (>60); Ferritin 269 ng/mL (8-252); Globulin 4.1 g/dL (2.2-4.2); Glucose 217 mg/dL (74-106); High Density Lipoprotein 48 mg/dL; LDH 182 U/L (84-246); Potassium 4.2 mmol/L (3.5-5.1); Protein, Total 7.1 g/dL (6.4-8.2); Sodium Level 137 mmol/L (136-145); Triglycerides 112 mg/dL; Very Low Density Lipoprotein 22 mg/dL (5-40)
[2024-10-24 13:18] LABS: Vitamin D,25 Hydroxy 19.1 ng/mL
[2024-10-26 12:08] LABS: ANTINUCLEAR ANTIBODIES DIRECT Negative (Negative); Anti-Mitochondrial AB <20.0 Units (0.0-20.0)
[2024-10-29 15:08] LABS: Anti-Smooth Muscle ABS 23 Units (0-19); Ceruloplasmin 33.5 mg/dL (19.0-39.0); Copper, Serum or Plasma 142 ug/dL (80-158); HEPATITIS B SURFACE AG Negative (Negative); Hep C Antibodies Non Reactive (Non Reactive); Hepatitis A IgM Antibody Negative (Negative); Hepatitis B Core AB IgM Negative (Negative)
== END | disposition home or self-care (01) ==
PROVIDERS: PCP Family Medicine Geriatric Medicine; Referring Provider Internal Medicine; Visit Provider Internal Medicine
DX: K75.81 Nonalcoholic steatohepatitis (NASH) (principal); E11.9 Type 2 diabetes mellitus without complications; K76.0 Fatty (change of) liver, not elsewhere classified; E78.5 Hyperlipidemia, unspecified; I10 Essential (primary) hypertension; M81.0 Age-related osteoporosis without current pathological fracture; R79.89 Other specified abnormal findings of blood chemistry
CPT/HCPCS: 36415; 78264; 80053; 80061; 80074; 82306; 82390; 82525; 82728; 83036; 83516; 83615; 85025; 85610; 86038; 86140; 86225; 86235; A9541

== ENCOUNTER → 2024-12-06 | Outpatient (CLI) | payer MEDICARE, OTHER, SELFPAY ==
[2024-12-06 15:29] LABS: Absolute Lymphocyte Count 2.51 X10^3/uL (0.83-4.51); Absolute Neutrophil Count 6.8 X10^3/uL (2.0-7.7); Basophil# 0.03 X10^3/uL; Basophil% 0.3 % (0-1); Eosinophil# 0.01 X10^3/uL; Eosinophils% 0.1 % (0-5); Hematocrit 43.1 % (37-47); Hemoglobin 13.6 g/dL (12.0-15.0); Lymphocyte # 2.51 X10^3/ul (0.83-4.51); Lymphocyte % 24.9 % (19-41); Mean Corp Hgb Conc 31.6 g/dL (32-36); Mean Corpuscular Hgb 30.9 pg (27.0-32.0); Mean Platelet Vol. 11.6 fl (6.2-12.0); Monocyte# 0.67 X10^3/uL; Monocyte% 6.6 % (0-10); NRBC Flagged by Analyzer 0 % (0-5); Neutrophil # 6.84 X10^3/uL (2.7-7.7); Neutrophil % 67.7 % (47-70); Platelet Count 248 K/mm3 (150-450); RBC Distribution Width CV 13.3 % (11.6-14.6); RBC Distribution Width SD 47.8 fl (35.1-43.9); White Blood Count 10.1 K/mm3 (4.4-11.0)
[2024-12-06 16:27] LABS: ALB/GLOB Ratio 0.8 RATIO (0.9-2.4); AST(SGOT) 16 U/L (15-37); Alanine Aminotransfer ALT/SGPT 17 U/L (13-56); Albumin, Serum 3.3 g/dL (3.2-5.0); Alkaline Phosphatase 84 U/L (45-117); Anion Gap 9 (5-15); BUN 17 mg/dL (7-18); BUN/Creat Ratio 14.5 RATIO (10-20); Calcium,Total 9.2 mg/dL (8.5-10.1); Chloride 106 mmol/L (98-107); Creatinine, Serum 1.17 mg/dL (0.55-1.02); EST Glomerular Filtration Rate 47 mL/min (>60); Est Glom Filt Rate - Afr Amer 57 mL/min (>60); Globulin 4.2 g/dL (2.2-4.2); Glucose 208 mg/dL (74-106); Potassium 4.1 mmol/L (3.5-5.1); Protein, Total 7.5 g/dL (6.4-8.2); Sodium Level 136 mmol/L (136-145); Thyroid Stim Hormone (TSH) 0.763 uIU/mL (0.358-3.740)
[2024-12-06 16:32] LABS: Vitamin D,25 Hydroxy 25.7 ng/mL
== END | disposition home or self-care (01) ==
LOC: LAB 14:55
PROVIDERS: PCP Family Medicine Geriatric Medicine; Referring Provider Family Medicine Geriatric Medicine; Visit Provider Family Medicine Geriatric Medicine
DX: E11.65 Type 2 diabetes mellitus with hyperglycemia (principal); I10 Essential (primary) hypertension; M10.9 Gout, unspecified; E55.9 Vitamin D deficiency, unspecified
CPT/HCPCS: 36415; 80053; 82306; 84443; 84550; 85025

== ENCOUNTER 2024-12-20 13:00 | Outpatient (RCR) | payer MEDICARE, OTHER, SELFPAY ==
--- NOTE | 2024-11-09 14:17 | HP.PTEVAL_ITS ---
Patient's Visit Information Visit Information Visit Information: KISHA COSBY is a 79 year old F referred to Physical Therapy by Dr. Ruel Strauss MD with a diagnosis of lumbar Radic.spondylosis. Date of Evaluation: 11/09/24 Physical Therapist: TEVIN Coelho Visit Plan Frequency: 2x /Week Duration: 2 Months Plan: 2X/ week for 8 weeks for pelvic tilts, neutral spine core stability, postural exercises, gait endurance with rollator, HEP HEP: LTR, PT, PT with pillow squeeze Subjective Subjective: She reports that her L knee is bothering her. She has had 2 TKR. The L knee swelled up about 2 weeks ago and she is thinking about going back to the ortho DR. Pt reports that her back is bothering her for years. She had surgery for stenosis but it did not help. As long as she is sitting in a good chair, she is fine. If she is sitting she has less pain and it increases in pain when she is up walking. She takes arthritis meds and gabapetin and only helps a little bit. She is having some nerve pain and some bladder issues. Pt reports that she has pain where her urine comes out and then the pain goes all the way down the front of the legs and it only does it when she urinates. They wanted her to do PT because they are thinking that these pains are coming from her back. pt wants to do home health. Pain back pain: Pain Intensity (Out of 10): 2 L knee pain: Pain Intensity (Out of 10): 4 Objective Objective: Gait: walks with short stride with VAISHALI and decrease stance time on the L LE and increase SOB by the time she got back to the treatment room Trunk AROM: flexion 10%, Ext to neutral, SB B 25%, Rot B 50% LE MMT: R hip flex 14 and L 11.5 R knee ext 17.4 and L 14.9 R knee flex 9.7 and L 9.7 Pt is able to heel and toe raise with use of UE for balance Pt unable to bridge more than 1/4 normal ROM Pt is unable to lay in supine with legs out in front Pt reported that PT and PT with pillow squeeze felt good to the patient. Had the pt walk out using rollator and she was able to walk out faster and was even SOB by the time she got up front. She reported less overall pain when walking with the rollator Balance/Special Test Scores Oswestry Low Back Score: 26 Goals Goal 1:: I HEP Goal Time Frame: 6-8 Weeks Goal 2:: Increase LE strength (at the time of the eval: LE MMT: R hip flex 14 and L 11.5 R knee ext 17.4 and L 14.9 R knee flex 9.7 and L 9.7) Goal Time Frame: 6-8 Weeks Goal 3:: Pt to be able to walk 1 entire lap around dept without having to rest and no back pain Goal Time Frame: 6-8 Weeks Goal 4:: Be able to do a full ROM bridge without pain Goal Time Frame: 6-8 Weeks Goal 5:: Decrease back pain by 50% Goal Time Frame: 6-8 Weeks Rehabilitation Potential Rehabilitation Potential: Good Anticipated Interventions Patient/Client Instruction: Educate patient on: Condition and Plan of Care For the Purpose of:: To decrease pain, To decrease swelling/inflammation, To increase ROM, To improve nutrient delivery to tissue, To improve muscle performance and motor function, To improve ability to perform ADL's, To increase tolerance to activity/condition/position, To improve performance and independ ence with ADL's, To decrease level of supervision to perform tasks, To improve ability of physical actions for home/community/work/leisure, To improve gait and locomotor functions, To improve health of tissue, To decrease soft tissue restriction, To increase flexibility/ROM, To improve endurance, To improve balance and To improve safety with gait Therapeutic Exercise to Include: Strength training, Endurance training, Balance training, Body mechanics, Postural training, Flexibilty training, Gait and locomotor training, Neuromotor development, Active ROM and Dynamic Lumbar Stabilization For the Purpose of:: To decrease pain, To increase ROM, To improve nutrient delivery to tissue, To increase oxygenation perfusion, To improve muscle performance and motor function, To improve ability to perform ADL's, To increase tolerance to activity/condition/position, To improve performance and independence with ADL's, To decrease level of supervision to perform tasks, To improve ability of physical actions for home/community/work/leisure, To improve gait and locomotor functions, To improve health of tissue, To decrease soft tissue restriction, To increase flexibility/ROM, To improve endurance and To improve safety with gait Functional Training to Include: Gait training For the Purpose of:: To improve safety with gait Text: Thank you for the opportunity to evaluate your patient. For Medicare and Medicare HMO plans, please review the plan of care and approve it. It will need to be FAXED BACK to us at [phone] for Medicare purposes. For Medicare only, by signing this I certify the plan of care. Please let me know if there are questions or concerns regarding this plan of care. Physician Signature: Date:
--- NOTE | 2025-03-20 10:09 | HP.PT.NRP ---
Patient Information Patient Information: KISHA COSBY was seen in my office for initial evaluation on 11/09/24. The following Plan of Care was established for this patient: POC Established Initial Frequency: 2x /Week Initial Duration: 2 Months Anticipated Interventions Patient/Client Instruction: Educate patient on: Condition and Plan of Care For the Purpose of:: To decrease pain, To decrease swelling/inflammation, To increase ROM, To improve nutrient delivery to tissue, To improve muscle performance and motor function, To improve ability to perform ADL's, To increase tolerance to activity/condition/position, To improve performance and independence with ADL's, To decrease level of supervision to perform tasks, To improve ability of physical actions for home/community/work/leisure, To improve gait and locomotor functions, To improve health of tissue, To decrease soft tissue restriction, To increase flexibility/ROM, To improve endurance, To improve balance and To improve safety with gait Therapeutic Exercise to Include: Strength training, Endurance training, Balance training, Body mechanics, Postural training, Flexibilty training, Gait and locomotor training, Neuromotor development, Active ROM and Dynamic Lumbar Stabilization For the Purpose of:: To decrease pain, To increase ROM, To improve nutrient delivery to tissue, To increase oxygenation perfusion, To improve muscle performance and motor function, To improve ability to perform ADL's, To increase tolerance to activity/condition/position, To improve performance and independence with ADL's, To decrease level of supervision to perform tasks, To improve ability of physical actions for home/community/work/leisure, To improve gait and locomotor functions, To improve health of tissue, To decrease soft tissue restriction, To increase flexibility/ROM, To improve endurance and To improve safety with gait Functional Training to Include: Gait training For the Purpose of:: To improve safety with gait Last Seen Last Seen: This patient was last seen in our office 12/20/24. Pertinent comments regarding their Physical therapy will appear below: [facility] as pt has not scheduled additional appts. At this point I will be discontinuing this patient from physical therapy. I would be happy to see this patient again in the future if found appropriate by the physician. Thank you! Alaina Lawson, MPT Balance/Gait/Functional tests Balance/Special Test Scores Oswestry Low Back Score: 26
== END 2024-12-20 19:00 | disposition home or self-care (01) ==
LOC: PT 13:00
PROVIDERS: PCP Family Medicine Geriatric Medicine; Referring Provider Anesthesiology; Visit Provider Anesthesiology
DX: M43.06 Spondylolysis, lumbar region (principal); M54.18 Radiculopathy, sacral and sacrococcygeal region
CPT/HCPCS: 97110; 97162

== ENCOUNTER → 2025-04-02 | Outpatient (CLI) | payer MEDICARE, OTHER, SELFPAY ==
[2025-04-02 15:55] LABS: Absolute Lymphocyte Count 2.82 X10^3/uL (0.83-4.51); Absolute Neutrophil Count 9.6 X10^3/uL (2.0-7.7); Basophil# 0.03 X10^3/uL; Basophil% 0.2 % (0-1); Hemoglobin 13.8 g/dL (12.0-15.0); Lymphocyte # 2.82 X10^3/ul (0.83-4.51); Lymphocyte % 21.4 % (19-41); Mean Corp Hgb Conc 32.1 g/dL (32-36); Mean Corpuscular Volume 96.6 fL (81-99); Mean Platelet Vol. 12.3 fl (6.2-12.0); Monocyte# 0.68 X10^3/uL; Monocyte% 5.2 % (0-10); NRBC Flagged by Analyzer 0 % (0-5); Neutrophil # 9.59 X10^3/uL (2.7-7.7); Neutrophil % 72.8 % (47-70); Platelet Count 258 K/mm3 (150-450); RBC Distribution Width CV 14.2 % (11.6-14.6); RBC Distribution Width SD 50.6 fl (35.1-43.9); Red Blood Count 4.45 M/mm3 (4.2-5.4); White Blood Count 13.2 K/mm3 (4.4-11.0)
[2025-04-02 16:45] LABS: Thyroid Stim Hormone (TSH) 0.818 uIU/mL (0.300-4.200); Uric Acid 5.5 mg/dL (2.6-6.0); Vitamin D,25 Hydroxy 24.4 ng/mL (30-100)
[2025-04-02 16:47] LABS: ALB/GLOB Ratio 1.1 RATIO (0.9-2.4); AST(SGOT) 28 U/L (<=31); Alanine Aminotransfer ALT/SGPT 13 U/L (<=34); Albumin, Serum 3.8 g/dL (3.4-4.8); Alkaline Phosphatase 77 U/L (35-104); Anion Gap 17 (5-15); BUN 18 mg/dL (4-19); BUN/Creat Ratio 13.9 RATIO (10-20); Calcium,Total 9.3 mg/dL (7.6-11.0); Carbon Dioxide 19.4 mmol/L (21.0-32.0); Chloride 102 mmol/L (98-108); Creatinine, Serum 1.29 mg/dL (0.70-1.20); EST Glomerular Filtration Rate 42 (>60); Globulin 3.4 g/dL (2.2-4.2); Glucose 250 mg/dL (70-99); Protein, Total 7.2 g/dL (5.9-8.4); Sodium Level 138 mmol/L (133-145); Total Bilirubin 0.55 mg/dL (0.00-1.30)
== END | disposition home or self-care (01) ==
LOC: LAB 15:00
PROVIDERS: PCP Family Medicine Geriatric Medicine; Referring Provider Family Medicine Geriatric Medicine; Visit Provider Family Medicine Geriatric Medicine
DX: E11.65 Type 2 diabetes mellitus with hyperglycemia (principal); I10 Essential (primary) hypertension; M10.9 Gout, unspecified; E55.9 Vitamin D deficiency, unspecified; N39.0 Urinary tract infection, site not specified
CPT/HCPCS: 36415; 80053; 82306; 84443; 84550; 85025; 87077; 87086; 87088; 87186

== ENCOUNTER → 2025-05-14 | Outpatient (CLI) | payer MEDICARE, OTHER, SELFPAY ==
--- NOTE | 2025-05-14 11:11 | ECHOD_ITS ---
Reason For Study Reason For Study: DYSPNEA Procedure This was a 2D Doppler, Color Flow transthoracic echocardiogram. The study was technically difficult. Exam performed in department. Left Ventricle Normal LV size. The left ventricular ejection fraction is 65 %. Stage 1 diastolic dysfunction. No regional wall motion abnormalities noted. Right Ventricle Normal RV size. Normal systolic function. Atria Normal left atrium. Normal right atrium. Mitral Valve Normal mitral valve. Tricuspid Valve Normal tricuspid valve. Aortic Valve Trisinus/trileaflet aortic valve. Mild focal aortic valve calcification. Mild aortic stenosis. Pulmonic Valve Normal pulmonic valve. Great Vessels Normal aortic root. The pulmonary artery is normal size. Inferior vena cava collapse with respiration. Pericardium/Pleural No pericardial effusion. MMode/2D Measurements & Calculations LVIDd: 3.6 cm IVSd: 1.3 cm LVOT diam: 2.0 cm LVIDs: 2.5 cm LVPWd: 1.1 cm LVOT area: 3.1 cm2 RVDd: 3.8 cm FS: 31.8 % asc Aorta Diam: 3.3 cm LAV(MOD-bp): 23.2 ml LVAd ap4: 15.3 cm2 LAV(MOD-bp) Indexed: 11.9 ml/m2 LVLd ap4: 6.8 cm LAV(MOD-sp2): 32.3 ml EDV(MOD-sp4): 29.3 ml LAV(MOD-sp4): 15.5 ml EDV(sp4-el): 29.3 ml LVAs ap4: 8.3 cm2 LVLs ap4: 5.9 cm ESV(MOD-sp4): 10.0 ml ESV(sp4-el): 9.9 ml EF(MOD-sp4): 66.0 % EF(sp4-el): 66.1 % LVAd ap2: 19.5 cm2 SV(MOD-sp4): 19.4 ml SV(MOD-sp2): 31.2 ml LVLd ap2: 7.1 cm SI(MOD-sp4): 9.9 ml/m2 SI(MOD-sp2): 16.0 ml/m2 EDV(MOD-sp2): 45.5 ml EDV(sp2-el): 45.4 ml LVAs ap2: 9.8 cm2 LVLs ap2: 6.0 cm ESV(MOD-sp2): 14.4 ml ESV(sp2-el): 13.5 ml EF(MOD-sp2): 68.4 % SV(sp4-el): 19.4 ml Ao sinus diam: 3.[address] Junction: 2.7 cm LA dimension(2D): 4.2 cm LA A4 area: 10.0 cm2 RA A4 area: 8.6 cm2 TAPSE: 2.0 cm Time Measurements MV dec time: 0.21 sec Doppler Measurements & Calculations MV E max nelson: 66.4 cm/sec Lat Peak E' Nelson: 8.1 cm/sec Med Peak E' Nelson: 8.1 cm/sec MV A max enlson: 98.9 cm/sec E/E' lat: 8.2 E/E' med: 8.2 MV E/A: 0.67 MV dec slope: 317.5 cm/sec2 Ao V2 max: 227.4 cm/sec LV V1 max: 119.6 cm/sec Ao max P.8 mmHg LV V1 max P.7 mmHg Ao V2 mean: 171.6 cm/sec LV V1 mean P.3 mmHg Ao mean P.9 mmHg LV V1 mean: 88.4 cm/sec Ao V2 VTI: 45.6 cm LV V1 VTI: 25.0 cm AV (velocity ratio): 0.55 CONCHITA(I,D): 1.7 cm2 CONCHITA(V,D): 1.6 cm2 SV(LVOT): 76.3 ml PA V2 max: 117.0 cm/sec ECHO/Echo Complete Interpretation Summary Normal LV size. The left ventricular ejection fraction is 65 %. Mild aortic stenosis. Mild focal aortic valve calcification. Stage 1 diastolic dysfunction. Ordering Physician: Yared Gan Chi Referring Physician: Yared Gan Chi Performed By: Sara Garcia RDCS
== END | disposition home or self-care (01) ==
LOC: CVS 10:31
PROVIDERS: PCP Family Medicine Geriatric Medicine; Referring Provider Family Medicine Geriatric Medicine; Visit Provider Family Medicine Geriatric Medicine
DX: R06.02 Shortness of breath (principal)
CPT/HCPCS: 93306; 94060

== ENCOUNTER → 2025-05-27 | Outpatient (CLI) | payer MEDICARE, OTHER, SELFPAY ==
[2025-05-27 15:11] LABS: Absolute Lymphocyte Count 4.11 X10^3/uL (0.83-4.51); Absolute Neutrophil Count 6.6 X10^3/uL (2.0-7.7); Basophil# 0.03 X10^3/uL; Basophil% 0.3 % (0-1); Eosinophil# 0.01 X10^3/uL; Eosinophils% 0.1 % (0-5); Hematocrit 41.1 % (37-47); Lymphocyte # 4.11 X10^3/ul (0.83-4.51); Lymphocyte % 35.7 % (19-41); Mean Corp Hgb Conc 31.6 g/dL (32-36); Mean Corpuscular Hgb 30.8 pg (27.0-32.0); Mean Corpuscular Volume 97.4 fL (81-99); Monocyte# 0.73 X10^3/uL; Monocyte% 6.3 % (0-10); NRBC Flagged by Analyzer 0 % (0-5); Neutrophil % 57.3 % (47-70); Platelet Count 275 K/mm3 (150-450); RBC Distribution Width CV 14.6 % (11.6-14.6); RBC Distribution Width SD 52.7 fl (35.1-43.9); Red Blood Count 4.22 M/mm3 (4.2-5.4); White Blood Count 11.5 K/mm3 (4.4-11.0)
[2025-05-27 16:02] LABS: ALB/GLOB Ratio 1.1 RATIO (0.9-2.4); AST(SGOT) 17 U/L (<=31); Alanine Aminotransfer ALT/SGPT 10 U/L (<=34); Albumin, Serum 3.6 g/dL (3.4-4.8); Alkaline Phosphatase 74 U/L (35-104); Anion Gap 12 (5-15); BUN 16 mg/dL (4-19); BUN/Creat Ratio 15.4 RATIO (10-20); Calcium,Total 9.6 mg/dL (7.6-11.0); Carbon Dioxide 24.8 mmol/L (21.0-32.0); Chloride 103 mmol/L (98-108); Creatinine, Serum 1.02 mg/dL (0.70-1.20); EST Glomerular Filtration Rate 55 (>60); Globulin 3.2 g/dL (2.2-4.2); Glucose 192 mg/dL (70-99); Potassium 4.5 mmol/L (3.3-5.1); Protein, Total 6.8 g/dL (5.9-8.4); Sodium Level 140 mmol/L (133-145); Total Bilirubin 0.39 mg/dL (0.00-1.30); Uric Acid 6.5 mg/dL (2.6-6.0)
[2025-05-27 16:03] LABS: Vitamin D,25 Hydroxy 27.7 ng/mL (30-100)
== END | disposition home or self-care (01) ==
LOC: LAB 14:35
PROVIDERS: PCP Family Medicine Geriatric Medicine; Referring Provider Family Medicine Geriatric Medicine; Visit Provider Family Medicine Geriatric Medicine
DX: E11.65 Type 2 diabetes mellitus with hyperglycemia (principal); I10 Essential (primary) hypertension; M10.9 Gout, unspecified; E55.9 Vitamin D deficiency, unspecified
CPT/HCPCS: 36415; 80053; 82306; 84443; 84550; 85025

== ENCOUNTER 2025-08-06 11:18 | Day surgery (SDC) | payer MEDICARE, OTHER, SELFPAY ==
--- NOTE | 2025-08-01 15:55 | PAT.ANESEVAL ---
Pre-Assessment Diagnosis/Proposed Procedure Planned Operative Procedure(s): EGD Anesthesia History Anesthesia History - household personal assistant: Anesthesia History - household personal assistant Hx Hospitalization No 08/01/25 15:39 Any Problems With Anesthesia Yes: THRUSH 08/01/25 15:39 Cholinesterase deficiency No 08/01/25 15:39 You/Your Family Experience No 08/01/25 15:39 fever (hyperthermia) with Relationship Recent Exposure to Contagious No 05/30/24 10:37 Disease Does patient have nerve Yes: IT'S TURNED OFF 08/01/25 15:39 stimulator Patient instructed to have device shut off --Does patient have Pacemaker or ICD? When Was Last Pacemaker Check QUESTION #4 FULL TEXT: You/Your Family Experience fever (hyperthermia) with Anesthesia Last Oral Intake Last Oral intake: Last Oral Intake NPO since Meds taken in AM with sips of water? Meds patient instructed to take am of surgery PONV PONV - household personal assistant: PONV - household personal assistant Female Yes 08/01/25 15:39 HX of Motion Sickness No 08/01/25 15:39 HX of N/V After Surgery No 08/01/25 15:39 Non-Smoker Yes 08/01/25 15:39 Duration of Surgery greater No 08/01/25 15:39 than 60 minutes Number of Risk Factors 2 08/01/25 15:39 PONV Score Moderate Risk 08/01/25 15:39 Height & Weight Height & Weight: Anesthesia: Height & Weight Height 5 ft 1 in 02/06/25 14:53 Respiratory Assessment Respiratory Assessment - household personal assistant: Respiratory Tract Infection Hx - household personal assistant Hx Respiratory Tract Infection No 08/01/25 15:39 STOP Sleep Apnea STOP Sleep Apnea - household personal assistant: STOP Sleep Apnea - household personal assistant Hx Hypertension Yes: ON MEDS 08/01/25 15:39 Hx Sleep Apnea Yes 08/01/25 15:39 CPAP Yes: NON COMPLIANT 08/01/25 15:39 BIPAP No 08/01/25 15:39 Do you snore loudly (louder than talking or can be heard Do you often feel tired/ fatigued/ sleepy during daytime? Has anyone observed you stop breathing during sleep? STOP Results Positive 08/01/25 15:39 QUESTION #5 FULL TEXT : Do you snore loudly (louder than talking or can be heard through closed doors)? 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 Specify any problems Hx of Preganancy in last 3 No 08/01/25 15:39 Months Nurse Filling Out Transfusion JZOLLBRET 08/01/25 15:39 & Questions: Date: 08/01/25 08/01/25 15:39 Time: 15:41 08/01/25 15:39 Patient unable to answer at this time (ie. confused, unrespo /Reproduction History /Reproductive History - household personal assistant: /Reproductive Hx- household personal assistant Hx Now No 08/01/25 15:39 Gestational Age (in weeks): EDC: Hx Hx Para Hx Section SAB No 08/01/25 15:39 PFSH Medical History (Updated 08/01/25 @ 15:39 by Cori Amezquita) Wears partial dentures Fatty liver Hemorrhoids Esophagitis, unspecified Wears glasses Post-menopausal Cancer Alcohol use Ambulates with cane Insulin dependent diabetes mellitus Bladder disease Prolapsed, intestine High cholesterol Easy bruising Back pain Migraine headache Injury of head and neck Fainted Dietary restriction Difficulty swallowing History of hiatal hernia History of IBS Gastric reflux Former smoker CPAP (continuous positive airway pressure) dependence Shortness of breath on exertion History of pain when walking History of edema History of echocardiogram History of stress test Cardiology follow-up encounter History of irregular heartbeat Ectopic cardiac beats Essential hypertension DDD (degenerative disc disease), lumbar Premature atrial contractions Syncope and collapse Hyperlipidemia Gout Depression Home Medications ?Medication ?Instructions ?Recorded ?Last Taken ?Type allopurinol 300 mg tablet 300 mg PO QDAY Check with primary 12/21/17 12/15/23 History doctor atorvastatin 40 mg tablet 40 mg PO QHS Check with primary 12/21/17 12/15/23 History doctor citalopram 20 mg tablet 20 mg PO QDAY Check with primary 12/21/17 12/16/23 History doctor pioglitazone 30 mg tablet 30 mg PO QDAY Check with primary 12/23/17 12/15/23 History doctor lisinopril 5 mg tablet 2.5 mg PO DAILY 07/24/20 05/30/24 History glimepiride 4 mg tablet 4 mg PO BID 04/15/21 12/15/23 History cholecalciferol (vitamin D3) 1,250 1,250 mcg PO QWEEK 4 weeks #4 tabs 10/24/24 Unknown Rx mcg (50,000 unit) tablet semaglutide 0.25 mg or 0.5 mg (2 0.5 mg (0.736 mL) subcut QWEEK 1 02/06/25 Unknown Rx mg/3 mL) subcutaneous pen injector month #3.68 mL fesoterodine 8 mg tablet,extended 8 mg PO QDAY 04/17/25 Unknown History release 24 hr phenazopyridine 200 mg tablet 200 mg PO TID PRN PRN pain 08/01/25 Unknown History Allergy/AdvReac Type Severity Reaction Status Date / Time minoxidil (From Anna) AdvReac Unknown Unknown Verified 08/01/25 15:25 Corticosteroids AdvReac Hyperglycem Verified 08/01/25 15:25 (Glucocorticoids) (steroids) ia Family History Mother , Age 93-cva Heart disease CVA (cerebral vascular accident) Hypertension Hyperlipidemia Pacemaker Grandfather Myocardial infarction Grandmother CVA (cerebral vascular accident) Hypertension Surgical History H/O dilation and curettage H/O hernia repair History of surgery History of cardiac catheterization History of lumbar fusion Hx of right cataract extraction Hx of left cataract extraction Hx of colonoscopy S/P Botox injection History of hip surgery History of tonsillectomy History of umbilical hernia repair History of cholecystectomy History of knee replacement procedure of right knee History of knee replacement procedure of left knee Social History household members: spouse current occupational status: retired Smoking Status: Former smoker how long ago did patient quit smokin-40 years ago alcohol intake: never substance use type: does not use caffeine: Yes Type: coffee seatbelt use: always do you feel safe at home: Yes additional social history: - Jair Audit: Pertinent Findings Pertinent Findings EKG Perinent findings: August 18, 2020. Normal sinus rhythm. Right bundle branch block. Stress test pertinent findings: August 27, 2020. EF of 47%. No ischemia. Echo (EF%) pertinent findings: May 14, 2025. EF of 65%. Mild aortic stenosis. Consult pertinent findings: January 11, 2024. Criselda GALINDO. 1. Hypertension?controlled. 2. Ectopic beats?stable. Not symptomatic. Recommendation Anesthesia Recommendation Anesthesia recommendation: OPTIMIZED for anesthesia (Mild aortic stenosis noted. Avoid high heart rates and low blood pressure. Phenylephrine is drug of choice.)
[2025-08-06 12:00] VITALS: BP 162/66; PULSE 80; RESP 18; TEMP 36.8; O2SAT 96; BMI 40.6
[2025-08-06] MEDS: Lactated Ringers 1,000 ML 15 ML IV (12:04)
--- NOTE | 2025-08-06 12:15 | PCM.PRE.AN2 ---
ASA Classification* ASA Classification ASA Classification: 3 Assessment & Plan Anesthesia* Anesthesia Assessment Anesthesia Assessment: Discussed sedation and/or anesthesia options, risks, benefits, and alternatives with patient/parents/legal guardian/POA. Questions invited. The patient/parents/legal guardian/POA seems to understand and agrees to proceed with anesthesia plan. Reviewed the physical assessment, medical history, allergy history and patient home medications list prior to surgery/procedure/anesthetic and documented any changes. Performed airway and anesthesia risk assessments. Anesthesia Type Anesthesia Type: MAC (Mild aortic stenosis. Avoid increased heart rate and decreased blood pressure. Phenylephrine is drug of choice.) History Source History Obtained from:: Patient and Chart Anesthesia Focused Assessment* Temperature: 98.3 F Pulse Rate: 80 Blood Pressure: 162/66 Respiratory Rate: 18 Pulse Ox: 96 Oxygen Delivery Method: Room Air Airway Assessment Mouth opens: >3 cm Mallampati Score: III Teeth Condition: Chipped/Broken (Patient has a chipped tooth.) and Missing (Patient is missing a couple teeth.) Neck Range of motion (ROM): Limited ROM (Somewhat Decreased) Labs Anesthesia Preop lab: CBC WBC 11.5 K/mm3 (4.4-11.0) H 05/27/25 14:39 05/27/25 RBC 4.22 M/mm3 (4.2-5.4) 05/27/25 14:39 05/27/25 Hgb 13.0 g/dL (12.0-15.0) 05/27/25 14:39 05/27/25 Hct 41.1 % (37-47) 05/27/25 14:39 05/27/25 Plt Count 275 K/mm3 (150-450) 05/27/25 14:39 05/27/25 CHEMISTRY Potassium 4.5 mmol/L (3.3-5.1) 05/27/25 14:39 05/27/25 Sodium 140 mmol/L (133-145) 05/27/25 14:39 05/27/25 Magnesium 1.7 mg/dL (1.6-2.6) 05/27/20 05:15 05/27/20 Phosphorus 3.8 mg/dL (2.5-4.9) 05/20/20 05:25 05/20/20 BUN 16 mg/dL (4-19) 05/27/25 14:39 05/27/25 Creatinine 1.02 mg/dL (0.70-1.20) 05/27/25 14:39 05/27/25 Glucose 192 mg/dL (70-99) H 05/27/25 14:39 05/27/25 POC Glucose 128 mg/dL (74-106) H 05/30/24 10:41 05/30/24 TSH 1.010 uIU/mL (0.300-4.200) 05/27/25 14:39 05/27/25 COAG PT 13.9 SECONDS (11.7-14.9) 10/24/24 11:18 10/24/24 Pre-Assessment Diagnosis/Proposed Procedure Planned Operative Procedure(s): EGD Anesthesia History 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 When Was Last Pacemaker Check QUESTION #4 FULL TEXT: You/Your Family Experience fever (hyperthermia) with Anesthesia Last Oral Intake Last Oral intake: Last Oral Intake NPO since 03:00 08/06/25 12:00 Meds taken in AM with sips of No 08/06/25 12:00 water? Meds patient instructed to take am of surgery Any additional information?: Yes NPO since: 03:00 (Patient had some water at 3 AM.) Meds taken in AM with sips of water?: No PONV PONV - mainspring reverse winder: PONV - mainspring reverse winder Female Yes 08/01/25 15:39 HX of Motion Sickness No 08/01/25 15:39 HX of N/V After Surgery No 08/01/25 15:39 Non-Smoker Yes 08/01/25 15:39 Duration of Surgery greater No 08/01/25 15:39 than 60 minutes Number of Risk Factors 2 08/01/25 15:39 PONV Score Moderate Risk 08/01/25 15:39 Height & Weight Height & Weight: Anesthesia: Height & Weight Height 5 ft 1 in 08/06/25 12:00 Weight: 97.4 kg 08/06/25 12:00 Body Mass Index (BMI) 40.6 08/06/25 12:00 Respiratory Assessment Respiratory Assessment - mainspring reverse winder: Respiratory Tract Infection Hx - mainspring reverse winder Hx Respiratory Tract Infection No 08/01/25 15:39 STOP Sleep Apnea STOP Sleep Apnea - mainspring reverse winder: STOP Sleep Apnea - mainspring reverse winder Hx Hypertension Yes: ON MEDS 08/01/25 15:39 Hx Sleep Apnea Yes 08/01/25 15:39 CPAP Yes: NON COMPLIANT 08/01/25 15:39 BIPAP No 08/01/25 15:39 Do you snore loudly (louder than talking or can be heard Do you often feel tired/ fatigued/ sleepy during daytime? Has anyone observed you stop breathing during sleep? STOP Results Positive 08/01/25 15:39 QUESTION #5 FULL TEXT : Do you snore loudly (louder than talking or can be heard through closed doors)? 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 Specify any problems Hx of Preganancy in last 3 No 08/01/25 15:39 Months Nurse Filling Out Transfusion JZOLLINGE 08/01/25 15:39 & Questions: Date: 08/01/25 08/01/25 15:39 Time: 15:41 08/01/25 15:39 Patient unable to answer at this time (ie. confused, unrespo /Reproduction History /Reproductive History - mainspring reverse winder: /Reproductive Hx- mainspring reverse winder Hx Now No 08/01/25 15:39 Gestational Age (in weeks): EDC: Hx Hx Para Hx Section SAB No 08/01/25 15:39 Active Medications Active Medications: Current Medications Generic Name Dose Route Start Last Admin Trade Name Aliya PRN Reason Stop Dose Admin Lactated Ringer's 1,000 mls @ 15 mls/hr 08/06/25 11:30 08/06/25 12:04 IV 15 mls/hr .Q48H CHARBEL Administration PFSH Medical History Wears partial dentures Fatty liver Hemorrhoids Esophagitis, unspecified Wears glasses Post-menopausal Cancer Alcohol use Ambulates with cane Insulin dependent diabetes mellitus Bladder disease Prolapsed, intestine High cholesterol Easy bruising Back pain Migraine headache Injury of head and neck Fainted Dietary restriction Difficulty swallowing History of hiatal hernia History of IBS Gastric reflux Former smoker CPAP (continuous positive airway pressure) dependence Shortness of breath on exertion History of pain when walking History of edema History of echocardiogram History of stress test Cardiology follow-up encounter History of irregular heartbeat Ectopic cardiac beats Essential hypertension DDD (degenerative disc disease), lumbar Premature atrial contractions Syncope and collapse Hyperlipidemia Gout Depression Home Medications ?Medication ?Instructions ?Recorded ?Last Taken ?Type allopurinol 300 mg tablet 300 mg PO QDAY Check with primary 12/21/17 12/15/23 History doctor atorvastatin 40 mg tablet 40 mg PO QHS Check with primary 12/21/17 12/15/23 History doctor citalopram 20 mg tablet 20 mg PO QDAY Check with primary 12/21/17 12/16/23 History doctor pioglitazone 30 mg tablet 30 mg PO QDAY Check with primary 12/23/17 12/15/23 History doctor lisinopril 5 mg tablet 2.5 mg PO DAILY 07/24/20 05/30/24 History glimepiride 4 mg tablet 4 mg PO BID 04/15/21 12/15/23 History cholecalciferol (vitamin D3) 1,250 1,250 mcg PO QWEEK 4 weeks #4 tabs 10/24/24 Unknown Rx mcg (50,000 unit) tablet semaglutide 0.25 mg or 0.5 mg (2 0.5 mg (0.736 mL) subcut QWEEK 1 02/06/25 07/26/25 Rx mg/3 mL) subcutaneous pen injector month #3.68 mL fesoterodine 8 mg tablet,extended 8 mg PO QDAY 04/17/25 Unknown History release 24 hr phenazopyridine 200 mg tablet 200 mg PO TID PRN PRN pain 08/01/25 Unknown History Allergy/AdvReac Type Severity Reaction Status Date / Time minoxidil (From Rogaine) AdvReac Unknown Unknown Verified 08/06/25 11:58 Corticosteroids AdvReac Hyperglycem Verified 08/06/25 11:58 (Glucocorticoids) (steroids) ia Family History Mother , Age 93-cva Heart disease CVA (cerebral vascular accident) Hypertension Hyperlipidemia Pacemaker Grandfather Myocardial infarction Grandmother CVA (cerebral vascular accident) Hypertension Surgical History H/O dilation and curettage H/O hernia repair History of surgery History of cardiac catheterization History of lumbar fusion Hx of right cataract extraction Hx of left cataract extraction Hx of colonoscopy S/P Botox injection History of hip surgery History of tonsillectomy History of umbilical hernia repair History of cholecystectomy History of knee replacement procedure of right knee History of knee replacement procedure of left knee Social History household members: spouse current occupational status: retired Smoking Status: Former smoker how long ago did patient quit smokin-40 years ago alcohol intake: never substance use type: does not use caffeine: Yes Type: coffee seatbelt use: always do you feel safe at home: Yes additional social history: - Jair Review of Systems (Anesthesia) ROS Narrative System reviewed and no additional complaints, except as documented.
--- NOTE | 2025-08-06 12:21 | HP.PCM_ITS ---
HPI - General General Date of Admission: 08/06/25 Date of Service: 08/06/25 Chief Complaint: abdominal pain HPI Narrative KISHA COSBY, is a 80 F who presents for evaluation of abdominal pain PCP referred for Fatty Liver. Pt she has had fatty liver for many years. Pt sees Urology who mentioned her liver was enlarged on previous CT scan in December. Pt reports having intermittent RUQ pain. Pain is worse when eating. Also feels bloated after meals. BM are normal once a day. US abd/ elastography 3.4.24- Liver measures 15.5cm Stiffness 7.4 kPa 6.26.24- Fib-4 1.34 US abd/ elastography 10.9.24- Liver measures 14.1cm Stiffness 6.9 kPa Gastric Emptying Study 11.27.24- Normal 33.01 minutes 11.27.24- Fib-4 0.96 OV 12.19.24- Pt well since last visit. complained of mild abdominal discomfort/pain and bloating sensation which is getting more frequent. Couple weeks ago it was once or twice a month but recently increased to 3-4 times a month. She also feels reflux symptoms including sour/bitter taste. Feels food stays in the stomach for longer time. Possibility of gastroparesis most likely due to left mellitus type II and obesity. Fib 4 score 0.96. Agile 3+ = 0.59, Which in indeterminate range. Pt states she has been having bladder issues and is trying find a new Urologist. States she took the Rezdiffra for a month and it gave her a rash. Prescription of semaglutide 0.25 mg once weekly ordered and sent to [facility] and [facility]. Advised to go very slowly with the small increment in semaglutide. on metformin and pioglitazone in for DM type II which indirectly helps in decreasing fatty liver and improving fibrosis. Patient also has WEI on CKD with increan OV 3.12.25 Increased constipation, attributes to Ozempic. Continued excessive flatus and abdominal sounds. Occ heartburn. Continued intermittent rash even she discontinue Resmitrom. Complain of intermittent burning pain for about 3 weeks she has chronic urinary incontinence and suprapubic bladder and follows urologist in [place]. OV 5.21.25: Pt is having pain in upper right of her stomach through Tuesday and started back up Tuesday. She stated has abdominal pain which is mainly across the upper abdomen, constant, usually mild but sometimes goes 8/10 intensity with no difference to food. Her abdominal pain again started on Tuesday and got better on Tuesday and then again started on Tuesday and went away on the same day. Feels like bloating and belching. She is moving her bowels 1- 2 times a day soft, denies liquid but sometimes hard. No blood or mucus.The itching is on her hands and arms. Pt stated she has no energy and very fatigue , never been tested for lupus but daughter has lupus. [facility] Medical History Wears partial dentures Fatty liver Hemorrhoids Esophagitis, unspecified Wears glasses Post-menopausal Cancer Alcohol use Ambulates with cane Insulin dependent diabetes mellitus Bladder disease Prolapsed, intestine High cholesterol Easy bruising Back pain Migraine headache Injury of head and neck Fainted Dietary restriction Difficulty swallowing History of hiatal hernia History of IBS Gastric reflux Former smoker CPAP (continuous positive airway pressure) dependence Shortness of breath on exertion History of pain when walking History of edema History of echocardiogram History of stress test Cardiology follow-up encounter History of irregular heartbeat Ectopic cardiac beats Essential hypertension DDD (degenerative disc disease), lumbar Premature atrial contractions Syncope and collapse Hyperlipidemia Gout Depression Home Medications ?Medication ?Instructions ?Recorded ?Last Taken ?Type allopurinol 300 mg tablet 300 mg PO QDAY Check with heidi alford 12/21/17 12/15/23 History doctor atorvastatin 40 mg tablet 40 mg PO QHS Check with lizbet olivia 12/21/17 12/15/23 History doctor citalopram 20 mg tablet 20 mg PO QDAY Check with dylon vega 12/21/17 12/16/23 History doctor pioglitazone 30 mg tablet 30 mg PO QDAY Check with dylon vega 12/23/17 12/15/23 History doctor lisinopril 5 mg tablet 2.5 mg PO DAILY 07/24/2002/18 History glimepiride 4 mg tablet 4 mg PO BID 04/15/21 4 History cholecalciferol (vitamin D3) 1,250 1,250 mcg PO QWEEK 4 weeks #4 tabs 10/24/24 Unknown Rx mcg (50,000 unit) tablet semaglutide 0.25 mg or 0.5 mg (2 0.5 mg (0.736 mL) sub cut QWEEK 1 02/06/25 07/26/25 Rx mg/3 mL) subcutaneous pen injector month #3.68 mL fesoterodine 8 mg tablet,extended 8 mg PO QDAY 5 Unknown History release 24 hr phenazopyridine 200 mg tablet 200 mg PO TID PRN PRN pa in 08/01/25 Unknown History Allergy/AdvReac Type Severity Reaction Status Date / Time minoxidil (From Rogaine) AdvReac Unknown Unknown Verified 08/06/25 11:58 Corticosteroids AdvReac Hyperglycem Verified 08/06/25 11:58 (Glucocorticoids) (steroids) ia Family History Mother , Age 93-cva Heart disease CVA (cerebral vascular accident) Hypertension Hyperlipidemia Pacemaker Grandfather Myocardial infarction Grandmother CVA (cerebral vascular accident) Hypertension Surgical History H/O dilation and curettage H/O hernia repair History of surgery History of cardiac catheterization History of lumbar fusion Hx of right cataract extraction Hx of left cataract extraction Hx of colonoscopy S/P Botox injection History of hip surgery History of tonsillectomy History of umbilical hernia repair History of cholecystectomy History of knee replacement procedure of right knee History of knee replacement procedure of left knee Social History household members: spouse current occupational status: retired Smoking Status: Former smoker how long ago did patient quit smokin-40 years ago alcohol intake: never substance use type: does not use caffeine: Yes Type: coffee seatbelt use: always do you feel safe at home: Yes additional social history: - Jair JULIET Constitutional Constitutional: Denies fatigue, fever(s), poor appetite, weight gain or weight loss Gastrointestinal Gastrointestinal: Denies belching, bloating, change in bowel habits, change in stool character, chewing difficulty, coffee ground emesis, constipation, cramping, diarrhea, dyspepsia, dysphagia, early satiety, excessive flatus, fecal incontinence, heartburn, hematemesis, hematochezia, hemorrhoids, loose stools, melena, nausea, odynophagia, rectal bleeding, tenesmus, vomiting or weight changes Vital Signs Vital Signs Vital Signs: 08/06/25 12:00 08/06/25 12:00 Temperature 98.3 F Temperature Source Temporal Pulse Rate 80 Respiratory Rate 18 Respiratory Pattern Normal Blood Pressure 162/66 H Blood Pressure Mean 98 Blood Pressure Source Monitor Blood Pressure Position Semi-Fowlers Blood Pressure Location Left Arm Pulse Ox 96 Oxygen Delivery Method Room Air Weight Weight: 214 lb 11.684 oz Body Mass Index (BMI) 40.6 Physical Exam Const alert, oriented x3, no apparent distress and healthy appearing General Appearance: cooperative GI normal to inspection, nondistended, normoactive bowel sounds, soft to palpation, non-tender and non-distended Percussion: normal to percussion Rectal Exam: deferred Assessment & Plan Assessment/Plan (1) GERD (gastroesophageal reflux disease): (2) Gastroparesis: PLAN: Assessment and Plan Assessment and Plan (1) 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 Increased echogenicity consistent with fatty infiltration. No demonstrated mass. Bile ducts within normal limit. Median liver stiffness 7.4 kPa. It is more suggestive of F1?F2 mild to moderate liver fibrosis Metavir score. Liver ultrasound with elastography in September 20 shows median liver stiffness 6.9 kPa. Liver size 14.1 cm. Currently on semaglutide 0.5 milligrams subcu weekly. Patient has itching and dry skin which is persistent. After long discontinuation of Rezdiffra, I do not think respiratory history from. Advised follow-up with PCP/magisterial district judge to workup for lupus/other autoimmune disease. JEFFERY screen anti-Ratliff antibody and other autoimmune panel were negative before. Hematology panel does not show pancytopenia Serum ELF test ordered. Liver ultrasound with elastography ordered before next visit She can take Tylenol 1 g twice daily as needed for severe pain but not more than 3 g in 1 day (2) Morbid obesity: Status: Chronic (3) GERD (gastroesophageal reflux disease): Status: Acute Orders: Orders [facility] Misc. 2 Months ABD Limited w/ Elastography 4 Months K21.9 - Gastro-esophageal reflux disease without esophagitis, K75.81 - Nonalcoholic steatohepatitis (MEJIA) Medications: New pantoprazole Take 1 hour before breakfast. 40 mg PO .breakfast 1 month 30 tabs 2RF Plan The patient has signs and symptoms of GERD with heartburn reflux and abdominal discomfort and pain in upper abdomen. She did not had EGD at least in the last several years. Pantoprazole prescribed. EGD to be scheduled. Patient already had labs ordered and not done.
[2025-08-06 12:26] VITALS: BP 162/66; PULSE 80; RESP 18; TEMP 36.8; O2SAT 96
--- NOTE | 2025-08-06 12:30 | EGD_PTH ---
PATIENT: KISHA COSBY LOC: EN U#:[id number] AGE/SX: 80/F ROOM: RE08/06/[address]: Dr. Miles Bowie DO : 1945 BED: DIS: 08/06/2025 SPEC #: [id number] RECD: 08/06/25 14:56 STATUS: JORGE L REMarnie #: [id number] PEEWEE: 08/06/25 12:[address]: Miles Bowie DEPT: SURGICAL PATHOLOGY RECD BY: Shane Scott ENTERED: 08/06/25 16:13 SP TYPE: EGD BIOPSY BLANCA DR: Dr. Yared Gan MD Tissues: A - Gastric mucous membrane B - Esophagus, NOS Procedures: Immunohistochemical Stains Surgery Specimen Level IV HEADER OPERATION: EGD, biopsy PRE-OP DIAGNOSIS: LIZ, morbid obesity, GERD TISSUE SUBMITTED: A- Gastric body ulcer biopsy, B- Distal esophagus biopsy MICROSCOPIC DIAGNOSIS A. Gastric body, ulcer, biopsy: - Oxyntic mucosa with chronic gastritis. - IHC negative for H .pylori organisms. B. Distal esophagus, biopsy: - Squamous mucosa with reactive changes and rare eosinophil. - Columnar mucosa negative for goblet cell metaplasia. MICROSCOPIC DESCRIPTION Slides are reviewed. All matched controls reacted appropriately. These tests were developed and their performance characteristics determined by [facility]. They may not have been cleared or approved by the U.S. Food and Drug Administration. The FDA has determined that such clearance or approval is not necessary.? The above immunohistochemical?markers and/or special stains have been reviewed by the Pathologist. GROSS DESCRIPTION A. Received in fixative is one container labeled with the patient's name and designated Gastric body biopsy. The specimen consists of multiple irregular fragments of light andres soft tissue that in aggregate measure 1 x 0.5 x 0.1 cm. The specimen is totally submitted in one cassette. B. Received in fixative is one container labeled with the patient's name and designated Distal esophagus biopsy. The specimen consists of four irregular fragments of light andres soft tissue that measure <0.1 to 0.5 cm. Smallest fragments may not survive processing. The specimen is totally submitted in one cassette. LA 08/06/2025 CPT:[id number]
[2025-08-06 13:13] VITALS: BP 152/67; BP 162/66; PULSE 87; RESP 16; TEMP 36.9; O2SAT 93
[2025-08-06 13:15] VITALS: BP 142/59; BP 152/67; BP 162/66; PULSE 79; PULSE 89; RESP 16; RESP 18; TEMP 36.9; O2SAT 100; O2SAT 93
--- NOTE | 2025-08-06 13:15 | PCM.POST.ANE ---
Anesthesia: Postop Eval I Current Vital Signs Temperature: 98.5 F Pulse Rate: 89 Blood Pressure: 152/67 Respiratory Rate: 18 Pulse Ox: 93 Assessment Airway patent: Yes Spontaneous unlabored respirations: Yes nausea: No Vomiting: No Anesthesia Complication: No Fluid Hydration Crystalloid volume administer (ml): 200 Total IV fluid infused: 200 Progress Note Anesthesia document: Postop Eval 1 completed: Yes
--- NOTE | 2025-08-06 13:16 | OP.PROVAT_ITS ---
08/06/2025 Yared Gan MD [address] [place] [address] Re : Upper GI endoscopy procedure for Geneva Goode Dear Dr. Gan This procedure was performed on Wednesday, August 06, 2025. My impressions and recommendations are as follows: Impressions : - Z-line irregular, 40 cm from the incisors. Biopsied. - Non-bleeding gastric ulcer with no stigmata of bleeding. Biopsied. - Normal examined duodenum. Biopsied. Recommendations : - Discharge patient to home. - Resume previous diet. - Continue present medications. - Await pathology results. - Omeprazole 20 mg twice daily My findings are described in the full procedure note, which is enclosed. If I can be of further assistance, please feel free to contact me at . Sincerely, Miles Bowie, 08/06/2025 1:16:03 PM This report has been signed electronically.
--- NOTE | 2025-08-06 13:16 | OP.EGD_ITS ---
Patient Name: Geneva Goode Procedure Date: 08/06/2025 12:56 PM Date of : 1945 Age: 80 Procedure: Upper GI endoscopy Indications: Epigastric abdominal pain, Heartburn Providers: Miles Bowie DO Referring MD: Yared Gan MD Medicines: Monitored Anesthesia Care Complications: No immediate complications. Procedure: Pre-Anesthesia Assessment: - Prior to the procedure, a History and Physical was performed, and patient medications and allergies were reviewed. The patient is competent. The risks and benefits of the procedure and the sedation options and risks were discussed with the patient. All questions were answered and informed consent was obtained. Patient identification and proposed procedure were verified by the physician in the pre-procedure area. Mental Status Examination: alert and oriented. Airway Examination: normal oropharyngeal airway and neck mobility. Respiratory Examination: clear to auscultation. CV Examination: normal. Prophylactic Antibiotics: The patient does not require prophylactic antibiotics. Prior Anticoagulants: The patient has taken no anticoagulant or antiplatelet agents. ASA Grade Assessment: II - A patient with mild systemic disease. After reviewing the risks and benefits, the patient was deemed in satisfactory condition to undergo the procedure. The anesthesia plan was to use monitored anesthesia care (MAC). Immediately prior to administration of medications, the patient was re-assessed for adequacy to receive sedatives. The heart rate, respiratory rate, oxygen saturations, blood pressure, adequacy of pulmonary ventilation, and response to care were monitored throughout the procedure. The physical status of the patient was re-assessed after the procedure. After obtaining informed consent, the endoscope was passed under direct vision. Throughout the procedure, the patient's blood pressure, pulse, and oxygen saturations were monitored continuously. The Endoscope was introduced through the mouth, and advanced to the third part of the duodenum. Small bowel enteroscopy was deemed necessary. The upper GI endoscopy was accomplished without difficulty. The patient tolerated the procedure well. Scope In: 1:03:30 PM Scope Out: 1:07:19 PM Total Procedure Duration Time 0 hours 3 minutes 49 seconds Findings: The Z-line was irregular and was found 40 cm from the incisors. Biopsies were taken with a cold forceps for histology. Verification of patient identification for the specimen was done. Estimated blood loss was minimal. One non-bleeding cratered gastric ulcer with no stigmata of bleeding was found in the gastric body. The lesion was 7 mm in largest dimension. Biopsies were taken with a cold forceps for histology. Biopsies were taken with a cold forceps for Helicobacter pylori testing. Verification of patient identification for the specimen was done. Estimated blood loss was minimal. The examined duodenum was normal. Biopsies were taken with a cold forceps for histology. Verification of patient identification for the specimen was done. Estimated blood loss was minimal. Impression: - Z-line irregular, 40 cm from the incisors. Biopsied. - Non-bleeding gastric ulcer with no stigmata of bleeding. Biopsied. - Normal examined duodenum. Biopsied. Recommendation: - Discharge patient to home. - Resume previous diet. - Continue present medications. - Await pathology results. - Omeprazole 20 mg twice daily Procedure Code(s): --- Professional --- 75097, Small intestinal endoscopy, enteroscopy beyond second portion of duodenum, not including ileum; with biopsy, single or multiple CPT copyright 2021 [employer]. All rights reserved. The codes documented in this report are preliminary and upon dam operator review may be revised to meet current compliance requirements. Miles Bowie DO 08/06/2025 1:16:03 PM This report has been signed electronically. Number of Addenda: 0 Note Initiated On: 08/06/2025 12:56 PM
[2025-08-06 13:20] VITALS: BP 145/63; BP 162/66; PULSE 77; RESP 16; TEMP 37; O2SAT 96
[2025-08-06 13:55] VITALS: BP 162/66
--- NOTE | 2025-08-06 18:50 | POSTOPAN2_ITS ---
Anesthesia Postop Eval I Sum Postop Eval Completion status Anesthesia document: Postop Eval 1 completed: Yes Anesthesia Postop Eval I Summary Anesthesia Postop Eval I Summary: Anesthesia Postop Eval I: Assessment Summary Airway patent Yes 08/06/25 13:15 UNDERWRITING SERVICE REPRESENTATIVE.CSIR Spontaneous unlabored Yes 08/06/25 13:15 UNDERWRITING SERVICE REPRESENTATIVE.CSIR respirations Mental status nausea No 08/06/25 13:15 UNDERWRITING SERVICE REPRESENTATIVE.CSIR Vomiting No 08/06/25 13:15 UNDERWRITING SERVICE REPRESENTATIVE.CSIR Anesthesia Postop Eval I: Fluid Summary Crystalloid volume administer 200 08/06/25 13:15 UNDERWRITING SERVICE REPRESENTATIVE.CSIR (ml) Colloids volume administered ( ml) Blood Product volume administered (ml) Total IV fluid infused 200 08/06/25 13:15 UNDERWRITING SERVICE REPRESENTATIVE.CSIR Anesthesia Postop Eval I: Summary Notes Anesthesia Complication No 08/06/25 13:15 UNDERWRITING SERVICE REPRESENTATIVE.CSIR Anesthesia Complication Comment: Post-operative progress note Anesthesia: Postop Eval II Evaluation Mental status: Awake and Calm Pain Level: 0 nausea: No Vomiting: No Complications Anesthesia Complication: No
--- NOTE | 2025-08-06 18:50 | PCM.POSTANE2 ---
Anesthesia Postop Eval I Sum Postop Eval Completion status Anesthesia document: Postop Eval 1 completed: Yes Anesthesia Postop Eval I Summary Anesthesia Postop Eval I Summary: Anesthesia Postop Eval I: Assessment Summary Airway patent Yes 08/06/25 13:15 TROUBLE [email or web address].[email or web address] Spontaneous unlabored Yes 08/06/25 13:15 TROUBLE OPERATOR.CSIR respirations Mental status nausea No 08/06/25 13:15 TROUBLE OPERATOR.CSIR Vomiting No 08/06/25 13:15 TROUBLE OPERATOR.CSIR Anesthesia Postop Eval I: Fluid Summary Crystalloid volume administer 200 08/06/25 13:15 TROUBLE OPERATOR.CSIR (ml) Colloids volume administered ( ml) Blood Product volume administered (ml) Total IV fluid infused 200 08/06/25 13:15 TROUBLE OPERATOR.CSIR Anesthesia Postop Eval I: Summary Notes Anesthesia Complication No 08/06/25 13:15 TROUBLE OPERATOR.CSIR Anesthesia Complication Comment: Post-operative progress note Anesthesia: Postop Eval II Evaluation Mental status: Awake and Calm Pain Level: 0 nausea: No Vomiting: No Complications Anesthesia Complication: No
== END 2025-08-06 13:58 | disposition home or self-care (01) ==
LOC: EN 11:18 → AC 11:20
PROVIDERS: PCP Family Medicine Geriatric Medicine; Referring Provider Family Medicine Geriatric Medicine; Visit Provider Internal Medicine Gastroenterology
PROC: 0DJ08ZZ Inspection of Upper Intestinal Tract, Via Natural or Artificial Opening Endoscopic (ICD-10-PCS; CPT 43235; principal; 2025-08-06 12:25)
DX: K25.9 Gastric ulcer, unspecified as acute or chronic, without hemorrhage or perforation (principal); E66.01 Morbid (severe) obesity due to excess calories; E11.43 Type 2 diabetes mellitus with diabetic autonomic (poly)neuropathy; E11.22 Type 2 diabetes mellitus with diabetic chronic kidney disease; K31.84 Gastroparesis; K21.9 Gastro-esophageal reflux disease without esophagitis; Z87.891 Personal history of nicotine dependence; Z79.84 Long term (current) use of oral hypoglycemic drugs; E78.00 Pure hypercholesterolemia, unspecified; N18.9 Chronic kidney disease, unspecified; I12.9 Hypertensive chronic kidney disease with stage 1 through stage 4 chronic kidney disease, or unspecified chronic kidney disease; Z79.85 Long-term (current) use of injectable non-insulin antidiabetic drugs; K75.81 Nonalcoholic steatohepatitis (NASH); Z79.899 Other long term (current) drug therapy; K29.50 Unspecified chronic gastritis without bleeding
CPT/HCPCS: 44361; 82962; 88305; 88342; J2405

== ENCOUNTER → 2025-08-19 | Outpatient (CLI) | payer MEDICARE, OTHER, SELFPAY ==
--- NOTE | 2025-08-19 09:14 | US_ITS ---
PROCEDURE: ABD LIMITED W/ ELASTOGRAPHY REASON FOR EXAM: LIVER FIBROSIS, UPPER ABD PAIN COMPARISON: Prior study dated September 05, 2024. TECHNIQUE: Procedure Code: [id number] Modality: US Procedure: ABD LIMITED W/ ELASTOGRAPHY Right upper quadrant abdominal ultrasound. [facility] ElastQ Imaging shear wave elastography for non-invasive assessment of liver tissue stiffness. Gregory EPIQ Elite. FINDINGS: LIVER: Size: Unremarkable Length: 14 cm Echotexture: Diffusely echogenic suggesting fatty infiltration Contour: Normal Lesions: None identified Elastography: EQI Med: 5.8 kPa EQI Med Nelson: 1.38 m/s IQR/Med: 22.8 %* GALLBLADDER: Surgically absent. COMMON BILE DUCT: Dilated measuring up to 9 mm. This is upper limits of normal for status post cholecystectomy state. . PANCREAS: Normal Visualized portions of the right kidney are unremarkable. No right upper quadrant ascites. US/ABD Limited w/ Elastography IMPRESSION: Mild hepatic fibrosis. Diffuse fatty infiltration of the liver. Status post cholecystectomy. Reference Values: SRU <1.37 m/s (5.7kPa): No to mild fibrosis 1.37 m/s - 2.2 m/s: Moderate to severe fibrosis >2.2 m/s (15kPa): Significant fibrosis / cirrhosis METAVIR Score F2 or higher: 1.34 m/s (5.7kPa) F3 or higher: 1.55 m/s (7.3kPa) F4: 1.80 m/s (10kPa) * If the IQR/Med is >30%, the variance in the measurements is a large and the a ccuracy of the measurement may be in question. Reading Location: [place] [id number]
== END | disposition home or self-care (01) ==
LOC: US 09:11
PROVIDERS: PCP Family Medicine Geriatric Medicine; Referring Provider Internal Medicine; Visit Provider Internal Medicine
DX: K75.81 Nonalcoholic steatohepatitis (NASH) (principal); K21.9 Gastro-esophageal reflux disease without esophagitis
CPT/HCPCS: 76705; 76981

== ENCOUNTER → 2025-08-26 | Outpatient (CLI) | payer MEDICARE, OTHER, SELFPAY ==
[2025-08-26 13:56] LABS: Hematocrit 39.4 % (37-47); Hemoglobin 12.6 g/dL (12.0-15.0); Immature Granulocytes Count 0.030 X10^3/uL (0.0-0.0); Mean Corp Hgb Conc 32.0 g/dL (32-36); Mean Corpuscular Volume 97.8 fL (81-99); Mean Platelet Vol. 11.3 fl (6.2-12.0); NRBC Flagged by Analyzer 0 % (0-5); Platelet Count 264 K/mm3 (150-450); RBC Distribution Width CV 13.8 % (11.6-14.6); RBC Distribution Width SD 49.7 fl (35.1-43.9); Red Blood Count 4.03 M/mm3 (4.2-5.4); White Blood Count 9.5 K/mm3 (4.4-11.0)
[2025-08-26 15:52] LABS: Vitamin D,25 Hydroxy 38.4 ng/mL (30-100)
[2025-08-26 16:10] LABS: AST(SGOT) 27 U/L (<=31); Alanine Aminotransfer ALT/SGPT 22 U/L (<=34); Albumin, Serum 3.8 g/dL (3.4-4.8); Alkaline Phosphatase 88 U/L (35-104); Anion Gap 15 (5-15); BUN 28 mg/dL (4-19); BUN/Creat Ratio 24.6 RATIO (10-20); Calcium,Total 9.4 mg/dL (7.6-11.0); Carbon Dioxide 20.0 mmol/L (21.0-32.0); Chloride 102 mmol/L (98-108); Globulin 3.1 g/dL (2.2-4.2); Glucose 171 mg/dL (70-99); Potassium 4.4 mmol/L (3.3-5.1)
[2025-08-26 21:47] LABS: Xtra Tube Kwok EXTRA TUBE
== END | disposition home or self-care (01) ==
LOC: POLAB3 13:43
PROVIDERS: PCP Family Medicine Geriatric Medicine; Visit Provider Family Medicine Geriatric Medicine
DX: I10 Essential (primary) hypertension (principal); E03.9 Hypothyroidism, unspecified; E55.9 Vitamin D deficiency, unspecified
CPT/HCPCS: 36415; 80053; 82306; 84443; 85025

== ENCOUNTER → 2025-10-11 | Outpatient (CLI) | payer MEDICARE, OTHER, SELFPAY | END | disposition home or self-care (01) | LOC: LABSPEC 14:49 | PROVIDERS: PCP Family Medicine Geriatric Medicine; Visit Provider Family Medicine Geriatric Medicine | DX: N39.0 Urinary tract infection, site not specified (principal) | CPT/HCPCS: 87077; 87086; 87088; 87186 ==